=== PATIENT | male | born 1940 | race African-American/Black ===

== ENCOUNTER 2018-11-19 09:17 | Emergency (ER) | payer MEDICARE ==
[2018-11-19 09:49] VITALS: BP 190/104
[2018-11-19] MEDS ORDERED: TYLENOL PO ONE (10:36)
[2018-11-19] MEDS ORDERED: CATAPRES PO ONE (10:40)
--- NOTE | 2018-11-19 10:46 | Emergency Department Report ---
ED General Adult HPI - General Chief complaint: Shoulder Injury Stated complaint: PAIN LFT UNDERARM Time Seen by Provider: 11/19/18 10:31 Source: patient Mode of arrival: Ambulatory Limitations: Language Barrier - History of Present Illness Initial comments: Mr. Isaacs is a 78-year-old Citizen Of The [place] speaking male who presents with family member who provided Language interpretation according to patient's wishes. He presents with pain bruising at the left chest, arm shoulder. No history of fall or trauma. Takes aspirin but no other anticoagulants according to medication reviewed at the bedside. Gradual onset of pain several days ago. Mild pain with movement. No other associated injuries. Constant pain. -: Gradual, days(s) (2) Location: chest, left, upper extremity Consistency: constant Improves with: none Worsens with: movement Associated Symptoms: rash - Related Data Home Medications Medication Instructions Recorded Confirmed Last Taken Aspirin [Aspirin BABY CHEW TAB] 81 mg PO QDAY 05/07/14 05/07/14 05/06/14 Carvedilol [Coreg] 25 mg PO BID 05/07/14 05/07/14 05/06/14 amLODIPine [Norvasc] 5 mg PO DAILY 05/07/14 05/07/14 05/06/14 cloNIDine [Catapres] 0.1 mg PO BID 05/07/14 05/07/14 05/06/14 Previous Rx's Medication Instructions Recorded Last Taken Type Pseudoephedrine [Sudafed] 30 mg PO Q6HR PRN #15 tablet 05/07/14 Unknown Rx guaiFENesin 400 mg PO TID #15 tablet 05/07/14 Unknown Rx Allergies Allergy/AdvReac Type Severity Reaction Status Date / Time No Known Allergies Allergy Unverified 05/07/14 01:13 ED Review of Systems ROS: Stated complaint: PAIN LFT UNDERARM Other details as noted in HPI Comment: All other systems reviewed and negative Constitutional: denies: fever, malaise Skin: rash, lesions, change in color ED Past Medical Hx - Past Medical History Previous Medical History?: Yes Hx Hypertension: Yes Additional medical history: AAA - Surgical History Additional Surgical History: AAA repair - Social History Smoking Status: Never Smoker Substance Use Type: None - Medications Home Medications: Home Medications Medication Instructions Recorded Confirmed Last Taken Type Aspirin [Aspirin BABY CHEW TAB] 81 mg PO QDAY 05/07/14 05/07/14 05/06/14 History Carvedilol [Coreg] 25 mg PO BID 05/07/14 05/07/14 05/06/14 History Pseudoephedrine [Sudafed] 30 mg PO Q6HR PRN #15 tablet 05/07/14 Unknown Rx amLODIPine [Norvasc] 5 mg PO DAILY 05/07/14 05/07/14 05/06/14 History cloNIDine [Catapres] 0.1 mg PO BID 05/07/14 05/07/14 05/06/14 History guaiFENesin 400 mg PO TID #15 tablet 05/07/14 Unknown Rx ED Physical Exam - General Limitations: Language Barrier General appearance: alert, in no apparent distress - Head Head exam: Present: atraumatic, normocephalic - Eye Eye exam: Present: normal appearance - ENT ENT exam: Present: mucous membranes moist - Neck Neck exam: Present: normal inspection, full ROM - Respiratory Respiratory exam: Present: normal lung sounds bilaterally. Absent: respiratory distress, wheezes, rales, rhonchi - Cardiovascular Cardiovascular Exam: Present: regular rate, normal rhythm, normal heart sounds. Absent: systolic murmur, diastolic murmur, rubs, gallop - GI/Abdominal GI/Abdominal exam: Present: soft, normal bowel sounds. Absent: distended, guarding, rebound - Rectal Rectal exam: Present: normal inspection, normal rectal tone, heme (-) stool, other (Brown stool Hemoccult negative) - Extremities Exam Extremities exam: Present: normal inspection - Back Exam Back exam: Present: normal inspection - Neurological Exam Neurological exam: Present: alert, oriented X3 - Psychiatric Psychiatric exam: Present: normal affect, normal mood - Skin Skin exam: Present: warm, dry, intact. Absent: rash - Other Other exam information: Extensive bruising ecchymoses left mid axillary region chest into the lower flank, bruising in the medial region of the left arm. Full range of motion in both shoulders. There is a surgical scar overlying the right shoulder. No obvious deformity in any extremity. No point tenderness. ED Course Vital Signs 11/19/18 11/19/18 09:47 10:45 Temperature 97.7 F Pulse Rate 72 72 Respiratory 20 Rate Blood Pressure 190/104 190/104 O2 Sat by Pulse 100 Oximetry ED Medical Decision Making - Lab Data Result diagrams: 11/19/18 11:07 11/19/18 11:07 - Medical Decision Making Mr. Isaacs has extensive bruising of the left arm left flank. Concern for fall. Concern for trauma. Considering patient is elderly. CT head and chest were obtained. The bruising appeared old. Severe hypertension noted in the ED, patient was given his home dose of clonidine I reviewed labs notable for severe anemia which is changed from 2015. GFR slightly decreased with elevated BUN. INR elevated at 1.3. With these findings concerning for malignancy, chronic GI blood loss, trauma, anemia of chronic illness such as kidney disease. CKD has progressed since 2015. GFR 34. Patient appears well, energetic. He is walking briskly. Suspect subacute process which would account for these findings. He is appropriate for discharge. CT scan abdomen and pelvis chest revealed chronic aortic dissection would aortic aneurysm no signs of rupture. Benign renal cysts. 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 It appears that he had seen Dr. Kaur the past according to electronic medical record. Also referred to overnight babysitter. Critical care attestation.: If time is entered above; I have spent that time in minutes in the direct care of this critically ill patient, excluding procedure time. ED Disposition Clinical Impression: CKD (chronic kidney disease), Chronic dissection of thoracic aorta, Anemia, Bruising, Flank pain, Hypertensive urgency Disposition: -01 TO HOME OR SELFCARE Is pt being admited?: No Does the pt Need Aspirin: No Condition: Stable Additional Instructions: You will need to see your primary doctor, kidney doctor and stomach doctor. Referrals: SHERRY KAUR RN [Registered Nurse] - 3-5 Days ADRIANA CHAPARRO MD [Staff Physician] - 3-5 Days
[2018-11-19 11:15] LABS: Basophils % (Auto) 0.6 % (0.0-1.8); Eosinophils # (Auto) 0.3 K/mm3 (0.0-0.4); Eosinophils % (Auto) 4.1 % (0.0-4.3); Hematocrit 23.7 % (35.5-45.6); Hemoglobin 7.5 gm/dl (11.8-15.2); Lymphocytes # (Auto) 1.3 K/mm3 (1.2-5.4); Lymphocytes % (Auto) 20.2 % (13.4-35.0); Mean Corpuscular HGB Conc 32 % (32-34); Monocytes # (Auto) 0.6 K/mm3 (0.0-0.8); Monocytes % (Auto) 9.7 % (0.0-7.3); Platelet Count 163 K/mm3 (140-440); Red Blood Count 3.51 M/mm3 (3.65-5.03); Red Cell Distribution Width 17.7 % (13.2-15.2)
[2018-11-19 11:20] LABS: Mean Corpuscular Volume 68 fl (84-94)
[2018-11-19 11:25] LABS: INR 1.31 (0.87-1.13)
[2018-11-19 11:26] LABS: Partial Thromboplastin Time 35.4 Sec. (24.2-36.6)
[2018-11-19 11:38] LABS: Albumin 4.4 g/dL (3.9-5); Calcium 9.6 mg/dL (8.4-10.2)
--- NOTE | 2018-11-19 12:17 | Cat Scan Report ---
CT HEAD WITHOUT CONTRAST INDICATION : Fall, head injury. TECHNIQUE: Axial imaging performed from the skull apex through the skull base without the use of con trast. All CT scans at this location are performed using CT dose reduction for ALARA by means of aut omated exposure control. COMPARISON: None FINDINGS: Parenchyma: No acute intracranial hemorrhage or parenchymal abnormality. Mild diffuse cortical volum e loss is noted. Tiny chronic lacunar infarcts in both thalami measure up to 5 mm. No large chronic i nfarct. Ventricles: Ventricles are normal in size and appear symmetric. Bones: No acute osseous abnormality. Sinuses: Sinuses and mastoid air cells are clear. Soft tissues: Soft tissues including the orbits appear normal. IMPRESSION: No acute abnormality. Age appropriate volume loss. 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 Signer Name: Emory Alcantara Jr, MD Signed: 11/19/2018 12:13 PM Workstation Name: [id number]
--- NOTE | 2018-11-19 12:22 | Cat Scan Report ---
CT CHEST WITHOUT CONTRAST INDICATION / CLINICAL INFORMATION: Chest pain for 3 days. TECHNIQUE: Axial CT images were obtained through the chest without contrast. Sagittal and coronal reformatted im ages. All CT scans at this location are performed using CT dose reduction for ALARA by means of autom ated exposure control. COMPARISON: 07/18/2012 CTA chest FINDINGS: HEART: Mild cardiomegaly appears stable. Small pericardial effusion has resolved since the previous e xam. THORACIC AORTA: This is not a contrast exam although previously described thoracic aortic dissection appears relatively stable since 2013. Interval surgical changes in the ascending aorta are suspected. MEDIASTINUM and ADRIANNA: No significant abnormality. LUNGS: No acute air space or interstitial disease. PLEURA: No significant pleural effusion. No pneumothorax. SKELETAL SYSTEM: No displaced thoracic fracture is identified. The bones are mildly demineralized UPPER ABDOMEN: No significant abnormality. ADDITIONAL FINDINGS: Soft tissue edema or contusion is noted in the left shoulder region. IMPRESSION: No acute cardiopulmonary process. Thoracic aortic dissection which is grossly unchanged 2012. No thoracic fracture is visualized. Left chest wall contusion is suspected. Signer Name: Emory Alcantara Jr, MD Signed: 11/19/2018 12:18 PM Workstation Name: [id number]
--- NOTE | 2018-11-19 13:20 | XRay Report ---
Left humerus 2 views Indication: Pain. Findings: No fracture or dislocation. An oval mixed density lesion of the proximal humeral metaphysis has a scl erotic margin. No other bone lesions. Normal soft tissues. Normal alignment at the shoulder and elbow . IMPRESSION: No acute finding. A probably benign lesion of the proximal humerus. Recommend nuclear med icine bone scan. Signer Name: Jose Bardales MD Signed: 11/19/2018 1:16 PM Workstation Name: [id number]
--- NOTE | 2018-11-19 13:34 | Cat Scan Report ---
CT ABDOMEN AND PELVIS WITHOUT CONTRAST HISTORY: anemia possible fall COMPARISON: None TECHNIQUE: Images of the abdomen and pelvis were obtained without IV contrast. Oral contrast was not given. This exam is limited without IV contrast and is tailored for evaluation of renal calculi. Renal aria s and other sources of hematuria and abdominal pain may not be visible on this exam. CONTRAST: None. FINDINGS: CT ABDOMEN: Lung Bases: Clear lungs. A 5 cm thoracoabdominal aneurysm with chronic dissection extending to the ri ght common iliac artery. Liver: Small with no mass. Biliary: No significant abnormality. Normal gallbladder and bile ducts. Spleen: No significant abnormality. Unenlarged. Pancreas: No significant abnormality. Adrenals: No significant abnormality. Right Kidney: Small benign cysts. The largest is in the midportion of the kidney and measures 2 cm. A 4 mm upper pole exophytic hyperdense cyst. No hydronephrosis. Left Kidney: Small benign cysts. A couple of tiny hyperdense exophytic cysts. No hydronephrosis. Lymphatics: No lymphadenopathy. Vasculature: Chronic aortic dissection. The infra renal aorta measures 2.9 cm in diameter. An infrare nal abdominal aortic aneurysm measures 4 cm diameter and begins at the origin of the iliac arteries. Bowel/Peritoneum: No significant abnormality. No free air. No free fluid. Appendix not visualized. No pericecal inflammation. CT PELVIS: : Urinary bladder is distended with no mass or calculus. No bladder wall thickening. Normal seminal vesicles and prostate. GI: Normal sigmoid colon. Nonspecific circumferential wall thickening at the anus. It measures 12 mm in maximum thickness. Osseous Structures: No significant abnormality. Additional Findings: None IMPRESSION: 1. 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 2. Benign renal cysts. 3. Nonspecific anal wall thickening. Signer Name: Jose Bardales MD Signed: 11/19/2018 1:30 PM Workstation Name: [id number]
== END 2018-11-19 13:50 | disposition home or self-care (01) ==
LOC: ED 09:17
DX: S40.022A Contusion of left upper arm, initial encounter (principal); S30.1XXA Contusion of abdominal wall, initial encounter; I71.01 Dissection of thoracic aorta; I16.0 Hypertensive urgency; I12.9 Hypertensive chronic kidney disease with stage 1 through stage 4 chronic kidney disease, or unspecified chronic kidney disease; N18.9 Chronic kidney disease, unspecified; D64.9 Anemia, unspecified; Z79.82 Long term (current) use of aspirin; Z79.899 Other long term (current) drug therapy; X58.XXXA Exposure to other specified factors, initial encounter; Y93.89 Activity, other specified; Y92.89 Other specified places as the place of occurrence of the external cause; Y99.8 Other external cause status
CPT/HCPCS: 36415; 70450; 71250; 74176; 80053; 85025; 85610; 85730; 99284

== ENCOUNTER 2020-10-28 22:06 | Inpatient (IN) | payer MEDICARE ==
--- NOTE | 2020-10-28 23:12 | Emergency Department Report ---
ED Abdominal Pain HPI - General Chief Complaint: Abdominal Pain Stated Complaint: STOMACH PAIN/DARK STOOL/NO APPETITE Time Seen by Provider: 10/28/20 22:52 Source: patient, family Mode of arrival: Ambulatory Limitations: Language Barrier - History of Present Illness Initial Comments: Chief complaint: Abdominal pain, dark stools, nausea, decreased appetite x2 weeks. HPI: This is an 80-year-old male with history of diabetes mellitus, hypertension, aortic dissection status post surgical repair Granddaughter at the bedside provided language interpretation. Patient has had persistent abdominal pain. He also has had significant weight loss. He denies hematemesis. Dark stools. Poor appetite. Last colonoscopy was over 15 years ago when he lived in [place]. Patient is followed by [facility]. Has been followed by [facility] since diagnosed with aortic disease. PCP Dr. Michael Mcgregor. Patient takes aspirin daily MD Complaint: abdominal pain -: Gradual, week(s) (2 weeks) Location: diffuse Radiation: none Severity: moderate Severity scale (0 -10): 7 Quality: cramping, aching, fullness Consistency: constant Improves With: nothing Worsens With: nothing Associated Symptoms: nausea, anorexia, other (Dark stools poor appetite weight loss) - Related Data Home Medications Medication Instructions Recorded Confirmed Last Taken Amlodipine Besylate [Norvasc] 10 mg PO QDAY 10/28/20 10/28/20 Unknown Aspirin EC [Halfprin EC] 81 mg PO QDAY 10/28/20 10/28/20 Unknown Atorvastatin Calcium [Lipitor] 80 mg PO QDAY 10/28/20 10/28/20 Unknown Lisinopril [Zestril] 10 mg PO QDAY 10/28/20 10/28/20 Unknown Allergies Allergy/AdvReac Type Severity Reaction Status Date / Time No Known Allergies Allergy Unverified 05/07/14 01:13 ED Review of Systems ROS: Stated complaint: STOMACH PAIN/DARK STOOL/NO APPETITE Other details as noted in HPI Comment: All other systems reviewed and negative Constitutional: malaise. denies: chills, fever Respiratory: denies: cough, shortness of breath Gastrointestinal: abdominal pain, nausea, other (Dark stools). denies: vomiting, diarrhea, constipation Skin: denies: rash, lesions ED Past Medical Hx - Past Medical History Previous Medical History?: Yes Hx Hypertension: Yes Hx Diabetes: Yes Additional medical history: Aortic dissection - Surgical History Past Surgical History?: Yes Additional Surgical History: Aortic dissection repair - Family History Family history: other (Family history noncontributory at this time) - Social History Smoking Status: Former Smoker Substance Use Type: None - Medications Home Medications: Home Medications Medication Instructions Recorded Confirmed Last Taken Type Amlodipine Besylate [Norvasc] 10 mg PO QDAY 10/28/20 10/28/20 Unknown History Aspirin EC [Halfprin EC] 81 mg PO QDAY 10/28/20 10/28/20 Unknown History Atorvastatin Calcium [Lipitor] 80 mg PO QDAY 10/28/20 10/28/20 Unknown History Lisinopril [Zestril] 10 mg PO QDAY 10/28/20 10/28/20 Unknown History ED Physical Exam - General Limitations: Language Barrier General appearance: alert, in no apparent distress, other (very baggy clothing nontoxic but appears frail chronically ill) - Head Head exam: Present: atraumatic, normocephalic - Eye Eye exam: Present: normal appearance - ENT ENT exam: Present: mucous membranes moist - Neck Neck exam: Present: normal inspection, full ROM - Respiratory Respiratory exam: Present: normal lung sounds bilaterally. Absent: respiratory distress, wheezes, rales, rhonchi - Cardiovascular Cardiovascular Exam: Present: normal rhythm, tachycardia, normal heart sounds. Absent: systolic murmur, diastolic murmur, rubs, gallop - GI/Abdominal GI/Abdominal exam: Present: soft, normal bowel sounds. Absent: distended, tenderness, guarding, rebound - Rectal Rectal exam: Present: normal rectal tone, heme (-) stool, other (Brown stool Hemoccult negative no gross blood) - Extremities Exam Extremities exam: Present: normal inspection - Neurological Exam Neurological exam: Present: alert, oriented X3 - Psychiatric Psychiatric exam: Present: normal affect, normal mood - Skin Skin exam: Present: warm, dry, intact, normal color. Absent: rash ED Course Vital Signs 10/28/20 10/28/20 10/28/20 22:22 23:22 23:23 Temperature 97.7 F Pulse Rate 109 H 103 H Pulse Rate [ Bilateral] Respiratory 16 40 H Rate Respiratory Rate [Bilateral ] Blood Pressure 198/137 Blood Pressure 215/147 [Left] O2 Sat by Pulse 96 95 93 Oximetry 10/28/20 10/28/20 10/29/20 23:30 23:45 00:11 Temperature Pulse Rate 104 H 103 H 74 Pulse Rate [ Bilateral] Respiratory 32 H 31 H Rate Respiratory Rate [Bilateral ] Blood Pressure 215/147 207/143 Blood Pressure [Left] O2 Sat by Pulse 98 97 Oximetry 10/29/20 10/29/20 10/29/20 00:31 01:31 02:01 Temperature Pulse Rate 77 80 88 Pulse Rate [ Bilateral] Respiratory 31 H 32 H 32 H Rate Respiratory Rate [Bilateral ] Blood Pressure 172/118 160/115 169/121 Blood Pressure [Left] O2 Sat by Pulse 99 99 100 Oximetry 10/29/20 10/29/20 10/29/20 02:31 02:36 02:38 Temperature Pulse Rate 84 Pulse Rate [ 86 Bilateral] Respiratory 29 H Rate Respiratory 26 H Rate [Bilateral ] Blood Pressure 166/124 Blood Pressure [Left] O2 Sat by Pulse 100 100 Oximetry 10/29/20 10/29/20 10/29/20 03:31 03:41 03:57 Temperature Pulse Rate 85 86 91 H Pulse Rate [ Bilateral] Respiratory 29 H 25 H 37 H Rate Respiratory Rate [Bilateral ] Blood Pressure 188/125 181/123 Blood Pressure [Left] O2 Sat by Pulse 99 99 96 Oximetry ED Medical Decision Making - Lab Data Result diagrams: 10/29/20 08:23 10/29/20 08:23 - Radiology Data Radiology results: [place] [address] Cat Scan Report Signed with Scott Patient: NINI WALKER MR#: [id number] : 1940 Acct:[id number] Age/Sex: 80 / M ADM Date: 10/28/20 Loc: ED Attending Dr: Ordering Physician: Harper King MD Date of Service: 10/29/20 Procedure(s): CT abdomen pelvis wo con Accession Number(s): [id number] cc: Harper King MD ADDENDUM Addendum: Impression should also include "findings of CHF and pulmonary edema with moderate right and trace left pleural effusions." Signer Name: Paul Grady MD Signed: 10/29/2020 2:29 AM Workstation Name: [id number] Addendum Transcribed By: JENNY Addendum Dictated By: PAUL GRADY MD Addendum Electronically Authenticated By: PAUL GRADY MD Addendum Signed Date/Time: 10/29/20228 DD/ /11/228 TD/TT: / CT ABDOMEN AND PELVIS WITHOUT CONTRAST INDICATION / CLINICAL INFORMATION: Abdominal pain dark stools cachexia poor appetite. TECHNIQUE: Axial CT images were obtained through the abdomen and pelvis without IV contrast. All CT scans at this location are performed using CT dose reduction for ALARA by means of automated exposure control. COMPARISON: CT from 11/19/2018. FINDINGS: Cardiomegaly with interlobular septal thickening in the lung bases, likely reflecting edema. Moderate right and trace left pleural effusions. 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 Liver, gallbladder, pancreas, spleen, and adrenals demonstrate no acute ab normality. There are bilateral renal cysts. Mild bilateral renal atrophy. No hydronephrosis. Bladder is decompressed with though grossly unremarkable. No evidence of bowel obstruction or inflammation. No free fluid or adenopathy. No acute osseous findings. IMPRESSION: 1. Similar findings of chronic aortic dissection and prominent aneurysmal dilatation of the thoracic and abdominal aorta. No evidence of rupture. 2. No acute abnormality of the abdomen or pelvis. No bowel obstruction or inflammation. 3. Other stable chronic and incidental findings as above. Signer Name: Paul Grady MD Signed: 10/29/2020 1:29 AM Workstation Name: [id number] Transcribed By: JENNY Dictated By: PAUL GRADY MD Electronically Authenticated By: PAUL GRADY MD Signed Date/Time: 10/29/20128 DD/ 1 TD/TT: -- [Addendum Report Added by PAUL GRADY at 2020-10-29 02:35:26] [facility] [address] [place] [address] Cat Scan Report Signed Patient: NINI WALKER MR#: [id number] : 1940 Acct:[id number] Age/Sex: 80 / M ADM Date: 10/28/20 Loc: ED Attending Dr: Ordering Physician: Harper King MD Date of Service: 10/29/20 Procedure(s): CT abdomen pelvis wo con Accession Number(s): [id number] cc: Harper King MD CT ABDOMEN AND PELVIS WITHOUT CONTRAST INDICATION / CLINICAL INFORMATION: Abdominal pain dark stools cachexia poor appetite. TECHNIQUE: Axial CT images were obtained through the abdomen and pelvis without IV contrast. All CT scans at this location are performed using CT dose reduction for ALARA by means of automated exposure control. COMPARISON: CT from 11/19/2018. FINDINGS: Cardiomegaly with interlobular septal thickening in the lung bases, likely reflecting edema. Moderate right and trace left pleural effusions. 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 Liver, gallbladder, pancreas, spleen, and adrenals demonstrate no acute abnormality. There are bilateral renal cysts. Mild bilateral renal atrophy. No hydronephrosis. Bladder is decompressed with though grossly unremarkable. No evidence of bowel obstruction or inflammation. No free fluid or adenopathy. No acute osseous findings. IMPRESSION: 1. Similar findings of chronic aortic dissection and prominent aneurysmal dilatation of the thoracic and abdominal aorta. No evidence of rupture. 2. No acute abnormality of the abdomen or pelvis. No bowel obstruction or inflammation. 3. Other stable chronic and incidental findings as above. Signer Name: Paul Grady MD Signed: 10/29/2020 1:29 AM Workstation Name: [id number] Transcribed By: JS Dictated By: PAUL GRADY MD Electronically Authenticated By: PAUL GRADY MD Signed Date/Time: 10/29/20128 DD/ 1 TD/TT: - Medical Decision Making 1. Acute kidney injury: Patient has history of chronic kidney disease, unclear if due to hypertension or vasomotor nephropathy due to poor p.o. intake. No evidence of GUobstruction on CT scan. Hyperkalemia and metabolic acidosis addressed with calcium gluconate, sodium bicarbonate insulin with dextrose. 2. Severe anemia previous hemoglobin 12.4, hemoglobin today 7.5., possible anemia of chronic disease with progressive kidney disease. Patient had normal hemoglobin hematocrit with microcytosis in 2014. Patient has not seen a PCP in over a year prior to pandemic. Patient did report dark stools. He does take aspirin. Possibly subacute upper GI bleed. 3. Hypertensive urgency treated with IV labetalol initially. 4. Abdominal pain: Differential diagnosis includes peptic ulcer disease, bowel obstruction, malignancy, biliary disease, Patient is admitted to the hospital service in fair condition telemetry floor [facility] [address] [place] [address] Cat Scan Report Signed with Addenda Patient: NINI WALKER MR#: [id number] : 1940 Acct:[id number] Age/Sex: 80 / M ADM Date: 10/28/20 Loc: ED Attending Dr: Ordering Physician: Harper King MD Date of Service: 10/29/20 Procedure(s): CT abdomen pelvis wo con Accession Number(s): [id number] cc: Harper King MD ADDENDUM Addendum: Impression should also include "findings of CHF and pulmonary edema with moderate right and trace left pleural effusions." Signer Name: Paul Grady MD Signed: 10/29/2020 2:29 AM Workstation Name: [id number] Addendum Transcribed By: JENNY Addendum Dictated By: PAUL GRADY MD Addendum Electronically Authenticated By: PAUL GRADY MD Addendum Signed Date/Time: 10/29/20228 DD/ /11/228 TD/TT: / CT ABDOMEN AND PELVIS WITHOUT CONTRAST INDICATION / CLINICAL INFORMATION: Abdominal pain dark stools cachexia poor appetite. TECHNIQUE: Axial CT images were obtained through the abdomen and pelvis without IV contrast. All CT scans at this location are performed using CT dose reduction for [facility] by means of automated exposure control. COMPARISON: CT from 11/19/2018. FINDINGS: Cardiomegaly with interlobular septal thickening in the lung bases, likely reflecting edema. Moderate right and trace left pleural effusions. 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 Liver, gallbladder, pancreas, spleen, and adrenals demonstrate no acute abnormality. There are bilateral renal cysts. Mild bilateral renal atrophy. No hydronephrosis. Bladder is decompressed with though grossly unremarkable. No evidence of bowel obstruction or inflammation. No free fluid or adenopathy. No acute osseous findings. IMPRESSION: 1. Similar findings of chronic aortic dissection and prominent aneurysmal dilatation of the thoracic and abdominal aorta. No evidence of rupture. 2. No acute abnormality of the abdomen or pelvis. No bowel obstruction or inflammation. 3. Other stable chronic and incidental findings as above. Signer Name: Paul Grady MD Signed: 10/29/2020 1:29 AM Workstation Name: [id number] Transcribed By: JS Dictated By: PAUL GRADY MD Electronically Authenticated By: PAUL GRADY MD Signed Date/Time: 10/29/20128 DD/ 1 TD/TT: -- [Addendum Report Added by PAUL GRADY at 2020-10-29 02:35:26] [place] [address] Cat Scan Report Signed Patient: NINI WALKER MR#: [id number] : 1940 Acct:[id number] Age/Sex: 80 / M ADM Date: 10/28/20 Loc: ED Attending Dr: Ordering Physician: Harper King MD Date of Service: 10/29/20 Procedure(s): CT abdomen pelvis wo con Accession Number(s): [id number] cc: Harper King MD CT ABDOMEN AND PELVIS WITHOUT CONTRAST INDICATION / CLINICAL INFORMATION: Abdominal pain dark stools cachexia poor appetite. TECHNIQUE: Axial CT images were obtained through the abdomen and pelvis without IV contrast. All CT scans at this location are performed using CT dose reduction for ALARA by means of automated exposure control. COMPARISON: CT from 11/19/2018. FINDINGS: Cardiomegaly with interlobular septal thickening in the lung bases, likely reflecting edema. Moderate right and trace left pleural effusions. 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 Liver, gallbladder, pancreas, spleen, and adrenals demonstrate no acute abnormality. There are bilateral renal cysts. Mild bilateral renal atrophy. No hydronephrosis. Bladder is decompressed with though grossly unremarkable. No evidence of bowel obstruction or inflammation. No free fluid or adenopathy. No acute osseous findings. IMPRESSION: 1. Similar findings of chronic aortic dissection and prominent aneurysmal dilatation of the thoracic and abdominal aorta. No evidence of rupture. 2. No acute abnormality of the abdomen or pelvis. No bowel obstruction or inflammation. 3. Other stable chronic and incidental findings as above. Signer Name: Paul Grady MD Signed: 10/29/2020 1:29 AM Workstation Name: [id number] Transcribed By: JS Dictated By: PAUL GRADY MD Electronically Authenticated By: PAUL GRADY MD Signed Date/Time: 10/29/20128 DD/ 1 TD/TT: Critical care attestation.: If time is entered above; I have spent that time in minutes in the direct care of this critically ill patient, excluding procedure time. ED Disposition Clinical Impression: Acute kidney injury superimposed on chronic kidney disease, Hypertensive urgency, Anemia Disposition: OP ADMIT IP TO THIS HOSP Is pt being admited?: Yes Does the pt Need Aspirin: No Condition: Stable
[2020-10-28 23:51] LABS: Hematocrit 26.1 % (35.5-45.6); Hemoglobin 8.5 gm/dl (11.8-15.2); Mean Corpuscular HGB Conc 33 % (32-34); Red Blood Count 4.01 M/mm3 (3.65-5.03); Red Cell Distribution Width 18.4 % (13.2-15.2)
[2020-10-29 00:10] LABS: Albumin 3.8 g/dL (3.9-5); Calcium 8.7 mg/dL (8.4-10.2)
[2020-10-29] MEDS ORDERED: SODIUM CHLORIDE 0.9% 1000 ML 1,000 ML IV ONE (00:15)
[2020-10-29 00:17] LABS: Bilirubin,Urine NEG (Negative); Blood,Urine MOD (Negative); Color,Urine Yellow (Yellow); Mucus,Urine FEW /HPF; Urobilinogen,Urine < 2.0 mg/dL (<2.0)
[2020-10-29 00:19] LABS: Protein,Urine >500 mg/dL (Negative)
[2020-10-29 00:19] LABS: Mean Corpuscular Volume 65 fl (84-94)
[2020-10-29] MEDS ORDERED: SODIUM BICARB 8.4% 50 MEQ/50 ML SYRINGE IV ONE (00:21)
[2020-10-29] MEDS ORDERED: INSULIN REGULAR, HUMAN 100 UNITS/1 ML IV ONE ×2 (00:21→13:00)
[2020-10-29] MEDS ORDERED: DEXTROSE 50% IN WATER (25GM) 50 ML SYRINGE IV ONE ×2 (00:21→13:00)
[2020-10-29] MEDS ORDERED: CALCIUM GLUCONATE 1,000 MG in SODIUM CHLORIDE 0.9% 100 ML IV ONE ×4 (00:43→13:00)
--- NOTE | 2020-10-29 01:33 | Cat Scan Report ---
CT ABDOMEN AND PELVIS WITHOUT CONTRAST INDICATION / CLINICAL INFORMATION: Abdominal pain dark stools cachexia poor appetite. TECHNIQUE: Axial CT images were obtained through the abdomen and pelvis without IV contrast. All CT scans at this location are performed using CT dose reduction for ALARA by means of automated exposure control. COMPARISON: CT from 11/19/2018. FINDINGS: Cardiomegaly with interlobular septal thickening in the lung bases, likely reflecting edema. Moderate right and trace left pleural effusions. 5 cm thoracoabdominal aneurysm with chronic dissection exten ding to the right iliac artery, unchanged in appearance from CT from 2019. Liver, gallbladder, pancreas, spleen, and adrenals demonstrate no acute abnormality. There are bilate ral renal cysts. Mild bilateral renal atrophy. No hydronephrosis. Bladder is decompressed with though grossly unremarkable. No evidence of bowel obstruction or inflammation. No free fluid or adenopathy. No acute osseous findi ngs. IMPRESSION: 1. Similar findings of chronic aortic dissection and prominent aneurysmal dilatation of the thoracic and abdominal aorta. No evidence of rupture. 2. No acute abnormality of the abdomen or pelvis. No bowel obstruction or inflammation. 3. Other stable chronic and incidental findings as above. Signer Name: Napoleon Grady MD Signed: 10/29/2020 1:29 AM Workstation Name: [id number]
[2020-10-29 01:51] LABS: Platelet Count 151 K/mm3 (140-440)
[2020-10-29 01:57] LABS: Anisocytosis 1+; Band Neutrophils # (Manual) 0.1 K/mm3; Total Cells Counted 100
[2020-10-29 01:58] LABS: Platelet Estimate Consistent w Auto
--- NOTE | 2020-10-29 02:08 | History and Physical Report ---
History of Present Illness Date of examination: 10/29/20 Date of admission: 10/29/2020 Chief complaint: Abdominal pain Dark stool Cough Generalized weakness History of present illness: 80-year-old [place] male with known history of hypertension and diabetes mellitus, history of thoracic aortic dissection repair presents to the emergency room today complaining of nausea, decreased appetite, abdominal pain and dark stool which has been ongoing for the past 2 weeks. Most of the history was gotten from the granddaughter who was by the bedside because of the language barrier. Abdominal pain is said to have been persistent over the past few weeks. Patient also reports significant weight loss. He denies any hematemesis, no hematuria or dysuria, denies any constipation. Patient denies any nonsteroidal anti-inflammatory medication use apart from aspirin. Patient's last colonoscopy was over 15 years ago while living in [place]. Work-up in the emergency room today, significant findings were that of hemoglobin of 8.5 and hematocrit of 26.1, potassium was elevated at 5.9, BUN and creatinine were elevated at 72 and 6.8, AST and ALT elevated at 517 and 448 r espectively. Total bilirubin was 1.50 CT of the abdomen and pelvis reveals cardiomegaly with interlobular septal thickening in the lung bases likely reflecting edema. Moderate right and trace left pleural effusions. 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 Patient is being admitted with acute on chronic renal failure, hyperkalemia, abnormal liver enzymes, anemia possible GI bleed. Past History Past Medical History: diabetes, hypertension, hyperlipidemia Past Surgical History: Other (Aortic dissection repair, colonoscopy over 15 years ago) Social history: smoking (Former smoker) Family history: no significant family history Medications and Allergies Allergies Allergy/AdvReac Type Severity Reaction Status Date / Time No Known Allergies Allergy Unverified 05/07/14 01:13 Home Medications Medication Instructions Recorded Confirmed Last Taken Type Amlodipine Besylate [Norvasc] 10 mg PO QDAY 10/28/20 10/28/20 Unknown History Aspirin EC [Halfprin EC] 81 mg PO QDAY 10/28/20 10/28/20 Unknown History Atorvastatin Calcium [Lipitor] 80 mg PO QDAY 10/28/20 10/28/20 Unknown History Lisinopril [Zestril] 10 mg PO QDAY 10/28/20 10/28/20 Unknown History Review of Systems Constitutional: no fever, no chills Ears, nose, mouth and throat: no nasal congestion, no sore throat Cardiovascular: no chest pain, no palpitations Respiratory: cough, shortness of breath, no cough with sputum Gastrointestinal: abdominal pain, loss of appetite, other (Dark stool), no nausea, no vomiting, no diarrhea Genitourinary Male: no dysuria, no hematuria, no flank pain Musculoskeletal: no neck pain, no low back pain Integumentary: no rash, no pruritis Neurological: no headaches, no confusion Psychiatric: no anxiety, no depression Endocrine: no polyphagia, no polydipsia, no polyuria, no nocturia Exam - Constitutional Vitals: Temp Pulse Resp BP Pulse Ox 97.7 F 80 32 H 160/115 99 10/28/20 22:22 10/29/20 01:31 10/29/20 01:31 10/29/20 01:31 10/29/20 01:31 General appearance: Present: mild distress, well-nourished, other (Moderate pallor) - EENT Eyes: Present: PERRL, EOM intact. Absent: scleral icterus ENT: hearing intact, clear oral mucosa, dentition normal - Neck Neck: Present: supple, normal ROM - Respiratory Respiratory effort: normal Respiratory: bilateral: rales, wheezing (Few scattered wheezes bilaterally) - Cardiovascular Rhythm: regular Heart Sounds: Present: S1 & S2. Absent: gallop, systolic murmur, diastolic murmur, rub, click - Extremities Extremities: no ischemia, pulses intact, pulses symmetrical, No edema, normal temperature Peripheral Pulses: within normal limits - Abdominal General gastrointestinal: Present: soft, tender (Mild epigastric tenderness, no rebound tenderness, no guarding), non-distended, normal bowel sounds. Absent: mass - Integumentary Integumentary: Present: clear, warm, dry. Absent: rash - Musculoskeletal Musculoskeletal: strength equal bilaterally - Psychiatric Psychiatric: appropriate mood/affect, intact judgment & insight, memory intact, cooperative - Neurologic Neurologic: CNII-XII intact, no focal deficits, moves all extremities Results - Labs CBC & Chem 7: 10/28/20 22:43 10/28/20 22:43 Labs: Abnormal lab results 10/28/20 10/28/20 Range/Units 22:43 22:43 Hgb 8.5 L (11.8-15.2) gm/dl Hct 26.1 L (35.5-45.6) % MCV 65 L (84-94) fl MCH 21 L (28-32) pg RDW 18.4 H (13.2-15.2) % Seg Neuts % (Manual) 80.0 H (40.0-70.0) % Lymphocytes % (Manual) 13.0 L (13.4-35.0) % Lymphocytes # (Manual) 0.9 L (1.2-5.4) K/mm3 Potassium 5.9 H (3.6-5.0) mmol/L Carbon Dioxide 14 L (22-30) mmol/L BUN 72 H (9-20) mg/dL Creatinine 6.8 H (0.8-1.3) mg/dL Glucose 152 H (75-100) mg/dL Total Bilirubin 1.50 H (0.1-1.2) mg/dL AST 517 H (5-40) units/L ALT 448 H (7-56) units/L Albumin 3.8 L (3.9-5) g/dL Assessment and Plan - Patient Problems (1) Anemia Current Visit: Yes Status: Acute Plan to address problem: Possibly from GI bleed. We will monitor CBC. Stool Hemoccult done in the ER was negative Consult placed to gastroenterology for evaluation and recommendation. Meanwhile patient will be placed on proton pump inhibitor. (2) Acute kidney injury superimposed on chronic kidney disease Current Visit: Yes Status: Acute Plan to address problem: Patient has known history of for chronic kidney disease. However, baseline creatinine has been about 1.7. We will place consult to nephrology for evaluation and recommendation. We will continue to monitor BUN and creatinine. (3) Hyperkalemia Current Visit: Yes Status: Acute Plan to address problem: Patient is received insulin and glucose, calcium gluconate sodium bicarb while in the emergency room We will monitor potassium levels and also monitor EKG. (4) Elevated liver enzymes Current Visit: Yes Status: Acute Plan to address problem: Etiology unclear. CT of the abdomen and pelvis did not reveal any acute abnormality. Consult placed to gastroenterology for evaluation and recommendation. Will monitor liver enzymes. (5) GI bleed Current Visit: Yes Status: Acute Plan to address problem: We will check stool Hemoccult We await further evaluation by gastroenterology. Last colonoscopy was over 15 years ago. (6) Hypertensive urgency Current Visit: Yes Status: Acute Plan to address problem: We will resume routine home medications and monitor vital signs closely. (7) Pulmonary edema Current Visit: Yes Status: Acute Plan to address problem: Pulmonary edema shown on CT scan of the abdomen and pelvis. Patient had a dose of IV Lasix. Will check echocardiogram. We will place a consult to cardiology for evaluation. (8) DVT prophylaxis Current Visit: Yes Status: Acute Plan to address problem: Patient placed on sequential compression device. (9) Full code status Current Visit: Yes Status: Acute Plan to address problem: Patient is full code.
[2020-10-29] MEDS ORDERED: DEXTROSE 50% IN WATER (25GM) 50 ML SYRINGE IV PRN (02:17)
[2020-10-29] MEDS ORDERED: MORPHINE 4 MG/1 ML INJ IV PRN (02:17)
[2020-10-29] MEDS ORDERED: MORPHINE 2 MG/1 ML INJ IV PRN (02:17)
[2020-10-29] MEDS ORDERED: ACETAMINOPHEN 325 MG TAB PO PRN (02:17)
[2020-10-29] MEDS ORDERED: MAGNESIUM HYDROXIDE (MOM) ORAL LIQD UDC PO PRN (02:17)
[2020-10-29] MEDS ORDERED: ONDANSETRON 4 MG/2 ML INJ IV PRN (02:17)
[2020-10-29] MEDS ORDERED: IPRATROPIUM 0.02% NEBU 2.5 ML IH ONE ×2 (02:26→02:35)
[2020-10-29] MEDS ORDERED: ALBUTEROL 2.5 MG/3 ML NEBU IH ONE ×2 (02:26→02:35)
--- NOTE | 2020-10-29 02:32 | XRay Report ---
XR chest 1V ap INDICATION / CLINICAL INFORMATION: SOB. COMPARISON: 05/07/2014 FINDINGS: SUPPORT DEVICES: None. HEART /PULMONARY VASCULATURE: Cardiomegaly with pulmonary vasculature congestion. Tortuous and aneury smal thoracic aorta noted. LUNGS / PLEURA: Layering bilateral pleural effusions are better seen on concurrent CT. Patchy bibasil ar airspace opacities likely reflect atelectasis. No pneumothorax. ADDITIONAL FINDINGS: No significant additional findings. IMPRESSION: CHF/volume overload with bilateral pleural effusions and adjacent volume loss. Signer Name: Napoleon Grady MD Signed: 10/29/2020 2:27 AM Workstation Name: [id number]
[2020-10-29] MEDS ORDERED: FUROSEMIDE 40 MG/4 ML INJ IV ONE (02:39)
[2020-10-29] MEDS ORDERED: hydrALAZINE 20 MG/1 ML INJ IV PRN (06:13)
[2020-10-29 06:32] LABS: Albumin 3.8 g/dL (3.9-5); Calcium 9.2 mg/dL (8.4-10.2)
[2020-10-29] MEDS ORDERED: ALBUTEROL 2.5 MG/3 ML NEBU IH SCH (08:00)
[2020-10-29] MEDS: IPRATROPIUM/ALBUTEROL SULFATE 3 ML AMPUL.NEB IH SCH ×3 (08:11→19:07)
[2020-10-29 08:20] LABS: Hepatitis B Surface Antigen Non-Reactive (Negative); Hepatitis C Virus Antibody Non-Reactive (NonReactive)
[2020-10-29 09:06] LABS: Calcium 8.6 mg/dL (8.4-10.2)
[2020-10-29 09:09] LABS: Hematocrit 24.9 % (35.5-45.6); Hemoglobin 7.8 gm/dl (11.8-15.2); Mean Corpuscular HGB Conc 32 % (32-34)
[2020-10-29] MEDS: INSULIN REGULAR, HUMAN 100 UNITS/1 ML SUB-Q SCH ×4 (09:10→22:38)
[2020-10-29 09:49] LABS: Mean Corpuscular Volume 66 fl (84-94); Platelet Count 98 K/mm3 (140-440)
--- NOTE | 2020-10-29 10:09 | Gastroenterology Consultation ---
History of Present Illness - Reason for Consult Consult date: 10/29/20 Anemia, Abnormal LFTs Requesting physician: GENEVIEVE DIAZ - History of Present Illness The patient was brought to the ER by his family for weakness and weight loss. He was found to have signficant CHF, MODE, abnormal LFTs, and anemia on admit. He had dark stools at home, x 2 weeks, per the granddaughter, but in the ICU has had no melena or hematochezia. He had a colonoscopy 15 years ago but she does not recall a prior upper endoscopy, nor a hx of PUD. He has been complaining of diffuse abdominal pain with weight loss/loss of appetite for about a month. He has not had any vomiting, but refuses to eat most food at home. She denies excess NSAIDs use. As regards the liver, there is no hx of abnormal liver disease, and a CT (noncontrast) was negative. He is not a drinker, and there was no sign of ESLD on the CT. Of note, she thinks he may have started atorvastatin in the last 6 months. There are no other new medication. The abdominal pain is not focal to the RUQ. Past History Past Medical History: diabetes, hypertension, hyperlipidemia Past Surgical History: Other (Aortic dissection repair, colonoscopy over 15 years ago) Social history: smoking (Former smoker). denies: alcohol abuse Family history: no significant family history Medications and Allergies Allergies Allergy/AdvReac Type Severity Reaction Status Date / Time No Known Allergies Allergy Unverified 05/07/14 01:13 Home Medications Medication Instructions Recorded Confirmed Last Taken Type Amlodipine Besylate [Norvasc] 10 mg PO QDAY 10/28/20 10/28/20 Unknown History Aspirin EC [Halfprin EC] 81 mg PO QDAY 10/28/20 10/28/20 Unknown History Atorvastatin Calcium [Lipitor] 80 mg PO QDAY 10/28/20 10/28/20 Unknown History Lisinopril [Zestril] 10 mg PO QDAY 10/28/20 10/28/20 Unknown History Active Meds: Active Medications Acetaminophen (Acetaminophen 325 Mg Tab) 650 mg PO Q6H PRN PRN Reason: Pain MILD(1-3)/Fever >100.5/SCHMITT Albuterol/Ipratropium (Ipratropium/Albuterol Sulfate 3 Ml Ampul.Neb) 1 ampul IH Q6HRT [facility] Last Admin: 10/29/20 08:11 Dose: 1 ampul Documented by: Dextrose (Dextrose 50% In Water (25gm) 50 Ml Syringe) 0 ml IV Q30MIN PRN; Protocol PRN Reason: Hypoglycemia Hydralazine HCl (Hydralazine 20 Mg/1 Ml Inj) 10 mg IV Q4H PRN PRN Reason: Blood Pressure Insulin Human Regular (Insulin Regular, Human 100 Units/1 Ml) 0 units SUB-Q ACHS [facility]; Protocol Last Admin: 10/29/20 09:10 Dose: Not Given Documented by: Magnesium Hydroxide (Magnesium Hydroxide (Mom) Oral Liqd Udc) 30 ml PO Q4H PRN PRN Reason: Constipation Morphine Sulfate (Morphine 2 Mg/1 Ml Inj) 2 mg IV Q4H PRN PRN Reason: Pain, Moderate (4-6) Last Admin: 10/29/20 04:54 Dose: 2 mg Documented by: Morphine Sulfate (Morphine 4 Mg/1 Ml Inj) 4 mg IV Q4H PRN PRN Reason: Pain , Severe (7-10) Ondansetron HCl (Ondansetron 4 Mg/2 Ml Inj) 4 mg IV Q8H PRN PRN Reason: Nausea And Vomiting Pantoprazole Sodium (Pantoprazole 40 Mg Inj) 40 mg IV BID [place] Sodium Chloride (Sodium Chloride 0.9% 10 Ml Flush Syringe) 10 ml IV BID [place] Sodium Chloride (Sodium Chloride 0.9% 10 Ml Flush Syringe) 10 ml IV PRN PRN PRN Reason: LINE FLUSH I HAVE REVIEWED/RECONCILED MEDICATIONS Review of Systems - Review of Systems All systems: negative (as noted in the HPI (per the granddaughter translating)) Exam - Constitutional Vital Signs: Temp Pulse Resp BP Pulse Ox 97.4 F L 95 H 18 181/110 96 10/29/20 07:32 10/29/20 09:00 10/29/20 09:00 10/29/20 09:00 10/29/20 09:00 General appearance: mild distress, disheveled - EENT Eyes: PERRL, EOM intact, scleral icterus ENT: hearing intact, clear oral mucosa, poor dentition - Neck Neck: supple, normal ROM - Respiratory Respiratory effort: labored Respiratory: bilateral: diminished - Cardiovascular Rhythm: regular Heart Sounds: Present: S1 & S2, systolic murmur - Gastrointestinal General gastrointestinal: Present: soft, tender (Diffuse mild tenderness, no guarding), non-distended - Integumentary Integumentary: Present: clear, warm, dry - Neurologic Neurological: oriented to person, strength equal bilaterally - Labs CBC & Chem 7: 10/29/20 08:23 10/29/20 08:23 Lab Results: Laboratory Results - last 24 hr 10/28/20 10/28/20 10/28/20 22:43 22:43 Unknown WBC 7.2 RBC 4.01 Hgb 8.5 L Hct 26.1 L MCV 65 L MCH 21 L MCHC 33 RDW 18.4 H Plt Count 151 Add Manual Diff Complete Total Counted 100 Seg Neuts % (Manual) 80.0 H Band Neutrophils % 1.0 Lymphocytes % (Manual) 13.0 L Monocytes % (Manual) 6.0 Nucleated RBC % Not Reportable Seg Neutrophils # Man 5.8 Band Neutrophils # 0.1 Lymphocytes # (Manual) 0.9 L Abs React Lymphs (Man) 0.0 Monocytes # (Manual) 0.4 Eosinophils # (Manual) 0.0 Basophils # (Manual) 0.0 Metamyelocytes # 0.0 Myelocytes # 0.0 Promyelocytes # 0.0 Blast Cells # 0.0 WBC Morphology Not Reportable Hypersegmented Neuts Not Reportable Hyposegmented Neuts Not Reportable Hypogranular Neuts Not Reportable Smudge Cells Not Reportable Toxic Granulation Not Reportable Toxic Vacuolation Not Reportable Dohle Bodies Not Reportable Pelger-Huet Anomaly Not Reportable Katherine Rods Not Reportable Platelet Estimate Consistent w auto Clumped Platelets Not Reportable Plt Clumps, EDTA Not Reportable Large Platelets Not Reportable Giant Platelets Not Reportable Platelet Satelliting Not Reportable Plt Morphology Comment Not Reportable RBC Morphology Not Reportable Dimorphic RBCs Not Reportable Polychromasia Not Reportable Hypochromasia Not Reportable Poikilocytosis Not Reportable Anisocytosis 1+ Microcytosis Not Reportable Macrocytosis Not Reportable Spherocytes Not Reportable Pappenheimer Bodies Not Reportable Sickle Cells Not Reportable Target Cells Not Reportable Tear Drop Cells Not Reportable Ovalocytes Not Reportable Helmet Cells Not Reportable [place] Bodies Not Reportable [place] Rings Not Reportable Jermaine Cells Not Reportable Bite Cells Not Reportable Crenated Cell Not Reportable Elliptocytes Not Reportable Acanthocytes (Spur) Not Reportable Rouleaux Not Reportable Hemoglobin C Crystals Not Reportable Schistocytes Not Reportable Malaria parasites Not Reportable Ellis Bodies Not Reportable Hem Pathologist Commnt No Sodium 137 Potassium 5.9 H Chloride 101.0 Carbon Dioxide 14 L Anion Gap 28 BUN 72 H Creatinine 6.8 H Estimated GFR 8 BUN/Creatinine Ratio 11 Glucose 152 H POC Glucose Hemoglobin A1c Calcium 8.7 Total Bilirubin 1.50 H AST 517 H ALT 448 H Alkaline Phosphatase 122 Total Protein 6.7 Albumin 3.8 L Albumin/Globulin Ratio 1.3 Lipase 51 Urine Color Yellow Urine Turbidity Cloudy Urine pH 5.0 Ur Specific [place] 1.018 Urine Protein >500 Urine Glucose (UA) 50 Urine Ketones Neg Urine Blood Mod Urine Nitrite Neg Urine Bilirubin Neg Urine Urobilinogen < 2.0 Ur Leukocyte Esterase Neg Urine WBC (Auto) 4.0 Urine RBC (Auto) 10.0 U Epithel Cells (Auto) 1.0 Urine Mucus Few Hepatitis A IgM Ab Hep Bs Antigen Hep B Core IgM Ab Hepatitis C Antibody 10/29/20 10/29/20 10/29/20 00:00 02:00 04:28 WBC RBC Hgb Hct MCV MCH MCHC RDW Plt Count Add Manual Diff Total Counted Seg Neuts % (Manual) Band Neutrophils % Lymphocytes % (Manual) Monocytes % (Manual) Nucleated RBC % Seg Neutrophils # Man Band Neutrophils # Lymphocytes # (Manual) Abs React Lymphs (Man) Monocytes # (Manual) Eosinophils # (Manual) Basophils # (Manual) Metamyelocytes # Myelocytes # Promyelocytes # Blast Cells # WBC Morphology Hypersegmented Neuts Hyposegmented Neuts Hypogranular Neuts Smudge Cells Toxic Granulation Toxic Vacuolation Dohle Bodies Pelger-Huet Anomaly Katherine Rods Platelet Estimate Clumped Platelets Plt Clumps, EDTA Large Platelets Giant Platelets Platelet Satelliting Plt Morphology Comment RBC Morphology Dimorphic RBCs Polychromasia Hypochromasia Poikilocytosis Anisocytosis Microcytosis Macrocytosis Spherocytes Pappenheimer Bodies Sickle Cells Target Cells Tear Drop Cells Ovalocytes Helmet Cells [place] Bodies [place] Rings Jermaine Cells Bite Cells Crenated Cell Elliptocytes Acanthocytes (Spur) Rouleaux Hemoglobin C Crystals Schistocytes Malaria parasites Ellis Bodies Hem Pathologist Commnt Sodium 141 Potassium 5.2 H Chloride 102.9 Carbon Dioxide 20 L Anion Gap 23 BUN 72 H Creatinine 6.5 H Estimated GFR 8 BUN/Creatinine Ratio 11 Glucose 93 POC Glucose Hemoglobin A1c 5.3 Calcium 9.2 Total Bilirubin 1.40 H AST 604 H ALT 491 H Alkaline Phosphatase 108 Total Protein 6.2 L Albumin 3.8 L Albumin/Globulin Ratio 1.6 Lipase Urine Color Urine Turbidity Urine pH Ur Specific [place] Urine Protein Urine Glucose (UA) Urine Ketones Urine Blood Urine Nitrite Urine Bilirubin Urine Urobilinogen Ur Leukocyte Esterase Urine WBC (Auto) Urine RBC (Auto) U Epithel Cells (Auto) Urine Mucus Hepatitis A IgM Ab Non-reactive Hep Bs Antigen Non-reactive Hep B Core IgM Ab Non-reactive Hepatitis C Antibody Non-reactive 10/29/20 10/29/20 10/29/20 04:32 08:23 08:23 WBC 7.4 RBC 3.80 Hgb 7.8 L Hct 24.9 L MCV 66 L MCH 21 L MCHC 32 RDW 18.0 H Plt Count 98 L Add Manual Diff Total Counted Seg Neuts % (Manual) Band Neutrophils % Lymphocytes % (Manual) Monocytes % (Manual) Nucleated RBC % Seg Neutrophils # Man Band Neutrophils # Lymphocytes # (Manual) Abs React Lymphs (Man) Monocytes # (Manual) Eosinophils # (Manual) Basophils # (Manual) Metamyelocytes # Myelocytes # Promyelocytes # Blast Cells # WBC Morphology Hypersegmented Neuts Hyposegmented Neuts Hypogranular Neuts Smudge Cells Toxic Granulation Toxic Vacuolation Dohle Bodies Pelger-Huet Anomaly Katherine Rods Platelet Estimate Clumped Platelets Plt Clumps, EDTA Large Platelets Giant Platelets Platelet Satelliting Plt Morphology Comment RBC Morphology Dimorphic RBCs Polychromasia Hypochromasia Poikilocytosis Anisocytosis Microcytosis Macrocytosis Spherocytes Pappenheimer Bodies Sickle Cells Target Cells Tear Drop Cells Ovalocytes Helmet Cells [place] Bodies [place] Rings Jermaine Cells Bite Cells Crenated Cell Elliptocytes Acanthocytes (Spur) Rouleaux Hemoglobin C Crystals Schistocytes Malaria parasites Ellis Bodies Hem Pathologist Commnt Sodium 137 Potassium 5.7 H Chloride 103.7 Carbon Dioxide 14 L Anion Gap 25 BUN 77 H Creatinine 6.7 H Estimated GFR 8 BUN/Creatinine Ratio 11 Glucose 126 H POC Glucose 114 H Hemoglobin A1c Calcium 8.6 Total Bilirubin AST ALT Alkaline Phosphatase Total Protein Albumin Albumin/Globulin Ratio Lipase Urine Color Urine Turbidity Urine pH Ur Specific [place] Urine Protein Urine Glucose (UA) Urine Ketones Urine Blood Urine Nitrite Urine Bilirubin Urine Urobilinogen Ur Leukocyte Esterase Urine WBC (Auto) Urine RBC (Auto) U Epithel Cells (Auto) Urine Mucus Hepatitis A IgM Ab Hep Bs Antigen Hep B Core IgM Ab Hepatitis C Antibody 10/29/20 08:58 WBC RBC Hgb Hct MCV MCH MCHC RDW Plt Count Add Manual Diff Total Counted Seg Neuts % (Manual) Band Neutrophils % Lymphocytes % (Manual) Monocytes % (Manual) Nucleated RBC % Seg Neutrophils # Man Band Neutrophils # Lymphocytes # (Manual) Abs React Lymphs (Man) Monocytes # (Manual) Eosinophils # (Manual) Basophils # (Manual) Metamyelocytes # Myelocytes # Promyelocytes # Blast Cells # WBC Morphology Hypersegmented Neuts Hyposegmented Neuts Hypogranular Neuts Smudge Cells Toxic Granulation Toxic Vacuolation Dohle Bodies Pelger-Huet Anomaly Katherine Rods Platelet Estimate Clumped Platelets Plt Clumps, EDTA Large Platelets Giant Platelets Platelet Satelliting Plt Morphology Comment RBC Morphology Dimorphic RBCs Polychromasia Hypochromasia Poikilocytosis Anisocytosis Microcytosis Macrocytosis Spherocytes Pappenheimer Bodies Sickle Cells Target Cells Tear Drop Cells Ovalocytes Helmet Cells [place] Bodies [place] Rings [place] Cells Bite Cells Crenated Cell Elliptocytes Acanthocytes (Spur) Rouleaux Hemoglobin C Crystals Schistocytes Malaria parasites Ellis Bodies Hem Pathologist Commnt Sodium Potassium Chloride Carbon Dioxide Anion Gap BUN Creatinine Estimated GFR BUN/Creatinine Ratio Glucose POC Glucose 139 H Hemoglobin A1c Calcium Total Bilirubin AST ALT Alkaline Phosphatase Total Protein Albumin Albumin/Globulin Ratio Lipase Urine Color Urine Turbidity Urine pH Ur Specific [place] Urine Protein Urine Glucose (UA) Urine Ketones Urine Blood Urine Nitrite Urine Bilirubin Urine Urobilinogen Ur Leukocyte Esterase Urine WBC (Auto) Urine RBC (Auto) U Epithel Cells (Auto) Urine Mucus Hepatitis A IgM Ab Hep Bs Antigen Hep B Core IgM Ab Hepatitis C Antibody Assessment and Plan - Patient Problems (1) CHF (congestive heart failure), NYHA class III Current Visit: Yes Status: Acute Plan to address problem: - Will get Cards on consult given pleural effusions, severe HTN, and poorly controlled CHF. (2) Acute kidney injury superimposed on chronic kidney disease Current Visit: Yes Status: Acute (3) Elevated liver enzymes Current Visit: Yes Status: Acute Plan to address problem: - Hepatitis serologies negative. - No gross mass on CT, but this would be highest on differential. With MODE, and (?) new atorvastatin, would consider statin liver injury as well. - Will get a RUQ US; if not diagnostic, would consider non-contrast MRI. (4) GI bleed Current Visit: Yes Status: Acute Plan to address problem: - Continue current protonix. - Will need EGD (and possibly colonoscopy) in the next few days, after CHF/HTN/MODE has been assessed and improved. - OK to continue cardiac ASA, but would avoid other blood thinners at present. (5) Hypertensive urgency Current Visit: Yes Status: Acute
[2020-10-29] MEDS: PANTOPRAZOLE 40 MG INJ IV SCH ×2 (10:10→22:38)
--- NOTE | 2020-10-29 10:48 | Consultation ---
History of Present Illness Consult date: 10/29/20 Requesting physician: MARGE SARKAR Reason for consult: other (Critical care management) History of present illness: 80-year-old Sami male with known history of hypertension and diabetes mellitus, history of thoracic aortic dissection repair presents to the emergency room today complaining of nausea, decreased appetite, abdominal pain and dark stool which has been ongoing for the past 2 weeks. Most of the history was gotten from the granddaughter who was by the bedside because of the language barrier. Abdominal pain is said to have been persistent over the past few weeks. Patient also reports significant weight loss. He denies any hematemesis, no hematuria or dysuria, denies any constipation. Patient denies any nonsteroidal anti-inflammatory medication use apart from aspirin. Patient's last colonoscopy was over 15 years ago while living in [place]. Work-up in the emergency room today, significant findings were that of hemoglobin of 8.5 and hematocrit of 26.1, potassium was elevated at 5.9, BUN and creatinine were elevated at 72 and 6.8, AST and ALT elevated at 517 and 448 respectively. Total bilirubin was 1.50 CT of the abdomen and pelvis reveals cardiomegaly with interlobular septal thickening in the lung bases likely reflecting edema. Moderate right and trace left pleural effusions. 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 Patient is being admitted with acute on chronic renal failure, hyperkalemia, abnormal liver enzymes, anemia possible GI bleed. I have been consulted or critical care management. Patient seen and examined. Vitals, labs, medications, chart and imaging reviewed. Past History Past Medical History: diabetes, hypertension, hyperlipidemia Past Surgical History: Other (Aortic dissection repair, colonoscopy over 15 years ago) Social history: smoking (Former smoker). denies: alcohol abuse Family history: no significant family history Medications and Allergies Allergies Allergy/AdvReac Type Severity Reaction Status Date / Time No Known Allergies Allergy Unverified 05/07/14 01:13 Home Medications Medication Instructions Recorded Confirmed Last Taken Type Amlodipine Besylate [Norvasc] 10 mg PO QDAY 10/28/20 10/28/20 Unknown History Aspirin EC [Halfprin EC] 81 mg PO QDAY 10/28/20 10/28/20 Unknown History Atorvastatin Calcium [Lipitor] 80 mg PO QDAY 10/28/20 10/28/20 Unknown History Lisinopril [Zestril] 10 mg PO QDAY 10/28/20 10/28/20 Unknown History Active Meds: Active Medications Acetaminophen (Acetaminophen 325 Mg Tab) 650 mg PO Q6H PRN PRN Reason: Pain MILD(1-3)/Fever >100.5/SCHMITT Albuterol/Ipratropium (Ipratropium/Albuterol Sulfate 3 Ml Ampul.Neb) 1 ampul IH Q6HRT [facility] Last Admin: 10/29/20 08:11 Dose: 1 ampul Documented by: Dextrose (Dextrose 50% In Water (25gm) 50 Ml Syringe) 0 ml IV Q30MIN PRN; Protocol PRN Reason: Hypoglycemia Hydralazine HCl (Hydralazine 20 Mg/1 Ml Inj) 10 mg IV Q4H PRN PRN Reason: Blood Pressure Last Admin: 10/29/20 10:10 Dose: 10 mg Documented by: Insulin Human Regular (Insulin Regular, Human 100 Units/1 Ml) 0 units SUB-Q ACHS [facility]; Protocol Last Admin: 10/29/20 09:10 Dose: Not Given Documented by: Magnesium Hydroxide (Magnesium Hydroxide (Mom) Oral Liqd Udc) 30 ml PO Q4H PRN PRN Reason: Constipation Morphine Sulfate (Morphine 2 Mg/1 Ml Inj) 2 mg IV Q4H PRN PRN Reason: Pain, Moderate (4-6) Last Admin: 10/29/20 04:54 Dose: 2 mg Documented by: Morphine Sulfate (Morphine 4 Mg/1 Ml Inj) 4 mg IV Q4H PRN PRN Reason: Pain , Severe (7-10) Ondansetron HCl (Ondansetron 4 Mg/2 Ml Inj) 4 mg IV Q8H PRN PRN Reason: Nausea And Vomiting Pantoprazole Sodium (Pantoprazole 40 Mg Inj) 40 mg IV BID [facility] Last Admin: 10/29/20 10:10 Dose: 40 mg Documented by: Sodium Chloride (Sodium Chloride 0.9% 10 Ml Flush Syringe) 10 ml IV BID [facility] Last Admin: 10/29/20 10:10 Dose: 10 ml Documented by: Sodium Chloride (Sodium Chloride 0.9% 10 Ml Flush Syringe) 10 ml IV PRN PRN PRN Reason: LINE FLUSH Review of Systems ROS unobtainable: due to mental status (DUE to language barrier) Physical Examination Vital signs: Vital Signs Temp Pulse Resp BP Pulse Ox 97.7 F 109 H 16 198/137 96 10/28/20 22:22 10/28/20 22:22 10/28/20 22:22 10/28/20 22:22 10/28/20 22:22 Vitals reviewed General appearance: well-developed, thin built, appears stated age, not in distress HEENT: ATNC, pupils equal Neck: supple Respiratory: bibasal rales heard Cardiology: regular, S1S2, no murmur Gastrointestinal: soft, bowel sounds heard, not tender Integumentary: warm and dry, upper chest hypopigmented patches noted Neurologic: alert, moving extremities Ext: no edema Results - Laboratory Findings CBC and BMP: 10/30/20 04:25 10/30/20 04:25 Abnormal lab findings: Abnormal Labs 10/28/20 10/28/20 10/29/20 22:43 22:43 04:28 Hgb 8.5 L Hct 26.1 L MCV 65 L MCH 21 L RDW 18.4 H Plt Count Seg Neuts % (Manual) 80.0 H Lymphocytes % (Manual) 13.0 L Lymphocytes # (Manual) 0.9 L Potassium 5.9 H 5.2 H Carbon Dioxide 14 L 20 L BUN 72 H 72 H Creatinine 6.8 H 6.5 H Glucose 152 H POC Glucose Total Bilirubin 1.50 H 1.40 H AST 517 H 604 H ALT 448 H 491 H Total Protein 6.2 L Albumin 3.8 L 3.8 L 10/29/20 10/29/20 10/29/20 04:32 08:23 08:23 Hgb 7.8 L Hct 24.9 L MCV 66 L MCH 21 L RDW 18.0 H Plt Count 98 L Seg Neuts % (Manual) Lymphocytes % (Manual) Lymphocytes # (Manual) Potassium 5.7 H Carbon Dioxide 14 L BUN 77 H Creatinine 6.7 H Glucose 126 H POC Glucose 114 H Total Bilirubin AST ALT Total Protein Albumin 10/29/20 08:58 Hgb Hct MCV MCH RDW Plt Count Seg Neuts % (Manual) Lymphocytes % (Manual) Lymphocytes # (Manual) Potassium Carbon Dioxide BUN Creatinine Glucose POC Glucose 139 H Total Bilirubin AST ALT Total Protein Albumin Assessment and Plan Pulmonary edema Anemia-microcytic Acute kidney injury superimposed on chronic kidney disease Hyperkalemia Elevated liver enzymes Hypertensive urgency Protein calorie malnutrition -Titrate supplemental oxygen to keep O2 sast 89-92% -Medical management of hyperkalemia- will need HD. Await final recommendations from renal service, prior to placement of HD catheter -Supportive transfusions as clinically indicated to keep HgB >7g/dL -SCDs for VTE prophylaxis for now -ABG to assess acid base balance and hypoxia -Place [place] catheter -IV prn antihypertensives for blood pressure management -Nutrition consult -Stop Lisinopril -Avoid nephrotoxins and adjust all medications fro GFR/CrCL -Mobility, off loading and frequent turning per facility protocol for pressure ulcer prevention -Hear failure measures, follow up echocardiogram -Iron studies, Vit B12, folate, FOBT CONDITION: CRITICAL PROGNOSIS: FAIR CODE STATUS: FULL CODE
[2020-10-29] MEDS ORDERED: SODIUM POLYSTYRENE 15 GM/60 ML ORAL LIQD PR ONE (11:00)
[2020-10-29 11:54] LABS: Total Cells Counted 100
[2020-10-29 11:56] LABS: Burr Cells Few; Hypochromasia Few; Platelet Estimate Consistent w Auto; Schistocytes Rare
--- NOTE | 2020-10-29 12:21 | Consultation ---
History of Present Illness - Reason for Consult Consult date: 10/29/20 acute renal failure, chronic renal failure, hyperkalemia, metabolic acidosis - History of Present Illness The patient is a 80 YO Malay male with known history of Hypertension, Diabetes mellitus type 2, chronic thoraco-abdominal aortic dissection and CKD who presented to [facility] emergency room 10/28 with complaining of nausea, decreased appetite, abdominal pain and dark stool which has been ongoing for the past 2 weeks. Most of the history was gotten from the granddaughter(POA) over the phone due to language barrier. Per grand daughter patient's health has been declining for the past few months and he hasn't payt any physician in more than 2 yrs. Also report of significant weight loss, nausea and poor PO intake. No h/o hematemesis, hematuria, dysuria, constipation. leg swelling, sob, cough, dizziness or syncope. No h/o NSAID use apart from aspirin. Work-up in the ED, Hb 8.5, hematocrit of 26.1, K 5.9, BUN 72, creatinine 6.8, AST [address] of the abdomen and pelvis reveals cardiomegaly with interlobular septal thickening in the lung bases likely reflecting edema, moderate right and trace left pleural effusions, 5 cm thoraco-abdominal aneurysm with chronic dissection extending to the right iliac artery unchanged from previous CT in 2019. Patient was admitted with MODE on CKD, hyperkalemia, abnormal liver enzymes, anemia and possible GI bleed. Nephrology was consulted for further evaluation and treatment of MODE. Past History Past Medical History: diabetes, hypertension, hyperlipidemia, renal failure Past Surgical History: Other (Aortic dissection repair, colonoscopy over 15 years ago) Social history: smoking (Former smoker). denies: alcohol abuse Family history: no significant family history Medications and Allergies Allergies Allergy/AdvReac Type Severity Reaction Status Date / Time No Known Allergies Allergy Unverified 05/07/14 01:13 Home Medications Medication Instructions Recorded Confirmed Last Taken Type Amlodipine Besylate [Norvasc] 10 mg PO QDAY 10/28/20 10/28/20 Unknown History Aspirin EC [Halfprin EC] 81 mg PO QDAY 10/28/20 10/28/20 Unknown History Atorvastatin Calcium [Lipitor] 80 mg PO QDAY 10/28/20 10/28/20 Unknown History Lisinopril [Zestril] 10 mg PO QDAY 10/28/20 10/28/20 Unknown History Active Meds: Active Medications Acetaminophen (Acetaminophen 325 Mg Tab) 650 mg PO Q6H PRN PRN Reason: Pain MILD(1-3)/Fever >100.5/SCHMITT Albuterol/Ipratropium (Ipratropium/Albuterol Sulfate 3 Ml Ampul.Neb) 1 ampul IH Q6HRT [facility] Last Admin: 10/29/20 08:11 Dose: 1 ampul Documented by: Dextrose (Dextrose 50% In Water (25gm) 50 Ml Syringe) 0 ml IV Q30MIN PRN; Protocol PRN Reason: Hypoglycemia Hydralazine HCl (Hydralazine 20 Mg/1 Ml Inj) 10 mg IV Q4H PRN PRN Reason: Blood Pressure Last Admin: 10/29/20 10:10 Dose: 10 mg Documented by: Insulin Human Regular (Insulin Regular, Human 100 Units/1 Ml) 0 units SUB-Q AC HS [facility]; Protocol Last Admin: 10/29/20 11:48 Dose: Not Given Documented by: Magnesium Hydroxide (Magnesium Hydroxide (Mom) Oral Liqd Udc) 30 ml PO Q4H PRN PRN Reason: Constipation Morphine Sulfate (Morphine 2 Mg/1 Ml Inj) 2 mg IV Q4H PRN PRN Reason: Pain, Moderate (4-6) Last Admin: 10/29/20 04:54 Dose: 2 mg Documented by: Morphine Sulfate (Morphine 4 Mg/1 Ml Inj) 4 mg IV Q4H PRN PRN Reason: Pain , Severe (7-10) Ondansetron HCl (Ondansetron 4 Mg/2 Ml Inj) 4 mg IV Q8H PRN PRN Reason: Nausea And Vomiting Pantoprazole Sodium (Pantoprazole 40 Mg Inj) 40 mg IV BID [facility] Last Admin: 10/29/20 10:10 Dose: 40 mg Documented by: Sodium Chloride (Sodium Chloride 0.9% 10 Ml Flush Syringe) 10 ml IV BID [facility] Last Admin: 10/29/20 10:10 Dose: 10 ml Documented by: Sodium Chloride (Sodium Chloride 0.9% 10 Ml Flush Syringe) 10 ml IV PRN PRN PRN Reason: LINE FLUSH Review of Systems ROS unobtainable: due to mental status (language barrier) Exam - Vital Signs Vital signs: Vital Signs Temp Pulse Resp BP Pulse Ox 97.7 F 109 H 16 198/137 96 10/28/20 22:22 10/28/20 22:22 10/28/20 22:22 10/28/20 22:22 10/28/20 22:22 Results - Lab Results 10/29/20 08:23 10/29/20 08:23 Most recent lab results Calcium 8.6 mg/dL (8.4-10.2) 10/29/20 08:23 Assessment and Plan 1. Acute kidney injury superimposed on CKD: MODE superimposed on CKD . CT abdomen negative for hydro. Urine studies ordered. Monitor renal function. Renal prognosis is guarded to poor. Avoid nephrotoxic agents. Meds dosage based on GFR. Patient require hemodialysis due to significant decline in the GFR, associated hyperkalemia, metabolic acidosis and volume overload. D/w his grand daughter over the phone, explained the indications, benefits, risks and alternatives involved in hemodialysis. She is going to talk to the patient and other family members and let us know. Also d/w about hemodialysis catheter placement. 2. FEN: Hyperkalemia, meds ordered, monitor. Anion-gap Metabolic acidosis, IV Sod bicarb, monitor. Volume overload, IV lasix. Monitor lytes. 3. Decompensated CHF: Echo EF 45-50%. Strict I/O. Started on Metoprolol. Card consulted. 4. Elevated liver enzymes: Hepatitis serologies negative. 5. GI bleed: Per GI EGD in the next few days, after CHF/HTN/MODE has been assessed and improved. 6. Hypertensive urgency: Started on Metoprolol and IV Lasix. Monitor. 7. Hypochromic Anemia, POA: ?2/2 GI bleed. Followed by GI. Monitor. 8. Thrombocytopenia. 9. Chronic thoraco-abdominal aneurysm. Subjective: Patient was seen and examined at the bedside. Examination: General appearance: well-developed, thin built, appears stated age, not in distress HEENT: ATNC, pupils equal Neck: supple Respiratory: bibasal rales heard Cardiology: regular, S1S2, no murmur Gastrointestinal: soft, bowel sounds heard, not tender Integumentary: warm and dry, upper chest hypopigmented patches noted Neurologic: alert, moving extremities Ext: no edema
[2020-10-29] MEDS ORDERED: FUROSEMIDE 40 MG/4 ML INJ IV SCH (13:00)
[2020-10-29] MEDS ORDERED: METOPROLOL TARTRATE 50 MG TAB PO SCH (13:00)
[2020-10-29 14:54] LABS: ABG Base Excess -5.6 mmol/L (-2.0-3.0); ABG HCO3 18.8 mmol/L (20.0-26.0); ABG Methemoglobin 0.5 % (0.0-1.5); ABG Oxygen Saturation 97.9 % (95.0-99.0); ABG PCO2 32.3 mm Hg; ABG PH 7.384 pH Units (7.350-7.450); ABG PO2 107.8 mm Hg (80.0-90.0)
[2020-10-29 16:09] LABS: Creatinine,Urine 78.5 mg/dL (0.1-20.0)
[2020-10-29 16:25] LABS: Protein/Creatinine Ratio,Urine 9.49
[2020-10-29] MEDS ORDERED: VALSARTAN 160MG TAB PO ONE (17:00)
[2020-10-29] MEDS ORDERED: IPRATROPIUM/ALBUTEROL SULFATE 3 ML AMPUL.NEB IH ONE (17:49)
[2020-10-29] MEDS: hydrALAZINE 25 MG TAB PO SCH ×2 (18:10→22:40)
[2020-10-29] MEDS: carvediloL 12.5 MG TAB PO SCH (22:37)
[2020-10-30] MEDS: IPRATROPIUM/ALBUTEROL SULFATE 3 ML AMPUL.NEB IH SCH ×2 (03:46→07:52)
[2020-10-30 05:01] LABS: Hematocrit 22.8 % (35.5-45.6); Hemoglobin 7.3 gm/dl (11.8-15.2); Mean Corpuscular HGB Conc 32 % (32-34); Red Cell Distribution Width 17.9 % (13.2-15.2)
[2020-10-30 05:27] LABS: Albumin 3.2 g/dL (3.9-5); Calcium 8.6 mg/dL (8.4-10.2)
[2020-10-30 05:42] LABS: Mean Corpuscular Volume 65 fl (84-94)
[2020-10-30] MEDS: hydrALAZINE 25 MG TAB PO SCH ×3 (06:04→21:55)
[2020-10-30] MEDS ORDERED: MIDAZOLAM 2 MG/2 ML INJ IV ONE ×2 (08:00→08:12)
--- NOTE | 2020-10-30 08:28 | Procedure Note ---
Date of procedure: 10/30/20 Pre-op diagnosis: Acute renal failure requiring HD; Acute metabolic encephalopathy Post-op diagnosis: same Procedure: RIJ Trialysis catheter under ultrasound guidance -Consent was obtained from the granddaughter and also discussed with the patient using a translation line. -Erwin precautions addressed. -Time out done. -Full sterile barrier technique- cap, gown, mask adn full body drape. -IV Midazolam 1mg given. -Patietn was positioned. -Cleaned and draped in sterile fashion. The RIJ was identified using the USS, and local lidocaine infiltrated. The RIJ was cannulated, on the first attempt. dark blood aspirated. A guidewire was placed, and position of the guidewire position within the vein confirmed with ultrasound. A stab wound was created, the vein dilated. A triple lumen temporary HD catheter was placed using Seldinger technique. Guidewire was removed. All three port were aspirating dark blood without difficulty. Catheter was sutured in place and a sterile dressing placed. Patient tolerated the procedure well. no immediate complications. Post procedure CXR was ordered. Anesthesia: other (Midazolam 1mg IV, Local lidocaine injection) Surgeon: LUNA BRAGA Estimated blood loss: none Pathology: none Condition: critical Disposition: ICU
--- NOTE | 2020-10-30 08:48 | XRay Report ---
CHEST 1 VIEW 10/30/2020 8:33 AM INDICATION / CLINICAL INFORMATION: right ij vas cath placement. COMPARISON: 10/29/2020 FINDINGS: SUPPORT DEVICES: Right IJ central venous catheter has been placed with the tip projecting over the lane perior cavoatrial junction. HEART / MEDIASTINUM: Stable. LUNGS / PLEURA: Stable small bilateral pleural effusions and patchy bilateral pulmonary opacities. No pneumothorax. ADDITIONAL FINDINGS: No significant additional findings. IMPRESSION: 1. Right IJ central venous catheter appears appropriately positioned. Signer Name: Issa Wang MD Signed: 10/30/2020 8:44 AM Workstation Name: [id number]
[2020-10-30] MEDS: INSULIN REGULAR, HUMAN 100 UNITS/1 ML SUB-Q SCH ×4 (09:22→21:54)
[2020-10-30] MEDS ORDERED: SODIUM CHLORIDE 0.9% 100 ML IV PRN (10:00)
[2020-10-30] MEDS ORDERED: VALSARTAN 160MG TAB PO SCH (10:00)
--- NOTE | 2020-10-30 10:14 | Gastroenterology Progress Note ---
Assessment and Plan - Patient Problems (1) CHF (congestive heart failure), NYHA class III Current Visit: Yes Status: Acute Plan to address problem: - Cards eval/TTE results noted. Moderate disease, and hopefully will improve after fluid removal with HD. (2) Acute kidney injury superimposed on chronic kidney disease Current Visit: Yes Status: Acute (3) Elevated liver enzymes Current Visit: Yes Status: Acute Plan to address problem: - Hepatitis serologies negative. - No gross mass on CT, but this would be highest on differential. With MODE, and (?) new atorvastatin, would consider statin liver injury as well. - Will get a RUQ US; if not diagnostic, would consider non-contrast MRI. (4) GI bleed Current Visit: Yes Status: Acute Plan to address problem: - Continue current protonix. - Will need EGD (and possibly colonoscopy); assuming HD goes well today, will plan EGD tomorrow. - OK to continue cardiac ASA, but would avoid other blood thinners at present. (5) Hypertensive urgency Current Visit: Yes Status: Acute Subjective Date of service: 10/30/20 Principal diagnosis: Anemia, Abnormal LFTs Interval history: The patient has been stable overnight, and has had no melena or hematemesis. He has rec'd a Vascath, and HD will start today. He appears to have abdominal pain on palpation, but is in no distress. No fevers overnight. Objective - Constitutional Vitals: Temp Pulse Resp BP Pulse Ox 97.5 F L 72 17 175/113 95 10/30/20 07:00 10/30/20 09:10 10/30/20 09:10 10/30/20 09:10 10/30/20 09:10 General appearance: mild distress - Respiratory Respiratory effort: labored Respiratory: bilateral: CTA - Cardiovascular Rhythm: regular Heart Sounds: Present: S1 & S2, systolic murmur - Gastrointestinal General gastrointestinal: Present: soft, tender (Mild diffuse tenderness without guarding), non-distended - Labs CBC & Chem 7: 10/30/20 04:25 10/30/20 04:25 Labs: Laboratory Results - last 24 hr 10/29/20 10/29/20 10/29/20 08:23 08:23 11:33 WBC RBC Hgb Hct MCV MCH MCHC RDW Add Manual Diff Complete Total Counted 100 Lymphocytes % (Manual) 1.0 L Monocytes % (Manual) 2.0 Nucleated RBC % Not Reportable Seg Neutrophils # Man 7.2 Band Neutrophils # 0.0 Lymphocytes # (Manual) 0.1 L Abs React Lymphs (Man) 0.0 Monocytes # (Manual) 0.1 Eosinophils # (Manual) 0.0 Basophils # (Manual) 0.0 Metamyelocytes # 0.0 Myelocytes # 0.0 Promyelocytes # 0.0 Blast Cells # 0.0 WBC Morphology Not Reportable TNR Hypersegmented Neuts Not Reportable Hyposegmented Neuts Not Reportable Hypogranular Neuts Not Reportable Smudge Cells Not Reportable Toxic Granulation Not Reportable Toxic Vacuolation Not Reportable Dohle Bodies Not Reportable Pelger-Huet Anomaly Not Reportable Katherine Rods Not Reportable Platelet Estimate Consistent w auto Clumped Platelets Not Reportable Plt Clumps, EDTA Not Reportable Large Platelets Not Reportable Giant Platelets Not Reportable Platelet Satelliting Not Reportable Plt Morphology Comment Not Reportable RBC Morphology Not Reportable Dimorphic RBCs Not Reportable Polychromasia Not Reportable Hypochromasia Few Poikilocytosis Not Reportable Anisocytosis Not Reportable Microcytosis Not Reportable Macrocytosis Not Reportable Spherocytes Not Reportable Pappenheimer Bodies Not Reportable Sickle Cells Not Reportable Target Cells Not Reportable Tear Drop Cells Not Reportable Ovalocytes Not Reportable Helmet Cells Not Reportable Villed[place]-Steelton Bodies Not Reportable [place] Rings Not Reportable Jermaine Cells Few Bite Cells Not Reportable Crenated Cell Not Reportable Elliptocytes Few Acanthocytes (Spur) Not Reportable Rouleaux Not Reportable Hemoglobin C Crystals Not Reportable Schistocytes Rare Malaria parasites Not Reportable Ellis Bodies Not Reportable Hem Pathologist Commnt No ABG pH ABG pCO2 ABG pO2 ABG HCO3 ABG O2 Saturation ABG O2 Content ABG Base Excess ABG Hemoglobin ABG Carboxyhemoglobin ABG Methemoglobin Oxyhemoglobin FiO2 Sodium Potassium Chloride Carbon Dioxide Anion Gap BUN Creatinine Estimated GFR BUN/Creatinine Ratio Glucose POC Glucose 155 H Calcium Phosphorus Total Bilirubin AST ALT Alkaline Phosphatase Total Protein Albumin Albumin/Globulin Ratio PTH Intact Urine Creatinine Protein/Creatinin Ratio Urine Sodium Urine Total Protein 10/29/20 10/29/20 10/29/20 14:40 15:40 16:46 WBC RBC Hgb Hct MCV MCH MCHC RDW Add Manual Diff Total Counted Lymphocytes % (Manual) Monocytes % (Manual) Nucleated RBC % Seg Neutrophils # Man Band Neutrophils # Lymphocytes # (Manual) Abs React Lymphs (Man) Monocytes # (Manual) Eosinophils # (Manual) Basophils # (Manual) Metamyelocytes # Myelocytes # Promyelocytes # Blast Cells # WBC Morphology Hypersegmented Neuts Hyposegmented Neuts Hypogranular Neuts Smudge Cells Toxic Granulation Toxic Vacuolation Dohle Bodies Pelger-Huet Anomaly Katherine Rods Platelet Estimate Clumped Platelets Plt Clumps, EDTA Large Platelets Giant Platelets Platelet Satelliting Plt Morphology Comment RBC Morphology Dimorphic RBCs Polychromasia Hypochromasia Poikilocytosis Anisocytosis Microcytosis Macrocytosis Spherocytes Pappenheimer Bodies Sickle Cells Target Cells Tear Drop Cells Ovalocytes Helmet Cells Villeda-Steelton Bodies [place] Rings Cook Cells Bite Cells Crenated Cell Elliptocytes Acanthocytes (Spur) Rouleaux Hemoglobin C Crystals Schistocytes Malaria parasites Ellis Bodies Hem Pathologist Commnt ABG pH 7.384 ABG pCO2 32.3 ABG pO2 107.8 H ABG HCO3 18.8 L ABG O2 Saturation 97.9 ABG O2 Content 10.3 ABG Base Excess -5.6 L ABG Hemoglobin 7.4 L ABG Carboxyhemoglobin 1.5 ABG Methemoglobin 0.5 Oxyhemoglobin 95.9 FiO2 28 Sodium Potassium Chloride Carbon Dioxide Anion Gap BUN Creatinine Estimated GFR BUN/Creatinine Ratio Glucose POC Glucose 158 H Calcium Phosphorus Total Bilirubin AST ALT Alkaline Phosphatase Total Protein Albumin Albumin/Globulin Ratio PTH Intact Urine Creatinine 78.5 H Protein/Creatinin Ratio 9.49 Urine Sodium 76 Urine Total Protein 745 H 10/29/20 10/29/20 10/30/20 21:29 21:48 04:25 WBC 8.1 RBC 3.50 L Hgb 7.3 L Hct 22.8 L MCV 65 L MCH 21 L MCHC 32 RDW 17.9 H Add Manual Diff Total Counted Lymphocytes % (Manual) Monocytes % (Manual) Nucleated RBC % Seg Neutrophils # Man Band Neutrophils # Lymphocytes # (Manual) Abs React Lymphs (Man) Monocytes # (Manual) Eosinophils # (Manual) Basophils # (Manual) Metamyelocytes # Myelocytes # Promyelocytes # Blast Cells # WBC Morphology Hypersegmented Neuts Hyposegmented Neuts Hypogranular Neuts Smudge Cells Toxic Granulation Toxic Vacuolation Dohle Bodies Pelger-Huet Anomaly Katherine Rods Platelet Estimate Clumped Platelets Plt Clumps, EDTA Large Platelets Giant Platelets Platelet Satelliting Plt Morphology Comment RBC Morphology Dimorphic RBCs Polychromasia Hypochromasia Poikilocytosis Anisocytosis Microcytosis Macrocytosis Spherocytes Pappenheimer Bodies Sickle Cells Target Cells Tear Drop Cells Ovalocytes Helmet Cells Villeda-Steelton Bodies [place] Rings Jermaine Cells Bite Cells Crenated Cell Elliptocytes Acanthocytes (Spur) Rouleaux Hemoglobin C Crystals Schistocytes Malaria parasites Ellis Bodies Hem Pathologist Commnt ABG pH ABG pCO2 ABG pO2 ABG HCO3 ABG O2 Saturation ABG O2 Content ABG Base Excess ABG Hemoglobin ABG Carboxyhemoglobin ABG Methemoglobin Oxyhemoglobin FiO2 Sodium Potassium 4.8 Chloride Carbon Dioxide Anion Gap BUN Creatinine Estimated GFR BUN/Creatinine Ratio Glucose POC Glucose 138 H Calcium Phosphorus Total Bilirubin AST ALT Alkaline Phosphatase Total Protein Albumin Albumin/Globulin Ratio PTH Intact Urine Creatinine Protein/Creatinin Ratio Urine Sodium Urine Total Protein 10/30/20 10/30/20 10/30/20 04:25 04:25 07:21 WBC RBC Hgb Hct MCV MCH MCHC RDW Add Manual Diff Total Counted Lymphocytes % (Manual) Monocytes % (Manual) Nucleated RBC % Seg Neutrophils # Man Band Neutrophils # Lymphocytes # (Manual) Abs React Lymphs (Man) Monocytes # (Manual) Eosinophils # (Manual) Basophils # (Manual) Metamyelocytes # Myelocytes # Promyelocytes # Blast Cells # WBC Morphology Hypersegmented Neuts Hyposegmented Neuts Hypogranular Neuts Smudge Cells Toxic Granulation Toxic Vacuolation Dohle Bodies Pelger-Huet Anomaly Katherine Rods Platelet Estimate Clumped Platelets Plt Clumps, EDTA Large Platelets Giant Platelets Platelet Satelliting Plt Morphology Comment RBC Morphology Dimorphic RBCs Polychromasia Hypochromasia Poikilocytosis Anisocytosis Microcytosis Macrocytosis Spherocytes Pappenheimer Bodies Sickle Cells Target Cells Tear Drop Cells Ovalocytes Helmet Cells Villed[place]-Steelton Bodies [place] Rings Jermaine Cells Bite Cells Crenated Cell Elliptocytes Acanthocytes (Spur) Rouleaux Hemoglobin C Crystals Schistocytes Malaria parasites Ellis Bodies Hem Pathologist Commnt ABG pH ABG pCO2 ABG pO2 ABG HCO3 ABG O2 Saturation ABG O2 Content ABG Base Excess ABG Hemoglobin ABG Carboxyhemoglobin ABG Methemoglobin Oxyhemoglobin FiO2 Sodium 141 Potassium 4.9 Chloride 103.1 Carbon Dioxide 20 L Anion Gap 23 BUN 89 H Creatinine 7.6 H Estimated GFR 7 BUN/Creatinine Ratio 12 Glucose 129 H POC Glucose 120 H Calcium 8.6 Phosphorus 8.20 H Total Bilirubin 0.70 AST 502 H ALT 636 H Alkaline Phosphatase 101 Total Protein 5.7 L Albumin 3.2 L Albumin/Globulin Ratio 1.3 PTH Intact 176.3 H Urine Creatinine Protein/Creatinin Ratio Urine Sodium Urine Total Protein
[2020-10-30] MEDS ORDERED: SODIUM CHLORIDE 0.9% 500 ML 500 ML IV NR (10:16)
--- NOTE | 2020-10-30 10:33 | Progress Note ---
Assessment and Plan Pulmonary edema Anemia-microcytic Acute kidney injury superimposed on chronic kidney disease Hyperkalemia Elevated liver enzymes Hypertensive urgency Protein calorie malnutrition Acute metabolic encephalopathy -Titrate supplemental oxygen to keep O2 sast 89-92% -Temporary HD catheter placed to initiate HD- see procedure note -Supportive transfusions as clinically indicated to keep HgB >7g/dL -SCDs for VTE prophylaxis for now -IV prn antihypertensives for blood pressure management -Continue to avoid nephrotoxins and adjust all medications fro GFR/CrCL -Mobility, off loading and frequent turning per facility protocol for pressure ulcer prevention -Iron studies, Vit B12, folate, FOBT-pending Echocardiogram shows LVEF 45-50%, RVSP 54. Descending aortic dissection is present and a CTA is recommended. Notified primary service CONDITION: CRITICAL PROGNOSIS: FAIR CODE STATUS: FULL CODE Subjective Date of service: 10/30/20 Principal diagnosis: Anemia, Abnormal LFTs Interval history: Follow up fro anemia; MODE on CKD requiring HD: protein calorie malnutrition; pulmonary edema Seen and examined. Vitals, labs, medications, chart and imaging reviewed. Had a quite night per RN. Discussed in MDR. Some worsening confusion, on language line- patient states we are trying to shot him with a gun. No reported or documented fevers, no diarrhea, no vomiting. No shortness of breath, he is on 2L NC Objective - Exam Narrative Exam: Vitals reviewed General appearance: well-developed, thin built, appears stated age, not in distress HEENT: ATNC, pupils equal Neck: supple Respiratory: bibasal rales heard Cardiology: regular, S1S2, no murmur Gastrointestinal: soft, bowel sounds heard, not tender Integumentary: warm and dry, upper chest hypopigmented patches noted Neurologic: alert, moving extremities Ext: no edema Vital Signs - 12hr 10/29/20 10/29/20 10/29/20 22:37 22:40 22:50 Temperature Pulse Rate 79 79 79 Pulse Rate [ Anterior Bilateral Throughout] Pulse Rate [ From Monitor] Respiratory 15 15 Rate Respiratory Rate [Anterior Bilateral Throughout] Blood Pressure 147/91 147/91 154/99 O2 Sat by Pulse 97 99 Oximetry 10/29/20 10/29/20 10/29/20 23:00 23:10 23:20 Temperature Pulse Rate 79 78 79 Pulse Rate [ Anterior Bilateral Throughout] Pulse Rate [ From Monitor] Respiratory 18 16 13 Rate Respiratory Rate [Anterior Bilateral Throughout] Blood Pressure 158/100 158/100 154/93 O2 Sat by Pulse 99 99 98 Oximetry 10/29/20 10/29/20 10/29/20 23:30 23:40 23:50 Temperature Pulse Rate 74 73 71 Pulse Rate [ Anterior Bilateral Throughout] Pulse Rate [ From Monitor] Respiratory 15 14 12 Rate Respiratory Rate [Anterior Bilateral Throughout] Blood Pressure 151/95 151/95 147/80 O2 Sat by Pulse 99 99 99 Oximetry 10/29/20 10/30/20 10/30/20 23:59 00:00 00:10 Temperature 98.7 F Pulse Rate 71 72 Pulse Rate [ Anterior Bilateral Throughout] Pulse Rate [ From Monitor] Respiratory 13 14 Rate Respiratory Rate [Anterior Bilateral Throughout] Blood Pressure 137/86 137/86 O2 Sat by Pulse 98 99 Oximetry 10/30/20 10/30/20 10/30/20 00:20 00:30 00:40 Temperature Pulse Rate 70 70 66 Pulse Rate [ Anterior Bilateral Throughout] Pulse Rate [ From Monitor] Respiratory 15 13 13 Rate Respiratory Rate [Anterior Bilateral Throughout] Blood Pressure 137/80 136/80 136/80 O2 Sat by Pulse 100 98 99 Oximetry 10/30/20 10/30/20 10/30/20 00:50 01:00 01:10 Temperature Pulse Rate 68 69 70 Pulse Rate [ Anterior Bilateral Throughout] Pulse Rate [ From Monitor] Respiratory 11 L 15 16 Rate Respiratory Rate [Anterior Bilateral Throughout] Blood Pressure 132/79 138/83 138/83 O2 Sat by Pulse 100 98 99 Oximetry 10/30/20 10/30/20 10/30/20 01:20 01:30 01:40 Temperature Pulse Rate 70 64 70 Pulse Rate [ Anterior Bilateral Throughout] Pulse Rate [ From Monitor] Respiratory 13 Rate Respiratory Rate [Anterior Bilateral Throughout] Blood Pressure 125/78 120/70 120/70 O2 Sat by Pulse 99 98 97 Oximetry 10/30/20 10/30/20 10/30/20 01:50 02:00 02:10 Temperature Pulse Rate 69 68 67 Pulse Rate [ Anterior Bilateral Throughout] Pulse Rate [ From Monitor] Respiratory 16 14 14 Rate Respiratory Rate [Anterior Bilateral Throughout] Blood Pressure 137/85 141/84 141/84 O2 Sat by Pulse 99 97 99 Oximetry 10/30/20 10/30/20 10/30/20 02:20 02:30 02:40 Temperature Pulse Rate 69 68 67 Pulse Rate [ Anterior Bilateral Throughout] Pulse Rate [ From Monitor] Respiratory 17 15 15 Rate Respiratory Rate [Anterior Bilateral Throughout] Blood Pressure 149/92 153/93 153/93 O2 Sat by Pulse 98 97 99 Oximetry 10/30/20 10/30/20 10/30/20 02:50 03:00 03:10 Temperature Pulse Rate 65 64 68 Pulse Rate [ Anterior Bilateral Throughout] Pulse Rate [ From Monitor] Respiratory 14 15 12 Rate Respiratory Rate [Anterior Bilateral Throughout] Blood Pressure 153/95 135/88 135/88 O2 Sat by Pulse 98 97 100 Oximetry 10/30/20 10/30/20 10/30/20 03:20 03:25 03:30 Temperature 98.8 F Pulse Rate 63 65 Pulse Rate [ Anterior Bilateral Throughout] Pulse Rate [ From Monitor] Respiratory 14 14 Rate Respiratory Rate [Anterior Bilateral Throughout] Blood Pressure 138/81 125/77 O2 Sat by Pulse 100 93 Oximetry 10/30/20 10/30/20 10/30/20 03:40 03:47 03:50 Temperature Pulse Rate 62 Pulse Rate [ 66 Anterior Bilateral Throughout] Pulse Rate [ From Monitor] Respiratory 14 Rate Respiratory 15 Rate [Anterior Bilateral Throughout] Blood Pressure 125/77 115/71 O2 Sat by Pulse 99 97 Oximetry 10/30/20 10/30/20 10/30/20 04:00 04:10 04:20 Temperature Pulse Rate 70 66 70 Pulse Rate [ Anterior Bilateral Throughout] Pulse Rate [ 70 From Monitor] Respiratory 16 14 19 Rate Respiratory Rate [Anterior Bilateral Throughout] Blood Pressure 138/81 141/88 162/94 O2 Sat by Pulse 97 99 99 Oximetry 10/30/20 10/30/20 10/30/20 04:30 04:40 04:50 Temperature Pulse Rate 69 62 61 Pulse Rate [ Anterior Bilateral Throughout] Pulse Rate [ From Monitor] Respiratory 17 17 13 Rate Respiratory Rate [Anterior Bilateral Throughout] Blood Pressure 163/98 163/98 151/76 O2 Sat by Pulse 98 99 98 Oximetry 10/30/20 10/30/20 10/30/20 05:00 05:10 05:20 Temperature Pulse Rate 63 66 61 Pulse Rate [ Anterior Bilateral Throughout] Pulse Rate [ From Monitor] Respiratory 14 12 15 Rate Respiratory Rate [Anterior Bilateral Throughout] Blood Pressure 140/74 140/74 135/73 O2 Sat by Pulse 98 99 99 Oximetry 10/30/20 10/30/20 10/30/20 05:30 05:40 05:50 Temperature Pulse Rate 61 60 59 L Pulse Rate [ Anterior Bilateral Throughout] Pulse Rate [ From Monitor] Respiratory 13 14 14 Rate Respiratory Rate [Anterior Bilateral Throughout] Blood Pressure 123/63 123/63 125/62 O2 Sat by Pulse 98 99 99 Oximetry 10/30/20 10/30/20 10/30/20 06:00 06:04 06:10 Temperature Pulse Rate 61 59 L 64 Pulse Rate [ Anterior Bilateral Throughout] Pulse Rate [ From Monitor] Respiratory 14 13 Rate Respiratory Rate [Anterior Bilateral Throughout] Blood Pressure 129/69 129/69 129/69 O2 Sat by Pulse 100 Oximetry 10/30/20 10/30/20 10/30/20 06:20 06:30 06:40 Temperature Pulse Rate 63 61 70 Pulse Rate [ Anterior Bilateral Throughout] Pulse Rate [ From Monitor] Respiratory 17 14 15 Rate Respiratory Rate [Anterior Bilateral Throughout] Blood Pressure 136/83 145/80 145/80 O2 Sat by Pulse 99 98 97 Oximetry 10/30/20 10/30/20 10/30/20 06:50 07:00 07:10 Temperature 97.5 F L Pulse Rate 64 63 63 Pulse Rate [ Anterior Bilateral Throughout] Pulse Rate [ From Monitor] Respiratory 12 12 13 Rate Respiratory Rate [Anterior Bilateral Throughout] Blood Pressure 141/90 144/80 144/80 O2 Sat by Pulse 98 97 99 Oximetry 10/30/20 10/30/20 10/30/20 07:20 07:30 07:40 Temperature Pulse Rate 63 63 67 Pulse Rate [ Anterior Bilateral Throughout] Pulse Rate [ From Monitor] Respiratory 12 12 17 Rate Respiratory Rate [Anterior Bilateral Throughout] Blood Pressure 143/85 151/85 151/85 O2 Sat by Pulse 99 98 97 Oximetry 10/30/20 10/30/20 10/30/20 07:50 07:52 08:00 Temperature Pulse Rate 69 69 Pulse Rate [ 69 Anterior Bilateral Throughout] Pulse Rate [ 74 From Monitor] Respiratory 16 13 Rate Respiratory 20 Rate [Anterior Bilateral Throughout] Blood Pressure 184/103 184/103 O2 Sat by Pulse 96 95 97 Oximetry 10/30/20 10/30/20 10/30/20 08:10 08:20 08:30 Temperature Pulse Rate 65 64 64 Pulse Rate [ Anterior Bilateral Throughout] Pulse Rate [ From Monitor] Respiratory 15 15 13 Rate Respiratory Rate [Anterior Bilateral Throughout] Blood Pressure 152/79 160/92 152/88 O2 Sat by Pulse 98 98 99 Oximetry 10/30/20 10/30/20 10/30/20 08:40 08:50 09:00 Temperature Pulse Rate 68 70 68 Pulse Rate [ Anterior Bilateral Throughout] Pulse Rate [ From Monitor] Respiratory 15 14 17 Rate Respiratory Rate [Anterior Bilateral Throughout] Blood Pressure 175/100 171/98 188/107 O2 Sat by Pulse 94 99 99 Oximetry 10/30/20 10/30/20 10/30/20 09:10 09:20 09:30 Temperature Pulse Rate 72 72 68 Pulse Rate [ Anterior Bilateral Throughout] Pulse Rate [ From Monitor] Respiratory 17 Rate Respiratory Rate [Anterior Bilateral Throughout] Blood Pressure 175/113 176/107 168/95 O2 Sat by Pulse 95 93 93 Oximetry 10/30/20 10/30/20 10/30/20 09:40 09:50 10:00 Temperature Pulse Rate 70 69 70 Pulse Rate [ Anterior Bilateral Throughout] Pulse Rate [ From Monitor] Respiratory Rate Respiratory Rate [Anterior Bilateral Throughout] Blood Pressure 163/91 150/87 135/83 O2 Sat by Pulse 91 92 88 Oximetry 10/30/20 10/30/20 10/30/20 10:10 10:20 10:30 Temperature Pulse Rate 69 69 67 Pulse Rate [ Anterior Bilateral Throughout] Pulse Rate [ From Monitor] Respiratory 14 Rate Respiratory Rate [Anterior Bilateral Throughout] Blood Pressure 148/78 128/87 147/90 O2 Sat by Pulse 90 93 96 Oximetry CBC and BMP: 10/30/20 04:25 10/30/20 04:25 ABG, PT/INR, D-dimer: ABG ABG pH 7.384 pH Units (7.350-7.450) 10/29/20 14:40 ABG pCO2 32.3 mm Hg 10/29/20 14:40 ABG pO2 107.8 mm Hg (80.0-90.0) H 10/29/20 14:40 ABG O2 Saturation 97.9 % (95.0-99.0) 10/29/20 14:40 Abnormal lab findings: Abnormal Labs 10/28/20 10/28/20 10/29/20 22:43 22:43 04:28 RBC Hgb 8.5 L Hct 26.1 L MCV 65 L MCH 21 L RDW 18.4 H Plt Count Seg Neuts % (Manual) 80.0 H Lymphocytes % (Manual) 13.0 L Lymphocytes # (Manual) 0.9 L ABG pO2 ABG HCO3 ABG Base Excess ABG Hemoglobin Potassium 5.9 H 5.2 H Carbon Dioxide 14 L 20 L BUN 72 H 72 H Creatinine 6.8 H 6.5 H Glucose 152 H POC Glucose Phosphorus Total Bilirubin 1.50 H 1.40 H AST 517 H 604 H ALT 448 H 491 H Total Protein 6.2 L Albumin 3.8 L 3.8 L PTH Intact Urine Creatinine Urine Total Protein 10/29/20 10/29/20 10/29/20 04:32 08:23 08:23 RBC Hgb 7.8 L Hct 24.9 L MCV 66 L MCH 21 L RDW 18.0 H Plt Count 98 L Seg Neuts % (Manual) Lymphocytes % (Manual) 1.0 L Lymphocytes # (Manual) 0.1 L ABG pO2 ABG HCO3 ABG Base Excess ABG Hemoglobin Potassium 5.7 H Carbon Dioxide 14 L BUN 77 H Creatinine 6.7 H Glucose 126 H POC Glucose 114 H Phosphorus Total Bilirubin AST ALT Total Protein Albumin PTH Intact Urine Creatinine Urine Total Protein 10/29/20 10/29/20 10/29/20 08:58 11:33 14:40 RBC Hgb Hct MCV MCH RDW Plt Count Seg Neuts % (Manual) Lymphocytes % (Manual) Lymphocytes # (Manual) ABG pO2 107.8 H ABG HCO3 18.8 L ABG Base Excess -5.6 L ABG Hemoglobin 7.4 L Potassium Carbon Dioxide BUN Creatinine Glucose POC Glucose 139 H 155 H Phosphorus Total Bilirubin AST ALT Total Protein Albumin PTH Intact Urine Creatinine Urine Total Protein 10/29/20 10/29/20 10/29/20 15:40 16:46 21:29 RBC Hgb Hct MCV MCH RDW Plt Count Seg Neuts % (Manual) Lymphocytes % (Manual) Lymphocytes # (Manual) ABG pO2 ABG HCO3 ABG Base Excess ABG Hemoglobin Potassium Carbon Dioxide BUN Creatinine Glucose POC Glucose 158 H 138 H Phosphorus Total Bilirubin AST ALT Total Protein Albumin PTH Intact Urine Creatinine 78.5 H Urine Total Protein 745 H 10/30/20 10/30/20 10/30/20 04:25 04:25 04:25 RBC 3.50 L Hgb 7.3 L Hct 22.8 L MCV 65 L MCH 21 L RDW 17.9 H Plt Count Seg Neuts % (Manual) Lymphocytes % (Manual) Lymphocytes # (Manual) ABG pO2 ABG HCO3 ABG Base Excess ABG Hemoglobin Potassium Carbon Dioxide 20 L BUN 89 H Creatinine 7.6 H Glucose 129 H POC Glucose Phosphorus 8.20 H Total Bilirubin AST 502 H ALT 636 H Total Protein 5.7 L Albumin 3.2 L PTH Intact 176.3 H Urine Creatinine Urine Total Protein 10/30/20 07:21 RBC Hgb Hct MCV MCH RDW Plt Count Seg Neuts % (Manual) Lymphocytes % (Manual) Lymphocytes # (Manual) ABG pO2 ABG HCO3 ABG Base Excess ABG Hemoglobin Potassium Carbon Dioxide BUN Creatinine Glucose POC Glucose 120 H Phosphorus Total Bilirubin AST ALT Total Protein Albumin PTH Intact Urine Creatinine Urine Total Protein Chest x-ray: image reviewed (Alveolar edema with small pleural effusions) Allied health notes reviewed: nursing
[2020-10-30 10:55] LABS: Anisocytosis 2+; Band Neutrophils # (Manual) 0.1 K/mm3; Hypochromasia 2+; Platelet Estimate Consistent w Auto; Schistocytes 1+; Total Cells Counted 100
[2020-10-30] MEDS: carvediloL 12.5 MG TAB PO SCH ×2 (11:49→21:54)
[2020-10-30] MEDS: PANTOPRAZOLE 40 MG INJ IV SCH ×2 (11:49→21:54)
[2020-10-30] MEDS: ASPIRIN EC 81 MG TAB PO SCH (11:49)
--- NOTE | 2020-10-30 12:24 | Consultation ---
History of Present Illness Consult date: 10/30/20 Consult reason: pre op evaluation History of present illness: The patient is an 80-year-old man who presented to the hospital 2 days ago with constitutional symptoms of weight loss, weakness and failure to thrive. On presentation there were multiple, severe laboratory abnormalities. There was end-stage renal failure with a creatinine of 7, increased from a baseline of 1.72 years ago. There was severe anemia with a hematocrit in the hospital that has ranged from 22-26. The patient had GI evaluation, and is planned for GI en doscopy. A cardiac consultation is requested for preoperative assessment. The patient currently is in the ICU, breathing comfortably on room air but appears frail, lethargic and chronically ill. Patient is unable to give a history. History obtained from the chart suggest a history of coronary artery disease. On the chest x-ray there are sternal wires that might suggest a prior coronary artery bypass surgery. A history of aortic dissection repair has also been listed in the chart. Comorbidities include chronic hypertension. A 12-lead EKG has not been obtained, but on the air sampling and monitoring patient has been in a stable sinus rhythm. The chest x-ray shows evidence of COPD and possible, mild interstitial edema. Echocardiogram done on this presentation shows very mild left ventricular dysfunction, ejection fraction 45 to 50%. Past History Past Medical History: diabetes, hypertension, hyperlipidemia Past Surgical History: Other (Aortic dissection repair, colonoscopy over 15 years ago) Social history: smoking (Former smoker). denies: alcohol abuse Family history: no significant family history Medications and Allergies Allergies Allergy/AdvReac Type Severity Reaction Status Date / Time No Known Allergies Allergy Unverified 05/07/14 01:13 Home Medications Medication Instructions Recorded Confirmed Last Taken Type Amlodipine Besylate [Norvasc] 10 mg PO QDAY 10/28/20 10/28/20 Unknown History Aspirin EC [Halfprin EC] 81 mg PO QDAY 10/28/20 10/28/20 Unknown History Atorvastatin Calcium [Lipitor] 80 mg PO QDAY 10/28/20 10/28/20 Unknown History Lisinopril [Zestril] 10 mg PO QDAY 10/28/20 10/28/20 Unknown History Active Meds: Active Medications Acetaminophen (Acetaminophen 325 Mg Tab) 650 mg PO Q6H PRN PRN Reason: Pain MILD(1-3)/Fever >100.5/SCHMITT Aspirin (Aspirin Ec 81 Mg Tab) 81 mg PO QDAY [facility] Last Admin: 10/30/20 11:49 Dose: 81 mg Documented by: Carvedilol (Carvedilol 12.5 Mg Tab) 12.5 mg PO BID [facility] Last Admin: 10/30/20 11:49 Dose: 12.5 mg Documented by: Dextrose (Dextrose 50% In Water (25gm) 50 Ml Syringe) 0 ml IV Q30MIN PRN; Protocol PRN Reason: Hypoglycemia Hydralazine HCl (Hydralazine 20 Mg/1 Ml Inj) 10 mg IV Q4H PRN PRN Reason: Blood Pressure Last Admin: 10/29/20 10:10 Dose: 10 mg Documented by: Hydralazine HCl (Hydralazine 25 Mg Tab) 50 mg PO Q8HR [facility] Last Admin: 10/30/20 06:04 Dose: Not Given Documented by: Sodium Chloride (Nacl 0.9%) 100 mls @ 999 mls/hr IV MARKY PRN PRN Reason: Hypotension Sodium Chloride (Nacl 0.9% 500 Ml) 500 mls @ 0 mls/hr IV ONCE NR Stop: 10/30/20 23:59 Insulin Human Regular (Insulin Regular, Human 100 Units/1 Ml) 0 units SUB-Q ACHS [facility]; Protocol Last Admin: 10/30/20 11:56 Dose: Not Given Documented by: Magnesium Hydroxide (Magnesium Hydroxide (Mom) Oral Liqd Udc) 30 ml PO Q4H PRN PRN Reason: Constipation Ondansetron HCl (Ondansetron 4 Mg/2 Ml Inj) 4 mg IV Q8H PRN PRN Reason: Nausea And Vomiting Pantoprazole Sodium (Pantoprazole 40 Mg Inj) 40 mg IV BID [facility] Last Admin: 10/30/20 11:49 Dose: 40 mg Documented by: Sodium Chloride (Sodium Chloride 0.9% 10 Ml Flush Syringe) 10 ml IV BID [facility] Last Admin: 10/30/20 11:49 Dose: 10 ml Documented by: Sodium Chloride (Sodium Chloride 0.9% 10 Ml Flush Syringe) 10 ml IV PRN PRN PRN Reason: LINE FLUSH Review of Systems ROS unobtainable: due to mental status Physical Examination Vital Signs Temp Pulse Resp BP Pulse Ox 97.7 F 109 H 16 198/137 96 10/28/20 22:22 10/28/20 22:22 10/28/20 22:22 10/28/20 22:22 10/28/20 22:22 General appearance: cachectic, other (Patient is lethargic, frail and chronically ill-appearing) HEENT: Positive: PERRL Neck: Positive: neck supple Cardiac: Positive: Reg Rate and Rhythm Lungs: Positive: Decreased Breath Sounds Neuro: Positive: Weakness (Generalized weakness, frail and chronically ill appea ring) Abdomen: Positive: Soft Male genitourinary: Positive: deferred Skin: Positive: Clear Extremities: Absent: normal Results 10/30/20 04:25 10/30/20 04:25 Cardiac Enzymes 10/30/20 Range/Units 04:25 AST 502 H (5-40) units/L CBC 10/30/20 Range/Units 04:25 WBC 8.1 (4.5-11.0) K/mm3 RBC 3.50 L (3.65-5.03) M/mm3 Hgb 7.3 L (11.8-15.2) gm/dl Hct 22.8 L (35.5-45.6) % Comprehensive Metabolic Panel 10/29/20 10/30/20 Range/Units 21:48 04:25 Sodium 141 (137-145) mmol/L Potassium 4.8 4.9 (3.6-5.0) mmol/L Chloride 103.1 (98-107) mmol/L Carbon Dioxide 20 L (22-30) mmol/L BUN 89 H (9-20) mg/dL Creatinine 7.6 H (0.8-1.3) mg/dL Glucose 129 H (75-100) mg/dL Calcium 8.6 (8.4-10.2) mg/dL AST 502 H (5-40) units/L ALT 636 H (7-56) units/L Alkaline Phosphatase 101 (35-129) units/L Total Protein 5.7 L (6.3-8.2) g/dL Albumin 3.2 L (3.9-5) g/dL EKG interpretations - Telemetry EKG Rhythm: Sinus Rhythm (Twelve-lead EKG is pending, but patient is in a stable sinus rhythm on air sampling and monitoring) Assessment and Plan - Patient Problems (1) Preoperative cardiovascular examination Current Visit: Yes Status: Acute Plan to address problem: Frail, elderly, 80-year-old man who presents with severe anemia and end-stage renal failure. No cardiac complaints, but he apparently has an extensive cardiac history and possible prior coronary artery bypass. Chest x-ray on presentation showed evidence of COPD and possible mild interstitial edema. Left ventricular ejection fraction is relatively well preserved at 45 to 50%. The patient is small to moderate perioperative risk for myocardial infarction and heart failure exacerbation. Due to his multiple severe comorbidities, he is not a candidate for aggressive and invasive cardiac evaluation and management. We will pursue a conservative cardiac management approach. His cardiac risk for noncardiac surgery is moderate, you may proceed with GI endoscopy. We will optimize cardiac management as tolerated with long-acting nitrates, beta-blockers and diuretics. Patient is currently a poor candidate for antiplatelet or anticoagulant therapy due to underlying severe anemia.
--- NOTE | 2020-10-30 12:25 | Progress Note ---
Assessment and Plan 1. Acute kidney injury superimposed on CKD: MODE superimposed on CKD . CT abdomen negative for hydro. Urine studies ordered. Monitor renal function. Renal prognosis is guarded to poor. Avoid nephrotoxic agents. Meds dosage based on GFR. Patient require hemodialysis due to significant decline in the GFR, associated hyperkalemia, metabolic acidosis and volume overload. D/w his grand daughter again today over the phone, explained the indications, benefits, risks and alternatives involved in hemodialysis. She voiced understanding and gave verbal consent for hemodialysis. Hemodialysis orders placed. 2. FEN: Hyperkalemia, improved, monitor. Anion-gap Metabolic acidosis, HD today, monitor. Volume overload, UF with HD, resume IV lasix. Monitor lytes. 3. Decompensated CHF: Echo EF 45-50%. Strict I/O. On Carvedilol. Card consulted. 4. Elevated liver enzymes: Hepatitis serologies negative. 5. GI bleed: Per GI EGD in the next few days, after CHF/HTN/MODE has been assessed and improved. 6. Hypertensive urgency: On Carvedilol. Resume IV Lasix. UF with HD as tolerated. Monitor. 7. Hypochromic Anemia, POA: ?2/2 GI bleed. Followed by GI. Monitor. 8. Thrombocytopenia. 9. Chronic thoraco-abdominal aneurysm. Subjective: Patient was seen and examined at the bedside. Examination: General appearance: well-developed, thin built, appears stated age, not in distress HEENT: ATNC, pupils equal Neck: supple Respiratory: bibasal rales heard Cardiology: regular, S1S2, no murmur Gastrointestinal: soft, bowel sounds heard, not tender Integumentary: warm and dry, upper chest hypopigmented patches noted Neurologic: alert, moving extremities Ext: no edema Hemodialysis access: R IJ temp catheter Subjective Date of service: 10/30/20 Principal diagnosis: Anemia, Abnormal LFTs Objective - Vital Signs Vital signs: Vital Signs - 12hr 10/30/20 10/30/20 10/30/20 00:30 00:40 00:50 Temperature Pulse Rate 70 66 68 Pulse Rate [ Anterior Bilateral Throughout] Pulse Rate [ From Monitor] Respiratory 13 13 11 L Rate Respiratory Rate [Anterior Bilateral Throughout] Blood Pressure 136/80 136/80 132/79 O2 Sat by Pulse 98 99 100 Oximetry 10/30/20 10/30/20 10/30/20 01:00 01:10 01:20 Temperature Pulse Rate 69 70 70 Pulse Rate [ Anterior Bilateral Throughout] Pulse Rate [ From Monitor] Respiratory 15 16 13 Rate Respiratory Rate [Anterior Bilateral Throughout] Blood Pressure 138/83 138/83 125/78 O2 Sat by Pulse 98 99 99 Oximetry 10/30/20 10/30/20 10/30/20 01:30 01:40 01:50 Temperature Pulse Rate 64 70 69 Pulse Rate [ Anterior Bilateral Throughout] Pulse Rate [ From Monitor] Respiratory 16 Rate Respiratory Rate [Anterior Bilateral Throughout] Blood Pressure 120/70 120/70 137/85 O2 Sat by Pulse 98 97 99 Oximetry 10/30/20 10/30/20 10/30/20 02:00 02:10 02:20 Temperature Pulse Rate 68 67 69 Pulse Rate [ Anterior Bilateral Throughout] Pulse Rate [ From Monitor] Respiratory 14 14 17 Rate Respiratory Rate [Anterior Bilateral Throughout] Blood Pressure 141/84 141/84 149/92 O2 Sat by Pulse 97 99 98 Oximetry 10/30/20 10/30/20 10/30/20 02:30 02:40 02:50 Temperature Pulse Rate 68 67 65 Pulse Rate [ Anterior Bilateral Throughout] Pulse Rate [ From Monitor] Respiratory 15 15 14 Rate Respiratory Rate [Anterior Bilateral Throughout] Blood Pressure 153/93 153/93 153/95 O2 Sat by Pulse 97 99 98 Oximetry 10/30/20 10/30/20 10/30/20 03:00 03:10 03:20 Temperature Pulse Rate 64 68 63 Pulse Rate [ Anterior Bilateral Throughout] Pulse Rate [ From Monitor] Respiratory 15 12 14 Rate Respiratory Rate [Anterior Bilateral Throughout] Blood Pressure 135/88 135/88 138/81 O2 Sat by Pulse 97 100 100 Oximetry 10/30/20 10/30/20 10/30/20 03:25 03:30 03:40 Temperature 98.8 F Pulse Rate 65 62 Pulse Rate [ Anterior Bilateral Throughout] Pulse Rate [ From Monitor] Respiratory 14 14 Rate Respiratory Rate [Anterior Bilateral Throughout] Blood Pressure 125/77 125/77 O2 Sat by Pulse 93 99 Oximetry 10/30/20 10/30/20 10/30/20 03:47 03:50 04:00 Temperature Pulse Rate 70 Pulse Rate [ 66 Anterior Bilateral Throughout] Pulse Rate [ 70 From Monitor] Respiratory 16 Rate Respiratory 15 Rate [Anterior Bilateral Throughout] Blood Pressure 115/71 138/81 O2 Sat by Pulse 97 97 Oximetry 10/30/20 10/30/20 10/30/20 04:10 04:20 04:30 Temperature Pulse Rate 66 70 69 Pulse Rate [ Anterior Bilateral Throughout] Pulse Rate [ From Monitor] Respiratory 14 19 17 Rate Respiratory Rate [Anterior Bilateral Throughout] Blood Pressure 141/88 162/94 163/98 O2 Sat by Pulse 99 99 98 Oximetry 10/30/20 10/30/20 10/30/20 04:40 04:50 05:00 Temperature Pulse Rate 62 61 63 Pulse Rate [ Anterior Bilateral Throughout] Pulse Rate [ From Monitor] Respiratory 17 13 14 Rate Respiratory Rate [Anterior Bilateral Throughout] Blood Pressure 163/98 151/76 140/74 O2 Sat by Pulse 99 98 98 Oximetry 10/30/20 10/30/20 10/30/20 05:10 05:20 05:30 Temperature Pulse Rate 66 61 61 Pulse Rate [ Anterior Bilateral Throughout] Pulse Rate [ From Monitor] Respiratory 12 15 13 Rate Respiratory Rate [Anterior Bilateral Throughout] Blood Pressure 140/74 135/73 123/63 O2 Sat by Pulse 99 99 98 Oximetry 10/30/20 10/30/20 10/30/20 05:40 05:50 06:00 Temperature Pulse Rate 60 59 L 61 Pulse Rate [ Anterior Bilateral Throughout] Pulse Rate [ From Monitor] Respiratory 14 14 14 Rate Respiratory Rate [Anterior Bilateral Throughout] Blood Pressure 123/63 125/62 129/69 O2 Sat by Pulse 99 99 Oximetry 10/30/20 10/30/20 10/30/20 06:04 06:10 06:20 Temperature Pulse Rate 59 L 64 63 Pulse Rate [ Anterior Bilateral Throughout] Pulse Rate [ From Monitor] Respiratory 13 17 Rate Respiratory Rate [Anterior Bilateral Throughout] Blood Pressure 129/69 129/69 136/83 O2 Sat by Pulse 100 99 Oximetry 10/30/20 10/30/20 10/30/20 06:30 06:40 06:50 Temperature Pulse Rate 61 70 64 Pulse Rate [ Anterior Bilateral Throughout] Pulse Rate [ From Monitor] Respiratory 14 15 12 Rate Respiratory Rate [Anterior Bilateral Throughout] Blood Pressure 145/80 145/80 141/90 O2 Sat by Pulse 98 97 98 Oximetry 10/30/20 10/30/20 10/30/20 07:00 07:10 07:20 Temperature 97.5 F L Pulse Rate 63 63 63 Pulse Rate [ Anterior Bilateral Throughout] Pulse Rate [ From Monitor] Respiratory 12 13 12 Rate Respiratory Rate [Anterior Bilateral Throughout] Blood Pressure 144/80 144/80 143/85 O2 Sat by Pulse 97 99 99 Oximetry 10/30/20 10/30/20 10/30/20 07:30 07:40 07:50 Temperature Pulse Rate 63 67 69 Pulse Rate [ Anterior Bilateral Throughout] Pulse Rate [ From Monitor] Respiratory 12 17 16 Rate Respiratory Rate [Anterior Bilateral Throughout] Blood Pressure 151/85 151/85 184/103 O2 Sat by Pulse 98 97 96 Oximetry 10/30/20 10/30/20 10/30/20 07:52 08:00 08:10 Temperature Pulse Rate 69 65 Pulse Rate [ 69 Anterior Bilateral Throughout] Pulse Rate [ 74 From Monitor] Respiratory 13 15 Rate Respiratory 20 Rate [Anterior Bilateral Throughout] Blood Pressure 184/103 152/79 O2 Sat by Pulse 95 97 98 Oximetry 10/30/20 10/30/20 10/30/20 08:20 08:30 08:40 Temperature Pulse Rate 64 64 68 Pulse Rate [ Anterior Bilateral Throughout] Pulse Rate [ From Monitor] Respiratory 15 13 15 Rate Respiratory Rate [Anterior Bilateral Throughout] Blood Pressure 160/92 152/88 175/100 O2 Sat by Pulse 98 99 94 Oximetry 10/30/20 10/30/20 10/30/20 08:50 09:00 09:10 Temperature Pulse Rate 70 68 72 Pulse Rate [ Anterior Bilateral Throughout] Pulse Rate [ From Monitor] Respiratory 14 17 17 Rate Respiratory Rate [Anterior Bilateral Throughout] Blood Pressure 171/98 188/107 175/113 O2 Sat by Pulse 99 99 95 Oximetry 10/30/20 10/30/20 10/30/20 09:20 09:30 09:40 Temperature Pulse Rate 72 68 70 Pulse Rate [ Anterior Bilateral Throughout] Pulse Rate [ From Monitor] Respiratory Rate Respiratory Rate [Anterior Bilateral Throughout] Blood Pressure 176/107 168/95 163/91 O2 Sat by Pulse 93 93 91 Oximetry 10/30/20 10/30/20 10/30/20 09:50 10:00 10:10 Temperature Pulse Rate 69 70 69 Pulse Rate [ Anterior Bilateral Throughout] Pulse Rate [ From Monitor] Respiratory Rate Respiratory Rate [Anterior Bilateral Throughout] Blood Pressure 150/87 135/83 148/78 O2 Sat by Pulse 92 88 90 Oximetry 10/30/20 10/30/20 10/30/20 10:20 10:30 10:40 Temperature Pulse Rate 69 67 68 Pulse Rate [ Anterior Bilateral Throughout] Pulse Rate [ From Monitor] Respiratory 14 14 Rate Respiratory Rate [Anterior Bilateral Throughout] Blood Pressure 128/87 147/90 159/88 O2 Sat by Pulse 93 96 92 Oximetry 10/30/20 10/30/20 10/30/20 10:50 11:00 11:10 Temperature Pulse Rate 68 70 69 Pulse Rate [ Anterior Bilateral Throughout] Pulse Rate [ From Monitor] Respiratory 14 16 17 Rate Respiratory Rate [Anterior Bilateral Throughout] Blood Pressure 156/94 173/101 143/96 O2 Sat by Pulse 93 94 Oximetry 10/30/20 10/30/20 10/30/20 11:20 11:30 11:40 Temperature 97.7 F Pulse Rate 69 68 69 Pulse Rate [ Anterior Bilateral Throughout] Pulse Rate [ From Monitor] Respiratory 12 12 13 Rate Respiratory Rate [Anterior Bilateral Throughout] Blood Pressure 167/103 170/98 164/94 O2 Sat by Pulse 95 96 96 Oximetry - Lab 10/30/20 04:25 10/30/20 04:25 Most recent lab results ABG pH 7.384 pH Units (7.350-7.450) 10/29/20 14:40 ABG pCO2 32.3 mm Hg 10/29/20 14:40 ABG pO2 107.8 mm Hg (80.0-90.0) H 10/29/20 14:40 ABG HCO3 18.8 mmol/L (20.0-26.0) L 10/29/20 14:40 ABG O2 Saturation 97.9 % (95.0-99.0) 10/29/20 14:40 Calcium 8.6 mg/dL (8.4-10.2) 10/30/20 04:25 Phosphorus 8.20 mg/dL (2.5-4.5) H 10/30/20 04:25 Urine Creatinine 78.5 mg/dL (0.1-20.0) H 10/29/20 15:40 Urine Sodium 76 mmol/L 10/29/20 15:40 Urine Total Protein 745 mg/dL (5-11.8) H 10/29/20 15:40 Medications & Allergies - Medications Allergies/Adverse Reactions: Allergies No Known Allergies Allergy (Unverified 05/07/14 01:13) Home Medications: Home Medications Medication Instructions Recorded Confirmed Last Taken Type Amlodipine Besylate [Norvasc] 10 mg PO QDAY 10/28/20 10/28/20 Unknown History Aspirin EC [Halfprin EC] 81 mg PO QDAY 10/28/20 10/28/20 Unknown History Atorvastatin Calcium [Lipitor] 80 mg PO QDAY 10/28/20 10/28/20 Unknown History Lisinopril [Zestril] 10 mg PO QDAY 10/28/20 10/28/20 Unknown History Active Medications: Generic Name Dose Route Start Last Admin Trade Name Freq PRN Reason Stop Dose Admin Acetaminophen 650 mg 10/29/20 02:17 Acetaminophen 325 Mg Tab PO Q6H PRN Pain MILD(1-3)/Fever >100.5/SCHMITT Aspirin 81 mg 10/30/20 10:00 10/30/20 11:49 Aspirin Ec 81 Mg Tab PO 81 mg QDAY [place] Administration Carvedilol 12.5 mg 10/29/20 22:00 10/30/20 11:49 Carvedilol 12.5 Mg Tab PO 12.5 mg BID POLINA Administration Dextrose 0 ml 10/29/20 02:17 Dextrose 50% In Water (25gm) 50 Ml Syringe IV Q30MIN PRN Hypoglycemia Protocol Hydralazine HCl 10 mg 10/29/20 06:13 10/29/20 10:10 Hydralazine 20 Mg/1 Ml Inj IV 10 mg Q4H PRN Administration Blood Pressure Hydralazine HCl 50 mg 10/29/20 18:00 10/30/20 06:04 Hydralazine 25 Mg Tab PO Not Given Q8HR [facility] Sodium Chloride 100 mls @ 999 mls/hr 10/30/20 10:00 Nacl 0.9% IV MARKY PRN Hypotension Sodium Chloride 500 mls @ 0 mls/hr 10/30/20 10:16 Nacl 0.9% 500 Ml IV 10/30/20 23:59 ONCE NR As Directed Insulin Human Regular 0 units 10/29/20 07:30 10/30/20 11:56 Insulin Regular, Human 100 Units/1 Ml SUB-Q Not Given ACHS [facility] Protocol Magnesium Hydroxide 30 ml 10/29/20 02:17 Magnesium Hydroxide (Mom) Oral Liqd Udc PO Q4H PRN Constipation Ondansetron HCl 4 mg 10/29/20 02:17 Ondansetron 4 Mg/2 Ml Inj IV Q8H PRN Nausea And Vomiting Pantoprazole Sodium 40 mg 10/29/20 10:00 10/30/20 11:49 Pantoprazole 40 Mg Inj IV 40 mg BID [place] Administration Sodium Chloride 10 ml 10/29/20 10:00 10/30/20 11:49 Sodium Chloride 0.9% 10 Ml Flush Syringe IV 10 ml BID [place] Administration Sodium Chloride 10 ml 10/29/20 02:17 Sodium Chloride 0.9% 10 Ml Flush Syringe IV PRN PRN LINE FLUSH
[2020-10-30 13:11] LABS: Platelet Count 88 K/mm3 (140-440)
--- NOTE | 2020-10-30 14:20 | Progress Note ---
Assessment and Plan Assessment and plan: 80-year-old Romanian male with known history of hypertension and diabetes mellitus, history of thoracic aortic dissection repair presents to the emergency room today complaining of nausea, decreased appetite, abdominal pain and dark stool which has been ongoing for the past 2 weeks. Most of the history was gotten from the granddaughter who was by the bedside because of the language barrier. Abdominal pain is said to have been persistent over the past few weeks. Patient also reports significant weight loss. He denies any hematemesis, no hematuria or dysuria, denies any constipation. Patient denies any nonsteroidal anti-inflammatory medication use apart from aspirin. Patient's last colonoscopy was over 15 years ago while living in [place]. Work-up in the emergency room today, significant findings were that of hemoglobin of 8.5 and hematocrit of 26.1, potassium was elevated at 5.9, BUN and creatinine were elevated at 72 and 6.8, AST and ALT elevated at 517 and 448 respectively. Total bilirubin was 1.50 CT of the abdomen and pelvis reveals cardiomegaly with interlobular septal thickening in the lung bases likely reflecting edema. Moderate right and trace left pleural effusions. 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 Patient admitted with acute on chronic renal failure, hyperkalemia, abnormal liver enzymes, anemia possible GI bleed on 10/29/20 No acute events overnight NEURO-language barrier Non sinhala speaking - language line at bedside PRN tylenol for pain MACHADO; no focal deficit family at bedside CV: hx HTN; hx aortic dissection with repair coreg, norvasc, hydral scheduled daily NTG per cards PRN hydral for HTN pulm critical care following SR Decompensated CHF Echo EF 45-50%. Chronic thoraco-abdominal aneurysm. asa 81 mg OK with GI Resp-nap NC PRN for Sat > 92 nebs PRN pulmonary hygiene GI-GIB; transaminitis GI following possible EGD/liver biopsy Wed FLD ok per GI NPO p MN PPI BID trend LFT- tbili .7 hepatitis neg panel - Acute kidney injury superimposed on CKD MODE superimposed on CKD CT abdomen negative for hydro. Urine studies ordered by renal Renal prognosis is guarded to poor per renal Avoid nephrotoxic agents. Meds dosage based on GFR. Patient require hemodialysis due to significant decline in the GFR, associated hyperkalemia, metabolic acidosis and volume overload. HD today for 2L- tolerated well Hyperkalemia, improved, monitor. Anion-gap Metabolic acidosis, HD today, monitor. Volume overload, UF with HD, resume IV lasix. trend BUN, Cr, K and phos---89-736--4.9---8.2 this AM lasix 80 mg IV today per nephrology minimal response voiding to urinal strict I/O neg 100 ml over the last 24 hours trend electrolytes Heme- blood loss anemia; thrombocytopenia 1 RBC today with HD - hbg 7.3 trend hgb no bleeding on exam today no bloody emesis or stool ID-nap trend fever and WBC curve afebrile WBC 8 Endo: hx DM SSI PRN avoid hypoglycemia Disposition Plan: tbd Total Time Spent with Patient (Minutes): 60 History Interval history: no acute events overnight Hospitalist Physical - Constitutional Vitals: Temp Pulse Resp BP Pulse Ox 98.7 F 68 15 155/85 85 10/30/20 13:50 10/30/20 14:00 10/30/20 13:50 10/30/20 14:00 10/30/20 13:00 General appearance: Present: cachectic, other (Patient is lethargic, frail and chronically ill-appearing) - EENT Eyes: Present: PERRL, EOM intact ENT: hearing intact, clear oral mucosa - Neck Neck: Present: supple, normal ROM - Respiratory Respiratory effort: normal - Cardiovascular Rhythm: regular Heart Sounds: Present: S1 & S2 - Extremities Extremities: no ischemia Extremity abnormal: edema Peripheral Pulses: within normal limits - Abdominal General gastrointestinal: soft, non-tender - Integumentary Integumentary: Present: clear, warm, dry - Psychiatric Psychiatric: appropriate mood/affect, other - Allied Health Allied health notes reviewed: nursing, social work, case management Results - Labs CBC & Chem 7: 10/30/20 04:25 10/30/20 04:25 Labs: Laboratory Last Values WBC 8.1 K/mm3 (4.5-11.0) 10/30/20 04:25 RBC 3.50 M/mm3 (3.65-5.03) L 10/30/20 04:25 Hgb 7.3 gm/dl (11.8-15.2) L 10/30/20 04:25 Hct 22.8 % (35.5-45.6) L 10/30/20 04:25 MCV 65 fl (84-94) L 10/30/20 04:25 MCH 21 pg (28-32) L 10/30/20 04:25 MCHC 32 % (32-34) 10/30/20 04:25 RDW 17.9 % (13.2-15.2) H 10/30/20 04:25 Plt Count 88 K/mm3 (140-440) L 10/30/20 04:25 Add Manual Diff Complete 10/30/20 04:25 Total Counted 100 10/30/20 04:25 Seg Neuts % (Manual) 87.0 % (40.0-70.0) H 10/30/20 04:25 Band Neutrophils % 1.0 % 10/30/20 04:25 Lymphocytes % (Manual) 5.0 % (13.4-35.0) L 10/30/20 04:25 Monocytes % (Manual) 7.0 % (0.0-7.3) 10/30/20 04:25 Nucleated RBC % 1.0 % (0.0-0.9) H 10/30/20 04:25 Seg Neutrophils # Man 7.0 K/mm3 (1.8-7.7) 10/30/20 04:25 Band Neutrophils # 0.1 K/mm3 10/30/20 04:25 Lymphocytes # (Manual) 0.4 K/mm3 (1.2-5.4) L 10/30/20 04:25 Abs React Lymphs (Man) 0.0 K/mm3 10/30/20 04:25 Monocytes # (Manual) 0.6 K/mm3 (0.0-0.8) 10/30/20 04:25 Eosinophils # (Manual) 0.0 K/mm3 (0.0-0.4) 10/30/20 04:25 Basophils # (Manual) 0.0 K/mm3 (0.0-0.1) 10/30/20 04:25 Metamyelocytes # 0.0 K/mm3 10/30/20 04:25 Myelocytes # 0.0 K/mm3 10/30/20 04:25 Promyelocytes # 0.0 K/mm3 10/30/20 04:25 Blast Cells # 0.0 K/mm3 10/30/20 04:25 WBC Morphology Not Reportable 10/30/20 04:25 Hypersegmented Neuts Not Reportable 10/30/20 04:25 Hyposegmented Neuts Not Reportable 10/30/20 04:25 Hypogranular Neuts Not Reportable 10/30/20 04:25 Smudge Cells Not Reportable 10/30/20 04:25 Toxic Granulation Not Reportable 10/30/20 04:25 Toxic Vacuolation Not Reportable 10/30/20 04:25 Dohle Bodies Not Reportable 10/30/20 04:25 Pelger-Huet Anomaly Not Reportable 10/30/20 04:25 Katherine Rods Not Reportable 10/30/20 04:25 Platelet Estimate Consistent w auto 10/30/20 04:25 Clumped Platelets Not Reportable 10/30/20 04:25 Plt Clumps, EDTA Not Reportable 10/30/20 04:25 Large Platelets Not Reportable 10/30/20 04:25 Giant Platelets Not Reportable 10/30/20 04:25 Platelet Satelliting Not Reportable 10/30/20 04:25 Plt Morphology Comment Not Reportable 10/30/20 04:25 RBC Morphology Not Reportable 10/30/20 04:25 Dimorphic RBCs Not Reportable 10/30/20 04:25 Polychromasia Few 10/30/20 04:25 Hypochromasia 2+ 10/30/20 04:25 Poikilocytosis Not Reportable 10/30/20 04:25 Anisocytosis 2+ 10/30/20 04:25 Microcytosis Not Reportable 10/30/20 04:25 Macrocytosis Not Reportable 10/30/20 04:25 Spherocytes Not Reportable 10/30/20 04:25 Pappenheimer Bodies Not Reportable 10/30/20 04:25 Sickle Cells Not Reportable 10/30/20 04:25 Target Cells Not Reportable 10/30/20 04:25 Tear Drop Cells Not Reportable 10/30/20 04:25 Ovalocytes Not Reportable 10/30/20 04:25 Helmet Cells Not Reportable 10/30/20 04:25 [place] Bodies Not Reportable 10/30/20 04:25 Superior Rings Not Reportable 10/30/20 04:25 [place] Cells Not Reportable 10/30/20 04:25 Bite Cells Not Reportable 10/30/20 04:25 Crenated Cell Not Reportable 10/30/20 04:25 Elliptocytes Not Reportable 10/30/20 04:25 Acanthocytes (Spur) Not Reportable 10/30/20 04:25 Rouleaux Not Reportable 10/30/20 04:25 Hemoglobin C Crystals Not Reportable 10/30/20 04:25 Schistocytes 1+ 10/30/20 04:25 Malaria parasites Not Reportable 10/30/20 04:25 Ellis Bodies Not Reportable 10/30/20 04:25 Hem Pathologist Commnt No 10/30/20 04:25 ABG pH 7.384 pH Units (7.350-7.450) 10/29/20 14:40 ABG pCO2 32.3 mm Hg 10/29/20 14:40 ABG pO2 107.8 mm Hg (80.0-90.0) H 10/29/20 14:40 ABG HCO3 18.8 mmol/L (20.0-26.0) L 10/29/20 14:40 ABG O2 Saturation 97.9 % (95.0-99.0) 10/29/20 14:40 ABG O2 Content 10.3 (0.0-44) 10/29/20 14:40 ABG Base Excess -5.6 mmol/L (-2.0-3.0) L 10/29/20 14:40 ABG Hemoglobin 7.4 gm/dl (14.0-18.0) L 10/29/20 14:40 ABG Carboxyhemoglobin 1.5 % (0.0-5.0) 10/29/20 14:40 ABG Methemoglobin 0.5 % (0.0-1.5) 10/29/20 14:40 Oxyhemoglobin 95.9 % (95.0-99.0) 10/29/20 14:40 FiO2 28 % 10/29/20 14:40 Sodium 141 mmol/L (137-145) 10/30/20 04:25 Potassium 4.9 mmol/L (3.6-5.0) 10/30/20 04:25 Chloride 103.1 mmol/L (98-107) 10/30/20 04:25 Carbon Dioxide 20 mmol/L (22-30) L 10/30/20 04:25 Anion Gap 23 mmol/L 10/30/20 04:25 BUN 89 mg/dL (9-20) H 10/30/20 04:25 Creatinine 7.6 mg/dL (0.8-1.3) H 10/30/20 04:25 Estimated GFR 7 ml/min 10/30/20 04:25 BUN/Creatinine Ratio 12 % 10/30/20 04:25 Glucose 129 mg/dL (75-100) H 10/30/20 04:25 POC Glucose 120 mg/dL (70-105) H 10/30/20 11:11 Hemoglobin A1c 5.3 % (4-6) 10/29/20 02:00 Calcium 8.6 mg/dL (8.4-10.2) 10/30/20 04:25 Phosphorus 8.20 mg/dL (2.5-4.5) H 10/30/20 04:25 Total Bilirubin 0.70 mg/dL (0.1-1.2) 10/30/20 04:25 AST 502 units/L (5-40) H 10/30/20 04:25 ALT 636 units/L (7-56) H 10/30/20 04:25 Alkaline Phosphatase 101 units/L (35-129) 10/30/20 04:25 Total Protein 5.7 g/dL (6.3-8.2) L 10/30/20 04:25 Albumin 3.2 g/dL (3.9-5) L 10/30/20 04:25 Albumin/Globulin Ratio 1.3 % 10/30/20 04:25 Lipase 51 units/L (13-60) 10/28/20 22:43 PTH Intact 176.3 pg/mL (15-65) H 10/30/20 04:25 Urine Color Yellow (Yellow) 10/28/20 Unknown Urine Turbidity Cloudy (Clear) 10/28/20 Unknown Urine pH 5.0 (5.0-7.0) 10/28/20 Unknown Ur Specific [place] 1.018 (1.003-1.030) 10/28/20 Unknown Urine Protein >500 mg/dL (Negative) 10/28/20 Unknown Urine Glucose (UA) 50 mg/dL (Negative) 10/28/20 Unknown Urine Ketones Neg mg/dL (Negative) 10/28/20 Unknown Urine Blood Mod (Negative) 10/28/20 Unknown Urine Nitrite Neg (Negative) 10/28/20 Unknown Urine Bilirubin Neg (Negative) 10/28/20 Unknown Urine Urobilinogen < 2.0 mg/dL (<2.0) 10/28/20 Unknown Ur Leukocyte Esterase Neg (Negative) 10/28/20 Unknown Urine WBC (Auto) 4.0 /HPF (0.0-6.0) 10/28/20 Unknown Urine RBC (Auto) 10.0 /HPF (0.0-6.0) 10/28/20 Unknown U Epithel Cells (Auto) 1.0 /HPF (0-13.0) 10/28/20 Unknown Urine Mucus Few /HPF 10/28/20 Unknown Urine Creatinine 78.5 mg/dL (0.1-20.0) H 10/29/20 15:40 Protein/Creatinin Ratio 9.49 10/29/20 15:40 Urine Sodium 76 mmol/L 10/29/20 15:40 Urine Total Protein 745 mg/dL (5-11.8) H 10/29/20 15:40 Hepatitis A IgM Ab Non-reactive (NonReactive) 10/29/20 00:00 Hep Bs Antigen Non-reactive (Negative) 10/29/20 00:00 Hep B Core IgM Ab Non-reactive (NonReactive) 10/29/20 00:00 Hepatitis C Antibody Non-reactive (NonReactive) 10/29/20 00:00 Blood Type O POSITIVE 10/30/20 10:53 Antibody Screen Negative 10/30/20 10:53 Crossmatch See Detail 10/30/20 10:53 Microbiology: Microbiology 10/29/20 20:55 Stool Stool Occult Blood (MARI) - Final [place]/IV: Voiding Method Urinal Active Medications - Current Medications Current Medications: Generic Name Dose Route Start Last Admin Trade Name Freq PRN Reason Stop Dose Admin Acetaminophen 650 mg 10/29/20 02:17 Acetaminophen 325 Mg Tab PO Q6H PRN Pain MILD(1-3)/Fever >100.5/SCHMITT Amlodipine Besylate 10 mg 10/30/20 13:00 Amlodipine 10 Mg Tab PO QDAY POLINA Aspirin 81 mg 10/30/20 10:00 10/30/20 11:49 Aspirin Ec 81 Mg Tab PO 81 mg QDAY POLINA Administration Carvedilol 12.5 mg 10/29/20 22:00 10/30/20 11:49 Carvedilol 12.5 Mg Tab PO 12.5 mg BID POLINA Administration Dextrose 0 ml 10/29/20 02:17 Dextrose 50% In Water (25gm) 50 Ml Syringe IV Q30MIN PRN Hypoglycemia Protocol Furosemide 80 mg 10/30/20 13:00 Furosemide 40 Mg/4 Ml Inj IV DAILY POLINA Hydralazine HCl 10 mg 10/29/20 06:13 10/29/20 10:10 Hydralazine 20 Mg/1 Ml Inj IV 10 mg Q4H PRN Administration Blood Pressure Hydralazine HCl 50 mg 10/29/20 18:00 10/30/20 06:04 Hydralazine 25 Mg Tab PO Not Given Q8HR POLINA Sodium Chloride 100 mls @ 999 mls/hr 10/30/20 10:00 Nacl 0.9% IV MARKY PRN Hypotension Sodium Chloride 500 mls @ 0 mls/hr 10/30/20 10:16 Nacl 0.9% 500 Ml IV 10/30/20 23:59 ONCE NR As Directed Insulin Human Regular 0 units 10/29/20 07:30 10/30/20 11:56 Insulin Regular, Human 100 Units/1 Ml SUB-Q Not Given ACHS [facility] Protocol Magnesium Hydroxide 30 ml 10/29/20 02:17 Magnesium Hydroxide (Mom) Oral Liqd Udc PO Q4H PRN Constipation Nitroglycerin 0.4 mg 10/31/20 06:00 Nitroglycerin 0.4 Mg Patch 24hr TD QDAY@0600 POLINA Ondansetron HCl 4 mg 10/29/20 02:17 Ondansetron 4 Mg/2 Ml Inj IV Q8H PRN Nausea And Vomiting Pantoprazole Sodium 40 mg 10/29/20 10:00 10/30/20 11:49 Pantoprazole 40 Mg Inj IV 40 mg BID POLINA Administration Sodium Chloride 10 ml 10/29/20 10:00 10/30/20 11:49 Sodium Chloride 0.9% 10 Ml Flush Syringe IV 10 ml BID POLINA Administration Sodium Chloride 10 ml 10/29/20 02:17 Sodium Chloride 0.9% 10 Ml Flush Syringe IV PRN PRN LINE FLUSH Nutrition/Malnutrition Assess - Dietary Evaluation Nutrition/Malnutrition Findings: Nutrition Notes Start: 10/29/20 12:02 Freq: Status: Active Protocol: Document 10/30/20 12:01 KATIE (Rec: 10/30/20 12:04 KATIE [id number]) Nutrition Notes Need for Assessment generated from: sec accountant Initial or Follow up Reassessment Current Diagnosis Acute Kidney Injury,Diabetes, Hypertension,Heart Failure, Hyperlipidemia Other Pertinent Diagnosis elevated LFTs, GIB, anemia Current Diet Cardiac, Consistent CHO Labs/Tests BUN 89 Cr 7.6 Pertinent Medications Reviewed Height 5 ft 5 in Weight 51.3 kg [place] Body Weight (kg) 61.81 BMI 18.8 Weight Status Underweight Subjective/Other Information RN screen for MST. Already following pt. He is more confused today. He ate 50% of breakfast and sips of ONS. Percent of energy/protein needs met: 71%/69% Burn Absent Trauma Absent GI Symptoms None Current % PO Poor (25-49%) Minimum of two criteria Yes Energy Intake (non-severe) <75% Estimated Energy Requirement >7 days Muscle Mass Mild Depletion (non-severe) #1 Nutrition Diagnosis Malnutrition As Evidenced by Signs and Symptoms pt ate 50% of breakfast Diagnosis Progress(for reassessment Improved documentation) Is patient on ventilator? No Is Patient Ambulatory and/or Out of Bed No REE-([facility]-confined to bed) [phone] Calculation Used for Recommendations [facility] Additional Notes Protein: (1.2-1.5g/kg) 62-77g Fluid: 1 ml/kcal or per MD Nutrition Intervention Change Diet Order: Continue Add Supplement/Snack (indicate name/kcal Nepro BID /protein ) Provides kCal: 850 Provides Protein (gm) 38 Goal #1 Meet at least 80% of protein and energy needs via PO and ONS intakes Goal #2 Weight gain/maintenance Anticipated Discharge Needs: Cardiac, Consistent CHO Follow-Up By: 11/01/20 Additional Comments FU for intakes, ONS tolerance - Attestation Statement I have reviewed and agreed w/ Malnutrition eval & tx plan: Yes
--- NOTE | 2020-10-30 16:33 | Ultrasound Report ---
ULTRASOUND ABDOMEN, COMPLETE INDICATION / CLINICAL INFORMATION: Elevated liver enzymes. COMPARISON: CT abdomen/pelvis without contrast 10/29/2020. FINDINGS: PANCREAS: Not well visualized. ABDOMINAL AORTA: Previously visualized thoracoabdominal aortic aneurysm appears stable on today's exa m, measuring up to 3.3 cm. IVC: No significant abnormality. LIVER: The liver measures small at 9.8 cm. Generalized mildly increased hepatic echotexture is noted. No focal hepatic lesion is identified. Normal hepatopedal blood flow within the main portal vein. GALLBLADDER: No significant abnormality. BILE DUCTS: No significant abnormality. Common bile duct measures 2 mm. KIDNEYS: Right: The right kidney measures 8.1 cm. Increased cortical echogenicity. Left: The left ki dney measures 9.8 cm. Increased cortical echogenicity. There is a simple appearing cyst measuring 1.7 cm within the midpole. SPLEEN: The spleen measures 7.8 cm. No significant abnormality. FREE FLUID: None. ADDITIONAL FINDINGS: None. IMPRESSION: 1. Mildly increased hepatic echotexture, most commonly seen in the setting of steatosis. 2. Increased renal cortical echogenicity bilaterally, ultimately nonspecific but can be seen with med ical renal disease. 3. Additional findings as above. Scribed by: Kalina Avila RDMS, LESLIE Scribed: 10/30/2020 1:41 PM I have reviewed the images, agree with this report, and edited this report as needed. Signer Name: Orlando Cardenas MD Signed: 10/30/2020 4:28 PM Workstation Name: [id number]
[2020-10-30] MEDS: FUROSEMIDE 40 MG/4 ML INJ IV SCH (16:45)
[2020-10-30] MEDS: amLODIPine 10 MG TAB PO SCH (16:54)
--- NOTE | 2020-10-31 02:45 | Event Note ---
Date: 10/30/20 Admitted early Am hypertensive emergency Anemia MODE/CKD Antihypertensives started
[2020-10-31] MEDS: hydrALAZINE 25 MG TAB PO SCH (05:35)
[2020-10-31] MEDS: NITROGLYCERIN 0.4 MG PATCH 24HR TD SCH (05:35)
[2020-10-31 06:12] LABS: Hematocrit 23.8 % (35.5-45.6); Hemoglobin 7.9 gm/dl (11.8-15.2); Mean Corpuscular HGB Conc 33 % (32-34); Red Blood Count 3.65 M/mm3 (3.65-5.03); Red Cell Distribution Width 17.6 % (13.2-15.2)
[2020-10-31 06:14] LABS: Mean Corpuscular Volume 65 fl (84-94)
[2020-10-31 06:34] LABS: Calcium 8.3 mg/dL (8.4-10.2)
[2020-10-31 07:02] LABS: Platelet Count 94 K/mm3 (140-440)
[2020-10-31] MEDS: INSULIN REGULAR, HUMAN 100 UNITS/1 ML SUB-Q SCH ×4 (07:46→21:53)
--- NOTE | 2020-10-31 08:50 | Progress Note ---
Assessment and Plan 1. Acute kidney injury superimposed on CKD: MODE superimposed on CKD . CT abdomen negative for hydro. Urine studies ordered. Monitor renal function. Renal prognosis is guarded to poor. Avoid nephrotoxic agents. Meds dosage based on GFR. Patient was started on hemodialysis due to significant decline in the GFR, associated hyperkalemia, metabolic acidosis and volume overload. Hemodialysis: 10/30, 10/31. 2. FEN: Hyperkalemia, improved, monitor. Anion-gap Metabolic acidosis, HD today, monitor. Volume overload, UF with HD, resume IV lasix. Monitor lytes. 3. Heavy proteinuria: ?etiology. JENNIFER, ANCA, GBm Ab, Complements, UPEP and SPEP ordered. 4. Decompensated CHF: Echo EF 45-50%. Strict I/O. On Carvedilol. Card consulted. 5. Elevated liver enzymes: Hepatitis serologies negative. 6. GI bleed: Per GI EGD in the next few days, after CHF/HTN/MODE has been assessed and improved. 7. Hypertensive urgency: BP controlled. UF with HD as tolerated. Adjust meds as needed. Monitor. 8. Hypochromic Anemia, POA: ?2/2 GI bleed. Followed by GI. Peralta. Monitor. 9. Thrombocytopenia. 10. Chronic thoraco-abdominal aneurysm. Subjective: Patient was seen and examined at the bedside while on HD. Examination: General appearance: well-developed, thin built, appears stated age, not in distress HEENT: ATNC, pupils equal Neck: supple Respiratory: diminished breath sounds bibasal Cardiology: regular, S1S2, no murmur Gastrointestinal: soft, bowel sounds heard, not tender Integumentary: warm and dry, upper chest hypopigmented patches noted Neurologic: alert, moving extremities Ext: no edema Hemodialysis access: R IJ temp catheter with slight oozing of blood Subjective Date of service: 10/31/20 Principal diagnosis: Anemia, Abnormal LFTs Objective - Vital Signs Vital signs: Vital Signs - 12hr 10/30/20 10/30/20 10/30/20 21:40 21:54 21:55 Temperature Pulse Rate 113 H 113 H Respiratory Rate Blood Pressure 106/77 106/77 O2 Sat by Pulse 92 Oximetry 10/30/20 10/31/20 10/31/20 23:12 00:00 04:00 Temperature 97.3 F L Pulse Rate 41 L 77 69 Respiratory 20 20 Rate Blood Pressure 128/76 O2 Sat by Pulse 93 97 Oximetry 10/31/20 10/31/20 10/31/20 04:36 05:35 07:32 Temperature 98.3 F 98.0 F Pulse Rate 67 69 38 L Respiratory 16 16 Rate Blood Pressure 136/77 136/77 126/62 O2 Sat by Pulse 93 93 Oximetry 10/31/20 10/31/20 07:47 08:45 Temperature Pulse Rate Respiratory 20 Rate Blood Pressure O2 Sat by Pulse 97 91 Oximetry - Lab 10/31/20 05:32 10/31/20 05:32 Most recent lab results ABG pH 7.384 pH Units (7.350-7.450) 10/29/20 14:40 ABG pCO2 32.3 mm Hg 10/29/20 14:40 ABG pO2 107.8 mm Hg (80.0-90.0) H 10/29/20 14:40 ABG HCO3 18.8 mmol/L (20.0-26.0) L 10/29/20 14:40 ABG O2 Saturation 97.9 % (95.0-99.0) 10/29/20 14:40 Calcium 8.3 mg/dL (8.4-10.2) L 10/31/20 05:32 Phosphorus 6.50 mg/dL (2.5-4.5) H D 10/31/20 05:32 Magnesium 2.30 mg/dL (1.7-2.3) 10/31/20 05:32 Urine Creatinine 78.5 mg/dL (0.1-20.0) H 10/29/20 15:40 Urine Sodium 76 mmol/L 10/29/20 15:40 Urine Total Protein 745 mg/dL (5-11.8) H 10/29/20 15:40 Medications & Allergies - Medications Allergies/Adverse Reactions: Allergies No Known Allergies Allergy (Unverified 05/07/14 01:13) Home Medications: Home Medications Medication Instructions Recorded Confirmed Last Taken Type Amlodipine Besylate [Norvasc] 10 mg PO QDAY 10/28/20 10/28/20 Unknown History Aspirin EC [Halfprin EC] 81 mg PO QDAY 10/28/20 10/28/20 Unknown History Atorvastatin Calcium [Lipitor] 80 mg PO QDAY 10/28/20 10/28/20 Unknown History Lisinopril [Zestril] 10 mg PO QDAY 10/28/20 10/28/20 Unknown History Active Medications: Generic Name Dose Route Start Last Admin Trade Name Freq PRN Reason Stop Dose Admin Acetaminophen 650 mg 10/29/20 02:17 Acetaminophen 325 Mg Tab PO Q6H PRN Pain MILD(1-3)/Fever >100.5/SCHMITT Amlodipine Besylate 10 mg 10/30/20 13:00 10/30/20 16:54 Amlodipine 10 Mg Tab PO 10 mg QDAY POLINA Administration Aspirin 81 mg 10/30/20 10:00 10/30/20 11:49 Aspirin Ec 81 Mg Tab PO 81 mg QDAY POLINA Administration Carvedilol 12.5 mg 10/29/20 22:00 10/30/20 21:54 Carvedilol 12.5 Mg Tab PO 12.5 mg BID POLINA Administration Dextrose 0 ml 10/29/20 02:17 Dextrose 50% In Water (25gm) 50 Ml Syringe IV Q30MIN PRN Hypoglycemia Protocol Furosemide 80 mg 10/30/20 13:00 10/30/20 16:45 Furosemide 40 Mg/4 Ml Inj IV 80 mg DAILY POLINA Administration Hydralazine HCl 10 mg 10/29/20 06:13 10/29/20 10:10 Hydralazine 20 Mg/1 Ml Inj IV 10 mg Q4H PRN Administration Blood Pressure Hydralazine HCl 50 mg 10/29/20 18:00 10/31/20 05:35 Hydralazine 25 Mg Tab PO 50 mg Q8HR POLINA Administration Sodium Chloride 100 mls @ 999 mls/hr 10/30/20 10:00 Nacl 0.9% IV MARKY PRN Hypotension Insulin Human Regular 0 units 10/29/20 07:30 10/31/20 07:46 Insulin Regular, Human 100 Units/1 Ml SUB-Q Not Given ACHS POLINA Protocol Magnesium Hydroxide 30 ml 10/29/20 02:17 Magnesium Hydroxide (Mom) Oral Liqd Udc PO Q4H PRN Constipation Nitroglycerin 0.4 mg 10/31/20 06:00 10/31/20 05:35 Nitroglycerin 0.4 Mg Patch 24hr TD 0.4 mg QDAY@0600 POLINA Administration Ondansetron HCl 4 mg 10/29/20 02:17 Ondansetron 4 Mg/2 Ml Inj IV Q8H PRN Nausea And Vomiting Pantoprazole Sodium 40 mg 10/29/20 10:00 10/30/20 21:54 Pantoprazole 40 Mg Inj IV 40 mg BID POLINA Administration Sodium Chloride 10 ml 10/29/20 10:00 10/30/20 21:55 Sodium Chloride 0.9% 10 Ml Flush Syringe IV 10 ml BID POLINA Administration Sodium Chloride 10 ml 10/29/20 02:17 Sodium Chloride 0.9% 10 Ml Flush Syringe IV PRN PRN LINE FLUSH
--- NOTE | 2020-10-31 10:04 | Progress Note ---
Assessment and Plan Perioperative risk Severe anemia Elevated liver enzymes Renal failure initiated on hemodialysis Possible prior coronary artery bypass Left ventricular ejection fraction is 45-50% by echo this presentation. Recommendations: His cardiac risk for noncardiac surgery is moderate, you may proceed with GI endoscopy. Continue medical therapy for underlying coronary artery disease. Patient is currently a poor candidate for antiplatelet or anticoagulant therapy due to underlying severe anemia. Subjective Date of service: 10/31/20 Principal diagnosis: Anemia, Abnormal LFTs Interval history: Seen in dialysis. 12 lead ECG is pending. Objective Vital Signs Temp Pulse Pulse Pulse Resp Resp BP 10/31/20 08:45 10/31/20 07:47 20 10/31/20 07:32 98.0 F 38 L 16 126/62 10/31/20 05:35 69 136/77 10/31/20 04:36 98.3 F 67 16 136/77 10/31/20 04:00 69 10/31/20 00:00 77 20 10/30/20 23:12 97.3 F L 41 L 20 128/76 10/30/20 21:55 113 H 106/77 10/30/20 21:54 113 H 106/77 10/30/20 21:40 10/30/20 20:07 97.8 F 16 103/65 10/30/20 20:00 65 10/30/20 18:47 98.0 F 19 99/62 10/30/20 17:30 76 14 114/68 10/30/20 17:20 75 16 123/73 10/30/20 17:10 74 14 149/98 10/30/20 17:00 77 15 149/98 10/30/20 16:50 75 15 154/94 10/30/20 16:40 73 15 159/88 10/30/20 16:30 68 15 159/88 10/30/20 16:20 73 15 161/87 10/30/20 16:10 69 14 149/86 10/30/20 16:00 98.7 F 76 74 13 149/86 10/30/20 15:53 65 93/63 10/30/20 15:50 73 20 120/83 10/30/20 15:45 69 120/83 10/30/20 15:40 67 15 139/93 10/30/20 15:30 66 18 130/92 10/30/20 15:20 70 15 139/93 10/30/20 15:15 65 139/93 10/30/20 15:10 98.6 F 69 20 143/95 10/30/20 15:00 66 15 143/95 10/30/20 14:50 70 13 148/88 10/30/20 14:45 64 148/88 10/30/20 14:40 98.7 F 65 13 142/78 10/30/20 14:30 66 12 148/85 10/30/20 14:20 68 17 148/85 10/30/20 14:15 68 148/85 10/30/20 14:10 68 16 155/85 10/30/20 14:00 68 69 15 20 155/85 10/30/20 13:53 68 152/86 10/30/20 13:50 98.7 F 75 18 146/82 10/30/20 13:40 69 15 147/87 10/30/20 13:30 145/83 10/30/20 13:20 148/90 10/30/20 13:10 74 16 168/90 10/30/20 13:00 74 13 163/97 10/30/20 12:50 74 18 163/95 10/30/20 12:40 70 15 161/96 10/30/20 12:30 71 15 159/91 10/30/20 12:20 75 17 171/103 10/30/20 12:10 69 15 169/100 10/30/20 12:00 97.7 F 68 74 14 163/98 10/30/20 11:50 63 13 168/94 10/30/20 11:40 69 13 164/94 10/30/20 11:30 97.7 F 68 12 170/98 10/30/20 11:20 69 12 167/103 10/30/20 11:10 69 17 143/96 10/30/20 11:00 70 16 173/101 10/30/20 10:50 68 14 156/94 10/30/20 10:40 68 14 159/88 10/30/20 10:30 67 14 147/90 10/30/20 10:20 69 128/87 10/30/20 10:10 69 148/78 Pulse Ox 10/31/20 08:45 91 10/31/20 07:47 97 10/31/20 07:32 93 10/31/20 05:35 10/31/20 04:36 93 10/31/20 04:00 10/31/20 00:00 97 10/30/20 23:12 93 10/30/20 21:55 10/30/20 21:54 10/30/20 21:40 92 10/30/20 20:07 10/30/20 20:00 10/30/20 18:47 10/30/20 17:30 93 10/30/20 17:20 94 10/30/20 17:10 94 10/30/20 17:00 95 10/30/20 16:50 95 10/30/20 16:40 95 10/30/20 16:30 93 10/30/20 16:20 97 10/30/20 16:10 95 10/30/20 16:00 97 10/30/20 15:53 10/30/20 15:50 95 10/30/20 15:45 10/30/20 15:40 98 10/30/20 15:30 95 10/30/20 15:20 97 10/30/20 15:15 10/30/20 15:10 97 10/30/20 15:00 93 10/30/20 14:50 93 10/30/20 14:45 10/30/20 14:40 96 10/30/20 14:30 10/30/20 14:20 96 10/30/20 14:15 10/30/20 14:10 95 10/30/20 14:00 95 10/30/20 13:53 10/30/20 13:50 95 10/30/20 13:40 91 10/30/20 13:30 98 10/30/20 13:20 86 10/30/20 13:10 96 10/30/20 13:00 85 10/30/20 12:50 94 10/30/20 12:40 94 10/30/20 12:30 96 10/30/20 12:20 95 10/30/20 12:10 96 10/30/20 12:00 95 10/30/20 11:50 94 10/30/20 11:40 96 10/30/20 11:30 96 10/30/20 11:20 95 10/30/20 11:10 94 10/30/20 11:00 93 10/30/20 10:50 10/30/20 10:40 92 10/30/20 10:30 96 10/30/20 10:20 93 10/30/20 10:10 90 - Physical Examination General: No Apparent Distress HEENT: Positive: PERRL Neck: Positive: neck supple Cardiac: Positive: Reg Rate and Rhythm Lungs: Positive: Decreased Breath Sounds Neuro: Positive: Weakness (Generalized weakness, frail and chronically ill appearing) - Labs and Meds Cardiac Enzymes 10/31/20 Range/Units 05:32 AST 207 H (5-40) units/L CBC 10/30/20 10/31/20 Range/Units 04:25 05:32 WBC 7.3 (4.5-11.0) K/mm3 RBC 3.65 (3.65-5.03) M/mm3 Hgb 7.9 L (11.8-15.2) gm/dl Hct 23.8 L (35.5-45.6) % Plt Count 88 L 94 L (140-440) K/mm3 Comprehensive Metabolic Panel 10/31/20 Range/Units 05:32 Sodium 140 (137-145) mmol/L Potassium 4.0 (3.6-5.0) mmol/L Chloride 100.9 (98-107) mmol/L Carbon Dioxide 26 (22-30) mmol/L BUN 67 H (9-20) mg/dL Creatinine 5.8 H (0.8-1.3) mg/dL Glucose 106 H (75-100) mg/dL Calcium 8.3 L (8.4-10.2) mg/dL AST 207 H (5-40) units/L ALT 402 H (7-56) units/L Alkaline Phosphatase 89 (35-129) units/L Total Protein 5.1 L (6.3-8.2) g/dL Albumin 3.0 L (3.9-5) g/dL - Allied health notes Allied health notes reviewed: nursing
--- NOTE | 2020-10-31 10:30 | Progress Note ---
Assessment and Plan Assessment and plan: -- Anemia Current Visit: Yes Status: Acute Plan to address problem: Possibly from GI bleed. We will monitor CBC. Stool Hemoccult done in the ER was negative Consult placed to gastroenterology for evaluation and recommendation. Meanwhile patient will be placed on proton pump inhibitor. --Acute kidney injury superimposed on chronic kidney disease Current Visit: Yes Status: Acute Plan to address problem: Patient has known history of for chronic kidney disease. Worsening renal function and creatinine, nephrology following Permacath placement, hemodialysis per schedule Patient may need outpatient HD chair placement at discharge -- Hyperkalemia Current Visit: Yes Status: Acute Plan to address problem: Patient is received insulin and glucose, calcium gluconate sodium bicarb while in the emergency room We will monitor potassium levels and also monitor EKG. --Elevated liver enzymes Current Visit: Yes Status: Acute Plan to address problem: Etiology unclear. CT of the abdomen and pelvis did not reveal any acute abnormality. Consult placed to gastroenterology for evaluation and recommendation. Will monitor liver enzymes. --GI bleed Current Visit: Yes Status: Acute Plan to address problem: GI evaluated the patient Scheduled for endoscopy today Closely monitor --Hypertensive urgency Current Visit: Yes Status: Acute Moderate control , continue current antihypertensives As needed medications , closely monitor -- Pulmonary edema Current Visit: Yes Status: Acute Plan to address problem: Pulmonary edema shown on CT scan of the abdomen and pelvis. Patient had a dose of IV Lasix. Will check echocardiogram. We will place a consult to cardiology for evaluation. --DVT prophylaxis Current Visit: Yes Status: Acute Plan to address problem: Patient placed on sequential compression device. -- Full code status Current Visit: Yes Status: Acute Plan to address problem: Patient is full code. Follow consultants recommendations History Interval history: Patient scheduled for endoscopy per GI for further evaluation of GI bleeding And permacath placement for ESRD and dialysis Seen and examined the patient at the bedside Patient's chart and medications reviewed No new complaints Vital signs noted Hospitalist Physical - Constitutional Vitals: Temp Pulse Resp BP Pulse Ox 98.3 F 47 L 18 128/66 91 10/31/20 09:20 10/31/20 10:15 10/31/20 09:20 10/31/20 10:15 10/31/20 08:45 General appearance: Present: no acute distress, cachectic, other (Patient is lethargic, frail and chronically ill-appearing) - EENT Eyes: Present: PERRL, EOM intact - Neck Neck: Present: supple, normal ROM - Respiratory Respiratory effort: normal Respiratory: bilateral: diminished, negative: rales, rhonchi, wheezing - Cardiovascular Rhythm: regular Heart Sounds: Present: S1 & S2 - Extremities Extremities: no ischemia, No edema - Abdominal General gastrointestinal: soft, non-tender, non-distended, normal bowel sounds - Integumentary Integumentary: Present: clear, warm - Psychiatric Psychiatric: appropriate mood/affect, cooperative - Neurologic Neurologic: CNII-XII intact, moves all extremities Results - Labs CBC & Chem 7: 10/31/20 05:32 10/31/20 05:32 Labs: Laboratory Last Values WBC 7.3 K/mm3 (4.5-11.0) 10/31/20 05:32 RBC 3.65 M/mm3 (3.65-5.03) 10/31/20 05:32 Hgb 7.9 gm/dl (11.8-15.2) L 10/31/20 05:32 Hct 23.8 % (35.5-45.6) L 10/31/20 05:32 MCV 65 fl (84-94) L 10/31/20 05:32 MCH 22 pg (28-32) L 10/31/20 05:32 MCHC 33 % (32-34) 10/31/20 05:32 RDW 17.6 % (13.2-15.2) H 10/31/20 05:32 Plt Count 94 K/mm3 (140-440) L 10/31/20 05:32 Add Manual Diff Complete 10/30/20 04:25 Total Counted 100 10/30/20 04:25 Seg Neuts % (Manual) 87.0 % (40.0-70.0) H 10/30/20 04:25 Band Neutrophils % 1.0 % 10/30/20 04:25 Lymphocytes % (Manual) 5.0 % (13.4-35.0) L 10/30/20 04:25 Monocytes % (Manual) 7.0 % (0.0-7.3) 10/30/20 04:25 Nucleated RBC % 1.0 % (0.0-0.9) H 10/30/20 04:25 Seg Neutrophils # Man 7.0 K/mm3 (1.8-7.7) 10/30/20 04:25 Band Neutrophils # 0.1 K/mm3 10/30/20 04:25 Lymphocytes # (Manual) 0.4 K/mm3 (1.2-5.4) L 10/30/20 04:25 Abs React Lymphs (Man) 0.0 K/mm3 10/30/20 04:25 Monocytes # (Manual) 0.6 K/mm3 (0.0-0.8) 10/30/20 04:25 Eosinophils # (Manual) 0.0 K/mm3 (0.0-0.4) 10/30/20 04:25 Basophils # (Manual) 0.0 K/mm3 (0.0-0.1) 10/30/20 04:25 Metamyelocytes # 0.0 K/mm3 10/30/20 04:25 Myelocytes # 0.0 K/mm3 10/30/20 04:25 Promyelocytes # 0.0 K/mm3 10/30/20 04:25 Blast Cells # 0.0 K/mm3 10/30/20 04:25 WBC Morphology Not Reportable 10/30/20 04:25 Hypersegmented Neuts Not Reportable 10/30/20 04:25 Hyposegmented Neuts Not Reportable 10/30/20 04:25 Hypogranular Neuts Not Reportable 10/30/20 04:25 Smudge Cells Not Reportable 10/30/20 04:25 Toxic Granulation Not Reportable 10/30/20 04:25 Toxic Vacuolation Not Reportable 10/30/20 04:25 Dohle Bodies Not Reportable 10/30/20 04:25 Pelger-Huet Anomaly Not Reportable 10/30/20 04:25 Katherine Rods Not Reportable 10/30/20 04:25 Platelet Estimate Consistent w auto 10/30/20 04:25 Clumped Platelets Not Reportable 10/30/20 04:25 Plt Clumps, EDTA Not Reportable 10/30/20 04:25 Large Platelets Not Reportable 10/30/20 04:25 Giant Platelets Not Reportable 10/30/20 04:25 Platelet Satelliting Not Reportable 10/30/20 04:25 Plt Morphology Comment Not Reportable 10/30/20 04:25 RBC Morphology Not Reportable 10/30/20 04:25 Dimorphic RBCs Not Reportable 10/30/20 04:25 Polychromasia Few 10/30/20 04:25 Hypochromasia 2+ 10/30/20 04:25 Poikilocytosis Not Reportable 10/30/20 04:25 Anisocytosis 2+ 10/30/20 04:25 Microcytosis Not Reportable 10/30/20 04:25 Macrocytosis Not Reportable 10/30/20 04:25 Spherocytes Not Reportable 10/30/20 04:25 Pappenheimer Bodies Not Reportable 10/30/20 04:25 Sickle Cells Not Reportable 10/30/20 04:25 Target Cells Not Reportable 10/30/20 04:25 Tear Drop Cells Not Reportable 10/30/20 04:25 Ovalocytes Not Reportable 10/30/20 04:25 Helmet Cells Not Reportable 10/30/20 04:25 [place] Bodies Not Reportable 10/30/20 04:25 Cubero Rings Not Reportable 10/30/20 04:25 [place] Cells Not Reportable 10/30/20 04:25 Bite Cells Not Reportable 10/30/20 04:25 Crenated Cell Not Reportable 10/30/20 04:25 Elliptocytes Not Reportable 10/30/20 04:25 Acanthocytes (Spur) Not Reportable 10/30/20 04:25 Rouleaux Not Reportable 10/30/20 04:25 Hemoglobin C Crystals Not Reportable 10/30/20 04:25 Schistocytes 1+ 10/30/20 04:25 Malaria parasites Not Reportable 10/30/20 04:25 Ellis Bodies Not Reportable 10/30/20 04:25 Hem Pathologist Commnt No 10/30/20 04:25 ABG pH 7.384 pH Units (7.350-7.450) 10/29/20 14:40 ABG pCO2 32.3 mm Hg 10/29/20 14:40 ABG pO2 107.8 mm Hg (80.0-90.0) H 10/29/20 14:40 ABG HCO3 18.8 mmol/L (20.0-26.0) L 10/29/20 14:40 ABG O2 Saturation 97.9 % (95.0-99.0) 10/29/20 14:40 ABG O2 Content 10.3 (0.0-44) 10/29/20 14:40 ABG Base Excess -5.6 mmol/L (-2.0-3.0) L 10/29/20 14:40 ABG Hemoglobin 7.4 gm/dl (14.0-18.0) L 10/29/20 14:40 ABG Carboxyhemoglobin 1.5 % (0.0-5.0) 10/29/20 14:40 ABG Methemoglobin 0.5 % (0.0-1.5) 10/29/20 14:40 Oxyhemoglobin 95.9 % (95.0-99.0) 10/29/20 14:40 FiO2 28 % 10/29/20 14:40 Sodium 140 mmol/L (137-145) 10/31/20 05:32 Potassium 4.0 mmol/L (3.6-5.0) 10/31/20 05:32 Chloride 100.9 mmol/L (98-107) 10/31/20 05:32 Carbon Dioxide 26 mmol/L (22-30) 10/31/20 05:32 Anion Gap 17 mmol/L 10/31/20 05:32 BUN 67 mg/dL (9-20) H 10/31/20 05:32 Creatinine 5.8 mg/dL (0.8-1.3) H 10/31/20 05:32 Estimated GFR 9 ml/min 10/31/20 05:32 BUN/Creatinine Ratio 12 % 10/31/20 05:32 Glucose 106 mg/dL (75-100) H 10/31/20 05:32 POC Glucose 167 mg/dL (70-105) H 10/30/20 21:07 Hemoglobin A1c 5.3 % (4-6) 10/29/20 02:00 Calcium 8.3 mg/dL (8.4-10.2) L 10/31/20 05:32 Phosphorus 6.50 mg/dL (2.5-4.5) H D 10/31/20 05:32 Magnesium 2.30 mg/dL (1.7-2.3) 10/31/20 05:32 Total Bilirubin 0.80 mg/dL (0.1-1.2) 10/31/20 05:32 AST 207 units/L (5-40) H 10/31/20 05:32 ALT 402 units/L (7-56) H 10/31/20 05:32 Alkaline Phosphatase 89 units/L (35-129) 10/31/20 05:32 Total Protein 5.1 g/dL (6.3-8.2) L 10/31/20 05:32 Albumin 3.0 g/dL (3.9-5) L 10/31/20 05:32 Albumin/Globulin Ratio 1.4 % 10/31/20 05:32 Lipase 51 units/L (13-60) 10/28/20 22:43 PTH Intact 176.3 pg/mL (15-65) H 10/30/20 04:25 Urine Color Yellow (Yellow) 10/28/20 Unknown Urine Turbidity Cloudy (Clear) 10/28/20 Unknown Urine pH 5.0 (5.0-7.0) 10/28/20 Unknown Ur Specific [place] 1.018 (1.003-1.030) 10/28/20 Unknown Urine Protein >500 mg/dL (Negative) 10/28/20 Unknown Urine Glucose (UA) 50 mg/dL (Negative) 10/28/20 Unknown Urine Ketones Neg mg/dL (Negative) 10/28/20 Unknown Urine Blood Mod (Negative) 10/28/20 Unknown Urine Nitrite Neg (Negative) 10/28/20 Unknown Urine Bilirubin Neg (Negative) 10/28/20 Unknown Urine Urobilinogen < 2.0 mg/dL (<2.0) 10/28/20 Unknown Ur Leukocyte Esterase Neg (Negative) 10/28/20 Unknown Urine WBC (Auto) 4.0 /HPF (0.0-6.0) 10/28/20 Unknown Urine RBC (Auto) 10.0 /HPF (0.0-6.0) 10/28/20 Unknown U Epithel Cells (Auto) 1.0 /HPF (0-13.0) 10/28/20 Unknown Urine Mucus Few /HPF 10/28/20 Unknown Urine Creatinine 78.5 mg/dL (0.1-20.0) H 10/29/20 15:40 Protein/Creatinin Ratio 9.49 10/29/20 15:40 Urine Sodium 76 mmol/L 10/29/20 15:40 Urine Total Protein 745 mg/dL (5-11.8) H 10/29/20 15:40 Hepatitis A IgM Ab Non-reactive (NonReactive) 10/29/20 00:00 Hep Bs Antigen Non-reactive (Negative) 10/29/20 00:00 Hep B Core IgM Ab Non-reactive (NonReactive) 10/29/20 00:00 Hepatitis C Antibody Non-reactive (NonReactive) 10/29/20 00:00 Blood Type O POSITIVE 10/30/20 10:53 Antibody Screen Negative 10/30/20 10:53 Crossmatch See Detail 10/30/20 10:53 [place]/IV: Voiding Method Urinal Active Medications - Current Medications Current Medications: Generic Name Dose Route Start Last Admin Trade Name Freq PRN Reason Stop Dose Admin Acetaminophen 650 mg 10/29/20 02:17 Acetaminophen 325 Mg Tab PO Q6H PRN Pain MILD(1-3)/Fever >100.5/SCHMITT Amlodipine Besylate 10 mg 10/30/20 13:00 10/30/20 16:54 Amlodipine 10 Mg Tab PO 10 mg QDAY POLINA Administration Aspirin 81 mg 10/30/20 10:00 10/30/20 11:49 Aspirin Ec 81 Mg Tab PO 81 mg QDAY POLINA Administration Calcium Acetate 667 mg 10/31/20 12:00 Calcium Acetate 667 Mg Cap PO TIDWM [facility] Carvedilol 12.5 mg 10/29/20 22:00 10/30/20 21:54 Carvedilol 12.5 Mg Tab PO 12.5 mg BID POLINA Administration Dextrose 0 ml 10/29/20 02:17 Dextrose 50% In Water (25gm) 50 Ml Syringe IV Q30MIN PRN Hypoglycemia Protocol Furosemide 80 mg 11/01/20 10:00 Furosemide 40 Mg Tab PO QDAY POLINA Hydralazine HCl 10 mg 10/29/20 06:13 10/29/20 10:10 Hydralazine 20 Mg/1 Ml Inj IV 10 mg Q4H PRN Administration Blood Pressure Sodium Chloride 100 mls @ 999 mls/hr 10/30/20 10:00 Nacl 0.9% IV MARKY PRN Hypotension Insulin Human Regular 0 units 10/29/20 07:30 10/31/20 07:46 Insulin Regular, Human 100 Units/1 Ml SUB-Q Not Given ACHS [facility] Protocol Magnesium Hydroxide 30 ml 10/29/20 02:17 Magnesium Hydroxide (Mom) Oral Liqd Udc PO Q4H PRN Constipation Nitroglycerin 0.4 mg 10/31/20 06:00 10/31/20 05:35 Nitroglycerin 0.4 Mg Patch 24hr TD 0.4 mg QDAY@0600 POLINA Administration Ondansetron HCl 4 mg 10/29/20 02:17 Ondansetron 4 Mg/2 Ml Inj IV Q8H PRN Nausea And Vomiting Pantoprazole Sodium 40 mg 10/29/20 10:00 10/30/20 21:54 Pantoprazole 40 Mg Inj IV 40 mg BID POLINA Administration Sodium Chloride 10 ml 10/29/20 10:00 10/30/20 21:55 Sodium Chloride 0.9% 10 Ml Flush Syringe IV 10 ml BID POLINA Administration Sodium Chloride 10 ml 10/29/20 02:17 Sodium Chloride 0.9% 10 Ml Flush Syringe IV PRN PRN LINE FLUSH Nutrition/Malnutrition Assess - Dietary Evaluation Nutrition/Malnutrition Findings: Nutrition Notes Start: 10/29/20 12:02 Freq: Status: Active Protocol: Document 10/30/20 12:01 (Rec: 10/30/20 12:04 [email or web address]) Nutrition Notes 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 Already following pt. He is more confused today. He ate 50% of breakfast and sips of ONS. Percent of energy/protein needs met: 71%/69% Burn Absent Trauma Absent GI Symptoms None Current % PO Poor (25-49%) Minimum of two criteria Yes Energy Intake (non-severe) <75% Estimated Energy Requirement >7 days Muscle Mass Mild Depletion (non-severe) #1 Nutrition Diagnosis Malnutrition As Evidenced by Signs and Symptoms pt ate 50% of breakfast Diagnosis Progress(for reassessment Improved documentation) Is patient on ventilator? No Is Patient Ambulatory and/or Out of Bed No REE-(Mcallen-St. Jeor-confined to bed) 2106.912 Calculation Used for Recommendations Mcallen-St Jeor Additional Notes Protein: (1.2-1.5g/kg) 62-77g Fluid: 1 ml/kcal or per MD Nutrition Intervention Change Diet Order: Continue Add Supplement/Snack (indicate name/kcal Nepro BID /protein ) Provides kCal: 850 Provides Protein (gm) 38 Goal #1 Meet at least 80% of protein and energy needs via PO and ONS intakes Goal #2 Weight gain/maintenance Anticipated Discharge Needs: Cardiac, Consistent CHO Follow-Up By: 11/01/20 Additional Comments FU for intakes, ONS tolerance
[2020-10-31] MEDS: EPOETIN ALFA-EPBX 20,000 UNIT/1 ML VIAL SUB-Q PRN (11:35)
--- NOTE | 2020-10-31 12:20 | Gastroenterology Progress Note ---
Assessment and Plan - Patient Problems (1) CHF (congestive heart failure), NYHA class III Current Visit: Yes Status: Acute Plan to address problem: - Cards eval/TTE results noted. Moderate disease, and hopefully will improve after fluid removal with HD. (2) Acute kidney injury superimposed on chronic kidney disease Current Visit: Yes Status: Acute (3) Elevated liver enzymes Current Visit: Yes Status: Acute Plan to address problem: - Hepatitis serologies negative. - No gross mass on CT or US, but this would be highest on differential. With MODE, and (?) new atorvastatin, would consider statin liver injury as well. - Would consider non-contrast MRI when more stable (but LFTs trending down after d/c atorvastatin). (4) GI bleed Current Visit: Yes Status: Acute Plan to address problem: - Continue current protonix. - Will need EGD (and possibly colonoscopy); assuming HD goes well today, will plan EGD tomorrow. - OK to continue cardiac ASA, but would avoid other blood thinners at present. (5) Hypertensive urgency Current Visit: Yes Status: Acute Subjective Date of service: 10/31/20 Principal diagnosis: Anemia, Abnormal LFTs Interval history: The patient is on 2nd round of HD today. He is stable without melena or he matemesis. He has no N/V/abdominal pain. Objective - Constitutional Vitals: Temp Pulse Resp BP Pulse Ox 98.3 F 70 18 133/70 91 10/31/20 09:20 10/31/20 11:45 10/31/20 09:20 10/31/20 11:45 10/31/20 08:45 General appearance: no acute distress - Respiratory Respiratory effort: normal Respiratory: bilateral: CTA - Cardiovascular Rhythm: regular Heart Sounds: Present: S1 & S2 - Gastrointestinal General gastrointestinal: Present: soft, non-tender, non-distended - Labs CBC & Chem 7: 10/31/20 05:32 10/31/20 05:32 Labs: Laboratory Results - last 24 hr 10/30/20 10/30/20 10/30/20 04:25 10:53 16:28 WBC RBC Hgb Hct MCV MCH MCHC RDW Plt Count 88 L Sodium Potassium Chloride Carbon Dioxide Anion Gap BUN Creatinine Estimated GFR BUN/Creatinine Ratio Glucose POC Glucose 146 H Calcium Phosphorus Magnesium Total Bilirubin AST ALT Alkaline Phosphatase Total Protein Albumin Albumin/Globulin Ratio Blood Type O POSITIVE Antibody Screen Negative Crossmatch See Detail 10/30/20 10/31/20 10/31/20 21:07 05:32 05:32 WBC 7.3 RBC 3.65 Hgb 7.9 L Hct 23.8 L MCV 65 L MCH 22 L MCHC 33 RDW 17.6 H Plt Count 94 L Sodium 140 Potassium 4.0 Chloride 100.9 Carbon Dioxide 26 Anion Gap 17 BUN 67 H Creatinine 5.8 H Estimated GFR 9 BUN/Creatinine Ratio 12 Glucose 106 H POC Glucose 167 H Calcium 8.3 L Phosphorus 6.50 H D Magnesium 2.30 Total Bilirubin 0.80 AST 207 H ALT 402 H Alkaline Phosphatase 89 Total Protein 5.1 L Albumin 3.0 L Albumin/Globulin Ratio 1.4 Blood Type Antibody Screen Crossmatch
[2020-10-31] MEDS: CALCIUM ACETATE 667 MG CAP PO SCH ×2 (12:32→17:43)
[2020-10-31] MEDS: ASPIRIN EC 81 MG TAB PO SCH (12:37)
[2020-10-31] MEDS: carvediloL 12.5 MG TAB PO SCH ×2 (12:37→21:54)
[2020-10-31] MEDS: PANTOPRAZOLE 40 MG INJ IV SCH ×2 (12:37→21:53)
[2020-10-31] MEDS: amLODIPine 10 MG TAB PO SCH (12:37)
[2020-10-31] MEDS: FUROSEMIDE 40 MG/4 ML INJ IV SCH (12:42)
--- NOTE | 2020-10-31 13:34 | Event Note ---
Date: 10/31/20 D/W Cardiology; the patient has ischemic changes on his current EKG, and they are concerned about ability to withstand sedation at present. Since no gross/active bleeding, and hct is stable, will cancel EGD for tomorrow and observe.
[2020-10-31] MEDS ORDERED: MIDAZOLAM 2 MG/2 ML INJ ONE (14:19)
[2020-10-31] MEDS ORDERED: HEPARIN/NS 5000 UNIT/500ML 500 ML IR ONE (14:20)
[2020-10-31] MEDS ORDERED: SODIUM CHLORIDE 0.9% 250ML 250 ML ONE (14:21)
[2020-10-31] MEDS: LIDOCAINE 1%/EPINEPHRINE 1:100,000 VIAL (20 ML) INFILTRATI ONE ×2 (14:34→14:55)
[2020-10-31] MEDS: fentaNYL 100 MCG/2 ML INJ ONE ×3 (14:53→15:40)
[2020-10-31] MEDS: HEPARIN 10,000 UNITS/10 ML VIAL ONE ×2 (15:44→15:45)
--- NOTE | 2020-10-31 16:01 | Consultation ---
History of Present Illness - Reason for Consult Consult date: 10/31/20 Permcath placement Requesting physician: SAMMIE GUALLPA - History of Present Illness 80-year-old Indonesian male with known history of hypertension and diabetes mellitus, history of thoracic aortic dissection repair presents to the emergency room today complaining of nausea, decreased appetite, abdominal pain and dark stool which has been ongoing for the past 2 weeks. Most of the history was gotten from the granddaughter who was by the bedside because of the language barrier. Abdominal pain is said to have been persistent over the past few weeks. Patient also reports significant weight loss. He denies any hematemesis, no hematuria or dysuria, denies any constipation. Patient denies any nonsteroidal anti-inflammatory medication use apart from aspirin. Patient's last colonoscopy was over 15 years ago while living in [place]. Work-up in the emergency room today, significant findings were that of hemoglobin of 8.5 and hematocrit of 26.1, potassium was elevated at 5.9, BUN and creatinine were elevated at 72 and 6.8, AST and ALT elevated at 517 and 448 respectively. Total bilirubin was 1.50 CT of the abdomen and pelvis reveals cardiomegaly with interlobular septal thickening in the lung bases likely reflecting edema. Moderate right and trace left pleural effusions. 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 Patient is being admitted with acute on chronic renal failure, hyperkalemia, abnormal liver enzymes, anemia possible GI bleed. Renal failure did not improve and therefore vascular was consulted. History was obtained from patient's granddaughter due to altered mental status. Past History Past Medical History: diabetes, hypertension, hyperlipidemia Past Surgical History: Other (Aortic dissection repair, colonoscopy over 15 years ago) Social history: smoking (Former smoker). denies: alcohol abuse Family history: no significant family history Medications and Allergies Allergies Allergy/AdvReac Type Severity Reaction Status Date / Time No Known Allergies Allergy Unverified 05/07/14 01:13 Home Medications Medication Instructions Recorded Confirmed Last Taken Type Amlodipine Besylate [Norvasc] 10 mg PO QDAY 10/28/20 10/28/20 Unknown History Aspirin EC [Halfprin EC] 81 mg PO QDAY 10/28/20 10/28/20 Unknown History Atorvastatin Calcium [Lipitor] 80 mg PO QDAY 10/28/20 10/28/20 Unknown History Lisinopril [Zestril] 10 mg PO QDAY 10/28/20 10/28/20 Unknown History Active Meds: Active Medications Acetaminophen (Acetaminophen 325 Mg Tab) 650 mg PO Q6H PRN PRN Reason: Pain MILD(1-3)/Fever >100.5/SCHMITT Amlodipine Besylate (Amlodipine 10 Mg Tab) 10 mg PO QDAY [facility] Last Admin: 10/31/20 12:37 Dose: 10 mg Documented by: Aspirin (Aspirin Ec 81 Mg Tab) 81 mg PO QDAY [facility] Last Admin: 10/31/20 12:37 Dose: 81 mg Documented by: Calcium Acetate (Calcium Acetate 667 Mg Cap) 667 mg PO TIDWM [facility] Last Admin: 10/31/20 12:32 Dose: Not Given Documented by: Carvedilol (Carvedilol 12.5 Mg Tab) 12.5 mg PO BID [facility] Last Admin: 10/31/20 12:37 Dose: 12.5 mg Documented by: Dextrose (Dextrose 50% In Water (25gm) 50 Ml Syringe) 0 ml IV Q30MIN PRN; Protocol PRN Reason: Hypoglycemia Furosemide (Furosemide 40 Mg Tab) 80 mg PO QDAY [facility] Hydralazine HCl (Hydralazine 20 Mg/1 Ml Inj) 10 mg IV Q4H PRN PRN Reason: Blood Pressure Last Admin: 10/29/20 10:10 Dose: 10 mg Documented by: Sodium Chloride (Nacl 0.9%) 100 mls @ 999 mls/hr IV MARKY PRN PRN Reason: Hypotension Insulin Human Regular (Insulin Regular, Human 100 Units/1 Ml) 0 units SUB-Q ACHS [facility]; Protocol Last Admin: 10/31/20 12:32 Dose: Not Given Documented by: Magnesium Hydroxide (Magnesium Hydroxide (Mom) Oral Liqd Udc) 30 ml PO Q4H PRN PRN Reason: Constipation Nitroglycerin (Nitroglycerin 0.4 Mg Patch 24hr) 0.4 mg TD QDAY@0600 [facility] Last Admin: 10/31/20 05:35 Dose: 0.4 mg Documented by: Ondansetron HCl (Ondansetron 4 Mg/2 Ml Inj) 4 mg IV Q8H PRN PRN Reason: Nausea And Vomiting Pantoprazole Sodium (Pantoprazole 40 Mg Inj) 40 mg IV BID [facility] Last Admin: 10/31/20 12:37 Dose: 40 mg Documented by: Sodium Chloride (Sodium Chloride 0.9% 10 Ml Flush Syringe) 10 ml IV BID [facility] Last Admin: 10/31/20 12:38 Dose: 10 ml Documented by: Sodium Chloride (Sodium Chloride 0.9% 10 Ml Flush Syringe) 10 ml IV PRN PRN PRN Reason: LINE FLUSH Review of Systems ROS unobtainable: due to mental status Exam - Constitutional Vitals: Temp Pulse Resp BP Pulse Ox 98.3 F 73 18 133/70 91 10/31/20 12:05 10/31/20 12:05 10/31/20 12:05 10/31/20 12:05 10/31/20 08:45 General appearance: Present: no acute distress - EENT Eyes: Present: EOM intact - Neck Neck: Present: other (Oozing from right internal jugular vein catheter) - Respiratory Respiratory effort: normal - Abdominal General gastrointestinal: Present: soft, non-tender - Psychiatric Psychiatric: cooperative Results - Labs CBC & Chem 7: 10/31/20 05:32 10/31/20 05:32 Labs: Abnormal lab results 10/30/20 10/30/20 10/31/20 Range/Units 16:28 21:07 05:32 Hgb 7.9 L (11.8-15.2) gm/dl Hct 23.8 L (35.5-45.6) % MCV 65 L (84-94) fl MCH 22 L (28-32) pg RDW 17.6 H (13.2-15.2) % Plt Count 94 L (140-440) K/mm3 BUN (9-20) mg/dL Creatinine (0.8-1.3) mg/dL Glucose (75-100) mg/dL POC Glucose 146 H 167 H (70-105) mg/dL Calcium (8.4-10.2) mg/dL Phosphorus (2.5-4.5) mg/dL AST (5-40) units/L ALT (7-56) units/L Total Protein (6.3-8.2) g/dL Albumin (3.9-5) g/dL 10/31/20 10/31/20 Range/Units 05:32 15:10 Hgb (11.8-15.2) gm/dl Hct (35.5-45.6) % MCV (84-94) fl MCH (28-32) pg RDW (13.2-15.2) % Plt Count (140-440) K/mm3 BUN 67 H (9-20) mg/dL Creatinine 5.8 H (0.8-1.3) mg/dL Glucose 106 H (75-100) mg/dL POC Glucose 137 H (70-105) mg/dL Calcium 8.3 L (8.4-10.2) mg/dL Phosphorus 6.50 H D (2.5-4.5) mg/dL AST 207 H (5-40) units/L ALT 402 H (7-56) units/L Total Protein 5.1 L (6.3-8.2) g/dL Albumin 3.0 L (3.9-5) g/dL Assessment and Plan 80-year-old male with multiple medical issues who presented with 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 Right internal jugular vein Vas-Cath was placed in the ICU, which is complicated by excessive bleeding from the venotomy site. Ultrasound was performed and it appears to be going to the right internal jugular vein, but given bleeding, recommend CT scan of the chest to check the course of the catheter. Central catheter lumen was opened and no arterial bleeding was noted. Plan for left internal jugular vein PermCath placement. Risks, benefits, and alternatives discussed. Patient's family agreed with procedure. If CT scan demonstrates no abnormalities, then right internal jugular vein Vas- Cath can be removed tomorrow after from left internal jugular PermCath dialysis.
--- NOTE | 2020-10-31 16:09 | Operative Report ---
Operative Report Operative Report: EXAM: 1. Ultrasound-guided puncture of the left internal jugular vein 2. Fluoroscopic-guided placement of a left internal jugular tunneled cuffed hemodialysis catheter. DATE: 10/31/2020 INDICATION: End-stage renal disease requiring hemodialysis access MEDICATIONS: Please see nursing report for full details. DEVICES: 27 cm tip to cuff 15 Fr dual lumen hemodialysis catheter ROOM SERVICE CLERK: THEO ARNETT MD CONTRAST: None PROCEDURE: The risks, benefits, and alternatives were discussed and informed consent was obtained. The patient was transported to the angiography suite in satisfactory/stable condition and was transported onto the angiography table. The patient's left internal jugular vein was assessed with ultrasound and determined to be patent prior to procedure. The patient was prepped and draped in a sterile fashion. The puncture site was anesthetized. Under sonographic guidance, the left internal jugular vein was punctured with a 21-gauge micropuncture needle and a 0.018 inch wire was advanced into the inferior vena cava. The micropuncture needle was exchanged for a transitional dilator and the wire was retracted into the right atrium to ian intravascular distance. The wire and inner dilator were removed. 0.035 inch Amplatz wire was advanced through the transitional d ilator into the inferior vena cava. A suitable exit site was identified on the patient's chest inferior and lateral to the venotomy. The site was anesthetized with local anesthetic and the track was anesthetized. Dermatotomy was made. The PermCath was attached to the tunneling device and tunneled between the dermatotomy to the venotomy. Over the 0.035 inch wire, serial dilatation was performed with ultimate placement of a peel-away sheath. The catheter was advanced through the peel- away sheath after the wire was removed and positioned centrally under fluoroscopic guidance. The peel-away sheath was removed. 4-0 Vicryl suture was used to close the venotomy and Dermabond was then applied. 2-0 Ethilon suture was used to secure the catheter at the dermatotomy. The catheter was charged with heparin 1000 units/mL of space. Sterile dressing and Biopatch applied. The patient was transferred from the angiography suite back to the floor in stable condition. FINDINGS: 1. Excellent flow was obtained through the dialysis catheter with 20 mL syringes. 2. The catheter tip is in the right atrium. IMPRESSION: 1. Successful ultrasound and fluoroscopically guided placement of a left internal jugular tunneled cuffed hemodialysis catheter.
--- NOTE | 2020-10-31 18:44 | Cat Scan Report ---
CT CHEST WITHOUT CONTRAST INDICATION / CLINICAL INFORMATION: right vascath bleeding, course of catheter. TECHNIQUE: Axial CT images were obtained through the chest without contrast. All CT scans at this location are p erformed using CT dose reduction for ALARA by means of automated exposure control. COMPARISON: None available. FINDINGS: There is marked cardiomegaly. There is a noncontrast examination which limits evaluation. There is di ffuse dilatation of the thoracic aorta with dilatation extending to the brachiocephalic and descendin g thoracic aorta. Findings appear similar to the prior examination. Atherosclerotic constipation thro ughout the aorta persist. A few mildly prominent paratracheal mediastinal nodes appears similar to pr ior exam. There is increased opacity within the lungs most significant in the right upper lung. Bilat eral pleural effusions. There is a rounded collection of the right neck just deep to the catheter tip and adjacent to the thy roid measuring 3 cm. This has a Hounsfield unit 39 which could represent hematoma. The catheter exten ds into the right jugular. Degenerative change throughout spine. Bilateral renal cysts. Abdominal aor tic aneurysm measures 5.7 cm IMPRESSION: 1. Rounded density/fluid collection adjacent to the Vas-Cath in the right neck just deep to it sugges ting possible hematoma and cause of bleed. 2. Increased opacity throughout the lungs most significant in right upper lung could represent atypic al infiltrate. 3. Thoracic aortic aneurysm and abdominal aortic aneurysm appears similar to prior exam. This is a no ncontrast examination which is limited. 4. Pleural effusions CRITICAL RESULT: Time of Discovery ([employer]AP TREASURY CONSULTANT/CDT): 538 Time of Communication (SAP TREASURY CONSULTANT/CDT): 538 Signer Name: Lance Hermosillo MD Signed: 10/31/2020 6:40 PM Workstation Name: [id number]
[2020-10-31 19:51] LABS: INR 1.48 (0.87-1.13)
[2020-10-31 19:52] LABS: Partial Thromboplastin Time 33.8 Sec. (24.2-36.6)
[2020-11-01] MEDS: NITROGLYCERIN 0.4 MG PATCH 24HR TD SCH (06:04)
--- NOTE | 2020-11-01 09:46 | Progress Note ---
Assessment and Plan Abnormal ECG EKG shows a sinus rhythm with frequent PACs. There is left ventricular hypertrophy. There are deep T wave inversions in the anterior precordial leads. The repolarization abnormalities may be due to LVH, or represent acute or ongoing ischemia. There are no old ECGs available for comparison. Severe anemia with thrombocytopenia Elevated liver enzymes Renal failure initiated on hemodialysis Possible prior coronary artery bypass Left ventricular ejection fraction is 45-50% by echo this presentation. Recommendations: Continue medical therapy for underlying coronary artery disease. Statin therapy held due to abnormal liver enzymes. Subjective Date of service: 11/01/20 Principal diagnosis: Anemia, Abnormal LFTs Interval history: The patient speaks very little Cypriot. He is resting in bed and appears comfortable. No cardiac events reported overnight. Objective Vital Signs Temp Pulse Resp BP Pulse Ox 11/01/20 08:09 94 11/01/20 08:06 97.5 F L 68 18 132/75 98 11/01/20 06:04 72 107/59 97 11/01/20 06:00 18 11/01/20 05:39 97.9 F 70 107/59 90 10/31/20 23:30 97.8 F 68 18 90/52 92 10/31/20 22:00 66 20 98 10/31/20 21:54 66 95/59 10/31/20 19:18 97.5 F L 64 18 95/59 94 10/31/20 12:05 98.3 F 73 18 133/70 10/31/20 11:55 66 123/76 10/31/20 11:45 70 133/70 10/31/20 11:30 44 L 116/57 10/31/20 11:15 51 L 139/61 10/31/20 11:00 42 L 118/62 10/31/20 10:45 48 L 128/61 10/31/20 10:30 49 L 125/56 10/31/20 10:15 47 L 128/66 10/31/20 10:00 47 L 124/59 10/31/20 09:45 43 L 110/70 - Physical Examination General: No Apparent Distress HEENT: Positive: PERRL Neck: Positive: neck supple Cardiac: Positive: Reg Rate and Rhythm Neuro: Positive: Weakness (Generalized weakness, frail and chronically ill appearing) Extremities: Absent: normal - Labs and Meds Coagulation 07/13/21 Range/Units 19:20 PT 18.4 H (12.2-14.9) Sec. INR 1.48 H (0.87-1.13) APTT 33.8 (24.2-36.6) Sec. - Allied health notes Allied health notes reviewed: nursing
--- NOTE | 2020-11-01 09:48 | Electrocardiograph Report ---
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 T inversions in anterior leads,consider ischemia.Atrial pacing noted intermittently. LVH w/ repol abnormalities, possible ischemia Prolonged QT interval No previous ECG available for comparison Electronically Signed On 11-01-2020 9:48:07 EDT by Oleksandr Montenegro
--- NOTE | 2020-11-01 09:59 | Gastroenterology Progress Note ---
Assessment and Plan - Patient Problems (1) CHF (congestive heart failure), NYHA class III Current Visit: Yes Status: Acute Plan to address problem: - Cards eval/TTE results noted. Moderate disease, and hopefully will improve after fluid removal with HD. (2) Acute kidney injury superimposed on chronic kidney disease Current Visit: Yes Status: Acute (3) Elevated liver enzymes Current Visit: Yes Status: Acute Plan to address problem: - Hepatitis serologies negative. - No gross mass on CT or US, but this would be highest on differential. With MODE, and (?) new atorvastatin, would consider statin liver injury as well. - Would consider non-contrast MRI when more stable (but LFTs trending down after d/c atorvastatin). (4) GI bleed Current Visit: Yes Status: Acute Plan to address problem: - Continue current protonix. - Will need EGD (and possibly colonoscopy); defer until cleared by Cardiology. - OK to continue cardiac ASA, but would avoid other blood thinners at present. (5) Hypertensive urgency Current Visit: Yes Status: Acute Subjective Date of service: 11/01/20 Principal diagnosis: Anemia, Abnormal LFTs Interval history: The patient ate most of his breakfast without N/V, and denies abdominal pain. No gross bleeding noted by nursing. Objective - Constitutional Vitals: Temp Pulse Resp BP Pulse Ox 97.5 F L 68 18 132/75 94 11/01/20 08:06 11/01/20 08:06 11/01/20 08:06 11/01/20 08:06 11/01/20 08:09 General appearance: no acute distress - Respiratory Respiratory effort: normal Respiratory: bilateral: CTA - Cardiovascular Rhythm: regular Heart Sounds: Present: S1 & S2 - Gastrointestinal General gastrointestinal: Present: soft, non-tender, non-distended - Labs CBC & Chem 7: 10/31/20 05:32 10/31/20 05:32 Labs: Laboratory Results - last 24 hr 10/31/20 10/31/20 10/31/20 15:10 19:20 20:55 PT 18.4 H INR 1.48 H APTT 33.8 POC Glucose 137 H 195 H 11/01/20 08:57 PT INR APTT POC Glucose 164 H
[2020-11-01] MEDS: INSULIN REGULAR, HUMAN 100 UNITS/1 ML SUB-Q SCH ×4 (10:33→21:34)
[2020-11-01] MEDS: amLODIPine 10 MG TAB PO SCH (10:33)
[2020-11-01] MEDS: FUROSEMIDE 40 MG TAB PO SCH (10:33)
[2020-11-01] MEDS: CALCIUM ACETATE 667 MG CAP PO SCH ×3 (10:33→17:28)
[2020-11-01] MEDS: ASPIRIN EC 81 MG TAB PO SCH (10:33)
[2020-11-01] MEDS: PANTOPRAZOLE 40 MG INJ IV SCH ×2 (10:33→21:34)
[2020-11-01] MEDS: carvediloL 12.5 MG TAB PO SCH ×2 (10:33→21:34)
--- NOTE | 2020-11-01 11:48 | Progress Note ---
Assessment and Plan 1. Acute kidney injury superimposed on CKD: MODE superimposed on CKD . CT abdomen negative for hydro. Urine studies ordered. Monitor renal function. Renal prognosis is guarded to poor. Avoid nephrotoxic agents. Meds dosage based on GFR. Patient was started on hemodialysis due to significant decline in the GFR, associated hyperkalemia, metabolic acidosis and volume overload. Hemodialysis: 10/30, 10/31. 2. FEN: Hyperkalemia, improved, monitor. Anion-gap Metabolic acidosis, HD today, monitor. Volume overload, UF with HD, resume IV lasix. Monitor lytes. 3. Heavy proteinuria: ?etiology. JENNIFER, ANCA, GBm Ab, Complements, UPEP and SPEP ordered. 4. Decompensated CHF: Echo EF 45-50%. Strict I/O. On Carvedilol. Followed by Cards. 5. Elevated liver enzymes: Hepatitis serologies negative. 6. GI bleed: Per GI EGD in the next few days, after CHF/HTN/MODE has been assessed and improved. 7. Hypertensive urgency: BP controlled. UF with HD as tolerated. Adjust meds as needed. Monitor. 8. Hypochromic Anemia, POA: ?2/2 GI bleed. Followed by GITessa Peralta. Monitor. 9. Thrombocytopenia. 10. Chronic thoraco-abdominal aneurysm. Subjective: Patient was seen and examined at the bedside while on HD. Examination: General appearance: well-developed, thin built, appears stated age, not in distress HEENT: ATNC, pupils equal Neck: supple Respiratory: diminished breath sounds bibasal Cardiology: regular, S1S2, no murmur Gastrointestinal: soft, bowel sounds heard, not tender Integumentary: warm and dry, upper chest hypopigmented patches noted Neurologic: alert, moving extremities Ext: no edema Hemodialysis access: R IJ temp catheter, L IJ Tunnel catheter Subjective Date of service: 11/01/20 Principal diagnosis: Anemia, Abnormal LFTs Objective - Vital Signs Vital signs: Vital Signs - 12hr 11/01/20 11/01/20 11/01/20 05:39 06:00 06:04 Temperature 97.9 F Pulse Rate 70 72 Respiratory 18 Rate Blood Pressure 107/59 107/59 O2 Sat by Pulse 90 97 Oximetry 11/01/20 11/01/20 08:06 08:09 Temperature 97.5 F L Pulse Rate 68 Respiratory 18 Rate Blood Pressure 132/75 O2 Sat by Pulse 98 94 Oximetry - Lab 11/02/20 04:31 11/02/20 04:31 Most recent lab results ABG pH 7.384 pH Units (7.350-7.450) 10/29/20 14:40 ABG pCO2 32.3 mm Hg 10/29/20 14:40 ABG pO2 107.8 mm Hg (80.0-90.0) H 10/29/20 14:40 ABG HCO3 18.8 mmol/L (20.0-26.0) L 10/29/20 14:40 ABG O2 Saturation 97.9 % (95.0-99.0) 10/29/20 14:40 Calcium 8.3 mg/dL (8.4-10.2) L 10/31/20 05:32 Phosphorus 6.50 mg/dL (2.5-4.5) H D 10/31/20 05:32 Magnesium 2.30 mg/dL (1.7-2.3) 10/31/20 05:32 Urine Creatinine 78.5 mg/dL (0.1-20.0) H 10/29/20 15:40 Urine Sodium 76 mmol/L 10/29/20 15:40 Urine Total Protein 745 mg/dL (5-11.8) H 10/29/20 15:40 Medications & Allergies - Medications Allergies/Adverse Reactions: Allergies No Known Allergies Allergy (Unverified 05/07/14 01:13) Home Medications: Home Medications Medication Instructions Recorded Confirmed Last Taken Type Amlodipine Besylate [Norvasc] 10 mg PO QDAY 10/28/20 10/28/20 Unknown History Aspirin EC [Halfprin EC] 81 mg PO QDAY 10/28/20 10/28/20 Unknown History Atorvastatin Calcium [Lipitor] 80 mg PO QDAY 10/28/20 10/28/20 Unknown History Lisinopril [Zestril] 10 mg PO QDAY 10/28/20 10/28/20 Unknown History Active Medications: Generic Name Dose Route Start Last Admin Trade Name Freq PRN Reason Stop Dose Admin Acetaminophen 650 mg 10/29/20 02:17 Acetaminophen 325 Mg Tab PO Q6H PRN Pain MILD(1-3)/Fever >100.5/SCHMITT Amlodipine Besylate 10 mg 10/30/20 13:00 11/01/20 10:33 Amlodipine 10 Mg Tab PO 10 mg QDAY POLINA Administration Aspirin 81 mg 10/30/20 10:00 11/01/20 10:33 Aspirin Ec 81 Mg Tab PO 81 mg QDAY POLINA Administration Calcium Acetate 667 mg 10/31/20 12:00 11/01/20 10:33 Calcium Acetate 667 Mg Cap PO 667 mg TIDWM POLINA Administration Carvedilol 12.5 mg 10/29/20 22:00 11/01/20 10:33 Carvedilol 12.5 Mg Tab PO 12.5 mg BID POLINA Administration Dextrose 0 ml 10/29/20 02:17 Dextrose 50% In Water (25gm) 50 Ml Syringe IV Q30MIN PRN Hypoglycemia Protocol Furosemide 80 mg 11/01/20 10:00 11/01/20 10:33 Furosemide 40 Mg Tab PO 80 mg QDAY POLINA Administration Hydralazine HCl 10 mg 10/29/20 06:13 10/29/20 10:10 Hydralazine 20 Mg/1 Ml Inj IV 10 mg Q4H PRN Administration Blood Pressure Sodium Chloride 100 mls @ 999 mls/hr 10/30/20 10:00 Nacl 0.9% IV MARKY PRN Hypotension Insulin Human Regular 0 units 10/29/20 07:30 11/01/20 10:33 Insulin Regular, Human 100 Units/1 Ml SUB-Q 1 units ACHS POLINA Administration Protocol Magnesium Hydroxide 30 ml 10/29/20 02:17 Magnesium Hydroxide (Mom) Oral Liqd Udc PO Q4H PRN Constipation Nitroglycerin 0.4 mg 10/31/20 06:00 11/01/20 06:04 Nitroglycerin 0.4 Mg Patch 24hr TD 0.4 mg QDAY@0600 POLINA Administration Ondansetron HCl 4 mg 10/29/20 02:17 10/31/20 16:38 Ondansetron 4 Mg/2 Ml Inj IV 4 mg Q8H PRN Administration Nausea And Vomiting Pantoprazole Sodium 40 mg 10/29/20 10:00 11/01/20 10:33 Pantoprazole 40 Mg Inj IV 40 mg BID POLINA Administration Sodium Chloride 10 ml 10/29/20 10:00 11/01/20 10:33 Sodium Chloride 0.9% 10 Ml Flush Syringe IV 10 ml BID POLINA Administration Sodium Chloride 10 ml 10/29/20 02:17 Sodium Chloride 0.9% 10 Ml Flush Syringe IV PRN PRN LINE FLUSH
--- NOTE | 2020-11-01 17:00 | Progress Note ---
Assessment and Plan Patient and very weak. Resting on 3 litres O2. O2 saturation 955 Patient admitted with nausea vomiting and abdominal pain. Abdominal pain is better now. No complaint of chest pain,shortness of breath or cough. Patient has history of Hypertension, asthma and diabetes and Aortic dissection. Patient has history of smoking 1 pack x 40years. Says stopped smoking approximately 30 years ago. 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 Patient woenmanuel. Has four childre. No known drug allergies. Patient afebrile. No leukocytosis. - Patient Problems (1) Acute kidney injury superimposed on chronic kidney disease Current Visit: Yes Status: Acute Plan to address problem: Management as per nephrology. (2) CHF (congestive heart failure), NYHA class III Current Visit: Yes Status: Acute Plan to address problem: Management as per Cardioogy. (3) GI bleed Current Visit: Yes Status: Acute Plan to address problem: Management as per gastroenterology. (4) Hypertensive urgency Current Visit: Yes Status: Acute Plan to address problem: Management as per primary care. (5) Pulmonary edema Current Visit: Yes Status: Acute Plan to address problem: Patient is on lasix and dialysis. Repeating chest xray Subjective Date of service: 11/01/20 Principal diagnosis: Anemia, Abnormal LFTs Interval history: Patient and very weak. Resting on 3 litres O2. O2 saturation 955 Patient admitted with nausea vomiting and abdominal pain. Abdominal pain is better now. No complaint of chest pain,shortness of breath or cough. Patient has history of Hypertension, asthma and diabetes and Aortic dissection. Patient has history of smoking 1 pack x 40years. Says stopped smoking approximately 30 years ago. 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 Patient woenmanuel. Has four childre. No known drug allergies. Patient afebrile. No leukocytosis. Objective Vital Signs - 12hr 11/01/20 11/01/20 11/01/20 05:39 06:00 06:04 Temperature 97.9 F Pulse Rate 70 72 Respiratory 18 Rate Blood Pressure 107/59 107/59 O2 Sat by Pulse 90 97 Oximetry 11/01/20 11/01/20 11/01/20 08:06 08:09 14:00 Temperature 97.5 F L Pulse Rate 68 67 Respiratory 18 Rate Blood Pressure 132/75 O2 Sat by Pulse 98 94 Oximetry 11/01/20 15:45 Temperature 97.9 F Pulse Rate 61 Respiratory 18 Rate Blood Pressure 94/56 O2 Sat by Pulse 97 Oximetry Constitutional: no acute distress, alert, other (Weak.) Eyes: non-icteric ENT: oropharynx moist Neck: supple, no lymphadenopathy Ascultation: Bilateral: diminished breath sounds Cardiovascular: regular rate and rhythm Gastrointestinal: normoactive bowel sounds, soft, non-tender Integumentary: normal Extremities: no cyanosis, no edema Neurologic: non-focal exam, pupils equal and round Psychiatric: depressed CBC and BMP: 10/31/20 05:32 10/31/20 05:32 ABG, PT/INR, D-dimer: ABG ABG pH 7.384 pH Units (7.350-7.450) 10/29/20 14:40 ABG pCO2 32.3 mm Hg 10/29/20 14:40 ABG pO2 107.8 mm Hg (80.0-90.0) H 10/29/20 14:40 ABG O2 Saturation 97.9 % (95.0-99.0) 10/29/20 14:40 PT/INR, D-dimer PT 18.4 Sec. (12.2-14.9) H 10/31/20 19:20 INR 1.48 (0.87-1.13) H 10/31/20 19:20 Abnormal lab findings: Abnormal Labs 10/28/20 10/28/20 10/29/20 22:43 22:43 04:28 RBC Hgb 8.5 L Hct 26.1 L MCV 65 L MCH 21 L RDW 18.4 H Plt Count Seg Neuts % (Manual) 80.0 H Lymphocytes % (Manual) 13.0 L Nucleated RBC % Lymphocytes # (Manual) 0.9 L PT INR ABG pO2 ABG HCO3 ABG Base Excess ABG Hemoglobin Potassium 5.9 H 5.2 H Carbon Dioxide 14 L 20 L BUN 72 H 72 H Creatinine 6.8 H 6.5 H Glucose 152 H POC Glucose Calcium Phosphorus Total Bilirubin 1.50 H 1.40 H AST 517 H 604 H ALT 448 H 491 H Total Protein 6.2 L Albumin 3.8 L 3.8 L PTH Intact Urine Creatinine Urine Total Protein Crossmatch 10/29/20 10/29/20 10/29/20 04:32 08:23 08:23 RBC Hgb 7.8 L Hct 24.9 L MCV 66 L MCH 21 L RDW 18.0 H Plt Count 98 L Seg Neuts % (Manual) Lymphocytes % (Manual) 1.0 L Nucleated RBC % Lymphocytes # (Manual) 0.1 L PT INR ABG pO2 ABG HCO3 ABG Base Excess ABG Hemoglobin Potassium 5.7 H Carbon Dioxide 14 L BUN 77 H Creatinine 6.7 H Glucose 126 H POC Glucose 114 H Calcium Phosphorus Total Bilirubin AST ALT Total Protein Albumin PTH Intact Urine Creatinine Urine Total Protein Crossmatch 10/29/20 10/29/20 10/29/20 08:58 11:33 14:40 RBC Hgb Hct MCV MCH RDW Plt Count Seg Neuts % (Manual) Lymphocytes % (Manual) Nucleated RBC % Lymphocytes # (Manual) PT INR ABG pO2 107.8 H ABG HCO3 18.8 L ABG Base Excess -5.6 L ABG Hemoglobin 7.4 L Potassium Carbon Dioxide BUN Creatinine Glucose POC Glucose 139 H 155 H Calcium Phosphorus Total Bilirubin AST ALT Total Protein Albumin PTH Intact Urine Creatinine Urine Total Protein Crossmatch 10/29/20 10/29/20 10/29/20 15:40 16:46 21:29 RBC Hgb Hct MCV MCH RDW Plt Count Seg Neuts % (Manual) Lymphocytes % (Manual) Nucleated RBC % Lymphocytes # (Manual) PT INR ABG pO2 ABG HCO3 ABG Base Excess ABG Hemoglobin Potassium Carbon Dioxide BUN Creatinine Glucose POC Glucose 158 H 138 H Calcium Phosphorus Total Bilirubin AST ALT Total Protein Albumin PTH Intact Urine Creatinine 78.5 H Urine Total Protein 745 H Crossmatch 10/30/20 10/30/20 10/30/20 04:25 04:25 04:25 RBC 3.50 L Hgb 7.3 L Hct 22.8 L MCV 65 L MCH 21 L RDW 17.9 H Plt Count 88 L Seg Neuts % (Manual) 87.0 H Lymphocytes % (Manual) 5.0 L Nucleated RBC % 1.0 H Lymphocytes # (Manual) 0.4 L PT INR ABG pO2 ABG HCO3 ABG Base Excess ABG Hemoglobin Potassium Carbon Dioxide 20 L BUN 89 H Creatinine 7.6 H Glucose 129 H POC Glucose Calcium Phosphorus 8.20 H Total Bilirubin AST 502 H ALT 636 H Total Protein 5.7 L Albumin 3.2 L PTH Intact 176.3 H Urine Creatinine Urine Total Protein Crossmatch 10/30/20 10/30/20 10/30/20 07:21 10:53 11:11 RBC Hgb Hct MCV MCH RDW Plt Count Seg Neuts % (Manual) Lymphocytes % (Manual) Nucleated RBC % Lymphocytes # (Manual) PT INR ABG pO2 ABG HCO3 ABG Base Excess ABG Hemoglobin Potassium Carbon Dioxide BUN Creatinine Glucose POC Glucose 120 H 120 H Calcium Phosphorus Total Bilirubin AST ALT Total Protein Albumin PTH Intact Urine Creatinine Urine Total Protein Crossmatch See Detail 10/30/20 10/30/20 10/31/20 16:28 21:07 05:32 RBC Hgb 7.9 L Hct 23.8 L MCV 65 L MCH 22 L RDW 17.6 H Plt Count 94 L Seg Neuts % (Manual) Lymphocytes % (Manual) Nucleated RBC % Lymphocytes # (Manual) PT INR ABG pO2 ABG HCO3 ABG Base Excess ABG Hemoglobin Potassium Carbon Dioxide BUN Creatinine Glucose POC Glucose 146 H 167 H Calcium Phosphorus Total Bilirubin AST ALT Total Protein Albumin PTH Intact Urine Creatinine Urine Total Protein Crossmatch 10/31/20 10/31/20 10/31/20 05:32 15:10 19:20 RBC Hgb Hct MCV MCH RDW Plt Count Seg Neuts % (Manual) Lymphocytes % (Manual) Nucleated RBC % Lymphocytes # (Manual) PT 18.4 H INR 1.48 H ABG pO2 ABG HCO3 ABG Base Excess ABG Hemoglobin Potassium Carbon Dioxide BUN 67 H Creatinine 5.8 H Glucose 106 H POC Glucose 137 H Calcium 8.3 L Phosphorus 6.50 H D Total Bilirubin AST 207 H ALT 402 H Total Protein 5.1 L Albumin 3.0 L PTH Intact Urine Creatinine Urine Total Protein Crossmatch 10/31/20 11/01/20 11/01/20 20:55 08:57 11:55 RBC Hgb Hct MCV MCH RDW Plt Count Seg Neuts % (Manual) Lymphocytes % (Manual) Nucleated RBC % Lymphocytes # (Manual) PT INR ABG pO2 ABG HCO3 ABG Base Excess ABG Hemoglobin Potassium Carbon Dioxide BUN Creatinine Glucose POC Glucose 195 H 164 H 189 H Calcium Phosphorus Total Bilirubin AST ALT Total Protein Albumin PTH Intact Urine Creatinine Urine Total Protein Crossmatch 11/01/20 15:50 RBC Hgb Hct MCV MCH RDW Plt Count Seg Neuts % (Manual) Lymphocytes % (Manual) Nucleated RBC % Lymphocytes # (Manual) PT INR ABG pO2 ABG HCO3 ABG Base Excess ABG Hemoglobin Potassium Carbon Dioxide BUN Creatinine Glucose POC Glucose 173 H Calcium Phosphorus Total Bilirubin AST ALT Total Protein Albumin PTH Intact Urine Creatinine Urine Total Protein Crossmatch Chest x-ray: report reviewed, image reviewed CT scan - chest: report reviewed, image reviewed Additional Studies: CHEST 1 VIEW 10/30/2020 8:33 AM INDICATION / CLINICAL INFORMATION: right ij vas cath placement. COMPARISON: 10/29/2020 FINDINGS: SUPPORT DEVICES: Right IJ central venous catheter has been placed with the tip projecting over the superior cavoatrial junction. HEART / MEDIASTINUM: Stable. LUNGS / PLEURA: Stable small bilateral pleural effusions and patchy bilateral pulmonary opacities. No pneumothorax. ADDITIONAL FINDINGS: No significant additional findings. IMPRESSION: 1. Right IJ central venous catheter appears appropriately positioned. CT CHEST WITHOUT CONTRAST INDICATION / CLINICAL INFORMATION: right vascath bleeding, course of catheter. TECHNIQUE: Axial CT images were obtained through the chest without contrast. All CT scans at this location are performed using CT dose reduction for ALARA by means of automated exposure cont rol. COMPARISON: None available. FINDINGS: There is marked cardiomegaly. There is a noncontrast examination which limits evaluation. There is diffuse dilatation of the thoracic aorta with dilatation extending to the brachiocephalic and descending thoracic aorta. Findings appear similar to the prior examination. Atherosclerotic constipation throughout the aorta persist. A few mildly prominent paratracheal mediastinal nodes appears similar to prior exam. There is increased opacity within the lungs most significant in the right upper lung. Bilateral pleural effusions. There is a rounded collection of the right neck just deep to the catheter tip and adjacent to the thyroid measuring 3 cm. This has a Hounsfield unit 39 which could represent hematoma. The catheter extends into the right jugular. Degenerative change throughout spine. Bilateral renal cysts. Abdominal aortic aneurysm measures 5.7 cm IMPRESSION: 1. Rounded density/fluid collection adjacent to the Vas-Cath in the right neck just deep to it suggesting possible hematoma and cause of bleed. 2. Increased opacity throughout the lungs most significant in right upper lung could represent atypical infiltrate. 3. Thoracic aortic aneurysm and abdominal aortic aneurysm appears similar to prior exam. This is a noncontrast examination which is limited. 4. Pleural effusions Allied health notes reviewed: nursing
--- NOTE | 2020-11-01 18:11 | Progress Note ---
Assessment and Plan Assessment and plan: -- Anemia Current Visit: Yes Status: Acute Possibly from GI bleed. Received 1 unit of PRBC transfusion, Hb today 7.9 Stool Hemoccult done in the ER was negative Closely monitor H&H transfuse additional PRBC as needed --GI bleed Current Visit: Yes Status: Acute GI evaluated the patient Scheduled for endoscopy today Cardiology did not cleared for the procedure at this point Unless actively bleeding due to risk factors --Acute kidney injury superimposed on chronic kidney disease Current Visit: Yes Status: Acute Patient with chronic kidney disease. Worsening renal function s/p Permacath placement, hemodialysis 10/30, 10/31 Nephrology following, outpatient HD chair placement at discharge per renal -- Hyperkalemia/present on admission Current Visit: Yes Status: Acute Patient is received insulin and glucose, calcium gluconate sodium bicarb while in the emergency room Normal potassium levels, monitor electrolytes --Acute liver injury /transaminitis Current Visit: Yes Status: Acute Plan to address problem: CT of the abdomen and pelvis did not reveal any acute abnormality. Trending down. GI following, etiology unclear --Hypertensive urgency Current Visit: Yes Status: Acute Moderate control , continue current antihypertensives As needed medications , closely monitor -- Pulmonary edema Current Visit: Yes Status: Acute Plan to address problem: Pulmonary edema shown on CT scan of the abdomen and pelvis. Patient had a dose of IV Lasix. Will check echocardiogram. We will place a consult to cardiology for evaluation. --DVT prophylaxis Current Visit: Yes Status: Acute Plan to address problem: Patient placed on sequential compression device. -- Full code status Current Visit: Yes Status: Acute Plan to address problem: Patient is full code. Follow consultants recommendations 10/31/2020; patient received permacath placement Hemodialysis per schedule, possible endoscopy tomorrow 11/01/2020; patient feels slightly better, GI waiting for Cardiology clearance for endoscopy History Interval history: I have seen and examined the patient at the bedside Patient's chart and medications reviewed Patient received permacath placement yesterday. GI planning EGD when cardiology clears for the procedure Vital signs noted Hospitalist Physical - Constitutional Vitals: Temp Pulse Resp BP Pulse Ox 97.9 F 61 18 94/56 97 11/01/20 15:45 11/01/20 15:45 11/01/20 15:45 11/01/20 15:45 11/01/20 15:45 General appearance: Present: no acute distress, cachectic, other (Patient is lethargic, frail and chronically ill-appearing) - EENT Eyes: Present: PERRL, EOM intact - Neck Neck: Present: supple, normal ROM - Respiratory Respiratory effort: normal Respiratory: bilateral: diminished, rhonchi, negative: rales, wheezing - Cardiovascular Rhythm: regular Heart Sounds: Present: S1 & S2 - Extremities Extremities: no ischemia, No edema - Abdominal General gastrointestinal: soft, non-tender, non-distended, normal bowel sounds - Integumentary Integumentary: Present: clear, warm - Psychiatric Psychiatric: appropriate mood/affect, cooperative - Neurologic Neurologic: CNII-XII intact, moves all extremities Results - Labs CBC & Chem 7: 10/31/20 05:32 10/31/20 05:32 Labs: Laboratory Last Values WBC 7.3 K/mm3 (4.5-11.0) 10/31/20 05:32 RBC 3.65 M/mm3 (3.65-5.03) 10/31/20 05:32 Hgb 7.9 gm/dl (11.8-15.2) L 10/31/20 05:32 Hct 23.8 % (35.5-45.6) L 10/31/20 05:32 MCV 65 fl (84-94) L 10/31/20 05:32 MCH 22 pg (28-32) L 10/31/20 05:32 MCHC 33 % (32-34) 10/31/20 05:32 RDW 17.6 % (13.2-15.2) H 10/31/20 05:32 Plt Count 94 K/mm3 (140-440) L 10/31/20 05:32 Add Manual Diff Complete 10/30/20 04:25 Total Counted 100 10/30/20 04:25 Seg Neuts % (Manual) 87.0 % (40.0-70.0) H 10/30/20 04:25 Band Neutrophils % 1.0 % 10/30/20 04:25 Lymphocytes % (Manual) 5.0 % (13.4-35.0) L 10/30/20 04:25 Monocytes % (Manual) 7.0 % (0.0-7.3) 10/30/20 04:25 Nucleated RBC % 1.0 % (0.0-0.9) H 10/30/20 04:25 Seg Neutrophils # Man 7.0 K/mm3 (1.8-7.7) 10/30/20 04:25 Band Neutrophils # 0.1 K/mm3 10/30/20 04:25 Lymphocytes # (Manual) 0.4 K/mm3 (1.2-5.4) L 10/30/20 04:25 Abs React Lymphs (Man) 0.0 K/mm3 10/30/20 04:25 Monocytes # (Manual) 0.6 K/mm3 (0.0-0.8) 10/30/20 04:25 Eosinophils # (Manual) 0.0 K/mm3 (0.0-0.4) 10/30/20 04:25 Basophils # (Manual) 0.0 K/mm3 (0.0-0.1) 10/30/20 04:25 Metamyelocytes # 0.0 K/mm3 10/30/20 04:25 Myelocytes # 0.0 K/mm3 10/30/20 04:25 Promyelocytes # 0.0 K/mm3 10/30/20 04:25 Blast Cells # 0.0 K/mm3 10/30/20 04:25 WBC Morphology Not Reportable 10/30/20 04:25 Hypersegmented Neuts Not Reportable 10/30/20 04:25 Hyposegmented Neuts Not Reportable 10/30/20 04:25 Hypogranular Neuts Not Reportable 10/30/20 04:25 Smudge Cells Not Reportable 10/30/20 04:25 Toxic Granulation Not Reportable 10/30/20 04:25 Toxic Vacuolation Not Reportable 10/30/20 04:25 Dohle Bodies Not Reportable 10/30/20 04:25 Pelger-Huet Anomaly Not Reportable 10/30/20 04:25 Katherine Rods Not Reportable 10/30/20 04:25 Platelet Estimate Consistent w auto 10/30/20 04:25 Clumped Platelets Not Reportable 10/30/20 04:25 Plt Clumps, EDTA Not Reportable 10/30/20 04:25 Large Platelets Not Reportable 10/30/20 04:25 Giant Platelets Not Reportable 10/30/20 04:25 Platelet Satelliting Not Reportable 10/30/20 04:25 Plt Morphology Comment Not Reportable 10/30/20 04:25 RBC Morphology Not Reportable 10/30/20 04:25 Dimorphic RBCs Not Reportable 10/30/20 04:25 Polychromasia Few 10/30/20 04:25 Hypochromasia 2+ 10/30/20 04:25 Poikilocytosis Not Reportable 10/30/20 04:25 Anisocytosis 2+ 10/30/20 04:25 Microcytosis Not Reportable 10/30/20 04:25 Macrocytosis Not Reportable 10/30/20 04:25 Spherocytes Not Reportable 10/30/20 04:25 Pappenheimer Bodies Not Reportable 10/30/20 04:25 Sickle Cells Not Reportable 10/30/20 04:25 Target Cells Not Reportable 10/30/20 04:25 Tear Drop Cells Not Reportable 10/30/20 04:25 Ovalocytes Not Reportable 10/30/20 04:25 Helmet Cells Not Reportable 10/30/20 04:25 [place] Bodies Not Reportable 10/30/20 04:25 [place] Rings Not Reportable 10/30/20 04:25 [place] Cells Not Reportable 10/30/20 04:25 Bite Cells Not Reportable 10/30/20 04:25 Crenated Cell Not Reportable 10/30/20 04:25 Elliptocytes Not Reportable 10/30/20 04:25 Acanthocytes (Spur) Not Reportable 10/30/20 04:25 Rouleaux Not Reportable 10/30/20 04:25 Hemoglobin C Crystals Not Reportable 10/30/20 04:25 Schistocytes 1+ 10/30/20 04:25 Malaria parasites Not Reportable 10/30/20 04:25 Ellis Bodies Not Reportable 10/30/20 04:25 Hem Pathologist Commnt No 10/30/20 04:25 PT 18.4 Sec. (12.2-14.9) H 10/31/20 19:20 INR 1.48 (0.87-1.13) H 10/31/20 19:20 APTT 33.8 Sec. (24.2-36.6) 10/31/20 19:20 ABG pH 7.384 pH Units (7.350-7.450) 10/29/20 14:40 ABG pCO2 32.3 mm Hg 10/29/20 14:40 ABG pO2 107.8 mm Hg (80.0-90.0) H 10/29/20 14:40 ABG HCO3 18.8 mmol/L (20.0-26.0) L 10/29/20 14:40 ABG O2 Saturation 97.9 % (95.0-99.0) 10/29/20 14:40 ABG O2 Content 10.3 (0.0-44) 10/29/20 14:40 ABG Base Excess -5.6 mmol/L (-2.0-3.0) L 10/29/20 14:40 ABG Hemoglobin 7.4 gm/dl (14.0-18.0) L 10/29/20 14:40 ABG Carboxyhemoglobin 1.5 % (0.0-5.0) 10/29/20 14:40 ABG Methemoglobin 0.5 % (0.0-1.5) 10/29/20 14:40 Oxyhemoglobin 95.9 % (95.0-99.0) 10/29/20 14:40 FiO2 28 % 10/29/20 14:40 Sodium 140 mmol/L (137-145) 10/31/20 05:32 Potassium 4.0 mmol/L (3.6-5.0) 10/31/20 05:32 Chloride 100.9 mmol/L (98-107) 10/31/20 05:32 Carbon Dioxide 26 mmol/L (22-30) 10/31/20 05:32 Anion Gap 17 mmol/L 10/31/20 05:32 BUN 67 mg/dL (9-20) H 10/31/20 05:32 Creatinine 5.8 mg/dL (0.8-1.3) H 10/31/20 05:32 Estimated GFR 9 ml/min 10/31/20 05:32 BUN/Creatinine Ratio 12 % 10/31/20 05:32 Glucose 106 mg/dL (75-100) H 10/31/20 05:32 POC Glucose 173 mg/dL (70-105) H 11/01/20 15:50 Hemoglobin A1c 5.3 % (4-6) 10/29/20 02:00 Calcium 8.3 mg/dL (8.4-10.2) L 10/31/20 05:32 Phosphorus 6.50 mg/dL (2.5-4.5) H D 10/31/20 05:32 Magnesium 2.30 mg/dL (1.7-2.3) 10/31/20 05:32 Total Bilirubin 0.80 mg/dL (0.1-1.2) 10/31/20 05:32 AST 207 units/L (5-40) H 10/31/20 05:32 ALT 402 units/L (7-56) H 10/31/20 05:32 Alkaline Phosphatase 89 units/L (35-129) 10/31/20 05:32 Total Protein 5.1 g/dL (6.3-8.2) L 10/31/20 05:32 Albumin 3.0 g/dL (3.9-5) L 10/31/20 05:32 Albumin/Globulin Ratio 1.4 % 10/31/20 05:32 Lipase 51 units/L (13-60) 10/28/20 22:43 PTH Intact 176.3 pg/mL (15-65) H 10/30/20 04:25 Urine Color Yellow (Yellow) 10/28/20 Unknown Urine Turbidity Cloudy (Clear) 10/28/20 Unknown Urine pH 5.0 (5.0-7.0) 10/28/20 Unknown Ur Specific [place] 1.018 (1.003-1.030) 10/28/20 Unknown Urine Protein >500 mg/dL (Negative) 10/28/20 Unknown Urine Glucose (UA) 50 mg/dL (Negative) 10/28/20 Unknown Urine Ketones Neg mg/dL (Negative) 10/28/20 Unknown Urine Blood Mod (Negative) 10/28/20 Unknown Urine Nitrite Neg (Negative) 10/28/20 Unknown Urine Bilirubin Neg (Negative) 10/28/20 Unknown Urine Urobilinogen < 2.0 mg/dL (<2.0) 10/28/20 Unknown Ur Leukocyte Esterase Neg (Negative) 10/28/20 Unknown Urine WBC (Auto) 4.0 /HPF (0.0-6.0) 10/28/20 Unknown Urine RBC (Auto) 10.0 /HPF (0.0-6.0) 10/28/20 Unknown U Epithel Cells (Auto) 1.0 /HPF (0-13.0) 10/28/20 Unknown Urine Mucus Few /HPF 10/28/20 Unknown Urine Creatinine 78.5 mg/dL (0.1-20.0) H 10/29/20 15:40 Protein/Creatinin Ratio 9.49 10/29/20 15:40 Urine Sodium 76 mmol/L 10/29/20 15:40 Urine Total Protein 745 mg/dL (5-11.8) H 10/29/20 15:40 Hepatitis A IgM Ab Non-reactive (NonReactive) 10/29/20 00:00 Hep Bs Antigen Non-reactive (Negative) 10/29/20 00:00 Hep B Core IgM Ab Non-reactive (NonReactive) 10/29/20 00:00 Hepatitis C Antibody Non-reactive (NonReactive) 10/29/20 00:00 Blood Type O POSITIVE 10/30/20 10:53 Antibody Screen Negative 10/30/20 10:53 Crossmatch See Detail 10/30/20 10:53 [place]/IV: Voiding Method Urinal Active Medications - Current Medications Current Medications: Generic Name Dose Route Start Last Admin Trade Name Freq PRN Reason Stop Dose Admin Acetaminophen 650 mg 10/29/20 02:17 Acetaminophen 325 Mg Tab PO Q6H PRN Pain MILD(1-3)/Fever >100.5/SCHMITT Amlodipine Besylate 10 mg 10/30/20 13:00 11/01/20 10:33 Amlodipine 10 Mg Tab PO 10 mg QDAY POLINA Administration Aspirin 81 mg 10/30/20 10:00 11/01/20 10:33 Aspirin Ec 81 Mg Tab PO 81 mg QDAY POLINA Administration Calcium Acetate 667 mg 10/31/20 12:00 11/01/20 17:28 Calcium Acetate 667 Mg Cap PO 667 mg TIDWM POLINA Administration Carvedilol 12.5 mg 10/29/20 22:00 11/01/20 10:33 Carvedilol 12.5 Mg Tab PO 12.5 mg BID POLINA Administration Dextrose 0 ml 10/29/20 02:17 Dextrose 50% In Water (25gm) 50 Ml Syringe IV Q30MIN PRN Hypoglycemia Protocol Furosemide 80 mg 11/01/20 10:00 11/01/20 10:33 Furosemide 40 Mg Tab PO 80 mg QDAY POLINA Administration Hydralazine HCl 10 mg 10/29/20 06:13 10/29/20 10:10 Hydralazine 20 Mg/1 Ml Inj IV 10 mg Q4H PRN Administration Blood Pressure Sodium Chloride 100 mls @ 999 mls/hr 10/30/20 10:00 Nacl 0.9% IV MARKY PRN Hypotension Insulin Human Regular 0 units 10/29/20 07:30 11/01/20 17:28 Insulin Regular, Human 100 Units/1 Ml SUB-Q 1 units ACHS POLINA Administration Protocol Isosorbide Mononitrate 30 mg 11/01/20 15:00 11/01/20 17:28 Isosorbide Mononitrate Er 30 Mg Tab PO 30 mg QDAY POLINA Administration Magnesium Hydroxide 30 ml 10/29/20 02:17 Magnesium Hydroxide (Mom) Oral Liqd Udc PO Q4H PRN Constipation Nitroglycerin 0.4 mg 10/31/20 06:00 11/01/20 06:04 Nitroglycerin 0.4 Mg Patch 24hr TD 0.4 mg QDAY@0600 POLINA Administration Ondansetron HCl 4 mg 10/29/20 02:17 10/31/20 16:38 Ondansetron 4 Mg/2 Ml Inj IV 4 mg Q8H PRN Administration Nausea And Vomiting Pantoprazole Sodium 40 mg 10/29/20 10:00 11/01/20 10:33 Pantoprazole 40 Mg Inj IV 40 mg BID POLINA Administration Sodium Chloride 10 ml 10/29/20 10:00 11/01/20 10:33 Sodium Chloride 0.9% 10 Ml Flush Syringe IV 10 ml BID POLINA Administration Sodium Chloride 10 ml 10/29/20 02:17 Sodium Chloride 0.9% 10 Ml Flush Syringe IV PRN PRN LINE FLUSH Nutrition/Malnutrition Assess - Dietary Evaluation Nutrition/Malnutrition Findings: Nutrition Notes Start: 10/29/20 12:02 Freq: Status: Active Protocol: Document 11/01/20 14:52 (Rec: 11/01/20 14:56 [email or web address]) Nutrition Notes Initial or Follow up Reassessment Current Diagnosis Acute Kidney Injury,Diabetes, Hypertension,Heart Failure, Hyperlipidemia Other Pertinent Diagnosis elevated LFTs, GIB, anemia Current Diet Cardiac, Consistent CHO Labs/Tests Reviewed Pertinent Medications Markuskrissy HarveyNiru Height 5 ft 5 in Weight 46.2 kg [place] Body Weight (kg) 61.81 BMI 16.9 Weight change and time frame Wt change noted, will follow trends Weight Status Underweight Subjective/Other Information FU for intakes. Pt eating <50% of meals. He does not think he has lost any weight and is unsure of UBW. Pt did not get ONS due to new diet order. Due to advanced age, pt not appropriate for diet education . Percent of energy/protein needs met: 71%/69% Burn Absent Trauma Absent GI Symptoms None Current % PO Poor (25-49%) Minimum of two criteria Yes Energy Intake (non-severe) <75% Estimated Energy Requirement >7 days Muscle Mass Mild Depletion (non-severe) #1 Nutrition Diagnosis Malnutrition Diagnosis Progress(for reassessment Continues documentation) Is patient on ventilator? No Is Patient Ambulatory and/or Out of Bed No [facility] [phone] Calculation Used for Recommendations [facility] Additional Notes Protein: (1.2-1.5g/kg) 62-77g Fluid: 1 ml/kcal or per MD Nutrition Intervention Change Diet Order: Continue Add Supplement/Snack (indicate name/kcal Nepro BID /protein ) Provides kCal: 850 Provides Protein (gm) 38 Goal #1 Meet at least 80% of protein and energy needs via PO and ONS intakes Goal #2 Weight gain/maintenance Anticipated Discharge Needs: Cardiac, Consistent CHO Follow-Up By: 11/03/20 Additional Comments FU for intakes, ONS tolerance
--- NOTE | 2020-11-01 19:37 | Progress Note ---
Hospitalist Physical - Constitutional Vitals: Temp Pulse Resp BP Pulse Ox 97.9 F 61 18 94/56 97 11/01/20 15:45 11/01/20 15:45 11/01/20 15:45 11/01/20 15:45 11/01/20 15:45 General appearance: Present: no acute distress, cachectic, other (Patient is lethargic, frail and chronically ill-appearing) Results - Labs CBC & Chem 7: 10/31/20 05:32 10/31/20 05:32 Labs: Laboratory Last Values WBC 7.3 K/mm3 (4.5-11.0) 10/31/20 05:32 RBC 3.65 M/mm3 (3.65-5.03) 10/31/20 05:32 Hgb 7.9 gm/dl (11.8-15.2) L 10/31/20 05:32 Hct 23.8 % (35.5-45.6) L 10/31/20 05:32 MCV 65 fl (84-94) L 10/31/20 05:32 MCH 22 pg (28-32) L 10/31/20 05:32 MCHC 33 % (32-34) 10/31/20 05:32 RDW 17.6 % (13.2-15.2) H 10/31/20 05:32 Plt Count 94 K/mm3 (140-440) L 10/31/20 05:32 Add Manual Diff Complete 10/30/20 04:25 Total Counted 100 10/30/20 04:25 Seg Neuts % (Manual) 87.0 % (40.0-70.0) H 10/30/20 04:25 Band Neutrophils % 1.0 % 10/30/20 04:25 Lymphocytes % (Manual) 5.0 % (13.4-35.0) L 10/30/20 04:25 Monocytes % (Manual) 7.0 % (0.0-7.3) 10/30/20 04:25 Nucleated RBC % 1.0 % (0.0-0.9) H 10/30/20 04:25 Seg Neutrophils # Man 7.0 K/mm3 (1.8-7.7) 10/30/20 04:25 Band Neutrophils # 0.1 K/mm3 10/30/20 04:25 Lymphocytes # (Manual) 0.4 K/mm3 (1.2-5.4) L 10/30/20 04:25 Abs React Lymphs (Man) 0.0 K/mm3 10/30/20 04:25 Monocytes # (Manual) 0.6 K/mm3 (0.0-0.8) 10/30/20 04:25 Eosinophils # (Manual) 0.0 K/mm3 (0.0-0.4) 10/30/20 04:25 Basophils # (Manual) 0.0 K/mm3 (0.0-0.1) 10/30/20 04:25 Metamyelocytes # 0.0 K/mm3 10/30/20 04:25 Myelocytes # 0.0 K/mm3 10/30/20 04:25 Promyelocytes # 0.0 K/mm3 10/30/20 04:25 Blast Cells # 0.0 K/mm3 10/30/20 04:25 WBC Morphology Not Reportable 10/30/20 04:25 Hypersegmented Neuts Not Reportable 10/30/20 04:25 Hyposegmented Neuts Not Reportable 10/30/20 04:25 Hypogranular Neuts Not Reportable 10/30/20 04:25 Smudge Cells Not Reportable 10/30/20 04:25 Toxic Granulation Not Reportable 10/30/20 04:25 Toxic Vacuolation Not Reportable 10/30/20 04:25 Dohle Bodies Not Reportable 10/30/20 04:25 Pelger-Huet Anomaly Not Reportable 10/30/20 04:25 Katherine Rods Not Reportable 10/30/20 04:25 Platelet Estimate Consistent w auto 10/30/20 04:25 Clumped Platelets Not Reportable 10/30/20 04:25 Plt Clumps, EDTA Not Reportable 10/30/20 04:25 Large Platelets Not Reportable 10/30/20 04:25 Giant Platelets Not Reportable 10/30/20 04:25 Platelet Satelliting Not Reportable 10/30/20 04:25 Plt Morphology Comment Not Reportable 10/30/20 04:25 RBC Morphology Not Reportable 10/30/20 04:25 Dimorphic RBCs Not Reportable 10/30/20 04:25 Polychromasia Few 10/30/20 04:25 Hypochromasia 2+ 10/30/20 04:25 Poikilocytosis Not Reportable 10/30/20 04:25 Anisocytosis 2+ 10/30/20 04:25 Microcytosis Not Reportable 10/30/20 04:25 Macrocytosis Not Reportable 10/30/20 04:25 Spherocytes Not Reportable 10/30/20 04:25 Pappenheimer Bodies Not Reportable 10/30/20 04:25 Sickle Cells Not Reportable 10/30/20 04:25 Target Cells Not Reportable 10/30/20 04:25 Tear Drop Cells Not Reportable 10/30/20 04:25 Ovalocytes Not Reportable 10/30/20 04:25 Helmet Cells Not Reportable 10/30/20 04:25 [place]illed[place]er[place] Bodies Not Reportable 10/30/20 04:25 [place] Rings Not Reportable 10/30/20 04:25 Jermaine Cells Not Reportable 10/30/20 04:25 Bite Cells Not Reportable 10/30/20 04:25 Crenated Cell Not Reportable 10/30/20 04:25 Elliptocytes Not Reportable 10/30/20 04:25 Acanthocytes (Spur) Not Reportable 10/30/20 04:25 Rouleaux Not Reportable 10/30/20 04:25 Hemoglobin C Crystals Not Reportable 10/30/20 04:25 Schistocytes 1+ 10/30/20 04:25 Malaria parasites Not Reportable 10/30/20 04:25 Ellis Bodies Not Reportable 10/30/20 04:25 Hem Pathologist Commnt No 10/30/20 04:25 PT 18.4 Sec. (12.2-14.9) H 10/31/20 19:20 INR 1.48 (0.87-1.13) H 10/31/20 19:20 APTT 33.8 Sec. (24.2-36.6) 10/31/20 19:20 ABG pH 7.384 pH Units (7.350-7.450) 10/29/20 14:40 ABG pCO2 32.3 mm Hg 10/29/20 14:40 ABG pO2 107.8 mm Hg (80.0-90.0) H 10/29/20 14:40 ABG HCO3 18.8 mmol/L (20.0-26.0) L 10/29/20 14:40 ABG O2 Saturation 97.9 % (95.0-99.0) 10/29/20 14:40 ABG O2 Content 10.3 (0.0-44) 10/29/20 14:40 ABG Base Excess -5.6 mmol/L (-2.0-3.0) L 10/29/20 14:40 ABG Hemoglobin 7.4 gm/dl (14.0-18.0) L 10/29/20 14:40 ABG Carboxyhemoglobin 1.5 % (0.0-5.0) 10/29/20 14:40 ABG Methemoglobin 0.5 % (0.0-1.5) 10/29/20 14:40 Oxyhemoglobin 95.9 % (95.0-99.0) 10/29/20 14:40 FiO2 28 % 10/29/20 14:40 Sodium 140 mmol/L (137-145) 10/31/20 05:32 Potassium 4.0 mmol/L (3.6-5.0) 10/31/20 05:32 Chloride 100.9 mmol/L (98-107) 10/31/20 05:32 Carbon Dioxide 26 mmol/L (22-30) 10/31/20 05:32 Anion Gap 17 mmol/L 10/31/20 05:32 BUN 67 mg/dL (9-20) H 10/31/20 05:32 Creatinine 5.8 mg/dL (0.8-1.3) H 10/31/20 05:32 Estimated GFR 9 ml/min 10/31/20 05:32 BUN/Creatinine Ratio 12 % 10/31/20 05:32 Glucose 106 mg/dL (75-100) H 10/31/20 05:32 POC Glucose 173 mg/dL (70-105) H 11/01/20 15:50 Hemoglobin A1c 5.3 % (4-6) 10/29/20 02:00 Calcium 8.3 mg/dL (8.4-10.2) L 10/31/20 05:32 Phosphorus 6.50 mg/dL (2.5-4.5) H D 10/31/20 05:32 Magnesium 2.30 mg/dL (1.7-2.3) 10/31/20 05:32 Total Bilirubin 0.80 mg/dL (0.1-1.2) 10/31/20 05:32 AST 207 units/L (5-40) H 10/31/20 05:32 ALT 402 units/L (7-56) H 10/31/20 05:32 Alkaline Phosphatase 89 units/L (35-129) 10/31/20 05:32 Total Protein 5.1 g/dL (6.3-8.2) L 10/31/20 05:32 Albumin 3.0 g/dL (3.9-5) L 10/31/20 05:32 Albumin/Globulin Ratio 1.4 % 10/31/20 05:32 Lipase 51 units/L (13-60) 10/28/20 22:43 PTH Intact 176.3 pg/mL (15-65) H 10/30/20 04:25 Urine Color Yellow (Yellow) 10/28/20 Unknown Urine Turbidity Cloudy (Clear) 10/28/20 Unknown Urine pH 5.0 (5.0-7.0) 10/28/20 Unknown Ur Specific Pearl 1.018 (1.003-1.030) 10/28/20 Unknown Urine Protein >500 mg/dL (Negative) 10/28/20 Unknown Urine Glucose (UA) 50 mg/dL (Negative) 10/28/20 Unknown Urine Ketones Neg mg/dL (Negative) 10/28/20 Unknown Urine Blood Mod (Negative) 10/28/20 Unknown Urine Nitrite Neg (Negative) 10/28/20 Unknown Urine Bilirubin Neg (Negative) 10/28/20 Unknown Urine Urobilinogen < 2.0 mg/dL (<2.0) 10/28/20 Unknown Ur Leukocyte Esterase Neg (Negative) 10/28/20 Unknown Urine WBC (Auto) 4.0 /HPF (0.0-6.0) 10/28/20 Unknown Urine RBC (Auto) 10.0 /HPF (0.0-6.0) 10/28/20 Unknown U Epithel Cells (Auto) 1.0 /HPF (0-13.0) 10/28/20 Unknown Urine Mucus Few /HPF 10/28/20 Unknown Urine Creatinine 78.5 mg/dL (0.1-20.0) H 10/29/20 15:40 Protein/Creatinin Ratio 9.49 10/29/20 15:40 Urine Sodium 76 mmol/L 10/29/20 15:40 Urine Total Protein 745 mg/dL (5-11.8) H 10/29/20 15:40 Hepatitis A IgM Ab Non-reactive (NonReactive) 10/29/20 00:00 Hep Bs Antigen Non-reactive (Negative) 10/29/20 00:00 Hep B Core IgM Ab Non-reactive (NonReactive) 10/29/20 00:00 Hepatitis C Antibody Non-reactive (NonReactive) 10/29/20 00:00 Blood Type O POSITIVE 10/30/20 10:53 Antibody Screen Negative 10/30/20 10:53 Crossmatch See Detail 10/30/20 10:53 [place]/IV: Voiding Method Urinal Active Medications - Current Medications Current Medications: Generic Name Dose Route Start Last Admin Trade Name Freq PRN Reason Stop Dose Admin Acetaminophen 650 mg 10/29/20 02:17 Acetaminophen 325 Mg Tab PO Q6H PRN Pain MILD(1-3)/Fever >100.5/SCHMITT Amlodipine Besylate 10 mg 10/30/20 13:00 11/01/20 10:33 Amlodipine 10 Mg Tab PO 10 mg QDAY POLINA Administration Aspirin 81 mg 10/30/20 10:00 11/01/20 10:33 Aspirin Ec 81 Mg Tab PO 81 mg QDAY POLINA Administration Calcium Acetate 667 mg 10/31/20 12:00 11/01/20 17:28 Calcium Acetate 667 Mg Cap PO 667 mg TIDWM POLINA Administration Carvedilol 12.5 mg 10/29/20 22:00 11/01/20 10:33 Carvedilol 12.5 Mg Tab PO 12.5 mg BID POLINA Administration Dextrose 0 ml 10/29/20 02:17 Dextrose 50% In Water (25gm) 50 Ml Syringe IV Q30MIN PRN Hypoglycemia Protocol Furosemide 80 mg 11/01/20 10:00 11/01/20 10:33 Furosemide 40 Mg Tab PO 80 mg QDAY POLINA Administration Hydralazine HCl 10 mg 10/29/20 06:13 10/29/20 10:10 Hydralazine 20 Mg/1 Ml Inj IV 10 mg Q4H PRN Administration Blood Pressure Sodium Chloride 100 mls @ 999 mls/hr 10/30/20 10:00 Nacl 0.9% IV MARKY PRN Hypotension Insulin Human Regular 0 units 10/29/20 07:30 11/01/20 17:28 Insulin Regular, Human 100 Units/1 Ml SUB-Q 1 units ACHS POLINA Administration Protocol Isosorbide Mononitrate 30 mg 11/01/20 15:00 11/01/20 17:28 Isosorbide Mononitrate Er 30 Mg Tab PO 30 mg QDAY POLINA Administration Magnesium Hydroxide 30 ml 10/29/20 02:17 Magnesium Hydroxide (Mom) Oral Liqd Udc PO Q4H PRN Constipation Nitroglycerin 0.4 mg 10/31/20 06:00 11/01/20 06:04 Nitroglycerin 0.4 Mg Patch 24hr TD 0.4 mg QDAY@0600 POLINA Administration Ondansetron HCl 4 mg 10/29/20 02:17 10/31/20 16:38 Ondansetron 4 Mg/2 Ml Inj IV 4 mg Q8H PRN Administration Nausea And Vomiting Pantoprazole Sodium 40 mg 10/29/20 10:00 11/01/20 10:33 Pantoprazole 40 Mg Inj IV 40 mg BID POLINA Administration Sodium Chloride 10 ml 10/29/20 10:00 11/01/20 10:33 Sodium Chloride 0.9% 10 Ml Flush Syringe IV 10 ml BID POLINA Administration Sodium Chloride 10 ml 10/29/20 02:17 Sodium Chloride 0.9% 10 Ml Flush Syringe IV PRN PRN LINE FLUSH Nutrition/Malnutrition Assess - Dietary Evaluation Nutrition/Malnutrition Findings: Nutrition Notes Start: 10/29/20 12:02 Freq: Status: Active Protocol: Document 11/01/20 14:52 (Rec: 11/01/20 14:56 [email or web address]) Nutrition Notes Initial or Follow up Reassessment Current Diagnosis Acute Kidney Injury,Diabetes, Hypertension,Heart Failure, Hyperlipidemia Other Pertinent Diagnosis elevated LFTs, GIB, anemia Current Diet Cardiac, Consistent CHO Labs/Tests Reviewed Pertinent Medications Dallin GabrielNiru Height 5 ft 5 in Weight 46.2 kg [place] Body Weight (kg) 61.81 BMI 16.9 Weight change and time frame Wt change noted, will follow trends Weight Status Underweight Subjective/Other Information FU for intakes. Pt eating <50% of meals. He does not think he has lost any weight and is unsure of UBW. Pt did not get ONS due to new diet order. Due to advanced age, pt not appropriate for diet education . Percent of energy/protein needs met: 71%/69% Burn Absent Trauma Absent GI Symptoms None Current % PO Poor (25-49%) Minimum of two criteria Yes Energy Intake (non-severe) <75% Estimated Energy Requirement >7 days Muscle Mass Mild Depletion (non-severe) #1 Nutrition Diagnosis Malnutrition Diagnosis Progress(for reassessment Continues documentation) Is patient on ventilator? No Is Patient Ambulatory and/or Out of Bed No REE-([facility]-confined to bed) 1325.772 Calculation Used for Recommendations [facility] Additional Notes Protein: (1.2-1.5g/kg) 62-77g Fluid: 1 ml/kcal or per MD Nutrition Intervention Change Diet Order: Continue Add Supplement/Snack (indicate name/kcal Nepro BID /protein ) Provides kCal: 850 Provides Protein (gm) 38 Goal #1 Meet at least 80% of protein and energy needs via PO and ONS intakes Goal #2 Weight gain/maintenance Anticipated Discharge Needs: Cardiac, Consistent CHO Follow-Up By: 11/03/20 Additional Comments FU for intakes, ONS tolerance
[2020-11-02 04:59] LABS: Basophils % (Auto) 0.4 % (0.0-1.8); Eosinophils # (Auto) 0.1 K/mm3 (0.0-0.4); Eosinophils % (Auto) 1.2 % (0.0-4.3); Hematocrit 23.5 % (35.5-45.6); Hemoglobin 7.5 gm/dl (11.8-15.2); Lymphocytes # (Auto) 1.2 K/mm3 (1.2-5.4); Lymphocytes % (Auto) 15.8 % (13.4-35.0); Mean Corpuscular HGB Conc 32 % (32-34); Mean Corpuscular Volume 67 fl (84-94); Monocytes % (Auto) 13.8 % (0.0-7.3); Platelet Count 123 K/mm3 (140-440); Red Blood Count 3.52 M/mm3 (3.65-5.03); Red Cell Distribution Width 18.3 % (13.2-15.2)
[2020-11-02 05:16] LABS: Calcium 8.1 mg/dL (8.4-10.2)
[2020-11-02] MEDS: NITROGLYCERIN 0.4 MG PATCH 24HR TD SCH (05:30)
[2020-11-02] MEDS: INSULIN REGULAR, HUMAN 100 UNITS/1 ML SUB-Q SCH ×4 (08:16→22:30)
--- NOTE | 2020-11-02 08:21 | Progress Note ---
Assessment and Plan Assessment and plan: -- Anemia Current Visit: Yes Status: Acute Possibly from GI bleed. Received 1 unit of PRBC transfusion, Hb today 7.9 Stool Hemoccult done in the ER was negative Patient has no new episodes of bleeding, hemoglobin today 7.5 Due to cardiac risk factors, cardiology not cleared for elective endoscopy, GI following --GI bleed Current Visit: Yes Status: Acute GI evaluated the patient Planning for endoscopy however Cardiology did not clear for the procedure due to cardiac risk factors Unless actively bleeding due to risk factors --Acute kidney injury superimposed on chronic kidney disease Current Visit: Yes Status: Acute Patient with chronic kidney disease. Worsening renal function s/p Permacath placement, hemodialysis 10/30, 10/31 Nephrology following, outpatient HD chair placement at discharge per renal -- Hyperkalemia/present on admission Current Visit: Yes Status: Acute Patient is received insulin and glucose, calcium gluconate sodium bicarb while in the emergency room Normal potassium levels, monitor electrolytes --Acute liver injury /transaminitis Current Visit: Yes Status: Acute Plan to address problem: CT of the abdomen and pelvis did not reveal any acute abnormality. Trending down. AST 517-96, ALT 445-to 74 GI following --Hypertensive urgency Current Visit: Yes Status: Acute Moderate control , continue current antihypertensives As needed medications , closely monitor -- Pulmonary edema Current Visit: Yes Status: Acute Plan to address problem: Pulmonary edema shown on CT scan of the abdomen and pelvis. Patient had a dose of IV Lasix. Will check echocardiogram. We will place a consult to cardiology for evaluation. --DVT prophylaxis Current Visit: Yes Status: Acute Plan to address problem: Patient placed on sequential compression device. -- Full code status Current Visit: Yes Status: Acute Plan to address problem: Patient is full code. Follow consultants recommendations 10/31/2020; patient received permacath placement Hemodialysis per schedule, possible endoscopy tomorrow 11/01/2020; patient feels slightly better, GI waiting for Cardiology clearance for endoscopy 11/02/2020; no new episodes of GI bleeding HPI low stable 7.5 today Due to multiple cardiac risk factors, cardiology did not For elective endoscopy, unless life-threatening bleeding. History Interval history: I seen and examined the patient at the bedside Patient's chart and medications reviewed Patient is minimally communicative Severely emaciated and cachectic Vital signs noted Hospitalist Physical - Constitutional Vitals: Temp Pulse Resp BP Pulse Ox 98.6 F 69 16 122/66 98 11/02/20 07:26 11/02/20 07:26 11/02/20 07:26 11/02/20 07:26 11/02/20 07:26 General appearance: Present: no acute distress, cachectic, other (Patient is lethargic, frail and chronically ill-appearing) - EENT Eyes: Present: PERRL, EOM intact - Neck Neck: Present: supple, normal ROM (Dr. Rosey Lehman yes yes) - Respiratory Respiratory effort: normal Respiratory: bilateral: diminished, negative: rales, rhonchi, wheezing - Cardiovascular Rhythm: regular Heart Sounds: Present: S1 & S2 - Extremities Extremities: no ischemia, No edema - Abdominal General gastrointestinal: soft, non-tender, non-distended, normal bowel sounds - Integumentary Integumentary: Present: clear, warm - Psychiatric Psychiatric: appropriate mood/affect (As above), cooperative - Neurologic Neurologic: moves all extremities Results - Labs CBC & Chem 7: 11/02/20 04:31 11/02/20 04:31 Labs: Laboratory Last Values WBC 7.6 K/mm3 (4.5-11.0) 11/02/20 04:31 RBC 3.52 M/mm3 (3.65-5.03) L 11/02/20 04:31 Hgb 7.5 gm/dl (11.8-15.2) L 11/02/20 04:31 Hct 23.5 % (35.5-45.6) L 11/02/20 04:31 MCV 67 fl (84-94) L 11/02/20 04:31 MCH 21 pg (28-32) L 11/02/20 04:31 MCHC 32 % (32-34) 11/02/20 04:31 RDW 18.3 % (13.2-15.2) H 11/02/20 04:31 Plt Count 123 K/mm3 (140-440) L 11/02/20 04:31 Lymph % (Auto) 15.8 % (13.4-35.0) 11/02/20 04:31 [place] % (Auto) 13.8 % (0.0-7.3) H 11/02/20 04:31 Eos % (Auto) 1.2 % (0.0-4.3) 11/02/20 04:31 Baso % (Auto) 0.4 % (0.0-1.8) 11/02/20 04:31 Lymph # (Auto) 1.2 K/mm3 (1.2-5.4) 11/02/20 04:31 [place] # (Auto) 1.0 K/mm3 (0.0-0.8) H 11/02/20 04:31 Eos # (Auto) 0.1 K/mm3 (0.0-0.4) 11/02/20 04:31 Baso # (Auto) 0.0 K/mm3 (0.0-0.1) 11/02/20 04:31 Add Manual Diff Complete 10/30/20 04:25 Total Counted 100 10/30/20 04:25 Seg Neutrophils % 68.8 % (40.0-70.0) 11/02/20 04:31 Seg Neuts % (Manual) 87.0 % (40.0-70.0) H 10/30/20 04:25 Band Neutrophils % 1.0 % 10/30/20 04:25 Lymphocytes % (Manual) 5.0 % (13.4-35.0) L 10/30/20 04:25 Monocytes % (Manual) 7.0 % (0.0-7.3) 10/30/20 04:25 Nucleated RBC % 1.0 % (0.0-0.9) H 10/30/20 04:25 Seg Neutrophils # 5.3 K/mm3 (1.8-7.7) 11/02/20 04:31 Seg Neutrophils # Man 7.0 K/mm3 (1.8-7.7) 10/30/20 04:25 Band Neutrophils # 0.1 K/mm3 10/30/20 04:25 Lymphocytes # (Manual) 0.4 K/mm3 (1.2-5.4) L 10/30/20 04:25 Abs React Lymphs (Man) 0.0 K/mm3 10/30/20 04:25 Monocytes # (Manual) 0.6 K/mm3 (0.0-0.8) 10/30/20 04:25 Eosinophils # (Manual) 0.0 K/mm3 (0.0-0.4) 10/30/20 04:25 Basophils # (Manual) 0.0 K/mm3 (0.0-0.1) 10/30/20 04:25 Metamyelocytes # 0.0 K/mm3 10/30/20 04:25 Myelocytes # 0.0 K/mm3 10/30/20 04:25 Promyelocytes # 0.0 K/mm3 10/30/20 04:25 Blast Cells # 0.0 K/mm3 10/30/20 04:25 WBC Morphology Not Reportable 10/30/20 04:25 Hypersegmented Neuts Not Reportable 10/30/20 04:25 Hyposegmented Neuts Not Reportable 10/30/20 04:25 Hypogranular Neuts Not Reportable 10/30/20 04:25 Smudge Cells Not Reportable 10/30/20 04:25 Toxic Granulation Not Reportable 10/30/20 04:25 Toxic Vacuolation Not Reportable 10/30/20 04:25 Dohle Bodies Not Reportable 10/30/20 04:25 Pelger-Huet Anomaly Not Reportable 10/30/20 04:25 Katherine Rods Not Reportable 10/30/20 04:25 Platelet Estimate Consistent w auto 10/30/20 04:25 Clumped Platelets Not Reportable 10/30/20 04:25 Plt Clumps, EDTA Not Reportable 10/30/20 04:25 Large Platelets Not Reportable 10/30/20 04:25 Giant Platelets Not Reportable 10/30/20 04:25 Platelet Satelliting Not Reportable 10/30/20 04:25 Plt Morphology Comment Not Reportable 10/30/20 04:25 RBC Morphology Not Reportable 10/30/20 04:25 Dimorphic RBCs Not Reportable 10/30/20 04:25 Polychromasia Few 10/30/20 04:25 Hypochromasia 2+ 10/30/20 04:25 Poikilocytosis Not Reportable 10/30/20 04:25 Anisocytosis 2+ 10/30/20 04:25 Microcytosis Not Reportable 10/30/20 04:25 Macrocytosis Not Reportable 10/30/20 04:25 Spherocytes Not Reportable 10/30/20 04:25 Pappenheimer Bodies Not Reportable 10/30/20 04:25 Sickle Cells Not Reportable 10/30/20 04:25 Target Cells Not Reportable 10/30/20 04:25 Tear Drop Cells Not Reportable 10/30/20 04:25 Ovalocytes Not Reportable 10/30/20 04:25 Helmet Cells Not Reportable 10/30/20 04:25 [place]-Cameron Bodies Not Reportable 10/30/20 04:25 Ramer Rings Not Reportable 10/30/20 04:25 [place] Cells Not Reportable 10/30/20 04:25 Bite Cells Not Reportable 10/30/20 04:25 Crenated Cell Not Reportable 10/30/20 04:25 Elliptocytes Not Reportable 10/30/20 04:25 Acanthocytes (Spur) Not Reportable 10/30/20 04:25 Rouleaux Not Reportable 10/30/20 04:25 Hemoglobin C Crystals Not Reportable 10/30/20 04:25 Schistocytes 1+ 10/30/20 04:25 Malaria parasites Not Reportable 10/30/20 04:25 Ellis Bodies Not Reportable 10/30/20 04:25 Hem Pathologist Commnt No 10/30/20 04:25 PT 18.4 Sec. (12.2-14.9) H 10/31/20 19:20 INR 1.48 (0.87-1.13) H 10/31/20 19:20 APTT 33.8 Sec. (24.2-36.6) 10/31/20 19:20 ABG pH 7.384 pH Units (7.350-7.450) 10/29/20 14:40 ABG pCO2 32.3 mm Hg 10/29/20 14:40 ABG pO2 107.8 mm Hg (80.0-90.0) H 10/29/20 14:40 ABG HCO3 18.8 mmol/L (20.0-26.0) L 10/29/20 14:40 ABG O2 Saturation 97.9 % (95.0-99.0) 10/29/20 14:40 ABG O2 Content 10.3 (0.0-44) 10/29/20 14:40 ABG Base Excess -5.6 mmol/L (-2.0-3.0) L 10/29/20 14:40 ABG Hemoglobin 7.4 gm/dl (14.0-18.0) L 10/29/20 14:40 ABG Carboxyhemoglobin 1.5 % (0.0-5.0) 10/29/20 14:40 ABG Methemoglobin 0.5 % (0.0-1.5) 10/29/20 14:40 Oxyhemoglobin 95.9 % (95.0-99.0) 10/29/20 14:40 FiO2 28 % 10/29/20 14:40 Sodium 136 mmol/L (137-145) L 11/02/20 04:31 Potassium 4.0 mmol/L (3.6-5.0) 11/02/20 04:31 Chloride 97.0 mmol/L (98-107) L 11/02/20 04:31 Carbon Dioxide 29 mmol/L (22-30) 11/02/20 04:31 Anion Gap 14 mmol/L 11/02/20 04:31 BUN 59 mg/dL (9-20) H 11/02/20 04:31 Creatinine 6.4 mg/dL (0.8-1.3) H 11/02/20 04:31 Estimated GFR 8 ml/min 11/02/20 04:31 BUN/Creatinine Ratio 9 % 11/02/20 04:31 Glucose 121 mg/dL (75-100) H 11/02/20 04:31 POC Glucose 143 mg/dL (70-105) H 11/02/20 07:53 Hemoglobin A1c 5.3 % (4-6) 10/29/20 02:00 Calcium 8.1 mg/dL (8.4-10.2) L 11/02/20 04:31 Phosphorus 6.50 mg/dL (2.5-4.5) H D 10/31/20 05:32 Magnesium 2.30 mg/dL (1.7-2.3) 10/31/20 05:32 Total Bilirubin 0.60 mg/dL (0.1-1.2) 11/02/20 04:31 AST 96 units/L (5-40) H 11/02/20 04:31 ALT 274 units/L (7-56) H 11/02/20 04:31 Alkaline Phosphatase 92 units/L (35-129) 11/02/20 04:31 Total Protein 5.1 g/dL (6.3-8.2) L 11/02/20 04:31 Albumin 3.0 g/dL (3.9-5) L 11/02/20 04:31 Albumin/Globulin Ratio 1.4 % 11/02/20 04:31 Lipase 51 units/L (13-60) 10/28/20 22:43 PTH Intact 176.3 pg/mL (15-65) H 10/30/20 04:25 Urine Color Yellow (Yellow) 10/28/20 Unknown Urine Turbidity Cloudy (Clear) 10/28/20 Unknown Urine pH 5.0 (5.0-7.0) 10/28/20 Unknown Ur Specific [place] 1.018 (1.003-1.030) 10/28/20 Unknown Urine Protein >500 mg/dL (Negative) 10/28/20 Unknown Urine Glucose (UA) 50 mg/dL (Negative) 10/28/20 Unknown Urine Ketones Neg mg/dL (Negative) 10/28/20 Unknown Urine Blood Mod (Negative) 10/28/20 Unknown Urine Nitrite Neg (Negative) 10/28/20 Unknown Urine Bilirubin Neg (Negative) 10/28/20 Unknown Urine Urobilinogen < 2.0 mg/dL (<2.0) 10/28/20 Unknown Ur Leukocyte Esterase Neg (Negative) 10/28/20 Unknown Urine WBC (Auto) 4.0 /HPF (0.0-6.0) 10/28/20 Unknown Urine RBC (Auto) 10.0 /HPF (0.0-6.0) 10/28/20 Unknown U Epithel Cells (Auto) 1.0 /HPF (0-13.0) 10/28/20 Unknown Urine Mucus Few /HPF 10/28/20 Unknown Urine Creatinine 78.5 mg/dL (0.1-20.0) H 10/29/20 15:40 Protein/Creatinin Ratio 9.49 10/29/20 15:40 Urine Sodium 76 mmol/L 10/29/20 15:40 Urine Total Protein 745 mg/dL (5-11.8) H 10/29/20 15:40 Hepatitis A IgM Ab Non-reactive (NonReactive) 10/29/20 00:00 Hep Bs Antigen Non-reactive (Negative) 10/29/20 00:00 Hep B Core IgM Ab Non-reactive (NonReactive) 10/29/20 00:00 Hepatitis C Antibody Non-reactive (NonReactive) 10/29/20 00:00 Blood Type O POSITIVE 10/30/20 10:53 Antibody Screen Negative 10/30/20 10:53 Crossmatch See Detail 10/30/20 10:53 [place]/IV: Voiding Method Urinal Active Medications - Current Medications Current Medications: Generic Name Dose Route Start Last Admin Trade Name Freq PRN Reason Stop Dose Admin Acetaminophen 650 mg 10/29/20 02:17 Acetaminophen 325 Mg Tab PO Q6H PRN Pain MILD(1-3)/Fever >100.5/SCHMITT Amlodipine Besylate 10 mg 10/30/20 13:00 11/01/20 10:33 Amlodipine 10 Mg Tab PO 10 mg QDAY POLINA Administration Aspirin 81 mg 10/30/20 10:00 11/01/20 10:33 Aspirin Ec 81 Mg Tab PO 81 mg QDAY POLINA Administration Calcium Acetate 667 mg 10/31/20 12:00 11/01/20 17:28 Calcium Acetate 667 Mg Cap PO 667 mg TIDWM POLINA Administration Carvedilol 12.5 mg 10/29/20 22:00 11/01/20 21:34 Carvedilol 12.5 Mg Tab PO 12.5 mg BID POLINA Administration Dextrose 0 ml 10/29/20 02:17 Dextrose 50% In Water (25gm) 50 Ml Syringe IV Q30MIN PRN Hypoglycemia Protocol Furosemide 80 mg 11/01/20 10:00 11/01/20 10:33 Furosemide 40 Mg Tab PO 80 mg QDAY POLINA Administration Hydralazine HCl 10 mg 10/29/20 06:13 10/29/20 10:10 Hydralazine 20 Mg/1 Ml Inj IV 10 mg Q4H PRN Administration Blood Pressure Sodium Chloride 100 mls @ 999 mls/hr 10/30/20 10:00 Nacl 0.9% IV MARKY PRN Hypotension Insulin Human Regular 0 units 10/29/20 07:30 11/02/20 08:16 Insulin Regular, Human 100 Units/1 Ml SUB-Q Not Given ACHS [facility] Protocol Isosorbide Mononitrate 30 mg 11/01/20 15:00 11/01/20 17:28 Isosorbide Mononitrate Er 30 Mg Tab PO 30 mg QDAY POLINA Administration Magnesium Hydroxide 30 ml 10/29/20 02:17 Magnesium Hydroxide (Mom) Oral Liqd Udc PO Q4H PRN Constipation Nitroglycerin 0.4 mg 10/31/20 06:00 11/02/20 05:30 Nitroglycerin 0.4 Mg Patch 24hr TD 0.4 mg QDAY@0600 POLINA Administration Ondansetron HCl 4 mg 10/29/20 02:17 10/31/20 16:38 Ondansetron 4 Mg/2 Ml Inj IV 4 mg Q8H PRN Administration Nausea And Vomiting Pantoprazole Sodium 40 mg 10/29/20 10:00 11/01/20 21:34 Pantoprazole 40 Mg Inj IV 40 mg BID POLINA Administration Sodium Chloride 10 ml 10/29/20 10:00 11/01/20 21:35 Sodium Chloride 0.9% 10 Ml Flush Syringe IV 10 ml BID POLINA Administration Sodium Chloride 10 ml 10/29/20 02:17 Sodium Chloride 0.9% 10 Ml Flush Syringe IV PRN PRN LINE FLUSH Nutrition/Malnutrition Assess - Dietary Evaluation Nutrition/Malnutrition Findings: Nutrition Notes Start: 10/29/20 12:02 Freq: Status: Active Protocol: Document 11/01/20 14:52 (Rec: 11/01/20 14:56 [id number]) Nutrition Notes Initial or Follow up Reassessment Current Diagnosis Acute Kidney Injury,Diabetes, Hypertension,Heart Failure, Hyperlipidemia Other Pertinent Diagnosis elevated LFTs, GIB, anemia Current Diet Cardiac, Consistent CHO Labs/Tests Reviewed Pertinent Medications Dallin Anguiano Height 5 ft 5 in Weight 46.2 kg [place] Body Weight (kg) 61.81 BMI 16.9 Weight change and time frame Wt change noted, will follow trends Weight Status Underweight Subjective/Other Information FU for intakes. Pt eating <50% of meals. He does not think he has lost any weight and is unsure of UBW. Pt did not get ONS due to new diet order. Due to advanced age, pt not appropriate for diet education . Percent of energy/protein needs met: 71%/69% Burn Absent Trauma Absent GI Symptoms None Current % PO Poor (25-49%) Minimum of two criteria Yes Energy Intake (non-severe) <75% Estimated Energy Requirement >7 days Muscle Mass Mild Depletion (non-severe) #1 Nutrition Diagnosis Malnutrition Diagnosis Progress(for reassessment Continues documentation) Is patient on ventilator? No Is Patient Ambulatory and/or Out of Bed No REE-([place]-confined to bed) [phone] Calculation Used for Recommendations [place] [place] Additional Notes Protein: (1.2-1.5g/kg) 62-77g Fluid: 1 ml/kcal or per MD Nutrition Intervention Change Diet Order: Continue Add Supplement/Snack (indicate name/kcal [place] BID /protein ) Provides kCal: 850 Provides Protein (gm) 38 Goal #1 Meet at least 80% of protein and energy needs via PO and ONS intakes Goal #2 Weight gain/maintenance Anticipated Discharge Needs: Cardiac, Consistent CHO Follow-Up By: 11/03/20 Additional Comments FU for intakes, ONS tolerance
[2020-11-02] MEDS: PANTOPRAZOLE 40 MG INJ IV SCH ×2 (09:26→22:30)
[2020-11-02] MEDS: ASPIRIN EC 81 MG TAB PO SCH (09:26)
[2020-11-02] MEDS: CALCIUM ACETATE 667 MG CAP PO SCH ×3 (09:28→16:45)
[2020-11-02] MEDS: carvediloL 12.5 MG TAB PO SCH ×2 (09:46→22:30)
--- NOTE | 2020-11-02 09:51 | Progress Note ---
Assessment and Plan 1. Acute kidney injury superimposed on CKD: MODE superimposed on CKD . CT abdomen negative for hydro. Monitor renal function. Renal prognosis is guarded to poor. Avoid nephrotoxic agents. Meds dosage based on GFR. Patient was started on hemodialysis due to significant decline in the GFR, associated hyperkalemia, metabolic acidosis and volume overload. Hemodialysis: 10/30, 10/31, 11/02. 2. FEN: Hyperkalemia, improved, monitor. Anion-gap Metabolic acidosis, HD today, monitor. Volume overload, UF with HD. Monitor lytes. 3. Heavy proteinuria: ?etiology. JENNIFER, ANCA, GBM Ab, Complements, UPEP and SPEP ordered. 4. Decompensated CHF: Echo EF 45-50%. Strict I/O. On Carvedilol. Followed by Cards. 5. Elevated liver enzymes: Hepatitis serologies negative. 6. GI bleed: Per GI EGD in the next few days, after CHF/HTN/MODE has been assessed and improved. 7. Hypertensive urgency: BP controlled. UF with HD as tolerated. Adjust meds as needed. Monitor. 8. Hypochromic Anemia, POA: ?2/2 GI bleed. Followed by GI. Epo. Monitor. 9. Thrombocytopenia. 10. Chronic thoraco-abdominal aneurysm. Need outpatient hemodialysis chair. Subjective: Patient was seen and examined at the bedside while on HD. Examination: General appearance: well-developed, thin built, appears stated age, not in distress HEENT: ATNC, pupils equal Neck: supple Respiratory: bibasal diminished breath sounds Cardiology: regular, S1S2, no murmur Gastrointestinal: soft, bowel sounds heard, not tender Integumentary: warm and dry, upper chest hypopigmented patches noted Neurologic: alert, moving extremities Ext: no edema Hemodialysis access: R IJ temp catheter, L Tunnel catheter Subjective Date of service: 11/02/20 Principal diagnosis: Anemia, Abnormal LFTs Objective - Vital Signs Vital signs: Vital Signs - 12hr 11/01/20 11/01/20 11/02/20 22:00 23:25 03:51 Temperature 99.0 F 98.0 F Pulse Rate 64 66 65 Pulse Rate [ From Monitor] Respiratory 20 18 18 Rate Blood Pressure 107/58 123/73 O2 Sat by Pulse 100 93 96 Oximetry 11/02/20 11/02/20 11/02/20 05:30 07:26 08:40 Temperature 98.6 F Pulse Rate 64 69 Pulse Rate [ From Monitor] Respiratory 16 Rate Blood Pressure 123/73 122/66 O2 Sat by Pulse 98 99 Oximetry 11/02/20 09:38 Temperature Pulse Rate Pulse Rate [ 68 From Monitor] Respiratory 18 Rate Blood Pressure O2 Sat by Pulse 100 Oximetry - Lab 11/02/20 04:31 11/02/20 04:31 Most recent lab results ABG pH 7.384 pH Units (7.350-7.450) 10/29/20 14:40 ABG pCO2 32.3 mm Hg 10/29/20 14:40 ABG pO2 107.8 mm Hg (80.0-90.0) H 10/29/20 14:40 ABG HCO3 18.8 mmol/L (20.0-26.0) L 10/29/20 14:40 ABG O2 Saturation 97.9 % (95.0-99.0) 10/29/20 14:40 Calcium 8.1 mg/dL (8.4-10.2) L 11/02/20 04:31 Phosphorus 6.50 mg/dL (2.5-4.5) H D 10/31/20 05:32 Magnesium 2.30 mg/dL (1.7-2.3) 10/31/20 05:32 Urine Creatinine 78.5 mg/dL (0.1-20.0) H 10/29/20 15:40 Urine Sodium 76 mmol/L 10/29/20 15:40 Urine Total Protein 745 mg/dL (5-11.8) H 10/29/20 15:40 Medications & Allergies - Medications Allergies/Adverse Reactions: Allergies No Known Allergies Allergy (Unverified 05/07/14 01:13) Home Medications: Home Medications Medication Instructions Recorded Confirmed Last Taken Type Amlodipine Besylate [Norvasc] 10 mg PO QDAY 10/28/20 10/28/20 Unknown History Aspirin EC [Halfprin EC] 81 mg PO QDAY 10/28/20 10/28/20 Unknown History Atorvastatin Calcium [Lipitor] 80 mg PO QDAY 10/28/20 10/28/20 Unknown History Lisinopril [Zestril] 10 mg PO QDAY 10/28/20 10/28/20 Unknown History Active Medications: Generic Name Dose Route Start Last Admin Trade Name Freq PRN Reason Stop Dose Admin Acetaminophen 650 mg 10/29/20 02:17 Acetaminophen 325 Mg Tab PO Q6H PRN Pain MILD(1-3)/Fever >100.5/SCHMITT Amlodipine Besylate 10 mg 10/30/20 13:00 11/01/20 10:33 Amlodipine 10 Mg Tab PO 10 mg QDAY POLINA Administration Aspirin 81 mg 10/30/20 10:00 11/02/20 09:26 Aspirin Ec 81 Mg Tab PO 81 mg QDAY POLINA Administration Calcium Acetate 667 mg 10/31/20 12:00 11/02/20 09:28 Calcium Acetate 667 Mg Cap PO 667 mg TIDWM POLINA Administration Carvedilol 12.5 mg 10/29/20 22:00 11/01/20 21:34 Carvedilol 12.5 Mg Tab PO 12.5 mg BID POLINA Administration Dextrose 0 ml 10/29/20 02:17 Dextrose 50% In Water (25gm) 50 Ml Syringe IV Q30MIN PRN Hypoglycemia Protocol Furosemide 80 mg 11/01/20 10:00 11/01/20 10:33 Furosemide 40 Mg Tab PO 80 mg QDAY [facility] Administration Hydralazine HCl 10 mg 10/29/20 06:13 10/29/20 10:10 Hydralazine 20 Mg/1 Ml Inj IV 10 mg Q4H PRN Administration Blood Pressure Sodium Chloride 100 mls @ 999 mls/hr 10/30/20 10:00 Nacl 0.9% IV MARKY PRN Hypotension Insulin Human Regular 0 units 10/29/20 07:30 11/02/20 08:16 Insulin Regular, Human 100 Units/1 Ml SUB-Q Not Given ACHS [facility] Protocol Isosorbide Mononitrate 30 mg 11/01/20 15:00 11/01/20 17:28 Isosorbide Mononitrate Er 30 Mg Tab PO 30 mg QDAY [facility] Administration Magnesium Hydroxide 30 ml 10/29/20 02:17 Magnesium Hydroxide (Mom) Oral Liqd Udc PO Q4H PRN Constipation Nitroglycerin 0.4 mg 10/31/20 06:00 11/02/20 05:30 Nitroglycerin 0.4 Mg Patch 24hr TD 0.4 mg QDAY@0600 POLINA Administration Ondansetron HCl 4 mg 10/29/20 02:17 10/31/20 16:38 Ondansetron 4 Mg/2 Ml Inj IV 4 mg Q8H PRN Administration Nausea And Vomiting Pantoprazole Sodium 40 mg 10/29/20 10:00 11/02/20 09:26 Pantoprazole 40 Mg Inj IV 40 mg BID POLINA Administration Sodium Chloride 10 ml 10/29/20 10:00 11/02/20 09:30 Sodium Chloride 0.9% 10 Ml Flush Syringe IV 10 ml BID POLINA Administration Sodium Chloride 10 ml 10/29/20 02:17 Sodium Chloride 0.9% 10 Ml Flush Syringe IV PRN PRN LINE FLUSH
--- NOTE | 2020-11-02 10:13 | XRay Report ---
CHEST 1 VIEW 11/02/2020 8:03 AM INDICATION / CLINICAL INFORMATION: Follow up on pulmonary edema.. COMPARISON: 10/30/2020 FINDINGS: SUPPORT DEVICES: Left Vas-Cath has been placed the tip overlying the distal SVC. Right jugular line t ip overlies the distal SVC HEART / MEDIASTINUM: Tortuosity of the thoracic aorta is unchanged LUNGS / PLEURA: Mild increased pulmonary vascularity with mild edema appears improved. No pneumothora x. Signer Name: Lance Hermosillo MD Signed: 11/02/2020 10:09 AM Workstation Name[email or web address]
--- NOTE | 2020-11-02 10:41 | Electrocardiograph Report ---
[facility] Test Date: 2020-11-01 Test Time: 10:38:33 Pat Name: NINI WALKER Department: Room: A467 Gender: M [employer] Operator: ANDERS : 1940 Requested By: CLAY WHITLOCK Order Number: [id number] Reading MD: Oleksandr Montenegro Measurements Intervals [place] Rate: 71 P: 27 MT: 219 QRS: 23 QRSD: 110 T: 176 QT: 460 QTc: 502 Interpretive Statements Sinus rhythm Borderline prolonged MT interval Probable left atrial enlargement LVH with secondary repolarization abnormality Anterior ST elevation, probably due to LVH Prolonged QT interval Compared to ECG 10/31/2020 12:41:02 No significant change noted. Electronically Signed On 11-02-2020 10:41:23 EDT by Oleksandr Montenegro
[2020-11-02] MEDS: EPOETIN ALFA-EPBX 20,000 UNIT/1 ML VIAL SUB-Q PRN (12:30)
--- NOTE | 2020-11-02 13:52 | Progress Note ---
Assessment and Plan - Patient Problems (1) Abnormal ECG Current Visit: Yes Status: Acute Plan to address problem: Patient has marked ST and T wave abnormalities in the anterolateral leads, more pronounced on the recent ECGs that his previous baseline. We will continue routine daily ECGs for continued assessment. He has no history of significant coronary artery disease. Instead, 2 years ago he underwent thoracotomy for repair of an ascending aortic aneurysm. (2) Preoperative cardiovascular examination Current Visit: Yes Status: Acute Plan to address problem: Continue conservative cardiac management with medical therapy as previously outlined. The planned GI procedure was canceled. Subjective Date of service: 11/02/20 Principal diagnosis: Anemia, Abnormal LFTs Interval history: Patient is lethargic, but breathing comfortably, no acute distress. No new cardiac complaints. Objective Vital Signs Temp Pulse Pulse Resp BP Pulse Ox 11/02/20 09:38 68 18 100 11/02/20 08:40 99 11/02/20 07:26 98.6 F 69 16 122/66 98 11/02/20 07:10 68 11/02/20 05:30 64 123/73 11/02/20 03:51 98.0 F 65 18 123/73 96 11/01/20 23:25 99.0 F 66 18 107/58 93 11/01/20 22:00 64 20 100 11/01/20 21:34 70 107/54 11/01/20 20:45 95 11/01/20 19:41 97.8 F 69 18 107/54 98 11/01/20 15:45 97.9 F 61 18 94/56 97 11/01/20 14:00 67 - Physical Examination General: No Apparent Distress HEENT: Positive: PERRL Neck: Positive: neck supple Cardiac: Positive: Reg Rate and Rhythm Lungs: Positive: Decreased Breath Sounds Neuro: Positive: Weakness (Generalized weakness, frail and chronically ill appearing) Abdomen: Positive: Soft Skin: Positive: Clear Extremities: Absent: normal - Labs and Meds Cardiac Enzymes 11/02/20 Range/Units 04:31 AST 96 H (5-40) units/L CBC 11/02/20 Range/Units 04:31 WBC 7.6 (4.5-11.0) K/mm3 RBC 3.52 L (3.65-5.03) M/mm3 Hgb 7.5 L (11.8-15.2) gm/dl Hct 23.5 L (35.5-45.6) % Plt Count 123 L (140-440) K/mm3 Lymph # (Auto) 1.2 (1.2-5.4) K/mm3 [place] # (Auto) 1.0 H (0.0-0.8) K/mm3 Eos # (Auto) 0.1 (0.0-0.4) K/mm3 Baso # (Auto) 0.0 (0.0-0.1) K/mm3 Comprehensive Metabolic Panel 11/02/20 Range/Units 04:31 Sodium 136 L (137-145) mmol/L Potassium 4.0 (3.6-5.0) mmol/L Chloride 97.0 L (98-107) mmol/L Carbon Dioxide 29 (22-30) mmol/L BUN 59 H (9-20) mg/dL Creatinine 6.4 H (0.8-1.3) mg/dL Glucose 121 H (75-100) mg/dL Calcium 8.1 L (8.4-10.2) mg/dL AST 96 H (5-40) units/L ALT 274 H (7-56) units/L Alkaline Phosphatase 92 (35-129) units/L Total Protein 5.1 L (6.3-8.2) g/dL Albumin 3.0 L (3.9-5) g/dL - Allied health notes Allied health notes reviewed: nursing
[2020-11-02] MEDS: FUROSEMIDE 40 MG TAB PO SCH (16:45)
[2020-11-02] MEDS: amLODIPine 10 MG TAB PO SCH (16:45)
[2020-11-03] MEDS: NITROGLYCERIN 0.4 MG PATCH 24HR TD SCH (06:06)
[2020-11-03] MEDS: INSULIN REGULAR, HUMAN 100 UNITS/1 ML SUB-Q SCH ×4 (08:22→22:20)
[2020-11-03] MEDS: carvediloL 12.5 MG TAB PO SCH ×2 (09:42→22:23)
[2020-11-03] MEDS: CALCIUM ACETATE 667 MG CAP PO SCH ×3 (09:42→16:40)
[2020-11-03] MEDS: ASPIRIN EC 81 MG TAB PO SCH (09:42)
[2020-11-03] MEDS: amLODIPine 10 MG TAB PO SCH (09:43)
[2020-11-03] MEDS: PANTOPRAZOLE 40 MG INJ IV SCH ×2 (09:43→22:23)
[2020-11-03] MEDS: FUROSEMIDE 40 MG TAB PO SCH (09:43)
--- NOTE | 2020-11-03 09:57 | Progress Note ---
Assessment and Plan Assessment and plan: --Acute kidney injury superimposed on chronic kidney disease Current Visit: Yes Status: Acute Patient with chronic kidney disease. Worsening renal function s/p Permacath placement, hemodialysis 10/30, 10/31 Nephrology following, outpatient HD chair placement at discharge per renal -- Hyperkalemia/present on admission Current Visit: Yes Status: Acute Patient is received insulin and glucose, calcium gluconate sodium bicarb while in the emergency room Normal potassium levels, monitor electrolytes -- Anemia Current Visit: Yes Status: Acute Possibly from GI bleed. Received 1 unit of PRBC transfusion, Hb today 7.9 Stool Hemoccult done in the ER was negative Patient has no new episodes of bleeding, hemoglobin today 7.5 Due to cardiac risk factors, cardiology not cleared for elective endoscopy, GI following --GI bleed Current Visit: Yes Status: Acute GI evaluated the patient Planning for endoscopy however Cardiology did not clear for the procedure due to cardiac risk factors Unless actively bleeding due to risk factors --Acute liver injury /transaminitis Current Visit: Yes Status: Acute Plan to address problem: CT of the abdomen and pelvis did not reveal any acute abnormality. Trending down. AST 517-96, ALT 445-to 74 GI following --Hypertensive urgency Current Visit: Yes Status: Acute Moderate control , continue current antihypertensives As needed medications , closely monitor -- Pulmonary edema Current Visit: Yes Status: Acute Plan to address problem: Pulmonary edema shown on CT scan of the abdomen and pelvis. Patient had a dose of IV Lasix. Will check echocardiogram. We will place a consult to cardiology for evaluation. --DVT prophylaxis Current Visit: Yes Status: Acute Plan to address problem: Patient placed on sequential compression device. -- Full code status Current Visit: Yes Status: Acute Plan to address problem: Patient is full code. Follow consultants recommendations 10/31/2020; patient received permacath placement Hemodialysis per schedule, possible endoscopy tomorrow 11/01/2020; patient feels slightly better, GI waiting for Cardiology clearance for endoscopy 11/02/2020; no new episodes of GI bleeding HPI low stable 7.5 today Due to multiple cardiac risk factors, cardiology did not For elective endoscopy, unless life-threatening bleeding. 11/03/2020; patient feels better No new episodes of GI bleeding, no endoscopy during this admission Outpatient HD placement per nephrology prior to discharge History Interval history: I have seen and examined the patient at the bedside Patient's chart and medications reviewed No new events reported by nursing staff Vital signs noted Hospitalist Physical - Constitutional Vitals: Temp Pulse Resp BP Pulse Ox 97.5 F L 74 16 141/83 93 11/03/20 07:45 11/03/20 09:43 11/03/20 07:45 11/03/20 09:43 11/03/20 09:40 General appearance: Present: no acute distress, cachectic, other (Patient is lethargic, frail and chronically ill-appearing) - EENT Eyes: Present: PERRL, EOM intact - Neck Neck: Present: supple, normal ROM - Respiratory Respiratory effort: normal Respiratory: bilateral: diminished, negative: rales, rhonchi, wheezing - Cardiovascular Rhythm: regular Heart Sounds: Present: S1 & S2 - Extremities Extremities: no ischemia, No edema - Abdominal General gastrointestinal: soft, non-tender, non-distended, normal bowel sounds - Integumentary Integumentary: Present: clear, warm - Psychiatric Psychiatric: appropriate mood/affect, cooperative, other (Confused at times) - Neurologic Neurologic: moves all extremities Results - Labs CBC & Chem 7: 11/02/20 04:31 11/02/20 04:31 Labs: Laboratory Last Values WBC 7.6 K/mm3 (4.5-11.0) 11/02/20 04:31 RBC 3.52 M/mm3 (3.65-5.03) L 11/02/20 04:31 Hgb 7.5 gm/dl (11.8-15.2) L 11/02/20 04:31 Hct 23.5 % (35.5-45.6) L 11/02/20 04:31 MCV 67 fl (84-94) L 11/02/20 04:31 MCH 21 pg (28-32) L 11/02/20 04:31 MCHC 32 % (32-34) 11/02/20 04:31 RDW 18.3 % (13.2-15.2) H 11/02/20 04:31 Plt Count 123 K/mm3 (140-440) L 11/02/20 04:31 Lymph % (Auto) 15.8 % (13.4-35.0) 11/02/20 04:31 [place] % (Auto) 13.8 % (0.0-7.3) H 11/02/20 04:31 Eos % (Auto) 1.2 % (0.0-4.3) 11/02/20 04:31 Baso % (Auto) 0.4 % (0.0-1.8) 11/02/20 04:31 Lymph # (Auto) 1.2 K/mm3 (1.2-5.4) 11/02/20 04:31 [place] # (Auto) 1.0 K/mm3 (0.0-0.8) H 11/02/20 04:31 Eos # (Auto) 0.1 K/mm3 (0.0-0.4) 11/02/20 04:31 Baso # (Auto) 0.0 K/mm3 (0.0-0.1) 11/02/20 04:31 Add Manual Diff Complete 10/30/20 04:25 Total Counted 100 10/30/20 04:25 Seg Neutrophils % 68.8 % (40.0-70.0) 11/02/20 04:31 Seg Neuts % (Manual) 87.0 % (40.0-70.0) H 10/30/20 04:25 Band Neutrophils % 1.0 % 10/30/20 04:25 Lymphocytes % (Manual) 5.0 % (13.4-35.0) L 10/30/20 04:25 Monocytes % (Manual) 7.0 % (0.0-7.3) 10/30/20 04:25 Nucleated RBC % 1.0 % (0.0-0.9) H 10/30/20 04:25 Seg Neutrophils # 5.3 K/mm3 (1.8-7.7) 11/02/20 04:31 Seg Neutrophils # Man 7.0 K/mm3 (1.8-7.7) 10/30/20 04:25 Band Neutrophils # 0.1 K/mm3 10/30/20 04:25 Lymphocytes # (Manual) 0.4 K/mm3 (1.2-5.4) L 10/30/20 04:25 Abs React Lymphs (Man) 0.0 K/mm3 10/30/20 04:25 Monocytes # (Manual) 0.6 K/mm3 (0.0-0.8) 10/30/20 04:25 Eosinophils # (Manual) 0.0 K/mm3 (0.0-0.4) 10/30/20 04:25 Basophils # (Manual) 0.0 K/mm3 (0.0-0.1) 10/30/20 04:25 Metamyelocytes # 0.0 K/mm3 10/30/20 04:25 Myelocytes # 0.0 K/mm3 10/30/20 04:25 Promyelocytes # 0.0 K/mm3 10/30/20 04:25 Blast Cells # 0.0 K/mm3 10/30/20 04:25 WBC Morphology Not Reportable 10/30/20 04:25 Hypersegmented Neuts Not Reportable 10/30/20 04:25 Hyposegmented Neuts Not Reportable 10/30/20 04:25 Hypogranular Neuts Not Reportable 10/30/20 04:25 Smudge Cells Not Reportable 10/30/20 04:25 Toxic Granulation Not Reportable 10/30/20 04:25 Toxic Vacuolation Not Reportable 10/30/20 04:25 Dohle Bodies Not Reportable 10/30/20 04:25 Pelger-Huet Anomaly Not Reportable 10/30/20 04:25 Katherine Rods Not Reportable 10/30/20 04:25 Platelet Estimate Consistent w auto 10/30/20 04:25 Clumped Platelets Not Reportable 10/30/20 04:25 Plt Clumps, EDTA Not Reportable 10/30/20 04:25 Large Platelets Not Reportable 10/30/20 04:25 Giant Platelets Not Reportable 10/30/20 04:25 Platelet Satelliting Not Reportable 10/30/20 04:25 Plt Morphology Comment Not Reportable 10/30/20 04:25 RBC Morphology Not Reportable 10/30/20 04:25 Dimorphic RBCs Not Reportable 10/30/20 04:25 Polychromasia Few 10/30/20 04:25 Hypochromasia 2+ 10/30/20 04:25 Poikilocytosis Not Reportable 10/30/20 04:25 Anisocytosis 2+ 10/30/20 04:25 Microcytosis Not Reportable 10/30/20 04:25 Macrocytosis Not Reportable 10/30/20 04:25 Spherocytes Not Reportable 10/30/20 04:25 Pappenheimer Bodies Not Reportable 10/30/20 04:25 Sickle Cells Not Reportable 10/30/20 04:25 Target Cells Not Reportable 10/30/20 04:25 Tear Drop Cells Not Reportable 10/30/20 04:25 Ovalocytes Not Reportable 10/30/20 04:25 Helmet Cells Not Reportable 10/30/20 04:25 [place] Bodies Not Reportable 10/30/20 04:25 [place] Rings Not Reportable 10/30/20 04:25 [place] Cells Not Reportable 10/30/20 04:25 Bite Cells Not Reportable 10/30/20 04:25 Crenated Cell Not Reportable 10/30/20 04:25 Elliptocytes Not Reportable 10/30/20 04:25 Acanthocytes (Spur) Not Reportable 10/30/20 04:25 Rouleaux Not Reportable 10/30/20 04:25 Hemoglobin C Crystals Not Reportable 10/30/20 04:25 Schistocytes 1+ 10/30/20 04:25 Malaria parasites Not Reportable 10/30/20 04:25 [place] Bodies Not Reportable 10/30/20 04:25 Hem Pathologist Commnt No 10/30/20 04:25 PT 18.4 Sec. (12.2-14.9) H 10/31/20 19:20 INR 1.48 (0.87-1.13) H 10/31/20 19:20 APTT 33.8 Sec. (24.2-36.6) 10/31/20 19:20 ABG pH 7.384 pH Units (7.350-7.450) 10/29/20 14:40 ABG pCO2 32.3 mm Hg 10/29/20 14:40 ABG pO2 107.8 mm Hg (80.0-90.0) H 10/29/20 14:40 ABG HCO3 18.8 mmol/L (20.0-26.0) L 10/29/20 14:40 ABG O2 Saturation 97.9 % (95.0-99.0) 10/29/20 14:40 ABG O2 Content 10.3 (0.0-44) 10/29/20 14:40 ABG Base Excess -5.6 mmol/L (-2.0-3.0) L 10/29/20 14:40 ABG Hemoglobin 7.4 gm/dl (14.0-18.0) L 10/29/20 14:40 ABG Carboxyhemoglobin 1.5 % (0.0-5.0) 10/29/20 14:40 ABG Methemoglobin 0.5 % (0.0-1.5) 10/29/20 14:40 Oxyhemoglobin 95.9 % (95.0-99.0) 10/29/20 14:40 FiO2 28 % 10/29/20 14:40 Sodium 136 mmol/L (137-145) L 11/02/20 04:31 Potassium 4.0 mmol/L (3.6-5.0) 11/02/20 04:31 Chloride 97.0 mmol/L (98-107) L 11/02/20 04:31 Carbon Dioxide 29 mmol/L (22-30) 11/02/20 04:31 Anion Gap 14 mmol/L 11/02/20 04:31 BUN 59 mg/dL (9-20) H 11/02/20 04:31 Creatinine 6.4 mg/dL (0.8-1.3) H 11/02/20 04:31 Estimated GFR 8 ml/min 11/02/20 04:31 BUN/Creatinine Ratio 9 % 11/02/20 04:31 Glucose 121 mg/dL (75-100) H 11/02/20 04:31 POC Glucose 110 mg/dL (70-105) H 11/03/20 08:20 Hemoglobin A1c 5.3 % (4-6) 10/29/20 02:00 Calcium 8.1 mg/dL (8.4-10.2) L 11/02/20 04:31 Phosphorus 6.50 mg/dL (2.5-4.5) H D 10/31/20 05:32 Magnesium 2.30 mg/dL (1.7-2.3) 10/31/20 05:32 Total Bilirubin 0.60 mg/dL (0.1-1.2) 11/02/20 04:31 AST 96 units/L (5-40) H 11/02/20 04:31 ALT 274 units/L (7-56) H 11/02/20 04:31 Alkaline Phosphatase 92 units/L (35-129) 11/02/20 04:31 Total Protein 5.1 g/dL (6.3-8.2) L 11/02/20 04:31 Albumin 3.0 g/dL (3.9-5) L 11/02/20 04:31 Albumin/Globulin Ratio 1.4 % 11/02/20 04:31 Lipase 51 units/L (13-60) 10/28/20 22:43 PTH Intact 176.3 pg/mL (15-65) H 10/30/20 04:25 Urine Color Yellow (Yellow) 10/28/20 Unknown Urine Turbidity Cloudy (Clear) 10/28/20 Unknown Urine pH 5.0 (5.0-7.0) 10/28/20 Unknown Ur Specific [place] 1.018 (1.003-1.030) 10/28/20 Unknown Urine Protein >500 mg/dL (Negative) 10/28/20 Unknown Urine Glucose (UA) 50 mg/dL (Negative) 10/28/20 Unknown Urine Ketones Neg mg/dL (Negative) 10/28/20 Unknown Urine Blood Mod (Negative) 10/28/20 Unknown Urine Nitrite Neg (Negative) 10/28/20 Unknown Urine Bilirubin Neg (Negative) 10/28/20 Unknown Urine Urobilinogen < 2.0 mg/dL (<2.0) 10/28/20 Unknown Ur Leukocyte Esterase Neg (Negative) 10/28/20 Unknown Urine WBC (Auto) 4.0 /HPF (0.0-6.0) 10/28/20 Unknown Urine RBC (Auto) 10.0 /HPF (0.0-6.0) 10/28/20 Unknown U Epithel Cells (Auto) 1.0 /HPF (0-13.0) 10/28/20 Unknown Urine Mucus Few /HPF 10/28/20 Unknown Urine Creatinine 78.5 mg/dL (0.1-20.0) H 10/29/20 15:40 Protein/Creatinin Ratio 9.49 10/29/20 15:40 Urine Sodium 76 mmol/L 10/29/20 15:40 Urine Total Protein 745 mg/dL (5-11.8) H 10/29/20 15:40 Hepatitis A IgM Ab Non-reactive (NonReactive) 10/29/20 00:00 Hep Bs Antigen Non-reactive (Negative) 10/29/20 00:00 Hep B Core IgM Ab Non-reactive (NonReactive) 10/29/20 00:00 Hepatitis C Antibody Non-reactive (NonReactive) 10/29/20 00:00 Blood Type O POSITIVE 10/30/20 10:53 Antibody Screen Negative 10/30/20 10:53 Crossmatch See Detail 10/30/20 10:53 [place]/IV: Voiding Method Bedside Commode Active Medications - Current Medications Current Medications: Generic Name Dose Route Start Last Admin Trade Name Freq PRN Reason Stop Dose Admin Acetaminophen 650 mg 10/29/20 02:17 Acetaminophen 325 Mg Tab PO Q6H PRN Pain MILD(1-3)/Fever >100.5/SCHMITT Amlodipine Besylate 10 mg 10/30/20 13:00 11/03/20 09:43 Amlodipine 10 Mg Tab PO 10 mg QDAY POLINA Administration Aspirin 81 mg 10/30/20 10:00 11/03/20 09:42 Aspirin Ec 81 Mg Tab PO 81 mg QDAY POLINA Administration Calcium Acetate 667 mg 10/31/20 12:00 11/03/20 09:42 Calcium Acetate 667 Mg Cap PO 667 mg TIDWM POLINA Administration Carvedilol 12.5 mg 10/29/20 22:00 11/03/20 09:42 Carvedilol 12.5 Mg Tab PO 12.5 mg BID POLINA Administration Dextrose 0 ml 10/29/20 02:17 Dextrose 50% In Water (25gm) 50 Ml Syringe IV Q30MIN PRN Hypoglycemia Protocol Furosemide 80 mg 11/01/20 10:00 11/03/20 09:43 Furosemide 40 Mg Tab PO 80 mg QDAY POLINA Administration Hydralazine HCl 10 mg 10/29/20 06:13 10/29/20 10:10 Hydralazine 20 Mg/1 Ml Inj IV 10 mg Q4H PRN Administration Blood Pressure Sodium Chloride 100 mls @ 999 mls/hr 10/30/20 10:00 Nacl 0.9% IV MARKY PRN Hypotension Insulin Human Regular 0 units 10/29/20 07:30 11/03/20 08:22 Insulin Regular, Human 100 Units/1 Ml SUB-Q Not Given ACHS POLINA Protocol Isosorbide Mononitrate 30 mg 11/01/20 15:00 11/03/20 09:42 Isosorbide Mononitrate Er 30 Mg Tab PO 30 mg QDAY POLINA Administration Magnesium Hydroxide 30 ml 10/29/20 02:17 Magnesium Hydroxide (Mom) Oral Liqd Udc PO Q4H PRN Constipation Nitroglycerin 0.4 mg 10/31/20 06:00 11/03/20 06:06 Nitroglycerin 0.4 Mg Patch 24hr TD 0.4 mg QDAY@0600 POLINA Administration Ondansetron HCl 4 mg 10/29/20 02:17 10/31/20 16:38 Ondansetron 4 Mg/2 Ml Inj IV 4 mg Q8H PRN Administration Nausea And Vomiting Pantoprazole Sodium 40 mg 10/29/20 10:00 11/03/20 09:43 Pantoprazole 40 Mg Inj IV 40 mg BID POLINA Administration Sodium Chloride 10 ml 10/29/20 10:00 11/03/20 09:43 Sodium Chloride 0.9% 10 Ml Flush Syringe IV 10 ml BID POLINA Administration Sodium Chloride 10 ml 10/29/20 02:17 Sodium Chloride 0.9% 10 Ml Flush Syringe IV PRN PRN LINE FLUSH Nutrition/Malnutrition Assess - Dietary Evaluation Nutrition/Malnutrition Findings: Nutrition Notes Start: 10/29/20 12:02 Freq: Status: Active Protocol: Document 11/01/20 14:52 (Rec: 11/01/20 14:56 [email or web address]) Nutrition Notes Initial or Follow up Reassessment Current Diagnosis Acute Kidney Injury,Diabetes, Hypertension,Heart Failure, Hyperlipidemia Other Pertinent Diagnosis elevated LFTs, GIB, anemia Current Diet Cardiac, Consistent CHO Labs/Tests Reviewed Pertinent Medications Dallin Anguiano Height 5 ft 5 in Weight 46.2 kg [place] Body Weight (kg) 61.81 BMI 16.9 Weight change and time frame Wt change noted, will follow trends Weight Status Underweight Subjective/Other Information FU for intakes. Pt eating <50% of meals. He does not think he has lost any weight and is unsure of UBW. Pt did not get ONS due to new diet order. Due to advanced age, pt not appropriate for diet education . Percent of energy/protein needs met: 71%/69% Burn Absent Trauma Absent GI Symptoms None Current % PO Poor (25-49%) Minimum of two criteria Yes Energy Intake (non-severe) <75% Estimated Energy Requirement >7 days Muscle Mass Mild Depletion (non-severe) #1 Nutrition Diagnosis Malnutrition Diagnosis Progress(for reassessment Continues documentation) Is patient on ventilator? No Is Patient Ambulatory and/or Out of Bed No REE-([facility] [place]-confined to bed) 1325.772 Calculation Used for Recommendations [facility] Additional Notes Protein: (1.2-1.5g/kg) 62-77g Fluid: 1 ml/kcal or per MD Nutrition Intervention Change Diet Order: Continue Add Supplement/Snack (indicate name/kcal [place] BID /protein ) Provides kCal: 850 Provides Protein (gm) 38 Goal #1 Meet at least 80% of protein and energy needs via PO and ONS intakes Goal #2 Weight gain/maintenance Anticipated Discharge Needs: Cardiac, Consistent CHO Follow-Up By: 11/03/20 Additional Comments FU for intakes, ONS tolerance
--- NOTE | 2020-11-03 10:48 | Progress Note ---
Assessment and Plan 1. Acute kidney injury superimposed on CKD: MODE superimposed on CKD . CT abdomen negative for hydro. Monitor renal function. Renal prognosis is guarded to poor. Avoid nephrotoxic agents. Meds dosage based on GFR. Patient was started on hemodialysis due to significant decline in the GFR, associated hyperkalemia, metabolic acidosis and volume overload. Hemodialysis: 10/30, 10/31, 11/02. 2. FEN: Hyperkalemia, improved, monitor. Anion-gap Metabolic acidosis, HD today, monitor. Volume overload, UF with HD. Monitor lytes. 3. Heavy proteinuria: ?etiology. JENNIFER, ANCA, GBM Ab, Complements, UPEP and SPEP ordered. 4. Decompensated CHF: Echo EF 45-50%. Strict I/O. On Carvedilol. Followed by Cards. 5. Elevated liver enzymes: Hepatitis serologies negative. 6. GI bleed: Per GI EGD after clearance from Cards. 7. Hypertensive urgency: BP controlled. UF with HD as tolerated. Adjust meds as needed. Monitor. 8. Hypochromic Anemia, POA: ?2/2 GI bleed. Followed by GI. Epogen. Monitor. 9. Thrombocytopenia. 10. Chronic thoraco-abdominal aneurysm. Need outpatient hemodialysis chair, d/w CM. Subjective: Patient was seen and examined at the bedside. Examination: General appearance: well-developed, thin built, appears stated age, not in distress HEENT: ATNC, pupils equal Neck: supple Respiratory: bibasal diminished breath sounds Cardiology: regular, S1S2, no murmur Gastrointestinal: soft, bowel sounds heard, not tender Integumentary: warm and dry, upper chest hypopigmented patches noted Neurologic: alert, moving extremities Ext: no edema Hemodialysis access: R IJ temp catheter, L Tunnel catheter Subjective Date of service: 11/03/20 Principal diagnosis: Anemia, Abnormal LFTs Objective - Vital Signs Vital signs: Vital Signs - 12hr 11/02/20 11/03/20 11/03/20 23:41 04:00 07:23 Temperature 99.4 F 98.4 F Pulse Rate 84 76 Pulse Rate [ 66 From Monitor] Respiratory 19 18 18 Rate Blood Pressure 115/67 125/71 O2 Sat by Pulse 92 93 100 Oximetry 11/03/20 11/03/20 11/03/20 07:45 09:40 09:42 Temperature 97.5 F L Pulse Rate 74 74 Pulse Rate [ From Monitor] Respiratory 16 Rate Blood Pressure 141/83 141/83 O2 Sat by Pulse 94 93 Oximetry 11/03/20 09:43 Temperature Pulse Rate 74 Pulse Rate [ From Monitor] Respiratory Rate Blood Pressure 141/83 O2 Sat by Pulse Oximetry - Lab 11/02/20 04:31 11/02/20 04:31 Most recent lab results ABG pH 7.384 pH Units (7.350-7.450) 10/29/20 14:40 ABG pCO2 32.3 mm Hg 10/29/20 14:40 ABG pO2 107.8 mm Hg (80.0-90.0) H 10/29/20 14:40 ABG HCO3 18.8 mmol/L (20.0-26.0) L 10/29/20 14:40 ABG O2 Saturation 97.9 % (95.0-99.0) 10/29/20 14:40 Calcium 8.1 mg/dL (8.4-10.2) L 11/02/20 04:31 Phosphorus 6.50 mg/dL (2.5-4.5) H D 10/31/20 05:32 Magnesium 2.30 mg/dL (1.7-2.3) 10/31/20 05:32 Urine Creatinine 78.5 mg/dL (0.1-20.0) H 10/29/20 15:40 Urine Sodium 76 mmol/L 10/29/20 15:40 Urine Total Protein 745 mg/dL (5-11.8) H 10/29/20 15:40 Medications & Allergies - Medications Allergies/Adverse Reactions: Allergies No Known Allergies Allergy (Unverified 05/07/14 01:13) Home Medications: Home Medications Medication Instructions Recorded Confirmed Last Taken Type Amlodipine Besylate [Norvasc] 10 mg PO QDAY 10/28/20 10/28/20 Unknown History Aspirin EC [Halfprin EC] 81 mg PO QDAY 10/28/20 10/28/20 Unknown History Atorvastatin Calcium [Lipitor] 80 mg PO QDAY 10/28/20 10/28/20 Unknown History Lisinopril [Zestril] 10 mg PO QDAY 10/28/20 10/28/20 Unknown History Active Medications: Generic Name Dose Route Start Last Admin Trade Name Freq PRN Reason Stop Dose Admin Acetaminophen 650 mg 10/29/20 02:17 Acetaminophen 325 Mg Tab PO Q6H PRN Pain MILD(1-3)/Fever >100.5/SCHMITT Amlodipine Besylate 10 mg 10/30/20 13:00 11/03/20 09:43 Amlodipine 10 Mg Tab PO 10 mg QDAY POLINA Administration Aspirin 81 mg 10/30/20 10:00 11/03/20 09:42 Aspirin Ec 81 Mg Tab PO 81 mg QDAY POLINA Administration Calcium Acetate 667 mg 10/31/20 12:00 11/03/20 09:42 Calcium Acetate 667 Mg Cap PO 667 mg TIDWM POLINA Administration Carvedilol 12.5 mg 10/29/20 22:00 11/03/20 09:42 Carvedilol 12.5 Mg Tab PO 12.5 mg BID POLINA Administration Dextrose 0 ml 10/29/20 02:17 Dextrose 50% In Water (25gm) 50 Ml Syringe IV Q30MIN PRN Hypoglycemia Protocol Furosemide 80 mg 11/01/20 10:00 11/03/20 09:43 Furosemide 40 Mg Tab PO 80 mg QDAY POLINA Administration Hydralazine HCl 10 mg 10/29/20 06:13 10/29/20 10:10 Hydralazine 20 Mg/1 Ml Inj IV 10 mg Q4H PRN Administration Blood Pressure Sodium Chloride 100 mls @ 999 mls/hr 10/30/20 10:00 Nacl 0.9% IV MARKY PRN Hypotension Insulin Human Regular 0 units 10/29/20 07:30 11/03/20 08:22 Insulin Regular, Human 100 Units/1 Ml SUB-Q Not Given ACHS [facility] Protocol Isosorbide Mononitrate 30 mg 11/01/20 15:00 11/03/20 09:42 Isosorbide Mononitrate Er 30 Mg Tab PO 30 mg QDAY [facility] Administration Magnesium Hydroxide 30 ml 10/29/20 02:17 Magnesium Hydroxide (Mom) Oral Liqd Udc PO Q4H PRN Constipation Nitroglycerin 0.4 mg 10/31/20 06:00 11/03/20 06:06 Nitroglycerin 0.4 Mg Patch 24hr TD 0.4 mg QDAY@0600 POLINA Administration Ondansetron HCl 4 mg 10/29/20 02:17 10/31/20 16:38 Ondansetron 4 Mg/2 Ml Inj IV 4 mg Q8H PRN Administration Nausea And Vomiting Pantoprazole Sodium 40 mg 10/29/20 10:00 11/03/20 09:43 Pantoprazole 40 Mg Inj IV 40 mg BID POLINA Administration Sodium Chloride 10 ml 10/29/20 10:00 11/03/20 09:43 Sodium Chloride 0.9% 10 Ml Flush Syringe IV 10 ml BID POLINA Administration Sodium Chloride 10 ml 10/29/20 02:17 Sodium Chloride 0.9% 10 Ml Flush Syringe IV PRN PRN LINE FLUSH
--- NOTE | 2020-11-03 13:31 | Progress Note ---
Assessment and Plan - Patient Problems (1) Abnormal ECG Current Visit: Yes Status: Acute Plan to address problem: Patient has marked ST and T wave abnormalities in the anterolateral leads, more pronounced on the recent ECGs that his previous baseline. We will continue routine daily ECGs for continued assessment. He has no history of significant coronary artery disease. Instead, 2 years ago he underwent thoracotomy for repair of an ascending aortic aneurysm. (2) Preoperative cardiovascular examination Current Visit: Yes Status: Acute Subjective Date of service: 11/03/20 Principal diagnosis: Anemia, Abnormal LFTs Interval history: Patient is comfortable no acute distress, resting comfortably in his room. Objective Vital Signs Temp Pulse Pulse Resp BP Pulse Ox 11/03/20 12:20 98.4 F 73 20 115/64 94 11/03/20 09:43 74 141/83 11/03/20 09:42 74 141/83 11/03/20 09:40 93 11/03/20 07:45 97.5 F L 74 16 141/83 94 11/03/20 07:23 66 18 100 11/03/20 06:55 74 11/03/20 04:00 98.4 F 76 18 125/71 93 11/02/20 23:41 99.4 F 84 19 115/67 92 11/02/20 20:45 98.7 F 82 20 133/74 93 11/02/20 20:40 79 11/02/20 16:45 79 135/77 11/02/20 16:44 79 135/77 - Physical Examination General: No Apparent Distress HEENT: Positive: PERRL Neck: Positive: neck supple Cardiac: Positive: Reg Rate and Rhythm Lungs: Positive: Decreased Breath Sounds Neuro: Positive: Weakness (Generalized weakness, frail and chronically ill appearing) Abdomen: Positive: Soft Skin: Positive: Clear Extremities: Absent: normal - Allied health notes Allied health notes reviewed: nursing
[2020-11-04] MEDS: NITROGLYCERIN 0.4 MG PATCH 24HR TD SCH (05:38)
[2020-11-04 06:54] LABS: Calcium 7.9 mg/dL (8.4-10.2)
[2020-11-04] MEDS: INSULIN REGULAR, HUMAN 100 UNITS/1 ML SUB-Q SCH ×4 (09:35→22:15)
--- NOTE | 2020-11-04 09:46 | Progress Note ---
Assessment and Plan 1. Acute kidney injury superimposed on CKD: MODE superimposed on CKD . CT abdomen negative for hydro. Monitor renal function. Renal prognosis is guarded to poor. Avoid nephrotoxic agents. Meds dosage based on GFR. Patient was started on hemodialysis due to significant decline in the GFR, associated hyperkalemia, metabolic acidosis and volume overload. Hemodialysis: 10/30, 10/31, 11/02. 2. FEN: Hyperkalemia, improved, monitor. Anion-gap Metabolic acidosis, HD today, monitor. Volume overload, UF with HD. Monitor lytes. 3. Heavy proteinuria: ?etiology. JENNIFER, ANCA, GBM Ab, Complements, UPEP and SPEP ordered. 4. Decompensated CHF: Echo EF 45-50%. Strict I/O. On Carvedilol. Followed by Cards. 5. Elevated liver enzymes: Hepatitis serologies negative. 6. GI bleed: Per GI EGD after clearance from Cards. 7. Hypertensive urgency: BP controlled. UF with HD as tolerated. Adjust meds as needed. Monitor. 8. Hypochromic Anemia, POA: ?2/2 GI bleed. Followed by GI. Epogen. Monitor. 9. Thrombocytopenia. 10. Chronic thoraco-abdominal aneurysm. Await outpatient hemodialysis chair. Subjective: Patient was seen and examined at the bedside. Examination: General appearance: well-developed, thin built, appears stated age, not in distress HEENT: ATNC, pupils equal Neck: supple Respiratory: bibasal diminished breath sounds Cardiology: regular, S1S2, no murmur Gastrointestinal: soft, bowel sounds heard, not tender Integumentary: warm and dry, upper chest hypopigmented patches noted Neurologic: alert, moving extremities Ext: no edema Hemodialysis access: L Tunnel catheter Subjective Date of service: 11/04/20 Principal diagnosis: Anemia, Abnormal LFTs Objective - Vital Signs Vital signs: Vital Signs - 12hr 11/03/20 11/04/20 11/04/20 22:15 00:31 06:25 Temperature 97.5 F L 97.3 F L Pulse Rate 73 75 Respiratory 17 16 Rate Blood Pressure 117/67 122/71 O2 Sat by Pulse 97 94 93 Oximetry - Lab 11/02/20 04:31 11/04/20 06:10 Most recent lab results ABG pH 7.384 pH Units (7.350-7.450) 10/29/20 14:40 ABG pCO2 32.3 mm Hg 10/29/20 14:40 ABG pO2 107.8 mm Hg (80.0-90.0) H 10/29/20 14:40 ABG HCO3 18.8 mmol/L (20.0-26.0) L 10/29/20 14:40 ABG O2 Saturation 97.9 % (95.0-99.0) 10/29/20 14:40 Calcium 7.9 mg/dL (8.4-10.2) L 11/04/20 06:10 Phosphorus 2.60 mg/dL (2.5-4.5) 11/04/20 06:10 Magnesium 2.30 mg/dL (1.7-2.3) 10/31/20 05:32 Urine Creatinine 78.5 mg/dL (0.1-20.0) H 10/29/20 15:40 Urine Sodium 76 mmol/L 10/29/20 15:40 Urine Total Protein 745 mg/dL (5-11.8) H 10/29/20 15:40 Medications & Allergies - Medications Allergies/Adverse Reactions: Allergies No Known Allergies Allergy (Unverified 05/07/14 01:13) Home Medications: Home Medications Medication Instructions Recorded Confirmed Last Taken Type Amlodipine Besylate [Norvasc] 10 mg PO QDAY 10/28/20 10/28/20 Unknown History Aspirin EC [Halfprin EC] 81 mg PO QDAY 10/28/20 10/28/20 Unknown History Atorvastatin Calcium [Lipitor] 80 mg PO QDAY 10/28/20 10/28/20 Unknown History Lisinopril [Zestril] 10 mg PO QDAY 10/28/20 10/28/20 Unknown History Active Medications: Generic Name Dose Route Start Last Admin Trade Name Freq PRN Reason Stop Dose Admin Acetaminophen 650 mg 10/29/20 02:17 Acetaminophen 325 Mg Tab PO Q6H PRN Pain MILD(1-3)/Fever >100.5/SCHMITT Amlodipine Besylate 10 mg 10/30/20 13:00 11/03/20 09:43 Amlodipine 10 Mg Tab PO 10 mg QDAY POLINA Administration Aspirin 81 mg 10/30/20 10:00 11/03/20 09:42 Aspirin Ec 81 Mg Tab PO 81 mg QDAY POLINA Administration Calcium Acetate 667 mg 10/31/20 12:00 11/03/20 16:40 Calcium Acetate 667 Mg Cap PO 667 mg TIDWM POLINA Administration Carvedilol 12.5 mg 10/29/20 22:00 11/03/20 22:23 Carvedilol 12.5 Mg Tab PO 12.5 mg BID POLINA Administration Dextrose 0 ml 10/29/20 02:17 Dextrose 50% In Water (25gm) 50 Ml Syringe IV Q30MIN PRN Hypoglycemia Protocol Furosemide 80 mg 11/01/20 10:00 11/03/20 09:43 Furosemide 40 Mg Tab PO 80 mg QDAY POLINA Administration Hydralazine HCl 10 mg 10/29/20 06:13 10/29/20 10:10 Hydralazine 20 Mg/1 Ml Inj IV 10 mg Q4H PRN Administration Blood Pressure Sodium Chloride 100 mls @ 999 mls/hr 10/30/20 10:00 Nacl 0.9% IV MARKY PRN Hypotension Insulin Human Regular 0 units 10/29/20 07:30 11/04/20 09:35 Insulin Regular, Human 100 Units/1 Ml SUB-Q Not Given ACHS [facility] Protocol Isosorbide Mononitrate 30 mg 11/01/20 15:00 11/03/20 09:42 Isosorbide Mononitrate Er 30 Mg Tab PO 30 mg QDAY POLINA Administration Magnesium Hydroxide 30 ml 10/29/20 02:17 Magnesium Hydroxide (Mom) Oral Liqd Udc PO Q4H PRN Constipation Nitroglycerin 0.4 mg 10/31/20 06:00 11/04/20 05:38 Nitroglycerin 0.4 Mg Patch 24hr TD 0.4 mg QDAY@0600 POLINA Administration Ondansetron HCl 4 mg 10/29/20 02:17 10/31/20 16:38 Ondansetron 4 Mg/2 Ml Inj IV 4 mg Q8H PRN Administration Nausea And Vomiting Pantoprazole Sodium 40 mg 10/29/20 10:00 11/03/20 22:23 Pantoprazole 40 Mg Inj IV 40 mg BID POLINA Administration Sodium Chloride 10 ml 10/29/20 10:00 11/03/20 22:23 Sodium Chloride 0.9% 10 Ml Flush Syringe IV 10 ml BID POLINA Administration Sodium Chloride 10 ml 10/29/20 02:17 Sodium Chloride 0.9% 10 Ml Flush Syringe IV PRN PRN LINE FLUSH
--- NOTE | 2020-11-04 12:25 | Progress Note ---
Assessment and Plan Assessment and plan: --Acute kidney injury superimposed on chronic kidney disease Current Visit: Yes Status: Acute Patient with chronic kidney disease. Worsening renal function s/p Permacath placement, hemodialysis 10/30, 10/31 Nephrology following, outpatient HD chair placement at discharge per renal -- Hyperkalemia/present on admission Current Visit: Yes Status: Acute Patient is received insulin and glucose, calcium gluconate sodium bicarb while in the emergency room Normal potassium levels, monitor electrolytes -- Anemia Current Visit: Yes Status: Acute Possibly from GI bleed. Received 1 unit of PRBC transfusion, Hb today 7.9 Stool Hemoccult done in the ER was negative Patient has no new episodes of bleeding, hemoglobin today 7.5 Due to cardiac risk factors, cardiology not cleared for elective endoscopy, GI following --GI bleed Current Visit: Yes Status: Acute GI evaluated the patient Planning for endoscopy however Cardiology did not clear for the procedure due to cardiac risk factors Unless actively bleeding due to risk factors --Acute liver injury /transaminitis Current Visit: Yes Status: Acute Plan to address problem: CT of the abdomen and pelvis did not reveal any acute abnormality. Trending down. AST 517-96, ALT 445-to 74 GI following --Hypertensive urgency Current Visit: Yes Status: Acute Moderate control , continue current antihypertensives As needed medications , closely monitor -- Pulmonary edema Current Visit: Yes Status: Acute Plan to address problem: Pulmonary edema shown on CT scan of the abdomen and pelvis. Patient had a dose of IV Lasix. Will check echocardiogram. We will place a consult to cardiology for evaluation. --DVT prophylaxis Current Visit: Yes Status: Acute Plan to address problem: Patient placed on sequential compression device. -- Full code status Current Visit: Yes Status: Acute Plan to address problem: Patient is full code. Follow consultants recommendations 10/31/2020; patient received permacath placement Hemodialysis per schedule, possible endoscopy tomorrow 11/01/2020; patient feels slightly better, GI waiting for Cardiology clearance for endoscopy 11/02/2020; no new episodes of GI bleeding HPI low stable 7.5 today Due to multiple cardiac risk factors, cardiology did not For elective endoscopy, unless life-threatening bleeding. 11/03/2020; patient feels better No new episodes of GI bleeding, no endoscopy during this admission Outpatient HD placement per nephrology prior to discharge 11/04/2020; awaiting outpatient HD placement I spoke with patient's daughter and granddaughter at the bedside Answered all their questions, they were anxious to take him home Informed them that outpatient HD placement should be scheduled by case cristina noel Prior to discharge, they verbalized understanding History Interval history: I have seen and examined the patient at the bedside Patient's chart and medications reviewed Patient feels slightly better Awaiting of patient HD placement Vital signs noted Hospitalist Physical - Constitutional Vitals: Temp Pulse Resp BP Pulse Ox 97.3 F L 75 16 122/71 93 11/04/20 06:25 11/04/20 06:25 11/04/20 06:25 11/04/20 06:25 11/04/20 06:25 General appearance: Present: no acute distress, cachectic, other (Patient is lethargic, frail and chronically ill-appearing) - EENT Eyes: Present: PERRL, EOM intact - Neck Neck: Present: supple, normal ROM - Respiratory Respiratory effort: normal Respiratory: bilateral: diminished, negative: rales, rhonchi, wheezing - Cardiovascular Rhythm: regular Heart Sounds: Present: S1 & S2 - Extremities Extremities: no ischemia, No edema - Abdominal General gastrointestinal: soft, non-tender, non-distended, normal bowel sounds - Integumentary Integumentary: Present: clear, warm - Psychiatric Psychiatric: appropriate mood/affect, cooperative - Neurologic Neurologic: CNII-XII intact, moves all extremities Results - Labs CBC & Chem 7: 11/02/20 04:31 11/04/20 06:10 Labs: Laboratory Last Values WBC 7.6 K/mm3 (4.5-11.0) 11/02/20 04:31 RBC 3.52 M/mm3 (3.65-5.03) L 11/02/20 04:31 Hgb 7.5 gm/dl (11.8-15.2) L 11/02/20 04:31 Hct 23.5 % (35.5-45.6) L 11/02/20 04:31 MCV 67 fl (84-94) L 11/02/20 04:31 MCH 21 pg (28-32) L 11/02/20 04:31 MCHC 32 % (32-34) 11/02/20 04:31 RDW 18.3 % (13.2-15.2) H 11/02/20 04:31 Plt Count 123 K/mm3 (140-440) L 11/02/20 04:31 Lymph % (Auto) 15.8 % (13.4-35.0) 11/02/20 04:31 [place] % (Auto) 13.8 % (0.0-7.3) H 11/02/20 04:31 Eos % (Auto) 1.2 % (0.0-4.3) 11/02/20 04:31 Baso % (Auto) 0.4 % (0.0-1.8) 11/02/20 04:31 Lymph # (Auto) 1.2 K/mm3 (1.2-5.4) 11/02/20 04:31 [place] # (Auto) 1.0 K/mm3 (0.0-0.8) H 11/02/20 04:31 Eos # (Auto) 0.1 K/mm3 (0.0-0.4) 11/02/20 04:31 Baso # (Auto) 0.0 K/mm3 (0.0-0.1) 11/02/20 04:31 Add Manual Diff Complete 10/30/20 04:25 Total Counted 100 10/30/20 04:25 Seg Neutrophils % 68.8 % (40.0-70.0) 11/02/20 04:31 Seg Neuts % (Manual) 87.0 % (40.0-70.0) H 10/30/20 04:25 Band Neutrophils % 1.0 % 10/30/20 04:25 Lymphocytes % (Manual) 5.0 % (13.4-35.0) L 10/30/20 04:25 Monocytes % (Manual) 7.0 % (0.0-7.3) 10/30/20 04:25 Nucleated RBC % 1.0 % (0.0-0.9) H 10/30/20 04:25 Seg Neutrophils # 5.3 K/mm3 (1.8-7.7) 11/02/20 04:31 Seg Neutrophils # Man 7.0 K/mm3 (1.8-7.7) 10/30/20 04:25 Band Neutrophils # 0.1 K/mm3 10/30/20 04:25 Lymphocytes # (Manual) 0.4 K/mm3 (1.2-5.4) L 10/30/20 04:25 Abs React Lymphs (Man) 0.0 K/mm3 10/30/20 04:25 Monocytes # (Manual) 0.6 K/mm3 (0.0-0.8) 10/30/20 04:25 Eosinophils # (Manual) 0.0 K/mm3 (0.0-0.4) 10/30/20 04:25 Basophils # (Manual) 0.0 K/mm3 (0.0-0.1) 10/30/20 04:25 Metamyelocytes # 0.0 K/mm3 10/30/20 04:25 Myelocytes # 0.0 K/mm3 10/30/20 04:25 Promyelocytes # 0.0 K/mm3 10/30/20 04:25 Blast Cells # 0.0 K/mm3 10/30/20 04:25 WBC Morphology Not Reportable 10/30/20 04:25 Hypersegmented Neuts Not Reportable 10/30/20 04:25 Hyposegmented Neuts Not Reportable 10/30/20 04:25 Hypogranular Neuts Not Reportable 10/30/20 04:25 Smudge Cells Not Reportable 10/30/20 04:25 Toxic Granulation Not Reportable 10/30/20 04:25 Toxic Vacuolation Not Reportable 10/30/20 04:25 Dohle Bodies Not Reportable 10/30/20 04:25 Pelger-Huet Anomaly Not Reportable 10/30/20 04:25 Katherine Rods Not Reportable 10/30/20 04:25 Platelet Estimate Consistent w auto 10/30/20 04:25 Clumped Platelets Not Reportable 10/30/20 04:25 Plt Clumps, EDTA Not Reportable 10/30/20 04:25 Large Platelets Not Reportable 10/30/20 04:25 Giant Platelets Not Reportable 10/30/20 04:25 Platelet Satelliting Not Reportable 10/30/20 04:25 Plt Morphology Comment Not Reportable 10/30/20 04:25 RBC Morphology Not Reportable 10/30/20 04:25 Dimorphic RBCs Not Reportable 10/30/20 04:25 Polychromasia Few 10/30/20 04:25 Hypochromasia 2+ 10/30/20 04:25 Poikilocytosis Not Reportable 10/30/20 04:25 Anisocytosis 2+ 10/30/20 04:25 Microcytosis Not Reportable 10/30/20 04:25 Macrocytosis Not Reportable 10/30/20 04:25 Spherocytes Not Reportable 10/30/20 04:25 Pappenheimer Bodies Not Reportable 10/30/20 04:25 Sickle Cells Not Reportable 10/30/20 04:25 Target Cells Not Reportable 10/30/20 04:25 Tear Drop Cells Not Reportable 10/30/20 04:25 Ovalocytes Not Reportable 10/30/20 04:25 Helmet Cells Not Reportable 10/30/20 04:25 [place] Bodies Not Reportable 10/30/20 04:25 [place] Rings Not Reportable 10/30/20 04:25 [place]erm[place] Cells Not Reportable 10/30/20 04:25 Bite Cells Not Reportable 10/30/20 04:25 Crenated Cell Not Reportable 10/30/20 04:25 Elliptocytes Not Reportable 10/30/20 04:25 Acanthocytes (Spur) Not Reportable 10/30/20 04:25 Rouleaux Not Reportable 10/30/20 04:25 Hemoglobin C Crystals Not Reportable 10/30/20 04:25 Schistocytes 1+ 10/30/20 04:25 Malaria parasites Not Reportable 10/30/20 04:25 Ellis Bodies Not Reportable 10/30/20 04:25 Hem Pathologist Commnt No 10/30/20 04:25 PT 18.4 Sec. (12.2-14.9) H 10/31/20 19:20 INR 1.48 (0.87-1.13) H 10/31/20 19:20 APTT 33.8 Sec. (24.2-36.6) 10/31/20 19:20 ABG pH 7.384 pH Units (7.350-7.450) 10/29/20 14:40 ABG pCO2 32.3 mm Hg 10/29/20 14:40 ABG pO2 107.8 mm Hg (80.0-90.0) H 10/29/20 14:40 ABG HCO3 18.8 mmol/L (20.0-26.0) L 10/29/20 14:40 ABG O2 Saturation 97.9 % (95.0-99.0) 10/29/20 14:40 ABG O2 Content 10.3 (0.0-44) 10/29/20 14:40 ABG Base Excess -5.6 mmol/L (-2.0-3.0) L 10/29/20 14:40 ABG Hemoglobin 7.4 gm/dl (14.0-18.0) L 10/29/20 14:40 ABG Carboxyhemoglobin 1.5 % (0.0-5.0) 10/29/20 14:40 ABG Methemoglobin 0.5 % (0.0-1.5) 10/29/20 14:40 Oxyhemoglobin 95.9 % (95.0-99.0) 10/29/20 14:40 FiO2 28 % 10/29/20 14:40 Sodium 135 mmol/L (137-145) L 11/04/20 06:10 Potassium 3.6 mmol/L (3.6-5.0) 11/04/20 06:10 Chloride 97.8 mmol/L (98-107) L 11/04/20 06:10 Carbon Dioxide 26 mmol/L (22-30) 11/04/20 06:10 Anion Gap 15 mmol/L 11/04/20 06:10 BUN 62 mg/dL (9-20) H 11/04/20 06:10 Creatinine 6.0 mg/dL (0.8-1.3) H 11/04/20 06:10 Estimated GFR 9 ml/min 11/04/20 06:10 BUN/Creatinine Ratio 10 % 11/04/20 06:10 Glucose 117 mg/dL (75-100) H 11/04/20 06:10 POC Glucose 202 mg/dL (70-105) H 11/04/20 11:51 Hemoglobin A1c 5.3 % (4-6) 10/29/20 02:00 Calcium 7.9 mg/dL (8.4-10.2) L 11/04/20 06:10 Phosphorus 2.60 mg/dL (2.5-4.5) 11/04/20 06:10 Magnesium 2.30 mg/dL (1.7-2.3) 10/31/20 05:32 Total Bilirubin 0.60 mg/dL (0.1-1.2) 11/02/20 04:31 AST 96 units/L (5-40) H 11/02/20 04:31 ALT 274 units/L (7-56) H 11/02/20 04:31 Alkaline Phosphatase 92 units/L (35-129) 11/02/20 04:31 Total Protein 5.1 g/dL (6.3-8.2) L 11/02/20 04:31 Albumin 3.0 g/dL (3.9-5) L 11/02/20 04:31 Albumin/Globulin Ratio 1.4 % 11/02/20 04:31 Lipase 51 units/L (13-60) 10/28/20 22:43 PTH Intact 176.3 pg/mL (15-65) H 10/30/20 04:25 Urine Color Yellow (Yellow) 10/28/20 Unknown Urine Turbidity Cloudy (Clear) 10/28/20 Unknown Urine pH 5.0 (5.0-7.0) 10/28/20 Unknown Ur Specific [place] 1.018 (1.003-1.030) 10/28/20 Unknown Urine Protein >500 mg/dL (Negative) 10/28/20 Unknown Urine Glucose (UA) 50 mg/dL (Negative) 10/28/20 Unknown Urine Ketones Neg mg/dL (Negative) 10/28/20 Unknown Urine Blood Mod (Negative) 10/28/20 Unknown Urine Nitrite Neg (Negative) 10/28/20 Unknown Urine Bilirubin Neg (Negative) 10/28/20 Unknown Urine Urobilinogen < 2.0 mg/dL (<2.0) 10/28/20 Unknown Ur Leukocyte Esterase Neg (Negative) 10/28/20 Unknown Urine WBC (Auto) 4.0 /HPF (0.0-6.0) 10/28/20 Unknown Urine RBC (Auto) 10.0 /HPF (0.0-6.0) 10/28/20 Unknown U Epithel Cells (Auto) 1.0 /HPF (0-13.0) 10/28/20 Unknown Urine Mucus Few /HPF 10/28/20 Unknown Urine Creatinine 78.5 mg/dL (0.1-20.0) H 10/29/20 15:40 Protein/Creatinin Ratio 9.49 10/29/20 15:40 Urine Sodium 76 mmol/L 10/29/20 15:40 Urine Total Protein 745 mg/dL (5-11.8) H 10/29/20 15:40 Hepatitis A IgM Ab Non-reactive (NonReactive) 10/29/20 00:00 Hep Bs Antigen Non-reactive (Negative) 10/29/20 00:00 Hep B Core IgM Ab Non-reactive (NonReactive) 10/29/20 00:00 Hepatitis C Antibody Non-reactive (NonReactive) 10/29/20 00:00 Blood Type O POSITIVE 10/30/20 10:53 Antibody Screen Negative 10/30/20 10:53 Crossmatch See Detail 10/30/20 10:53 [place]/IV: Voiding Method Bedside Commode Active Medications - Current Medications Current Medications: Generic Name Dose Route Start Last Admin Trade Name Freq PRN Reason Stop Dose Admin Acetaminophen 650 mg 10/29/20 02:17 Acetaminophen 325 Mg Tab PO Q6H PRN Pain MILD(1-3)/Fever >100.5/SCHMITT Amlodipine Besylate 10 mg 10/30/20 13:00 11/03/20 09:43 Amlodipine 10 Mg Tab PO 10 mg QDAY POLINA Administration Aspirin 81 mg 10/30/20 10:00 11/03/20 09:42 Aspirin Ec 81 Mg Tab PO 81 mg QDAY POLINA Administration Calcium Acetate 667 mg 10/31/20 12:00 11/03/20 16:40 Calcium Acetate 667 Mg Cap PO 667 mg TIDWM POLINA Administration Carvedilol 12.5 mg 10/29/20 22:00 11/03/20 22:23 Carvedilol 12.5 Mg Tab PO 12.5 mg BID POLINA Administration Dextrose 0 ml 10/29/20 02:17 Dextrose 50% In Water (25gm) 50 Ml Syringe IV Q30MIN PRN Hypoglycemia Protocol Furosemide 80 mg 11/01/20 10:00 11/03/20 09:43 Furosemide 40 Mg Tab PO 80 mg QDAY POLINA Administration Hydralazine HCl 10 mg 10/29/20 06:13 10/29/20 10:10 Hydralazine 20 Mg/1 Ml Inj IV 10 mg Q4H PRN Administration Blood Pressure Sodium Chloride 100 mls @ 999 mls/hr 10/30/20 10:00 Nacl 0.9% IV MARKY PRN Hypotension Insulin Human Regular 0 units 10/29/20 07:30 11/04/20 09:35 Insulin Regular, Human 100 Units/1 Ml SUB-Q Not Given ACHS [facility] Protocol Isosorbide Mononitrate 30 mg 11/01/20 15:00 11/03/20 09:42 Isosorbide Mononitrate Er 30 Mg Tab PO 30 mg QDAY POLINA Administration Magnesium Hydroxide 30 ml 10/29/20 02:17 Magnesium Hydroxide (Mom) Oral Liqd Udc PO Q4H PRN Constipation Nitroglycerin 0.4 mg 10/31/20 06:00 11/04/20 05:38 Nitroglycerin 0.4 Mg Patch 24hr TD 0.4 mg QDAY@0600 POLINA Administration Ondansetron HCl 4 mg 10/29/20 02:17 10/31/20 16:38 Ondansetron 4 Mg/2 Ml Inj IV 4 mg Q8H PRN Administration Nausea And Vomiting Pantoprazole Sodium 40 mg 10/29/20 10:00 11/03/20 22:23 Pantoprazole 40 Mg Inj IV 40 mg BID POLINA Administration Sodium Chloride 10 ml 10/29/20 10:00 11/03/20 22:23 Sodium Chloride 0.9% 10 Ml Flush Syringe IV 10 ml BID POLINA Administration Sodium Chloride 10 ml 10/29/20 02:17 Sodium Chloride 0.9% 10 Ml Flush Syringe IV PRN PRN LINE FLUSH Nutrition/Malnutrition Assess - Dietary Evaluation Nutrition/Malnutrition Findings: Nutrition Notes Start: 10/29/20 12:02 Freq: Status: Active Protocol: Document 11/03/20 11:16 (Rec: 11/03/20 11:19 [email or web address]) Nutrition Notes Initial or Follow up Reassessment Current Diagnosis Acute Kidney Injury,Diabetes, Hypertension,Heart Failure, Hyperlipidemia Other Pertinent Diagnosis elevated LFTs, GIB, anemia Current Diet Cardiac, Consistent CHO Labs/Tests Reviewed Pertinent Medications Reviewed Height 5 ft 5 in Weight 46.1 kg [place] Body Weight (kg) 61.81 BMI 16.9 Weight Status Underweight Subjective/Other Information FU for intakes. Per RN pt eating 90% of meals and 90% of ONS. Percent of energy/protein needs met: 100%/100% Burn Absent Trauma Absent GI Symptoms None Current % PO Good (75-100%) Minimum of two criteria Yes Energy Intake (non-severe) <75% Estimated Energy Requirement >7 days Muscle Mass Mild Depletion (non-severe) #1 Nutrition Diagnosis Malnutrition As Evidenced by Signs and Symptoms pt eaing 90% of meals Diagnosis Progress(for reassessment Continues documentation) Is patient on ventilator? No Is Patient Ambulatory and/or Out of Bed No REE-([facility]-confined to bed) 1324.572 Calculation Used for Recommendations [facility] Additional Notes Protein: (1.2-1.5g/kg) 62-77g Fluid: 1 ml/kcal or per MD Nutrition Intervention Change Diet Order: Continue Add Supplement/Snack (indicate name/kcal Nepro BID /protein ) Provides kCal: 850 Provides Protein (gm) 38 Goal #1 Meet at least 80% of protein and energy needs via PO and ONS intakes Goal #2 Weight gain/maintenance Anticipated Discharge Needs: Cardiac, Consistent CHO Follow-Up By: 11/07/20 Additional Comments FU for intakes, ONS tolerance
[2020-11-04] MEDS: CALCIUM ACETATE 667 MG CAP PO SCH ×3 (12:56→22:04)
[2020-11-04] MEDS: carvediloL 12.5 MG TAB PO SCH ×2 (12:56→22:04)
[2020-11-04] MEDS: FUROSEMIDE 40 MG TAB PO SCH (12:57)
[2020-11-04] MEDS: PANTOPRAZOLE 40 MG INJ IV SCH (12:57)
[2020-11-04] MEDS: amLODIPine 10 MG TAB PO SCH (12:57)
[2020-11-04] MEDS: ASPIRIN EC 81 MG TAB PO SCH (12:57)
--- NOTE | 2020-11-04 13:06 | Progress Note ---
Assessment and Plan - Patient Problems (1) Abnormal ECG Current Visit: Yes Status: Acute Plan to address problem: Patient has marked ST and T wave abnormalities in the anterolateral leads, more pronounced on the recent ECGs that his previous baseline. We will continue routine daily ECGs for continued assessment. He has no history of significant coronary artery disease. Instead, 2 years ago he underwent thoracotomy for repair of an ascending aortic aneurysm. (2) Preoperative cardiovascular examination Current Visit: Yes Status: Acute Subjective Date of service: 11/04/20 Principal diagnosis: Anemia, Abnormal LFTs Interval history: Patient is comfortable, no new cardiac complaints, no acute distress. Objective Vital Signs Temp Pulse Resp BP Pulse Ox 11/04/20 10:00 95 11/04/20 06:25 97.3 F L 75 16 122/71 93 11/04/20 00:31 97.5 F L 73 17 117/67 94 11/03/20 22:15 97 11/03/20 20:00 75 11/03/20 19:58 98.0 F 72 17 114/65 96 11/03/20 16:49 98.9 F 75 18 122/70 97 - Physical Examination General: No Apparent Distress HEENT: Positive: PERRL Neck: Positive: neck supple Cardiac: Positive: Reg Rate and Rhythm Lungs: Positive: Decreased Breath Sounds Neuro: Positive: Weakness (Generalized weakness, frail and chronically ill appe aring) Abdomen: Positive: Soft Skin: Positive: Clear Extremities: Absent: normal - Labs and Meds Comprehensive Metabolic Panel 11/04/20 Range/Units 06:10 Sodium 135 L (137-145) mmol/L Potassium 3.6 (3.6-5.0) mmol/L Chloride 97.8 L (98-107) mmol/L Carbon Dioxide 26 (22-30) mmol/L BUN 62 H (9-20) mg/dL Creatinine 6.0 H (0.8-1.3) mg/dL Glucose 117 H (75-100) mg/dL Calcium 7.9 L (8.4-10.2) mg/dL - Allied health notes Allied health notes reviewed: nursing
[2020-11-04] MEDS: EPOETIN ALFA-EPBX 20,000 UNIT/1 ML VIAL SUB-Q PRN (17:15)
--- NOTE | 2020-11-04 18:21 | Event Note ---
Date: 11/04/20 I spoke with patient's daughter and granddaughter at the bedside Answered all their questions, they were anxious to take him home Informed them that outpatient HD placement should be scheduled by case management Prior to discharge, they verbalized understanding
[2020-11-04] MEDS: PANTOPRAZOLE 40 MG TAB PO SCH (22:04)
[2020-11-05 04:46] LABS: Gamma Globulin 0.9 g/dL (0.8-1.7)
[2020-11-05] MEDS: NITROGLYCERIN 0.4 MG PATCH 24HR TD SCH (05:05)
[2020-11-05] MEDS: INSULIN REGULAR, HUMAN 100 UNITS/1 ML SUB-Q SCH ×4 (07:59→22:07)
[2020-11-05] MEDS: PANTOPRAZOLE 40 MG TAB PO SCH ×2 (09:18→17:44)
[2020-11-05] MEDS: amLODIPine 10 MG TAB PO SCH (09:18)
[2020-11-05] MEDS: ASPIRIN EC 81 MG TAB PO SCH (09:18)
[2020-11-05] MEDS: CALCIUM ACETATE 667 MG CAP PO SCH ×3 (09:18→17:43)
[2020-11-05] MEDS: carvediloL 12.5 MG TAB PO SCH ×2 (09:18→22:06)
[2020-11-05] MEDS: FUROSEMIDE 40 MG TAB PO SCH (09:18)
[2020-11-05 09:32] LABS: Myeloperoxidase Antibody <1.0 AI (<1.0)
--- NOTE | 2020-11-05 10:00 | Progress Note ---
Assessment and Plan 1. Acute kidney injury superimposed on CKD: MODE superimposed on CKD . CT abdomen negative for hydro. Monitor renal function. Renal prognosis is guarded to poor. Avoid nephrotoxic agents. Meds dosage based on GFR. Patient was started on hemodialysis due to significant decline in the GFR, associated hyperkalemia, metabolic acidosis and volume overload. Hemodialysis: 10/30, 10/31, 11/02, 11/04. 2. FEN: Hyperkalemia, improved, monitor. Anion-gap Metabolic acidosis, s/p HD, monitor. Volume overload, improved with HD. Monitor lytes. 3. Heavy proteinuria: ?etiology. JENNIFER and ANCA are negative. SPEP negative for M-spike. GBM Ab and Complements are pending. 4. Decompensated CHF: Echo EF 45-50%. Strict I/O. On Carvedilol. Followed by Cards. 5. Elevated liver enzymes: Hepatitis serologies negative. 6. GI bleed: Per GI EGD after clearance from Cards. 7. Hypertensive urgency: BP controlled. UF with HD as tolerated. Adjust meds as needed. Monitor. 8. Hypochromic Anemia, POA: ?2/2 GI bleed. Followed by GI. Epo. Monitor. 9. Thrombocytopenia. 10. Chronic thoraco-abdominal aneurysm. Await outpatient hemodialysis chair. Subjective: Patient was seen and examined at the bedside. Examination: General appearance: well-developed, thin built, appears stated age, not in distress HEENT: ATNC, pupils equal Neck: supple Respiratory: bibasal diminished breath sounds Cardiology: regular, S1S2, no murmur Gastrointestinal: soft, bowel sounds heard, not tender Integumentary: warm and dry, upper chest hypopigmented patches noted Neurologic: alert, moving extremities Ext: no edema Hemodialysis access: L Tunnel catheter Subjective Date of service: 11/05/20 Principal diagnosis: Anemia, Abnormal LFTs Objective - Vital Signs Vital signs: Vital Signs - 12hr 11/04/20 11/04/20 11/05/20 22:04 23:42 04:19 Temperature 32.1 F L 97.4 F L Pulse Rate 75 80 76 Respiratory 17 17 Rate Blood Pressure 107/58 125/75 114/64 O2 Sat by Pulse 96 96 Oximetry 11/05/20 11/05/20 11/05/20 05:05 08:00 09:55 Temperature Pulse Rate 76 78 Respiratory Rate Blood Pressure 114/64 O2 Sat by Pulse 97 Oximetry - Lab 11/02/20 04:31 11/06/20 03:49 Most recent lab results ABG pH 7.384 pH Units (7.350-7.450) 10/29/20 14:40 ABG pCO2 32.3 mm Hg 10/29/20 14:40 ABG pO2 107.8 mm Hg (80.0-90.0) H 10/29/20 14:40 ABG HCO3 18.8 mmol/L (20.0-26.0) L 10/29/20 14:40 ABG O2 Saturation 97.9 % (95.0-99.0) 10/29/20 14:40 Calcium 7.9 mg/dL (8.4-10.2) L 11/04/20 06:10 Phosphorus 2.60 mg/dL (2.5-4.5) 11/04/20 06:10 Magnesium 2.30 mg/dL (1.7-2.3) 10/31/20 05:32 Urine Creatinine 78.5 mg/dL (0.1-20.0) H 10/29/20 15:40 Urine Sodium 76 mmol/L 10/29/20 15:40 Urine Total Protein 745 mg/dL (5-11.8) H 10/29/20 15:40 Medications & Allergies - Medications Allergies/Adverse Reactions: Allergies No Known Allergies Allergy (Unverified 05/07/14 01:13) Home Medications: Home Medications Medication Instructions Recorded Confirmed Last Taken Type Amlodipine Besylate [Norvasc] 10 mg PO QDAY 10/28/20 10/28/20 Unknown History Aspirin EC [Halfprin EC] 81 mg PO QDAY 10/28/20 10/28/20 Unknown History Atorvastatin Calcium [Lipitor] 80 mg PO QDAY 10/28/20 10/28/20 Unknown History Lisinopril [Zestril] 10 mg PO QDAY 10/28/20 10/28/20 Unknown History Active Medications: Generic Name Dose Route Start Last Admin Trade Name Freq PRN Reason Stop Dose Admin Acetaminophen 650 mg 10/29/20 02:17 Acetaminophen 325 Mg Tab PO Q6H PRN Pain MILD(1-3)/Fever >100.5/SCHMITT Amlodipine Besylate 10 mg 10/30/20 13:00 11/05/20 09:18 Amlodipine 10 Mg Tab PO 10 mg QDAY [facility] Administration Aspirin 81 mg 10/30/20 10:00 11/05/20 09:18 Aspirin Ec 81 Mg Tab PO 81 mg QDAY [facility] Administration Calcium Acetate 667 mg 10/31/20 12:00 11/05/20 09:18 Calcium Acetate 667 Mg Cap PO 667 mg TIDWM POLINA Administration Carvedilol 12.5 mg 10/29/20 22:00 11/05/20 09:18 Carvedilol 12.5 Mg Tab PO 12.5 mg BID POLINA Administration Dextrose 0 ml 10/29/20 02:17 Dextrose 50% In Water (25gm) 50 Ml Syringe IV Q30MIN PRN Hypoglycemia Protocol Furosemide 80 mg 11/01/20 10:00 11/05/20 09:18 Furosemide 40 Mg Tab PO 80 mg QDAY [facility] Administration Hydralazine HCl 10 mg 10/29/20 06:13 10/29/20 10:10 Hydralazine 20 Mg/1 Ml Inj IV 10 mg Q4H PRN Administration Blood Pressure Sodium Chloride 100 mls @ 999 mls/hr 10/30/20 10:00 Nacl 0.9% IV MARKY PRN Hypotension Insulin Human Regular 0 units 10/29/20 07:30 11/05/20 07:59 Insulin Regular, Human 100 Units/1 Ml SUB-Q Not Given ACHS [facility] Protocol Isosorbide Mononitrate 30 mg 11/01/20 15:00 11/05/20 09:18 Isosorbide Mononitrate Er 30 Mg Tab PO 30 mg QDAY [facility] Administration Magnesium Hydroxide 30 ml 10/29/20 02:17 Magnesium Hydroxide (Mom) Oral Liqd Udc PO Q4H PRN Constipation Nitroglycerin 0.4 mg 10/31/20 06:00 11/05/20 05:05 Nitroglycerin 0.4 Mg Patch 24hr TD Not Given QDAY@0600 [facility] Ondansetron HCl 4 mg 10/29/20 02:17 10/31/20 16:38 Ondansetron 4 Mg/2 Ml Inj IV 4 mg Q8H PRN Administration Nausea And Vomiting Pantoprazole Sodium 40 mg 11/04/20 16:30 11/05/20 09:18 Pantoprazole 40 Mg Tab PO 40 mg BIDAC [facility] Administration Sodium Chloride 10 ml 10/29/20 10:00 11/04/20 22:11 Sodium Chloride 0.9% 10 Ml Flush Syringe IV 10 ml BID POLINA Administration Sodium Chloride 10 ml 10/29/20 02:17 Sodium Chloride 0.9% 10 Ml Flush Syringe IV PRN PRN LINE FLUSH
--- NOTE | 2020-11-05 11:28 | Progress Note ---
Assessment and Plan Assessment and plan: --Acute kidney injury superimposed on chronic kidney disease Current Visit: Yes Status: Acute Patient with chronic kidney disease. Worsening renal function s/p Permacath placement, hemodialysis 10/30, 10/31 Nephrology following, outpatient HD chair placement at discharge per renal -- Hyperkalemia/present on admission Current Visit: Yes Status: Acute Patient is received insulin and glucose, calcium gluconate sodium bicarb while in the emergency room Normal potassium levels, monitor electrolytes -- Anemia Current Visit: Yes Status: Acute Possibly from GI bleed. Received 1 unit of PRBC transfusion, Hb today 7.9 Stool Hemoccult done in the ER was negative Patient has no new episodes of bleeding, hemoglobin today 7.5 Due to cardiac risk factors, cardiology not cleared for elective endoscopy, GI following --GI bleed Current Visit: Yes Status: Acute GI evaluated the patient Planning for endoscopy however Cardiology did not clear for the procedure due to cardiac risk factors Unless actively bleeding due to risk factors --Acute liver injury /transaminitis Current Visit: Yes Status: Acute Plan to address problem: CT of the abdomen and pelvis did not reveal any acute abnormality. Trending down. AST 517-96, ALT 445-to 74 GI following --Hypertensive urgency Current Visit: Yes Status: Acute Moderate control , continue current antihypertensives As needed medications , closely monitor -- Pulmonary edema Current Visit: Yes Status: Acute Plan to address problem: Pulmonary edema shown on CT scan of the abdomen and pelvis. Patient had a dose of IV Lasix. Will check echocardiogram. We will place a consult to cardiology for evaluation. --DVT prophylaxis Current Visit: Yes Status: Acute Plan to address problem: Patient placed on sequential compression device. -- Full code status Current Visit: Yes Status: Acute Plan to address problem: Patient is full code. Follow consultants recommendations brief history and daily hospital course 10/31/2020; patient received permacath placement Hemodialysis per schedule, possible endoscopy tomorrow 11/01/2020; patient feels slightly better, GI waiting for Cardiology clearance for endoscopy 11/02/2020; no new episodes of GI bleeding HPI low stable 7.5 today Due to multiple cardiac risk factors, cardiology did not For elective endoscopy, unless life-threatening bleeding. 11/03/2020; patient feels better No new episodes of GI bleeding, no endoscopy during this admission Outpatient HD placement per nephrology prior to discharge 11/04/2020; awaiting outpatient HD placement I spoke with patient's daughter and granddaughter at the bedside Answered all their questions, they were anxious to take him home Informed them that outpatient HD placement should be scheduled by case management Prior to discharge, they verbalized understanding 11/05/2020; patient is medically stable for discharge Awaiting outpatient HD placement History Interval history: I have seen and examined the patient at the bedside Patient's chart and medications reviewed Patient feels better no new complaints Awaiting outpatient HD placement Hospitalist Physical - Constitutional Vitals: Temp Pulse Resp BP Pulse Ox 97.4 F L 78 17 114/64 97 11/05/20 04:19 11/05/20 08:00 11/05/20 04:19 11/05/20 05:05 11/05/20 09:55 General appearance: Present: no acute distress, cachectic, other (Patient is lethargic, frail and chronically ill-appearing) - EENT Eyes: Present: PERRL, EOM intact - Neck Neck: Present: supple, normal ROM - Respiratory Respiratory effort: normal Respiratory: bilateral: diminished, negative: rales, rhonchi, wheezing - Cardiovascular Rhythm: regular Heart Sounds: Present: S1 & S2 - Extremities Extremities: no ischemia, No edema - Abdominal General gastrointestinal: soft, non-tender, non-distended, normal bowel sounds - Integumentary Integumentary: Present: clear, warm - Psychiatric Psychiatric: appropriate mood/affect, cooperative - Neurologic Neurologic: CNII-XII intact, moves all extremities Results - Labs CBC & Chem 7: 11/02/20 04:31 11/04/20 06:10 Labs: Laboratory Last Values WBC 7.6 K/mm3 (4.5-11.0) 11/02/20 04:31 RBC 3.52 M/mm3 (3.65-5.03) L 11/02/20 04:31 Hgb 7.5 gm/dl (11.8-15.2) L 11/02/20 04:31 Hct 23.5 % (35.5-45.6) L 11/02/20 04:31 MCV 67 fl (84-94) L 11/02/20 04:31 MCH 21 pg (28-32) L 11/02/20 04:31 MCHC 32 % (32-34) 11/02/20 04:31 RDW 18.3 % (13.2-15.2) H 11/02/20 04:31 Plt Count 123 K/mm3 (140-440) L 11/02/20 04:31 Lymph % (Auto) 15.8 % (13.4-35.0) 11/02/20 04:31 Duc[place]ne % (Auto) 13.8 % (0.0-7.3) H 11/02/20 04:31 Eos % (Auto) 1.2 % (0.0-4.3) 11/02/20 04:31 Baso % (Auto) 0.4 % (0.0-1.8) 11/02/20 04:31 Lymph # (Auto) 1.2 K/mm3 (1.2-5.4) 11/02/20 04:31 Duchesne # (Auto) 1.0 K/mm3 (0.0-0.8) H 11/02/20 04:31 Eos # (Auto) 0.1 K/mm3 (0.0-0.4) 11/02/20 04:31 Baso # (Auto) 0.0 K/mm3 (0.0-0.1) 11/02/20 04:31 Add Manual Diff Complete 10/30/20 04:25 Total Counted 100 10/30/20 04:25 Seg Neutrophils % 68.8 % (40.0-70.0) 11/02/20 04:31 Seg Neuts % (Manual) 87.0 % (40.0-70.0) H 10/30/20 04:25 Band Neutrophils % 1.0 % 10/30/20 04:25 Lymphocytes % (Manual) 5.0 % (13.4-35.0) L 10/30/20 04:25 Monocytes % (Manual) 7.0 % (0.0-7.3) 10/30/20 04:25 Nucleated RBC % 1.0 % (0.0-0.9) H 10/30/20 04:25 Seg Neutrophils # 5.3 K/mm3 (1.8-7.7) 11/02/20 04:31 Seg Neutrophils # Man 7.0 K/mm3 (1.8-7.7) 10/30/20 04:25 Band Neutrophils # 0.1 K/mm3 10/30/20 04:25 Lymphocytes # (Manual) 0.4 K/mm3 (1.2-5.4) L 10/30/20 04:25 Abs React Lymphs (Man) 0.0 K/mm3 10/30/20 04:25 Monocytes # (Manual) 0.6 K/mm3 (0.0-0.8) 10/30/20 04:25 Eosinophils # (Manual) 0.0 K/mm3 (0.0-0.4) 10/30/20 04:25 Basophils # (Manual) 0.0 K/mm3 (0.0-0.1) 10/30/20 04:25 Metamyelocytes # 0.0 K/mm3 10/30/20 04:25 Myelocytes # 0.0 K/mm3 10/30/20 04:25 Promyelocytes # 0.0 K/mm3 10/30/20 04:25 Blast Cells # 0.0 K/mm3 10/30/20 04:25 WBC Morphology Not Reportable 10/30/20 04:25 Hypersegmented Neuts Not Reportable 10/30/20 04:25 Hyposegmented Neuts Not Reportable 10/30/20 04:25 Hypogranular Neuts Not Reportable 10/30/20 04:25 Smudge Cells Not Reportable 10/30/20 04:25 Toxic Granulation Not Reportable 10/30/20 04:25 Toxic Vacuolation Not Reportable 10/30/20 04:25 Dohle Bodies Not Reportable 10/30/20 04:25 Pelger-Huet Anomaly Not Reportable 10/30/20 04:25 Katherine Rods Not Reportable 10/30/20 04:25 Platelet Estimate Consistent w auto 10/30/20 04:25 Clumped Platelets Not Reportable 10/30/20 04:25 Plt Clumps, EDTA Not Reportable 10/30/20 04:25 Large Platelets Not Reportable 10/30/20 04:25 Giant Platelets Not Reportable 10/30/20 04:25 Platelet Satelliting Not Reportable 10/30/20 04:25 Plt Morphology Comment Not Reportable 10/30/20 04:25 RBC Morphology Not Reportable 10/30/20 04:25 Dimorphic RBCs Not Reportable 10/30/20 04:25 Polychromasia Few 10/30/20 04:25 Hypochromasia 2+ 07/12/21 04:25 Poikilocytosis Not Reportable 10/30/20 04:25 Anisocytosis 2+ 10/30/20 04:25 Microcytosis Not Reportable 10/30/20 04:25 Macrocytosis Not Reportable 10/30/20 04:25 Spherocytes Not Reportable 10/30/20 04:25 Pappenheimer Bodies Not Reportable 10/30/20 04:25 Sickle Cells Not Reportable 10/30/20 04:25 Target Cells Not Reportable 10/30/20 04:25 Tear Drop Cells Not Reportable 10/30/20 04:25 Ovalocytes Not Reportable 10/30/20 04:25 Helmet Cells Not Reportable 10/30/20 04:25 [place] Bodies Not Reportable 10/30/20 04:25 Russell Rings Not Reportable 10/30/20 04:25 Jermaine Cells Not Reportable 10/30/20 04:25 Bite Cells Not Reportable 10/30/20 04:25 Crenated Cell Not Reportable 10/30/20 04:25 Elliptocytes Not Reportable 10/30/20 04:25 Acanthocytes (Spur) Not Reportable 10/30/20 04:25 Rouleaux Not Reportable 10/30/20 04:25 Hemoglobin C Crystals Not Reportable 10/30/20 04:25 Schistocytes 1+ 10/30/20 04:25 Malaria parasites Not Reportable 10/30/20 04:25 Ellis Bodies Not Reportable 10/30/20 04:25 Hem Pathologist Commnt No 10/30/20 04:25 PT 18.4 Sec. (12.2-14.9) H 10/31/20 19:20 INR 1.48 (0.87-1.13) H 10/31/20 19:20 APTT 33.8 Sec. (24.2-36.6) 10/31/20 19:20 ABG pH 7.384 pH Units (7.350-7.450) 10/29/20 14:40 ABG pCO2 32.3 mm Hg 10/29/20 14:40 ABG pO2 107.8 mm Hg (80.0-90.0) H 10/29/20 14:40 ABG HCO3 18.8 mmol/L (20.0-26.0) L 10/29/20 14:40 ABG O2 Saturation 97.9 % (95.0-99.0) 10/29/20 14:40 ABG O2 Content 10.3 (0.0-44) 10/29/20 14:40 ABG Base Excess -5.6 mmol/L (-2.0-3.0) L 10/29/20 14:40 ABG Hemoglobin 7.4 gm/dl (14.0-18.0) L 10/29/20 14:40 ABG Carboxyhemoglobin 1.5 % (0.0-5.0) 10/29/20 14:40 ABG Methemoglobin 0.5 % (0.0-1.5) 10/29/20 14:40 Oxyhemoglobin 95.9 % (95.0-99.0) 10/29/20 14:40 FiO2 28 % 10/29/20 14:40 Sodium 135 mmol/L (137-145) L 11/04/20 06:10 Potassium 3.6 mmol/L (3.6-5.0) 11/04/20 06:10 Chloride 97.8 mmol/L (98-107) L 11/04/20 06:10 Carbon Dioxide 26 mmol/L (22-30) 11/04/20 06:10 Anion Gap 15 mmol/L 11/04/20 06:10 BUN 62 mg/dL (9-20) H 11/04/20 06:10 Creatinine 6.0 mg/dL (0.8-1.3) H 11/04/20 06:10 Estimated GFR 9 ml/min 11/04/20 06:10 BUN/Creatinine Ratio 10 % 11/04/20 06:10 Glucose 117 mg/dL (75-100) H 11/04/20 06:10 POC Glucose 95 mg/dL (70-105) 11/05/20 07:40 Hemoglobin A1c 5.3 % (4-6) 10/29/20 02:00 Calcium 7.9 mg/dL (8.4-10.2) L 11/04/20 06:10 Phosphorus 2.60 mg/dL (2.5-4.5) 11/04/20 06:10 Magnesium 2.30 mg/dL (1.7-2.3) 10/31/20 05:32 Total Bilirubin 0.60 mg/dL (0.1-1.2) 11/02/20 04:31 AST 96 units/L (5-40) H 11/02/20 04:31 ALT 274 units/L (7-56) H 11/02/20 04:31 Alkaline Phosphatase 92 units/L (35-129) 11/02/20 04:31 Serum Total Protein 5.4 g/dL (6.1-8.1) L 11/01/20 04:32 Total Protein 5.1 g/dL (6.3-8.2) L 11/02/20 04:31 Albumin 3.0 g/dL (3.9-5) L 11/02/20 04:31 Albumin/Globulin Ratio 1.4 % 11/02/20 04:31 Inlhi-4-Cdvepoyiu 0.4 g/dL (0.2-0.3) H 11/01/20 04:32 Jblzn-1-Nmxnijnee 0.5 g/dL (0.5-0.9) 11/01/20 04:32 Beta Globulins 0.2 g/dL (0.2-0.5) 11/01/20 04:32 Gamma Globulins 0.9 g/dL (0.8-1.7) 11/01/20 04:32 Abnorm Protein Band 1 see below 11/01/20 04:32 PEP Interpretation see below H 11/01/20 04:32 Lipase 51 units/L (13-60) 10/28/20 22:43 PTH Intact 176.3 pg/mL (15-65) H 10/30/20 04:25 Urine Color Yellow (Yellow) 10/28/20 Unknown Urine Turbidity Cloudy (Clear) 10/28/20 Unknown Urine pH 5.0 (5.0-7.0) 10/28/20 Unknown Ur Specific [place] 1.018 (1.003-1.030) 10/28/20 Unknown Urine Protein >500 mg/dL (Negative) 10/28/20 Unknown Urine Glucose (UA) 50 mg/dL (Negative) 10/28/20 Unknown Urine Ketones Neg mg/dL (Negative) 10/28/20 Unknown Urine Blood Mod (Negative) 10/28/20 Unknown Urine Nitrite Neg (Negative) 10/28/20 Unknown Urine Bilirubin Neg (Negative) 10/28/20 Unknown Urine Urobilinogen < 2.0 mg/dL (<2.0) 10/28/20 Unknown Ur Leukocyte Esterase Neg (Negative) 10/28/20 Unknown Urine WBC (Auto) 4.0 /HPF (0.0-6.0) 10/28/20 Unknown Urine RBC (Auto) 10.0 /HPF (0.0-6.0) 10/28/20 Unknown U Epithel Cells (Auto) 1.0 /HPF (0-13.0) 10/28/20 Unknown Urine Mucus Few /HPF 10/28/20 Unknown Urine Creatinine 78.5 mg/dL (0.1-20.0) H 10/29/20 15:40 Protein/Creatinin Ratio 9.49 10/29/20 15:40 Urine Sodium 76 mmol/L 10/29/20 15:40 Urine Total Protein 745 mg/dL (5-11.8) H 10/29/20 15:40 Proteinase 3 (PR3) Ab <1.0 AI (<1.0) 11/01/20 04:32 Myeloperoxidase Ab <1.0 AI (<1.0) 11/01/20 04:32 Coronavirus (PCR) Negative (Negative) 11/03/20 Unknown Hepatitis A IgM Ab Non-reactive (NonReactive) 10/29/20 00:00 Hep Bs Antigen Non-reactive (Negative) 10/29/20 00:00 Hep B Core IgM Ab Non-reactive (NonReactive) 10/29/20 00:00 Hepatitis C Antibody Non-reactive (NonReactive) 10/29/20 00:00 Blood Type O POSITIVE 10/30/20 10:53 Antibody Screen Negative 10/30/20 10:53 Crossmatch See Detail 10/30/20 10:53 [place]/IV: Voiding Method Bedside Commode Active Medications - Current Medications Current Medications: Generic Name Dose Route Start Last Admin Trade Name Freq PRN Reason Stop Dose Admin Acetaminophen 650 mg 10/29/20 02:17 Acetaminophen 325 Mg Tab PO Q6H PRN Pain MILD(1-3)/Fever >100.5/SCHMITT Amlodipine Besylate 10 mg 10/30/20 13:00 11/05/20 09:18 Amlodipine 10 Mg Tab PO 10 mg QDAY POLINA Administration Aspirin 81 mg 10/30/20 10:00 11/05/20 09:18 Aspirin Ec 81 Mg Tab PO 81 mg QDAY [facility] Administration Calcium Acetate 667 mg 10/31/20 12:00 11/05/20 09:18 Calcium Acetate 667 Mg Cap PO 667 mg TIDWM POLINA Administration Carvedilol 12.5 mg 10/29/20 22:00 11/05/20 09:18 Carvedilol 12.5 Mg Tab PO 12.5 mg BID POLINA Administration Dextrose 0 ml 10/29/20 02:17 Dextrose 50% In Water (25gm) 50 Ml Syringe IV Q30MIN PRN Hypoglycemia Protocol Furosemide 80 mg 11/01/20 10:00 11/05/20 09:18 Furosemide 40 Mg Tab PO 80 mg QDAY [facility] Administration Hydralazine HCl 10 mg 10/29/20 06:13 10/29/20 10:10 Hydralazine 20 Mg/1 Ml Inj IV 10 mg Q4H PRN Administration Blood Pressure Sodium Chloride 100 mls @ 999 mls/hr 10/30/20 10:00 Nacl 0.9% IV MARKY PRN Hypotension Insulin Human Regular 0 units 10/29/20 07:30 11/05/20 07:59 Insulin Regular, Human 100 Units/1 Ml SUB-Q Not Given ACHS [facility] Protocol Isosorbide Mononitrate 30 mg 11/01/20 15:00 11/05/20 09:18 Isosorbide Mononitrate Er 30 Mg Tab PO 30 mg QDAY [facility] Administration Magnesium Hydroxide 30 ml 10/29/20 02:17 Magnesium Hydroxide (Mom) Oral Liqd Udc PO Q4H PRN Constipation Nitroglycerin 0.4 mg 10/31/20 06:00 11/05/20 05:05 Nitroglycerin 0.4 Mg Patch 24hr TD Not Given QDAY@0600 [facility] Ondansetron HCl 4 mg 10/29/20 02:17 10/31/20 16:38 Ondansetron 4 Mg/2 Ml Inj IV 4 mg Q8H PRN Administration Nausea And Vomiting Pantoprazole Sodium 40 mg 11/04/20 16:30 11/05/20 09:18 Pantoprazole 40 Mg Tab PO 40 mg BIDAC POLINA Administration Sodium Chloride 10 ml 10/29/20 10:00 11/04/20 22:11 Sodium Chloride 0.9% 10 Ml Flush Syringe IV 10 ml BID POLINA Administration Sodium Chloride 10 ml 10/29/20 02:17 Sodium Chloride 0.9% 10 Ml Flush Syringe IV PRN PRN LINE FLUSH Nutrition/Malnutrition Assess - Dietary Evaluation Nutrition/Malnutrition Findings: Nutrition Notes Start: 10/29/20 12:02 Freq: Status: Active Protocol: Document 11/03/20 11:16 (Rec: 11/03/20 11:19 [email or web address]) Nutrition Notes Initial or Follow up Reassessment Current Diagnosis Acute Kidney Injury,Diabetes, Hypertension,Heart Failure, Hyperlipidemia Other Pertinent Diagnosis elevated LFTs, GIB, anemia Current Diet Cardiac, Consistent CHO Labs/Tests Reviewed Pertinent Medications Reviewed Height 5 ft 5 in Weight 46.1 kg Amoret Body Weight (kg) 61.81 BMI 16.9 Weight Status Underweight Subjective/Other Information FU for intakes. Per RN pt eating 90% of meals and 90% of ONS. Percent of energy/protein needs met: 100%/100% Burn Absent Trauma Absent GI Symptoms None Current % PO Good (75-100%) Minimum of two criteria Yes Energy Intake (non-severe) <75% Estimated Energy Requirement >7 days Muscle Mass Mild Depletion (non-severe) #1 Nutrition Diagnosis Malnutrition As Evidenced by Signs and Symptoms pt eaing 90% of meals Diagnosis Progress(for reassessment Continues documentation) Is patient on ventilator? No Is Patient Ambulatory and/or Out of Bed No REE-([facility]-confined to bed) 1324.572 Calculation Used for Recommendations [facility] Additional Notes Protein: (1.2-1.5g/kg) 62-77g Fluid: 1 ml/kcal or per MD Nutrition Intervention Change Diet Order: Continue Add Supplement/Snack (indicate name/kcal Nepro BID /protein ) Provides kCal: 850 Provides Protein (gm) 38 Goal #1 Meet at least 80% of protein and energy needs via PO and ONS intakes Goal #2 Weight gain/maintenance Anticipated Discharge Needs: Cardiac, Consistent CHO Follow-Up By: 11/07/20 Additional Comments FU for intakes, ONS tolerance
--- NOTE | 2020-11-05 13:42 | Progress Note ---
Assessment and Plan - Patient Problems (1) Abnormal ECG Current Visit: Yes Status: Acute Plan to address problem: As previously reported, the ECG showed marked T wave abnormalities across the precordium, more pronounced than his baseline revascularization abnormalities of LVH. He has no prior history of coronary artery disease, but has had thoracotomy for repair of an ascending aortic aneurysm. Due to abnormal ECG, we will plan predischarge nonischemic work-up with a Lexiscan thallium. (2) Preoperative cardiovascular examination Current Visit: Yes Status: Acute Subjective Date of service: 11/05/20 Principal diagnosis: Anemia, Abnormal LFTs Interval history: Patient is comfortable, in no acute distress, routine dialysis program is ongoing. No chest pain, no shortness of breath, no edema. As previously reported, the ECG showed marked T wave abnormalities across the precordium, more pronounced than his baseline revascularization abnormalities of LVH. He has no prior history of coronary artery disease, but has had thoracotomy for repair of an ascending aortic aneurysm. Objective Vital Signs Temp Pulse Resp BP Pulse Ox 11/05/20 09:55 97 11/05/20 08:00 78 11/05/20 05:05 76 114/64 11/05/20 04:19 97.4 F L 76 17 114/64 96 11/04/20 23:42 32.1 F L 80 17 125/75 96 11/04/20 22:04 75 107/58 11/04/20 22:00 75 11/04/20 20:35 97.5 F L 75 16 107/58 95 11/04/20 20:20 95 11/04/20 19:00 98.2 F 70 18 128/69 11/04/20 18:45 68 113/73 11/04/20 18:30 72 113/68 11/04/20 18:15 72 113/67 11/04/20 18:00 71 113/67 11/04/20 17:45 70 114/71 11/04/20 17:30 70 120/67 11/04/20 17:15 70 111/66 11/04/20 17:00 69 103/64 11/04/20 16:45 69 101/62 11/04/20 16:30 69 106/64 11/04/20 16:15 68 101/62 11/04/20 16:00 67 112/65 11/04/20 15:45 67 109/67 11/04/20 15:40 69.5 F L 67 19 118/65 - Physical Examination General: No Apparent Distress HEENT: Positive: PERRL Neck: Positive: neck supple Cardiac: Positive: Reg Rate and Rhythm Lungs: Positive: Decreased Breath Sounds Neuro: Positive: Weakness (Generalized weakness, frail and chronically ill appearing) Abdomen: Positive: Soft Skin: Positive: Clear Extremities: Absent: normal - Labs and Meds Comprehensive Metabolic Panel 11/01/20 Range/Units 04:32 Albumin 3.0 L (3.8-4.8) g/dL - Allied health notes Allied health notes reviewed: nursing
[2020-11-05 23:36] LABS: ANA Screen, IFA Negative (Negative)
[2020-11-06 04:57] LABS: Calcium 7.6 mg/dL (8.4-10.2)
[2020-11-06] MEDS ORDERED: REGADENOSON 0.4 MG/5 ML INJ IV ONE ×2 (08:32→08:33)
[2020-11-06] MEDS ORDERED: POTASSIUM CHLORIDE ER 20 MEQ TAB PO SCH (09:00)
[2020-11-06] MEDS: NITROGLYCERIN 0.4 MG PATCH 24HR TD SCH (09:11)
[2020-11-06] MEDS: INSULIN REGULAR, HUMAN 100 UNITS/1 ML SUB-Q SCH ×3 (09:11→21:33)
[2020-11-06] MEDS: CALCIUM ACETATE 667 MG CAP PO SCH ×2 (09:12→19:23)
--- NOTE | 2020-11-06 09:33 | Progress Note ---
Assessment and Plan Assessment and plan: --Hypokalemia; K3.5 Current Visit: Yes Status: Acute Replenish per protocol and monitor levels --Hypomagnesemia; Current Visit: Yes Status: Acute Nephro placed on magnesium oxide 400 twice a day Monitor electrolytes --Acute kidney injury superimposed on chronic kidney disease Current Visit: Yes Status: Acute Patient with chronic kidney disease. Worsening renal function s/p Permacath placement, hemodialysis 10/30, 10/31 Nephrology following, outpatient HD chair placement at discharge per renal. -- Hyperkalemia/present on admission Current Visit: Yes Status: Acute Patient is received insulin and glucose, calcium gluconate sodium bicarb while in the emergency room Normal potassium levels, monitor electrolytes -- Anemia Current Visit: Yes Status: Acute Possibly from GI bleed. Received 1 unit of PRBC transfusion, Hb today 7.9 Stool Hemoccult done in the ER was negative Patient has no new episodes of bleeding, hemoglobin today 7.5 Due to cardiac risk factors, cardiology not cleared for elective endoscopy, GI following --GI bleed Current Visit: Yes Status: Acute GI evaluated the patient Planning for endoscopy however Cardiology did not clear for the procedure due to cardiac risk factors Unless actively bleeding due to risk factors --Acute liver injury /transaminitis Current Visit: Yes Status: Acute Plan to address problem: CT of the abdomen and pelvis did not reveal any acute abnormality. Trending down. AST 517-96, ALT 445-to 74 GI following --Hypertensive urgency Current Visit: Yes Status: Acute Moderate control , continue current antihypertensives As needed medications , closely monitor -- Pulmonary edema Current Visit: Yes Status: Acute Plan to address problem: Pulmonary edema shown on CT scan of the abdomen and pelvis. Patient had a dose of IV Lasix. Will check echocardiogram. We will place a consult to cardiology for evaluation. --Moderate to severe malnutrition; Current Visit: Yes Status: Chronic Treat the underlying cause, nutrition supplements Nutrition consult --DVT prophylaxis Current Visit: Yes Status: Acute Plan to address problem: Patient placed on sequential compression device. -- Full code status Current Visit: Yes Status: Acute Plan to address problem: Patient is full code. Follow consultants recommendations Brief history and daily hospital course: 10/31/2020; patient received permacath placement Hemodialysis per schedule, possible endoscopy tomorrow 11/01/2020; patient feels slightly better, GI waiting for Cardiology clearance for endoscopy 11/02/2020; no new episodes of GI bleeding HPI low stable 7.5 today Due to multiple cardiac risk factors, cardiology did not For elective endoscopy, unless life-threatening bleeding. 11/03/2020; patient feels better No new episodes of GI bleeding, no endoscopy during this admission Outpatient HD placement per nephrology prior to discharge 11/04/2020; awaiting outpatient HD placement I spoke with patient's daughter and granddaughter at the bedside Answered all their questions, they were anxious to take him home Informed them that outpatient HD placement should be scheduled by case management Prior to discharge, they verbalized understanding 11/05/2020; patient is medically stable for discharge Awaiting outpatient HD placement 11/06/2020; Hypokalemia, hypomagnesemia, replenish per protocol awaiting outpatient HD placement Disposition per nephrology History Interval history: I have seen and examined the patient Patient's chart and medications reviewed Patient received hemodialysis today Awaiting outpatient HD placement Patient has no new complaints Vital signs reviewed Hospitalist Physical - Constitutional Vitals: Temp Pulse Resp BP Pulse Ox 98.8 F 72 16 113/67 97 11/06/20 03:33 11/06/20 03:33 11/06/20 03:33 11/06/20 03:33 11/06/20 07:54 General appearance: Present: no acute distress, cachectic, other (Patient is lethargic, frail and chronically ill-appearing) - EENT Eyes: Present: PERRL, EOM intact - Neck Neck: Present: supple, normal ROM - Respiratory Respiratory effort: normal Respiratory: bilateral: diminished, rales, negative: rhonchi, wheezing - Cardiovascular Rhythm: regular Heart Sounds: Present: S1 & S2 - Extremities Extremities: no ischemia, No edema - Abdominal General gastrointestinal: soft, non-tender, non-distended, normal bowel sounds - Integumentary Integumentary: Present: clear, warm - Psychiatric Psychiatric: appropriate mood/affect, cooperative - Neurologic Neurologic: moves all extremities Results - Labs CBC & Chem 7: 11/02/20 04:31 11/06/20 03:49 Labs: Laboratory Last Values WBC 7.6 K/mm3 (4.5-11.0) 11/02/20 04:31 RBC 3.52 M/mm3 (3.65-5.03) L 11/02/20 04:31 Hgb 7.5 gm/dl (11.8-15.2) L 11/02/20 04:31 Hct 23.5 % (35.5-45.6) L 11/02/20 04:31 MCV 67 fl (84-94) L 11/02/20 04:31 MCH 21 pg (28-32) L 11/02/20 04:31 MCHC 32 % (32-34) 11/02/20 04:31 RDW 18.3 % (13.2-15.2) H 11/02/20 04:31 Plt Count 123 K/mm3 (140-440) L 11/02/20 04:31 Lymph % (Auto) 15.8 % (13.4-35.0) 11/02/20 04:31 Kendall % (Auto) 13.8 % (0.0-7.3) H 11/02/20 04:31 Eos % (Auto) 1.2 % (0.0-4.3) 11/02/20 04:31 Baso % (Auto) 0.4 % (0.0-1.8) 11/02/20 04:31 Lymph # (Auto) 1.2 K/mm3 (1.2-5.4) 11/02/20 04:31 Kendall # (Auto) 1.0 K/mm3 (0.0-0.8) H 11/02/20 04:31 Eos # (Auto) 0.1 K/mm3 (0.0-0.4) 11/02/20 04:31 Baso # (Auto) 0.0 K/mm3 (0.0-0.1) 11/02/20 04:31 Add Manual Diff Complete 10/30/20 04:25 Total Counted 100 10/30/20 04:25 Seg Neutrophils % 68.8 % (40.0-70.0) 11/02/20 04:31 Seg Neuts % (Manual) 87.0 % (40.0-70.0) H 10/30/20 04:25 Band Neutrophils % 1.0 % 10/30/20 04:25 Lymphocytes % (Manual) 5.0 % (13.4-35.0) L 10/30/20 04:25 Monocytes % (Manual) 7.0 % (0.0-7.3) 10/30/20 04:25 Nucleated RBC % 1.0 % (0.0-0.9) H 10/30/20 04:25 Seg Neutrophils # 5.3 K/mm3 (1.8-7.7) 11/02/20 04:31 Seg Neutrophils # Man 7.0 K/mm3 (1.8-7.7) 10/30/20 04:25 Band Neutrophils # 0.1 K/mm3 10/30/20 04:25 Lymphocytes # (Manual) 0.4 K/mm3 (1.2-5.4) L 10/30/20 04:25 Abs React Lymphs (Man) 0.0 K/mm3 10/30/20 04:25 Monocytes # (Manual) 0.6 K/mm3 (0.0-0.8) 10/30/20 04:25 Eosinophils # (Manual) 0.0 K/mm3 (0.0-0.4) 10/30/20 04:25 Basophils # (Manual) 0.0 K/mm3 (0.0-0.1) 10/30/20 04:25 Metamyelocytes # 0.0 K/mm3 10/30/20 04:25 Myelocytes # 0.0 K/mm3 10/30/20 04:25 Promyelocytes # 0.0 K/mm3 10/30/20 04:25 Blast Cells # 0.0 K/mm3 10/30/20 04:25 WBC Morphology Not Reportable 10/30/20 04:25 Hypersegmented Neuts Not Reportable 10/30/20 04:25 Hyposegmented Neuts Not Reportable 10/30/20 04:25 Hypogranular Neuts Not Reportable 10/30/20 04:25 Smudge Cells Not Reportable 10/30/20 04:25 Toxic Granulation Not Reportable 10/30/20 04:25 Toxic Vacuolation Not Reportable 10/30/20 04:25 Dohle Bodies Not Reportable 10/30/20 04:25 Pelger-Huet Anomaly Not Reportable 10/30/20 04:25 Katherine Rods Not Reportable 10/30/20 04:25 Platelet Estimate Consistent w auto 10/30/20 04:25 Clumped Platelets Not Reportable 10/30/20 04:25 Plt Clumps, EDTA Not Reportable 10/30/20 04:25 Large Platelets Not Reportable 10/30/20 04:25 Giant Platelets Not Reportable 10/30/20 04:25 Platelet Satelliting Not Reportable 10/30/20 04:25 Plt Morphology Comment Not Reportable 10/30/20 04:25 RBC Morphology Not Reportable 10/30/20 04:25 Dimorphic RBCs Not Reportable 10/30/20 04:25 Polychromasia Few 10/30/20 04:25 Hypochromasia 2+ 10/30/20 04:25 Poikilocytosis Not Reportable 10/30/20 04:25 Anisocytosis 2+ 10/30/20 04:25 Microcytosis Not Reportable 10/30/20 04:25 Macrocytosis Not Reportable 10/30/20 04:25 Spherocytes Not Reportable 10/30/20 04:25 Pappenheimer Bodies Not Reportable 10/30/20 04:25 Sickle Cells Not Reportable 10/30/20 04:25 Target Cells Not Reportable 10/30/20 04:25 Tear Drop Cells Not Reportable 10/30/20 04:25 Ovalocytes Not Reportable 10/30/20 04:25 Helmet Cells Not Reportable 10/30/20 04:25 [place] Bodies Not Reportable 10/30/20 04:25 [place] Rings Not Reportable 10/30/20 04:25 Jermaine Cells Not Reportable 10/30/20 04:25 Bite Cells Not Reportable 10/30/20 04:25 Crenated Cell Not Reportable 10/30/20 04:25 Elliptocytes Not Reportable 10/30/20 04:25 Acanthocytes (Spur) Not Reportable 10/30/20 04:25 Rouleaux Not Reportable 10/30/20 04:25 Hemoglobin C Crystals Not Reportable 10/30/20 04:25 Schistocytes 1+ 10/30/20 04:25 Malaria parasites Not Reportable 10/30/20 04:25 Ellis Bodies Not Reportable 10/30/20 04:25 Hem Pathologist Commnt No 10/30/20 04:25 PT 18.4 Sec. (12.2-14.9) H 10/31/20 19:20 INR 1.48 (0.87-1.13) H 10/31/20 19:20 APTT 33.8 Sec. (24.2-36.6) 10/31/20 19:20 ABG pH 7.384 pH Units (7.350-7.450) 10/29/20 14:40 ABG pCO2 32.3 mm Hg 10/29/20 14:40 ABG pO2 107.8 mm Hg (80.0-90.0) H 10/29/20 14:40 ABG HCO3 18.8 mmol/L (20.0-26.0) L 10/29/20 14:40 ABG O2 Saturation 97.9 % (95.0-99.0) 10/29/20 14:40 ABG O2 Content 10.3 (0.0-44) 10/29/20 14:40 ABG Base Excess -5.6 mmol/L (-2.0-3.0) L 10/29/20 14:40 ABG Hemoglobin 7.4 gm/dl (14.0-18.0) L 10/29/20 14:40 ABG Carboxyhemoglobin 1.5 % (0.0-5.0) 10/29/20 14:40 ABG Methemoglobin 0.5 % (0.0-1.5) 10/29/20 14:40 Oxyhemoglobin 95.9 % (95.0-99.0) 10/29/20 14:40 FiO2 28 % 10/29/20 14:40 Sodium 134 mmol/L (137-145) L 11/06/20 03:49 Potassium 3.5 mmol/L (3.6-5.0) L 11/06/20 03:49 Chloride 96.0 mmol/L (98-107) L 11/06/20 03:49 Carbon Dioxide 28 mmol/L (22-30) 11/06/20 03:49 Anion Gap 14 mmol/L 11/06/20 03:49 BUN 54 mg/dL (9-20) H 11/06/20 03:49 Creatinine 5.0 mg/dL (0.8-1.3) H 11/06/20 03:49 Estimated GFR 11 ml/min 11/06/20 03:49 BUN/Creatinine Ratio 11 % 11/06/20 03:49 Glucose 95 mg/dL (75-100) 11/06/20 03:49 POC Glucose 100 mg/dL (70-105) 11/06/20 08:08 Hemoglobin A1c 5.3 % (4-6) 10/29/20 02:00 Calcium 7.6 mg/dL (8.4-10.2) L 11/06/20 03:49 Phosphorus 2.60 mg/dL (2.5-4.5) 11/04/20 06:10 Magnesium 1.60 mg/dL (1.7-2.3) L 11/06/20 03:49 Total Bilirubin 0.60 mg/dL (0.1-1.2) 11/02/20 04:31 AST 96 units/L (5-40) H 11/02/20 04:31 ALT 274 units/L (7-56) H 11/02/20 04:31 Alkaline Phosphatase 92 units/L (35-129) 11/02/20 04:31 Serum Total Protein 5.4 g/dL (6.1-8.1) L 11/01/20 04:32 Total Protein 5.1 g/dL (6.3-8.2) L 11/02/20 04:31 Albumin 3.0 g/dL (3.9-5) L 11/02/20 04:31 Albumin/Globulin Ratio 1.4 % 11/02/20 04:31 Rthhh-0-Mwftxamwg 0.4 g/dL (0.2-0.3) H 11/01/20 04:32 Cxkpz-1-Kepgbskrp 0.5 g/dL (0.5-0.9) 11/01/20 04:32 Beta Globulins 0.2 g/dL (0.2-0.5) 11/01/20 04:32 Gamma Globulins 0.9 g/dL (0.8-1.7) 11/01/20 04:32 Abnorm Protein Band 1 see below 11/01/20 04:32 PEP Interpretation see below H 11/01/20 04:32 Lipase 51 units/L (13-60) 10/28/20 22:43 PTH Intact 176.3 pg/mL (15-65) H 10/30/20 04:25 Urine Color Yellow (Yellow) 10/28/20 Unknown Urine Turbidity Cloudy (Clear) 10/28/20 Unknown Urine pH 5.0 (5.0-7.0) 10/28/20 Unknown Ur Specific [place] 1.018 (1.003-1.030) 10/28/20 Unknown Urine Protein >500 mg/dL (Negative) 10/28/20 Unknown Urine Glucose (UA) 50 mg/dL (Negative) 10/28/20 Unknown Urine Ketones Neg mg/dL (Negative) 10/28/20 Unknown Urine Blood Mod (Negative) 10/28/20 Unknown Urine Nitrite Neg (Negative) 10/28/20 Unknown Urine Bilirubin Neg (Negative) 10/28/20 Unknown Urine Urobilinogen < 2.0 mg/dL (<2.0) 10/28/20 Unknown Ur Leukocyte Esterase Neg (Negative) 10/28/20 Unknown Urine WBC (Auto) 4.0 /HPF (0.0-6.0) 10/28/20 Unknown Urine RBC (Auto) 10.0 /HPF (0.0-6.0) 10/28/20 Unknown U Epithel Cells (Auto) 1.0 /HPF (0-13.0) 10/28/20 Unknown Urine Mucus Few /HPF 10/28/20 Unknown Urine Creatinine 78.5 mg/dL (0.1-20.0) H 10/29/20 15:40 Protein/Creatinin Ratio 9.49 10/29/20 15:40 Urine Sodium 76 mmol/L 10/29/20 15:40 Urine Total Protein 745 mg/dL (5-11.8) H 10/29/20 15:40 JENNIFER Screen Negative (Negative) 11/01/20 04:32 Proteinase 3 (PR3) Ab <1.0 AI (<1.0) 11/01/20 04:32 Myeloperoxidase Ab <1.0 AI (<1.0) 11/01/20 04:32 Coronavirus (PCR) Negative (Negative) 11/03/20 Unknown Hepatitis A IgM Ab Non-reactive (NonReactive) 10/29/20 00:00 Hep Bs Antigen Non-reactive (Negative) 10/29/20 00:00 Hep B Core IgM Ab Non-reactive (NonReactive) 10/29/20 00:00 Hepatitis C Antibody Non-reactive (NonReactive) 10/29/20 00:00 Blood Type O POSITIVE 10/30/20 10:53 Antibody Screen Negative 10/30/20 10:53 Crossmatch See Detail 10/30/20 10:53 [place]/IV: Voiding Method Toilet Active Medications - Current Medications Current Medications: Generic Name Dose Route Start Last Admin Trade Name Freq PRN Reason Stop Dose Admin Acetaminophen 650 mg 10/29/20 02:17 Acetaminophen 325 Mg Tab PO Q6H PRN Pain MILD(1-3)/Fever >100.5/SCHMITT Amlodipine Besylate 10 mg 10/30/20 13:00 11/05/20 09:18 Amlodipine 10 Mg Tab PO 10 mg QDAY [facility] Administration Aspirin 81 mg 10/30/20 10:00 11/05/20 09:18 Aspirin Ec 81 Mg Tab PO 81 mg QDAY [facility] Administration Calcium Acetate 667 mg 10/31/20 12:00 11/06/20 09:12 Calcium Acetate 667 Mg Cap PO Not Given TIDWM [facility] Carvedilol 12.5 mg 10/29/20 22:00 11/05/20 22:06 Carvedilol 12.5 Mg Tab PO 12.5 mg BID POLINA Administration Dextrose 0 ml 10/29/20 02:17 Dextrose 50% In Water (25gm) 50 Ml Syringe IV Q30MIN PRN Hypoglycemia Protocol Furosemide 80 mg 11/01/20 10:00 11/05/20 09:18 Furosemide 40 Mg Tab PO 80 mg QDAY [facility] Administration Hydralazine HCl 10 mg 10/29/20 06:13 10/29/20 10:10 Hydralazine 20 Mg/1 Ml Inj IV 10 mg Q4H PRN Administration Blood Pressure Sodium Chloride 100 mls @ 999 mls/hr 10/30/20 10:00 Nacl 0.9% IV MARKY PRN Hypotension Insulin Human Regular 0 units 10/29/20 07:30 11/06/20 09:11 Insulin Regular, Human 100 Units/1 Ml SUB-Q Not Given ACHS [facility] Protocol Isosorbide Mononitrate 30 mg 11/01/20 15:00 11/05/20 09:18 Isosorbide Mononitrate Er 30 Mg Tab PO 30 mg QDAY [facility] Administration Magnesium Hydroxide 30 ml 10/29/20 02:17 Magnesium Hydroxide (Mom) Oral Liqd Udc PO Q4H PRN Constipation Magnesium Oxide 400 mg 11/06/20 10:00 Magnesium Oxide 400 Mg Tab PO BID [facility] Nitroglycerin 0.4 mg 10/31/20 06:00 11/06/20 09:11 Nitroglycerin 0.4 Mg Patch 24hr TD Not Given QDAY@0600 POLINA Ondansetron HCl 4 mg 10/29/20 02:17 10/31/20 16:38 Ondansetron 4 Mg/2 Ml Inj IV 4 mg Q8H PRN Administration Nausea And Vomiting Pantoprazole Sodium 40 mg 11/04/20 16:30 11/05/20 17:44 Pantoprazole 40 Mg Tab PO 40 mg BIDAC [facility] Administration Potassium Chloride 40 meq 11/06/20 09:00 Potassium Chloride Er 20 Meq Tab PO 11/06/20 12:30 ONCE POLINA Sodium Chloride 10 ml 10/29/20 10:00 11/05/20 22:07 Sodium Chloride 0.9% 10 Ml Flush Syringe IV 10 ml BID POLINA Administration Sodium Chloride 10 ml 10/29/20 02:17 Sodium Chloride 0.9% 10 Ml Flush Syringe IV PRN PRN LINE FLUSH Nutrition/Malnutrition Assess - Dietary Evaluation Nutrition/Malnutrition Findings: Nutrition Notes Start: 10/29/20 12:02 Freq: Status: Active Protocol: Document 11/03/20 11:16 (Rec: 11/03/20 11:19 [email or web address]) Nutrition Notes Initial or Follow up Reassessment Current Diagnosis Acute Kidney Injury,Diabetes, Hypertension,Heart Failure, Hyperlipidemia Other Pertinent Diagnosis elevated LFTs, GIB, anemia Current Diet Cardiac, Consistent CHO Labs/Tests Reviewed Pertinent Medications Reviewed Height 5 ft 5 in Weight 46.1 kg [place] Body Weight (kg) 61.81 BMI 16.9 Weight Status Underweight Subjective/Other Information FU for intakes. Per RN pt eating 90% of meals and 90% of ONS. Percent of energy/protein needs met: 100%/100% Burn Absent Trauma Absent GI Symptoms None Current % PO Good (75-100%) Minimum of two criteria Yes Energy Intake (non-severe) <75% Estimated Energy Requirement >7 days Muscle Mass Mild Depletion (non-severe) #1 Nutrition Diagnosis Malnutrition As Evidenced by Signs and Symptoms pt eaing 90% of meals Diagnosis Progress(for reassessment Continues documentation) Is patient on ventilator? No Is Patient Ambulatory and/or Out of Bed No REE-([place] Jeor-confined to bed) 1324.572 Calculation Used for Recommendations [place] or Additional Notes Protein: (1.2-1.5g/kg) 62-77g Fluid: 1 ml/kcal or per MD Nutrition Intervention Change Diet Order: Continue Add Supplement/Snack (indicate name/kcal [place] BID /protein ) Provides kCal: 850 Provides Protein (gm) 38 Goal #1 Meet at least 80% of protein and energy needs via PO and ONS intakes Goal #2 Weight gain/maintenance Anticipated Discharge Needs: Cardiac, Consistent CHO Follow-Up By: 11/07/20 Additional Comments FU for intakes, ONS tolerance
--- NOTE | 2020-11-06 10:22 | Progress Note ---
Assessment and Plan 1. ESRD vs MODE superimposed on CKD: Suspect ESRD. CT abdomen negative for hydro. Monitor renal function. Renal prognosis is guarded to poor. Avoid nephrotoxic agents. Meds dosage based on GFR. Patient was started on hemodialysis due to significant decline in the GFR, associated hyperkalemia, metabolic acidosis and volume overload. Hemodialysis: 10/30, 10/31, 11/02, 11/04. 2. FEN: Hyperkalemia, improved, monitor. Anion-gap Metabolic acidosis, s/p HD, monitor. Volume overload, improved with HD. Monitor lytes. 3. Heavy proteinuria: ?etiology. JENNIFER and ANCA are negative. SPEP negative for M-spike. GBM Ab and Complements are pending. 4. Decompensated CHF: Echo EF 45-50%. Strict I/O. On Carvedilol. Followed by Cards. 5. Elevated liver enzymes: Hepatitis serologies negative. Improving. 6. GI bleed: Per GI EGD after clearance from Cards. 7. Hypertensive urgency: BP controlled. UF with HD as tolerated. Adjust meds as needed. Monitor. 8. Hypochromic Anemia, POA: ?2/2 GI bleed. Followed by GI. Epo. Monitor. 9. Thrombocytopenia. 10. Chronic thoraco-abdominal aneurysm. Await outpatient hemodialysis chair. Subjective: Patient was seen and examined at the bedside. Examination: General appearance: well-developed, thin built, appears stated age, not in distress HEENT: ATNC, pupils equal Neck: supple Respiratory: bibasal diminished breath sounds Cardiology: regular, S1S2, no murmur Gastrointestinal: soft, bowel sounds heard, not tender Integumentary: warm and dry, upper chest hypopigmented patches noted Neurologic: alert, moving extremities Ext: no edema Hemodialysis access: L Tunnel catheter Subjective Date of service: 11/06/20 Principal diagnosis: Anemia, Abnormal LFTs Objective - Vital Signs Vital signs: Vital Signs - 12hr 11/05/20 11/06/20 11/06/20 23:14 03:33 07:54 Temperature 98.8 F 98.8 F Pulse Rate 73 72 Respiratory 16 16 Rate Blood Pressure 106/57 113/67 O2 Sat by Pulse 97 97 97 Oximetry - Lab 11/02/20 04:31 11/06/20 03:49 Most recent lab results ABG pH 7.384 pH Units (7.350-7.450) 10/29/20 14:40 ABG pCO2 32.3 mm Hg 10/29/20 14:40 ABG pO2 107.8 mm Hg (80.0-90.0) H 10/29/20 14:40 ABG HCO3 18.8 mmol/L (20.0-26.0) L 10/29/20 14:40 ABG O2 Saturation 97.9 % (95.0-99.0) 10/29/20 14:40 Calcium 7.6 mg/dL (8.4-10.2) L 11/06/20 03:49 Phosphorus 2.60 mg/dL (2.5-4.5) 11/04/20 06:10 Magnesium 1.60 mg/dL (1.7-2.3) L 11/06/20 03:49 Urine Creatinine 78.5 mg/dL (0.1-20.0) H 10/29/20 15:40 Urine Sodium 76 mmol/L 10/29/20 15:40 Urine Total Protein 745 mg/dL (5-11.8) H 10/29/20 15:40 Medications & Allergies - Medications Allergies/Adverse Reactions: Allergies No Known Allergies Allergy (Unverified 05/07/14 01:13) Home Medications: Home Medications Medication Instructions Recorded Confirmed Last Taken Type Amlodipine Besylate [Norvasc] 10 mg PO QDAY 10/28/20 10/28/20 Unknown History Aspirin EC [Halfprin EC] 81 mg PO QDAY 10/28/20 10/28/20 Unknown History Atorvastatin Calcium [Lipitor] 80 mg PO QDAY 10/28/20 10/28/20 Unknown History Lisinopril [Zestril] 10 mg PO QDAY 10/28/20 10/28/20 Unknown History Active Medications: Generic Name Dose Route Start Last Admin Trade Name Freq PRN Reason Stop Dose Admin Acetaminophen 650 mg 10/29/20 02:17 Acetaminophen 325 Mg Tab PO Q6H PRN Pain MILD(1-3)/Fever >100.5/SCHMITT Amlodipine Besylate 10 mg 10/30/20 13:00 11/05/20 09:18 Amlodipine 10 Mg Tab PO 10 mg QDAY [facility] Administration Aspirin 81 mg 10/30/20 10:00 11/05/20 09:18 Aspirin Ec 81 Mg Tab PO 81 mg QDAY [facility] Administration Calcium Acetate 667 mg 10/31/20 12:00 11/06/20 09:12 Calcium Acetate 667 Mg Cap PO Not Given TIDWM [facility] Carvedilol 12.5 mg 10/29/20 22:00 11/05/20 22:06 Carvedilol 12.5 Mg Tab PO 12.5 mg BID POLINA Administration Dextrose 0 ml 10/29/20 02:17 Dextrose 50% In Water (25gm) 50 Ml Syringe IV Q30MIN PRN Hypoglycemia Protocol Furosemide 80 mg 11/01/20 10:00 11/05/20 09:18 Furosemide 40 Mg Tab PO 80 mg QDAY [facility] Administration Hydralazine HCl 10 mg 10/29/20 06:13 10/29/20 10:10 Hydralazine 20 Mg/1 Ml Inj IV 10 mg Q4H PRN Administration Blood Pressure Sodium Chloride 100 mls @ 999 mls/hr 10/30/20 10:00 Nacl 0.9% IV MARKY PRN Hypotension Insulin Human Regular 0 units 10/29/20 07:30 11/06/20 09:11 Insulin Regular, Human 100 Units/1 Ml SUB-Q Not Given ACHS [facility] Protocol Isosorbide Mononitrate 30 mg 11/01/20 15:00 11/05/20 09:18 Isosorbide Mononitrate Er 30 Mg Tab PO 30 mg QDAY [facility] Administration Magnesium Hydroxide 30 ml 10/29/20 02:17 Magnesium Hydroxide (Mom) Oral Liqd Udc PO Q4H PRN Constipation Magnesium Oxide 400 mg 11/06/20 10:00 Magnesium Oxide 400 Mg Tab PO BID [facility] Nitroglycerin 0.4 mg 10/31/20 06:00 11/06/20 09:11 Nitroglycerin 0.4 Mg Patch 24hr TD Not Given QDAY@0600 [facility] Ondansetron HCl 4 mg 10/29/20 02:17 10/31/20 16:38 Ondansetron 4 Mg/2 Ml Inj IV 4 mg Q8H PRN Administration Nausea And Vomiting Pantoprazole Sodium 40 mg 11/04/20 16:30 11/05/20 17:44 Pantoprazole 40 Mg Tab PO 40 mg BIDAC [facility] Administration Potassium Chloride 40 meq 11/06/20 09:00 Potassium Chloride Er 20 Meq Tab PO 11/06/20 12:30 ONCE POLINA Sodium Chloride 10 ml 10/29/20 10:00 11/05/20 22:07 Sodium Chloride 0.9% 10 Ml Flush Syringe IV 10 ml BID POLINA Administration Sodium Chloride 10 ml 10/29/20 02:17 Sodium Chloride 0.9% 10 Ml Flush Syringe IV PRN PRN LINE FLUSH
--- NOTE | 2020-11-06 10:54 | Progress Note ---
Assessment and Plan - Patient Problems (1) Abnormal ECG Current Visit: Yes Status: Acute Plan to address problem: As previously reported, the ECG showed marked T wave abnormalities across the precordium, more pronounced than his baseline revascularization abnormalities of LVH. He has no prior history of coronary artery disease, but has had thoracotomy for repair of an ascending aortic aneurysm. Due to abnormal ECG, we have completed a Lexiscan thallium, results are pending. (2) Preoperative cardiovascular examination Current Visit: Yes Status: Acute Subjective Date of service: 11/06/20 Principal diagnosis: Anemia, Abnormal LFTs Interval history: Patient is comfortable, he has completed a Lexiscan thallium stress test, myocardial perfusion images are pending. Objective Vital Signs Temp Pulse Resp Resp BP Pulse Ox 11/06/20 07:54 97 11/06/20 03:33 98.8 F 72 16 113/67 97 11/05/20 23:14 98.8 F 73 16 106/57 97 11/05/20 22:06 71 100/56 11/05/20 22:00 71 20 11/05/20 20:34 95 11/05/20 19:42 98.3 F 71 19 100/56 96 - Physical Examination General: No Apparent Distress HEENT: Positive: PERRL Neck: Positive: neck supple Cardiac: Positive: Reg Rate and Rhythm Lungs: Positive: Decreased Breath Sounds Neuro: Positive: Weakness (Generalized weakness, frail and chronically ill appearing) Abdomen: Positive: Soft Skin: Positive: Clear Extremities: Absent: normal - Labs and Meds Comprehensive Metabolic Panel 11/06/20 Range/Units 03:49 Sodium 134 L (137-145) mmol/L Potassium 3.5 L (3.6-5.0) mmol/L Chloride 96.0 L (98-107) mmol/L Carbon Dioxide 28 (22-30) mmol/L BUN 54 H (9-20) mg/dL Creatinine 5.0 H (0.8-1.3) mg/dL Glucose 95 (75-100) mg/dL Calcium 7.6 L (8.4-10.2) mg/dL - Allied health notes Allied health notes reviewed: nursing
--- NOTE | 2020-11-06 12:11 | Nuclear Medicine Report ---
APPROVED REPORT Exam: Nuclear Stress Test Indication: Chest pain BMI: 0 Stress Test Details HR Max Heart Rate (APMHR): 140 bpm Target HR (85% APMHR): 119 bpm BP ECG Resting ECG: Sinus Rhythm Stress ECG: Sinus Rhythm ST Change: Nondiagnostic resting ST abnormalities Arrhythmia: None Recovery ECG: Sinus Rhythm, nonspecific ST-T abnormalities Recovery ST Change: Nondiagnostic resting ST abnormalities Recovery Arrhythmia: None Stress ECG Conclusion No chest pain with pharmacologic stress testing, ECG nondiagnostic due to resting ST and T wave abnormalities, myocardial perfusion images are resting for final test interpretation. NM EXAM: Myocardial Perfusion REST/STRESS Resting Data Rest SPECT myocardial perfusion imaging was performed in supine position 45 minutes following the intravenous injection of 10 mCi of Tc-99m Myoview. Time of rest injection: 0700 Pharmacologic Stress Pharmacologic stress test was performed by injecting Regadenoson 0.4 mg IV push followed by the intravenous injection of 28 mCi of Tc-99m Myoview. Time of stress injection: 1000 Gated Stress SPECT was performed 45 minutes after stress injection. The images were gated to evaluate regional wall motion and calculate left ventricular ejection fraction. Study Data TID = 0.93. Perfusion Nuclear Conclusion ECG Findings: non-diagnostic Clinical Findings: negative for ischemia Nuclear Findings: negative for ischemia Left Ventricular Function: abnormal Risk Study: low There is evidence of mild diaphragmatic attenuation artifact, otherwise normal myocardial perfusion images. The left ventricular ejection fraction is mildly reduced at 46% on gated SPECT analysis. No demonstrable ischemia on this study. Recommend clinical correlation and echocardiographic reassessment of left ventricular systolic function. Conclusion No chest pain with pharmacologic stress testing, ECG nondiagnostic due to resting ST and T wave abnormalities, myocardial perfusion images are resting for final test interpretation.
--- NOTE | 2020-11-06 13:58 | Progress Note ---
Assessment and Plan Patient is sleeping, weak, and in no acute respiratory distress at rest. Resting on room air, SaO2 is 97%. Patient admitted with nausea vomiting and abdominal pain. Abdominal pain is better now. Patient has history of Hypertension, asthma and diabetes and Aortic dissection. Patient has history of smoking 1 pack x 40years. Says stopped smoking approximately 30 years ago. 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 No known drug allergies. Patient afebrile. No leukocytosis. CXR done on 11/02/20 reported: Mild increased pulmonary vascularity with mild ghada ma appears improved. No pneumothorax. Patient is on lasix and protonix. Recommend SCDs. Talked to the pt's family and explained the pt's respiratory status. - Patient Problems (1) Acute kidney injury superimposed on chronic kidney disease Current Visit: Yes Status: Acute Plan to address problem: Management as per nephrology. (2) CHF (congestive heart failure), NYHA class III Current Visit: Yes Status: Acute Plan to address problem: Management as per Cardioogy. (3) GI bleed Current Visit: Yes Status: Acute Plan to address problem: Management as per gastroenterology. (4) Hypertensive urgency Current Visit: Yes Status: Acute Plan to address problem: Management as per primary care. (5) Pulmonary edema Current Visit: Yes Status: Acute Plan to address problem: Patient is on lasix and dialysis. Subjective Date of service: 11/06/20 Principal diagnosis: Anemia, Abnormal LFTs Interval history: Patient is sleeping, weak, and in no acute respiratory distress at rest. Resting on room air, SaO2 is 97%. Patient admitted with nausea vomiting and abdominal pain. Abdominal pain is better now. Patient has history of Hypertension, asthma and diabetes and Aortic dissection. Patient has history of smoking 1 pack x 40years. Says stopped smoking approximately 30 years ago. 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 No known drug allergies. Patient afebrile. No leukocytosis. CXR done on 11/02/20 reported: Mild increased pulmonary vascularity with mild edema appears improved. No pneumothorax. Patient is on lasix and protonix. Recommend SCDs. Objective Vital Signs - 12hr 11/06/20 11/06/20 11/06/20 03:33 07:28 07:54 Temperature 98.8 F 97.6 F Pulse Rate 72 Respiratory 16 16 Rate Blood Pressure 113/67 125/78 O2 Sat by Pulse 97 97 Oximetry 11/06/20 11/06/20 11/06/20 09:01 09:07 10:00 Temperature Pulse Rate 72 74 Respiratory Rate Blood Pressure 130/74 130/74 O2 Sat by Pulse Oximetry 11/06/20 11/06/20 11/06/20 10:31 10:33 10:34 Temperature Pulse Rate 75 78 Respiratory Rate Blood Pressure 125/62 130/74 125/62 O2 Sat by Pulse Oximetry 11/06/20 11/06/20 11/06/20 10:35 10:36 10:37 Temperature Pulse Rate 76 77 78 Respiratory Rate Blood Pressure 116/61 121/60 113/58 O2 Sat by Pulse Oximetry 11/06/20 11/06/20 10:38 11:54 Temperature 97.5 F L Pulse Rate 76 75 Respiratory 16 Rate Blood Pressure 113/59 133/71 O2 Sat by Pulse 97 Oximetry Constitutional: no acute distress, alert, other (Weak.) Eyes: non-icteric ENT: oropharynx moist Neck: supple, no lymphadenopathy Ascultation: Bilateral: diminished breath sounds Cardiovascular: regular rate and rhythm Gastrointestinal: normoactive bowel sounds, soft, non-tender Integumentary: normal Extremities: no cyanosis, no edema Neurologic: non-focal exam, pupils equal and round Psychiatric: depressed CBC and BMP: 11/02/20 04:31 11/06/20 03:49 ABG, PT/INR, D-dimer: ABG ABG pH 7.384 pH Units (7.350-7.450) 10/29/20 14:40 ABG pCO2 32.3 mm Hg 10/29/20 14:40 ABG pO2 107.8 mm Hg (80.0-90.0) H 10/29/20 14:40 ABG O2 Saturation 97.9 % (95.0-99.0) 10/29/20 14:40 PT/INR, D-dimer PT 18.4 Sec. (12.2-14.9) H 10/31/20 19:20 INR 1.48 (0.87-1.13) H 10/31/20 19:20 Abnormal lab findings: Abnormal Labs 10/28/20 10/28/20 10/29/20 22:43 22:43 04:28 RBC Hgb 8.5 L Hct 26.1 L MCV 65 L MCH 21 L RDW 18.4 H Plt Count [place] % (Auto) [place] # (Auto) Seg Neuts % (Manual) 80.0 H Lymphocytes % (Manual) 13.0 L Nucleated RBC % Lymphocytes # (Manual) 0.9 L PT INR ABG pO2 ABG HCO3 ABG Base Excess ABG Hemoglobin Sodium Potassium 5.9 H 5.2 H Chloride Carbon Dioxide 14 L 20 L BUN 72 H 72 H Creatinine 6.8 H 6.5 H Glucose 152 H POC Glucose Calcium Phosphorus Magnesium Total Bilirubin 1.50 H 1.40 H AST 517 H 604 H ALT 448 H 491 H Serum Total Protein Total Protein 6.2 L Albumin 3.8 L 3.8 L Bjpwm-3-Ahamjnvyp PEP Interpretation PTH Intact Urine Creatinine Urine Total Protein Complement C3 Crossmatch 10/29/20 10/29/20 10/29/20 04:32 08:23 08:23 RBC Hgb 7.8 L Hct 24.9 L MCV 66 L MCH 21 L RDW 18.0 H Plt Count 98 L [place] % (Auto) [place] # (Auto) Seg Neuts % (Manual) Lymphocytes % (Manual) 1.0 L Nucleated RBC % Lymphocytes # (Manual) 0.1 L PT INR ABG pO2 ABG HCO3 ABG Base Excess ABG Hemoglobin Sodium Potassium 5.7 H Chloride Carbon Dioxide 14 L BUN 77 H Creatinine 6.7 H Glucose 126 H POC Glucose 114 H Calcium Phosphorus Magnesium Total Bilirubin AST ALT Serum Total Protein Total Protein Albumin Xudbv-7-Ufprekvwg PEP Interpretation PTH Intact Urine Creatinine Urine Total Protein Complement C3 Crossmatch 10/29/20 10/29/20 10/29/20 08:58 11:33 14:40 RBC Hgb Hct MCV MCH RDW Plt Count [place] % (Auto) [place] # (Auto) Seg Neuts % (Manual) Lymphocytes % (Manual) Nucleated RBC % Lymphocytes # (Manual) PT INR ABG pO2 107.8 H ABG HCO3 18.8 L ABG Base Excess -5.6 L ABG Hemoglobin 7.4 L Sodium Potassium Chloride Carbon Dioxide BUN Creatinine Glucose POC Glucose 139 H 155 H Calcium Phosphorus Magnesium Total Bilirubin AST ALT Serum Total Protein Total Protein Albumin Yjrjm-7-Kadehdgyy PEP Interpretation PTH Intact Urine Creatinine Urine Total Protein Complement C3 Crossmatch 10/29/20 10/29/20 10/29/20 15:40 16:46 21:29 RBC Hgb Hct MCV MCH RDW Plt Count [place] % (Auto) [place] # (Auto) Seg Neuts % (Manual) Lymphocytes % (Manual) Nucleated RBC % Lymphocytes # (Manual) PT INR ABG pO2 ABG HCO3 ABG Base Excess ABG Hemoglobin Sodium Potassium Chloride Carbon Dioxide BUN Creatinine Glucose POC Glucose 158 H 138 H Calcium Phosphorus Magnesium Total Bilirubin AST ALT Serum Total Protein Total Protein Albumin Ewrev-8-Ilfbrndmm PEP Interpretation PTH Intact Urine Creatinine 78.5 H Urine Total Protein 745 H Complement C3 Crossmatch 10/30/20 10/30/20 10/30/20 04:25 04:25 04:25 RBC 3.50 L Hgb 7.3 L Hct 22.8 L MCV 65 L MCH 21 L RDW 17.9 H Plt Count 88 L [place] % (Auto) [place] # (Auto) Seg Neuts % (Manual) 87.0 H Lymphocytes % (Manual) 5.0 L Nucleated RBC % 1.0 H Lymphocytes # (Manual) 0.4 L PT INR ABG pO2 ABG HCO3 ABG Base Excess ABG Hemoglobin Sodium Potassium Chloride Carbon Dioxide 20 L BUN 89 H Creatinine 7.6 H Glucose 129 H POC Glucose Calcium Phosphorus 8.20 H Magnesium Total Bilirubin AST 502 H ALT 636 H Serum Total Protein Total Protein 5.7 L Albumin 3.2 L Lbege-8-Mcqkexyvg PEP Interpretation PTH Intact 176.3 H Urine Creatinine Urine Total Protein Complement C3 Crossmatch 10/30/20 10/30/20 10/30/20 07:21 10:53 11:11 RBC Hgb Hct MCV MCH RDW Plt Count [place] % (Auto) [place] # (Auto) Seg Neuts % (Manual) Lymphocytes % (Manual) Nucleated RBC % Lymphocytes # (Manual) PT INR ABG pO2 ABG HCO3 ABG Base Excess ABG Hemoglobin Sodium Potassium Chloride Carbon Dioxide BUN Creatinine Glucose POC Glucose 120 H 120 H Calcium Phosphorus Magnesium Total Bilirubin AST ALT Serum Total Protein Total Protein Albumin Igvso-7-Ugthjtsze PEP Interpretation PTH Intact Urine Creatinine Urine Total Protein Complement C3 Crossmatch See Detail 10/30/20 10/30/20 10/31/20 16:28 21:07 05:32 RBC Hgb 7.9 L Hct 23.8 L MCV 65 L MCH 22 L RDW 17.6 H Plt Count 94 L [place] % (Auto) [place] # (Auto) Seg Neuts % (Manual) Lymphocytes % (Manual) Nucleated RBC % Lymphocytes # (Manual) PT INR ABG pO2 ABG HCO3 ABG Base Excess ABG Hemoglobin Sodium Potassium Chloride Carbon Dioxide BUN Creatinine Glucose POC Glucose 146 H 167 H Calcium Phosphorus Magnesium Total Bilirubin AST ALT Serum Total Protein Total Protein Albumin Qhmyf-4-Glbvpqkdf PEP Interpretation PTH Intact Urine Creatinine Urine Total Protein Complement C3 Crossmatch 10/31/20 10/31/20 10/31/20 05:32 15:10 19:20 RBC Hgb Hct MCV MCH RDW Plt Count [place] % (Auto) [place] # (Auto) Seg Neuts % (Manual) Lymphocytes % (Manual) Nucleated RBC % Lymphocytes # (Manual) PT 18.4 H INR 1.48 H ABG pO2 ABG HCO3 ABG Base Excess ABG Hemoglobin Sodium Potassium Chloride Carbon Dioxide BUN 67 H Creatinine 5.8 H Glucose 106 H POC Glucose 137 H Calcium 8.3 L Phosphorus 6.50 H D Magnesium Total Bilirubin AST 207 H ALT 402 H Serum Total Protein Total Protein 5.1 L Albumin 3.0 L Vkmyn-3-Joygrvsfz PEP Interpretation PTH Intact Urine Creatinine Urine Total Protein Complement C3 Crossmatch 10/31/20 11/01/20 11/01/20 20:55 04:32 04:32 RBC Hgb Hct MCV MCH RDW Plt Count [place] % (Auto) [place] # (Auto) Seg Neuts % (Manual) Lymphocytes % (Manual) Nucleated RBC % Lymphocytes # (Manual) PT INR ABG pO2 ABG HCO3 ABG Base Excess ABG Hemoglobin Sodium Potassium Chloride Carbon Dioxide BUN Creatinine Glucose POC Glucose 195 H Calcium Phosphorus Magnesium Total Bilirubin AST ALT Serum Total Protein 5.4 L Total Protein Albumin 3.0 L Kajru-9-Lputedaup 0.4 H PEP Interpretation see below H PTH Intact Urine Creatinine Urine Total Protein Complement C3 68 L Crossmatch 11/01/20 11/01/20 11/01/20 08:57 11:55 15:50 RBC Hgb Hct MCV MCH RDW Plt Count [place] % (Auto) [place] # (Auto) Seg Neuts % (Manual) Lymphocytes % (Manual) Nucleated RBC % Lymphocytes # (Manual) PT INR ABG pO2 ABG HCO3 ABG Base Excess ABG Hemoglobin Sodium Potassium Chloride Carbon Dioxide BUN Creatinine Glucose POC Glucose 164 H 189 H 173 H Calcium Phosphorus Magnesium Total Bilirubin AST ALT Serum Total Protein Total Protein Albumin Qfeyc-5-Zekynnslc PEP Interpretation PTH Intact Urine Creatinine Urine Total Protein Complement C3 Crossmatch 11/01/20 11/02/20 11/02/20 20:38 04:31 04:31 RBC 3.52 L Hgb 7.5 L Hct 23.5 L MCV 67 L MCH 21 L RDW 18.3 H Plt Count 123 L [place] % (Auto) 13.8 H [place] # (Auto) 1.0 H Seg Neuts % (Manual) Lymphocytes % (Manual) Nucleated RBC % Lymphocytes # (Manual) PT INR ABG pO2 ABG HCO3 ABG Base Excess ABG Hemoglobin Sodium 136 L Potassium Chloride 97.0 L Carbon Dioxide BUN 59 H Creatinine 6.4 H Glucose 121 H POC Glucose 147 H Calcium 8.1 L Phosphorus Magnesium Total Bilirubin AST 96 H ALT 274 H Serum Total Protein Total Protein 5.1 L Albumin 3.0 L Ykipv-6-Wqgsgtwlj PEP Interpretation PTH Intact Urine Creatinine Urine Total Protein Complement C3 Crossmatch 11/02/20 11/02/20 11/03/20 07:53 21:07 08:20 RBC Hgb Hct MCV MCH RDW Plt Count [place] % (Auto) [place] # (Auto) Seg Neuts % (Manual) Lymphocytes % (Manual) Nucleated RBC % Lymphocytes # (Manual) PT INR ABG pO2 ABG HCO3 ABG Base Excess ABG Hemoglobin Sodium Potassium Chloride Carbon Dioxide BUN Creatinine Glucose POC Glucose 143 H 116 H 110 H Calcium Phosphorus Magnesium Total Bilirubin AST ALT Serum Total Protein Total Protein Albumin Scixi-1-Gciwxgevx PEP Interpretation PTH Intact Urine Creatinine Urine Total Protein Complement C3 Crossmatch 11/03/20 11/03/20 11/04/20 12:16 20:07 06:10 RBC Hgb Hct MCV MCH RDW Plt Count [place] % (Auto) [place] # (Auto) Seg Neuts % (Manual) Lymphocytes % (Manual) Nucleated RBC % Lymphocytes # (Manual) PT INR ABG pO2 ABG HCO3 ABG Base Excess ABG Hemoglobin Sodium 135 L Potassium Chloride 97.8 L Carbon Dioxide BUN 62 H Creatinine 6.0 H Glucose 117 H POC Glucose 248 H 167 H Calcium 7.9 L Phosphorus Magnesium Total Bilirubin AST ALT Serum Total Protein Total Protein Albumin Fkqaw-9-Vyjjsolkb PEP Interpretation PTH Intact Urine Creatinine Urine Total Protein Complement C3 Crossmatch 11/04/20 11/04/20 11/04/20 08:03 11:51 21:49 RBC Hgb Hct MCV MCH RDW Plt Count [place] % (Auto) [place] # (Auto) Seg Neuts % (Manual) Lymphocytes % (Manual) Nucleated RBC % Lymphocytes # (Manual) PT INR ABG pO2 ABG HCO3 ABG Base Excess ABG Hemoglobin Sodium Potassium Chloride Carbon Dioxide BUN Creatinine Glucose POC Glucose 121 H 202 H 194 H Calcium Phosphorus Magnesium Total Bilirubin AST ALT Serum Total Protein Total Protein Albumin Onozd-7-Ychatpssn PEP Interpretation PTH Intact Urine Creatinine Urine Total Protein Complement C3 Crossmatch 11/05/20 11/05/20 11/05/20 11:45 16:06 20:53 RBC Hgb Hct MCV MCH RDW Plt Count [place] % (Auto) [place] # (Auto) Seg Neuts % (Manual) Lymphocytes % (Manual) Nucleated RBC % Lymphocytes # (Manual) PT INR ABG pO2 ABG HCO3 ABG Base Excess ABG Hemoglobin Sodium Potassium Chloride Carbon Dioxide BUN Creatinine Glucose POC Glucose 191 H 143 H 148 H Calcium Phosphorus Magnesium Total Bilirubin AST ALT Serum Total Protein Total Protein Albumin Yswga-7-Ykjuzzuaw PEP Interpretation PTH Intact Urine Creatinine Urine Total Protein Complement C3 Crossmatch 11/06/20 11/06/20 03:49 11:53 RBC Hgb Hct MCV MCH RDW Plt Count [place] % (Auto) [place] # (Auto) Seg Neuts % (Manual) Lymphocytes % (Manual) Nucleated RBC % Lymphocytes # (Manual) PT INR ABG pO2 ABG HCO3 ABG Base Excess ABG Hemoglobin Sodium 134 L Potassium 3.5 L Chloride 96.0 L Carbon Dioxide BUN 54 H Creatinine 5.0 H Glucose POC Glucose 156 H Calcium 7.6 L Phosphorus Magnesium 1.60 L Total Bilirubin AST ALT Serum Total Protein Total Protein Albumin Opksm-8-Trikfzauv PEP Interpretation PTH Intact Urine Creatinine Urine Total Protein Complement C3 Crossmatch Chest x-ray: report reviewed, image reviewed Additional Studies: CHEST 1 VIEW 11/02/2020 8:03 AM INDICATION / CLINICAL INFORMATION: Follow up on pulmonary edema.. COMPARISON: 10/30/2020 FINDINGS: SUPPORT DEVICES: Left Vas-Cath has been placed the tip overlying the distal SVC. Right jugular line tip overlies the distal SVC HEART / MEDIASTINUM: Tortuosity of the thoracic aorta is unchanged LUNGS / PLEURA: Mild increased pulmonary vascularity with mild edema appears improved. No pneumothorax. Allied health notes reviewed: nursing
[2020-11-06] MEDS: carvediloL 12.5 MG TAB PO SCH ×2 (19:22→21:30)
[2020-11-06] MEDS: PANTOPRAZOLE 40 MG TAB PO SCH (19:22)
[2020-11-06] MEDS: ASPIRIN EC 81 MG TAB PO SCH (19:22)
[2020-11-06] MEDS: amLODIPine 10 MG TAB PO SCH (19:22)
[2020-11-06] MEDS: MAGNESIUM OXIDE 400 MG TAB PO SCH ×2 (19:23→21:30)
[2020-11-06] MEDS: FUROSEMIDE 40 MG TAB PO SCH (19:23)
[2020-11-07 05:28] LABS: Hematocrit 21.9 % (35.5-45.6); Hemoglobin 7.2 gm/dl (11.8-15.2)
[2020-11-07 05:43] LABS: Calcium 7.7 mg/dL (8.4-10.2)
[2020-11-07] MEDS: NITROGLYCERIN 0.4 MG PATCH 24HR TD SCH (07:45)
--- NOTE | 2020-11-07 08:53 | Progress Note ---
Assessment and Plan 1. ESRD vs MODE superimposed on CKD: Suspect ESRD. CT abdomen negative for hydro. Monitor renal function. Renal prognosis is guarded to poor. Avoid nephrotoxic agents. Meds dosage based on GFR. Patient was started on hemodialysis due to significant decline in the GFR, associated hyperkalemia, metabolic acidosis and volume overload. Hemodialysis: 10/30, 10/31, 11/02, 11/04. HD today. 2. FEN: Hyperkalemia, improved, monitor. Anion-gap Metabolic acidosis, s/p HD, monitor. Volume overload, improved with HD. Monitor lytes. 3. Heavy proteinuria: ?etiology. JENNIFER, ANCA and GBM Ab are negative. SPEP negative for M-spike. C3 low. Very unlikely patient will tolerate any Immunosuppressive therapy. 4. Decompensated CHF: Echo EF 45-50%. Strict I/O. On Carvedilol. Followed by Cards. 5. Elevated liver enzymes: Hepatitis serologies negative. Improving. 6. GI bleed: Per GI EGD after clearance from Cards. 7. Hypertensive urgency: BP controlled. UF with HD as tolerated. Adjust meds as needed. Monitor. 8. Hypochromic Anemia, POA: ?2/2 GI bleed. Followed by GI. Epogen. Monitor. 9. Thrombocytopenia. 10. Chronic thoraco-abdominal aneurysm. Outpatient hemodialysis chair at [facility]. Subjective: Patient was seen and examined at the bedside. Examination: General appearance: well-developed, thin built, appears stated age, not in distress HEENT: ATNC, pupils equal Neck: supple Respiratory: bibasal diminished breath sounds Cardiology: regular, S1S2, no murmur Gastrointestinal: soft, bowel sounds heard, not tender Integumentary: warm and dry Neurologic: alert, moving extremities Ext: no edema Hemodialysis access: L Tunnel catheter Subjective Date of service: 11/07/20 Principal diagnosis: Anemia, Abnormal LFTs Objective - Vital Signs Vital signs: Vital Signs - 12hr 11/06/20 11/07/20 11/07/20 22:58 04:22 07:29 Temperature 98.5 F 99.2 F 98.2 F Pulse Rate 74 74 77 Respiratory 14 20 18 Rate Blood Pressure 117/65 124/72 143/80 O2 Sat by Pulse 96 95 94 Oximetry - Lab 11/07/20 04:46 11/07/20 04:46 Most recent lab results ABG pH 7.384 pH Units (7.350-7.450) 10/29/20 14:40 ABG pCO2 32.3 mm Hg 10/29/20 14:40 ABG pO2 107.8 mm Hg (80.0-90.0) H 10/29/20 14:40 ABG HCO3 18.8 mmol/L (20.0-26.0) L 10/29/20 14:40 ABG O2 Saturation 97.9 % (95.0-99.0) 10/29/20 14:40 Calcium 7.7 mg/dL (8.4-10.2) L 11/07/20 04:46 Phosphorus 2.60 mg/dL (2.5-4.5) 11/04/20 06:10 Magnesium 1.90 mg/dL (1.7-2.3) 11/07/20 04:46 Urine Creatinine 78.5 mg/dL (0.1-20.0) H 10/29/20 15:40 Urine Sodium 76 mmol/L 10/29/20 15:40 Urine Total Protein 745 mg/dL (5-11.8) H 10/29/20 15:40 Medications & Allergies - Medications Allergies/Adverse Reactions: Allergies No Known Allergies Allergy (Unverified 05/07/14 01:13) Home Medications: Home Medications Medication Instructions Recorded Confirmed Last Taken Type Atorvastatin Calcium [Lipitor] 80 mg PO QDAY 10/28/20 10/28/20 Unknown History Aspirin EC [Halfprin EC] 81 mg PO QDAY #30 11/07/20 Unknown Rx Calcium Acetate [Phoslo] 667 mg PO TIDWM #30 capsule 11/07/20 Unknown Rx Furosemide [Lasix TAB] 80 mg PO QDAY #30 tablet 11/07/20 Unknown Rx ISOSORBIDE MONOnitrate [Imdur ER] 30 mg PO QDAY #30 tablet 11/07/20 Unknown Rx Pantoprazole [Protonix TAB] 40 mg PO BIDAC #60 tablet 11/07/20 Unknown Rx amLODIPine 10 mg PO QDAY #30 tablet 11/07/20 Unknown Rx carvediloL [Coreg] 12.5 mg PO BID #60 tablet 11/07/20 Unknown Rx Active Medications: Generic Name Dose Route Start Last Admin Trade Name Freq PRN Reason Stop Dose Admin Acetaminophen 650 mg 10/29/20 02:17 Acetaminophen 325 Mg Tab PO Q6H PRN Pain MILD(1-3)/Fever >100.5/SCHMITT Amlodipine Besylate 10 mg 10/30/20 13:00 11/06/20 19:22 Amlodipine 10 Mg Tab PO Not Given QDAY [facility] Aspirin 81 mg 10/30/20 10:00 11/06/20 19:22 Aspirin Ec 81 Mg Tab PO Not Given QDAY [facility] Calcium Acetate 667 mg 10/31/20 12:00 11/06/20 19:23 Calcium Acetate 667 Mg Cap PO Not Given TIDWM [facility] Carvedilol 12.5 mg 10/29/20 22:00 11/06/20 21:30 Carvedilol 12.5 Mg Tab PO 12.5 mg BID [facility] Administration Dextrose 0 ml 10/29/20 02:17 Dextrose 50% In Water (25gm) 50 Ml Syringe IV Q30MIN PRN Hypoglycemia Protocol Furosemide 80 mg 11/01/20 10:00 11/06/20 19:23 Furosemide 40 Mg Tab PO Not Given QDAY [facility] Hydralazine HCl 10 mg 10/29/20 06:13 10/29/20 10:10 Hydralazine 20 Mg/1 Ml Inj IV 10 mg Q4H PRN Administration Blood Pressure Sodium Chloride 100 mls @ 999 mls/hr 10/30/20 10:00 Nacl 0.9% IV MARKY PRN Hypotension Insulin Human Regular 0 units 10/29/20 07:30 11/06/20 21:33 Insulin Regular, Human 100 Units/1 Ml SUB-Q 2 units ACHS [facility] Administration Protocol Isosorbide Mononitrate 30 mg 11/01/20 15:00 11/06/20 19:22 Isosorbide Mononitrate Er 30 Mg Tab PO Not Given QDAY [facility] Magnesium Hydroxide 30 ml 10/29/20 02:17 Magnesium Hydroxide (Mom) Oral Liqd Udc PO Q4H PRN Constipation Magnesium Oxide 400 mg 11/06/20 10:00 11/06/20 21:30 Magnesium Oxide 400 Mg Tab PO 400 mg BID [facility] Administration Nitroglycerin 0.4 mg 10/31/20 06:00 11/07/20 07:45 Nitroglycerin 0.4 Mg Patch 24hr TD Not Given QDAY@0600 [facility] Ondansetron HCl 4 mg 10/29/20 02:17 07/13/21 16:38 Ondansetron 4 Mg/2 Ml Inj IV 4 mg Q8H PRN Administration Nausea And Vomiting Pantoprazole Sodium 40 mg 11/04/20 16:30 11/06/20 19:22 Pantoprazole 40 Mg Tab PO Not Given BIDAC POLINA Sodium Chloride 10 ml 10/29/20 10:00 11/06/20 21:32 Sodium Chloride 0.9% 10 Ml Flush Syringe IV 10 ml BID POLINA Administration Sodium Chloride 10 ml 10/29/20 02:17 Sodium Chloride 0.9% 10 Ml Flush Syringe IV PRN PRN LINE FLUSH
--- NOTE | 2020-11-07 10:48 | Progress Note ---
Assessment and Plan Patient awake but sleepy and weak, and in no acute respiratory distress at rest. Resting on room air, SaO2 is 97%. Patient admitted with nausea vomiting and abdominal pain. Abdominal pain is better now. Patient has history of Hypertension, asthma and diabetes and Aortic dissection. Patient has history of smoking 1 pack x 40years. Says stopped smoking approximately 30 years ago. 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 No known drug allergies.. Patient Patient running low grade temp at times. No leukocytosis. CXR done on 11/02/20 reported: Mild increased pulmonary vascularity with mild edema appears improved. No pneumothorax. Patient is on lasix and protonix. Recommend SCDs. - Patient Problems (1) Acute kidney injury superimposed on chronic kidney disease Current Visit: Yes Status: Acute Plan to address problem: Management as per nephrology. (2) CHF (congestive heart failure), NYHA class III Current Visit: Yes Status: Acute Plan to address problem: Management as per Cardioogy. (3) GI bleed Current Visit: Yes Status: Acute Plan to address problem: Management as per gastroenterology. (4) Hypertensive urgency Current Visit: Yes Status: Acute Plan to address problem: Management as per primary care. (5) Pulmonary edema Current Visit: Yes Status: Acute Plan to address problem: Patient is on lasix and dialysis. Subjective Date of service: 11/07/20 Principal diagnosis: Anemia, Abnormal LFTs Interval history: Patient awake but sleepy and weak, and in no acute respiratory distress at rest. Resting on room air, SaO2 is 97%. Patient admitted with nausea vomiting and abdominal pain. Abdominal pain is better now. Patient has history of Hypertension, asthma and diabetes and Aortic dissection. Patient has history of smoking 1 pack x 40years. Says stopped smoking approximately 30 years ago. 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 No known drug allergies. Patient running low grade temp at times. No leukocytosis. CXR done on 11/02/20 reported: Mild increased pulmonary vascularity with mild edema appears improved. No pneumothorax. Patient is on lasix and protonix. Recommend SCDs. Objective Vital Signs - 12hr 11/06/20 11/07/20 11/07/20 22:58 04:22 07:29 Temperature 98.5 F 99.2 F 98.2 F Pulse Rate 74 74 77 Respiratory 14 20 18 Rate Blood Pressure 117/65 124/72 143/80 O2 Sat by Pulse 96 95 94 Oximetry Constitutional: no acute distress, alert, other (Weak.) Eyes: non-icteric ENT: oropharynx moist Neck: supple, no lymphadenopathy Ascultation: Bilateral: diminished breath sounds Cardiovascular: regular rate and rhythm Gastrointestinal: normoactive bowel sounds, soft, non-tender Integumentary: normal Extremities: no cyanosis, no edema Neurologic: non-focal exam, pupils equal and round Psychiatric: depressed CBC and BMP: 11/07/20 04:46 11/07/20 04:46 ABG, PT/INR, D-dimer: ABG ABG pH 7.384 pH Units (7.350-7.450) 10/29/20 14:40 ABG pCO2 32.3 mm Hg 10/29/20 14:40 ABG pO2 107.8 mm Hg (80.0-90.0) H 10/29/20 14:40 ABG O2 Saturation 97.9 % (95.0-99.0) 10/29/20 14:40 PT/INR, D-dimer PT 18.4 Sec. (12.2-14.9) H 10/31/20 19:20 INR 1.48 (0.87-1.13) H 10/31/20 19:20 Abnormal lab findings: Abnormal Labs 10/28/20 10/28/20 10/29/20 22:43 22:43 04:28 RBC Hgb 8.5 L Hct 26.1 L MCV 65 L MCH 21 L RDW 18.4 H Plt Count Geary % (Auto) Geary # (Auto) Seg Neuts % (Manual) 80.0 H Lymphocytes % (Manual) 13.0 L Nucleated RBC % Lymphocytes # (Manual) 0.9 L PT INR ABG pO2 ABG HCO3 ABG Base Excess ABG Hemoglobin Sodium Potassium 5.9 H 5.2 H Chloride Carbon Dioxide 14 L 20 L BUN 72 H 72 H Creatinine 6.8 H 6.5 H Glucose 152 H POC Glucose Calcium Phosphorus Magnesium Total Bilirubin 1.50 H 1.40 H AST 517 H 604 H ALT 448 H 491 H Serum Total Protein Total Protein 6.2 L Albumin 3.8 L 3.8 L Ygynt-5-Euqnbdzce PEP Interpretation PTH Intact Urine Creatinine Urine Total Protein Complement C3 Crossmatch 10/29/20 10/29/20 10/29/20 04:32 08:23 08:23 RBC Hgb 7.8 L Hct 24.9 L MCV 66 L MCH 21 L RDW 18.0 H Plt Count 98 L Geary % (Auto) Geary # (Auto) Seg Neuts % (Manual) Lymphocytes % (Manual) 1.0 L Nucleated RBC % Lymphocytes # (Manual) 0.1 L PT INR ABG pO2 ABG HCO3 ABG Base Excess ABG Hemoglobin Sodium Potassium 5.7 H Chloride Carbon Dioxide 14 L BUN 77 H Creatinine 6.7 H Glucose 126 H POC Glucose 114 H Calcium Phosphorus Magnesium Total Bilirubin AST ALT Serum Total Protein Total Protein Albumin Mznsm-1-Kfzbkxxbc PEP Interpretation PTH Intact Urine Creatinine Urine Total Protein Complement C3 Crossmatch 10/29/20 10/29/20 10/29/20 08:58 11:33 14:40 RBC Hgb Hct MCV MCH RDW Plt Count Geary % (Auto) Geary # (Auto) Seg Neuts % (Manual) Lymphocytes % (Manual) Nucleated RBC % Lymphocytes # (Manual) PT INR ABG pO2 107.8 H ABG HCO3 18.8 L ABG Base Excess -5.6 L ABG Hemoglobin 7.4 L Sodium Potassium Chloride Carbon Dioxide BUN Creatinine Glucose POC Glucose 139 H 155 H Calcium Phosphorus Magnesium Total Bilirubin AST ALT Serum Total Protein Total Protein Albumin Dxcxr-6-Lbqsphmxe PEP Interpretation PTH Intact Urine Creatinine Urine Total Protein Complement C3 Crossmatch 10/29/20 10/29/20 10/29/20 15:40 16:46 21:29 RBC Hgb Hct MCV MCH RDW Plt Count Geary % (Auto) Geary # (Auto) Seg Neuts % (Manual) Lymphocytes % (Manual) Nucleated RBC % Lymphocytes # (Manual) PT INR ABG pO2 ABG HCO3 ABG Base Excess ABG Hemoglobin Sodium Potassium Chloride Carbon Dioxide BUN Creatinine Glucose POC Glucose 158 H 138 H Calcium Phosphorus Magnesium Total Bilirubin AST ALT Serum Total Protein Total Protein Albumin Lotef-5-Ybrkzzgrw PEP Interpretation PTH Intact Urine Creatinine 78.5 H Urine Total Protein 745 H Complement C3 Crossmatch 10/30/20 10/30/20 10/30/20 04:25 04:25 04:25 RBC 3.50 L Hgb 7.3 L Hct 22.8 L MCV 65 L MCH 21 L RDW 17.9 H Plt Count 88 L Geary % (Auto) Geary # (Auto) Seg Neuts % (Manual) 87.0 H Lymphocytes % (Manual) 5.0 L Nucleated RBC % 1.0 H Lymphocytes # (Manual) 0.4 L PT INR ABG pO2 ABG HCO3 ABG Base Excess ABG Hemoglobin Sodium Potassium Chloride Carbon Dioxide 20 L BUN 89 H Creatinine 7.6 H Glucose 129 H POC Glucose Calcium Phosphorus 8.20 H Magnesium Total Bilirubin AST 502 H ALT 636 H Serum Total Protein Total Protein 5.7 L Albumin 3.2 L Ximta-8-Uamhjwoqc PEP Interpretation PTH Intact 176.3 H Urine Creatinine Urine Total Protein Complement C3 Crossmatch 10/30/20 10/30/20 10/30/20 07:21 10:53 11:11 RBC Hgb Hct MCV MCH RDW Plt Count Geary % (Auto) Geary # (Auto) Seg Neuts % (Manual) Lymphocytes % (Manual) Nucleated RBC % Lymphocytes # (Manual) PT INR ABG pO2 ABG HCO3 ABG Base Excess ABG Hemoglobin Sodium Potassium Chloride Carbon Dioxide BUN Creatinine Glucose POC Glucose 120 H 120 H Calcium Phosphorus Magnesium Total Bilirubin AST ALT Serum Total Protein Total Protein Albumin Sgndh-4-Mftjghxml PEP Interpretation PTH Intact Urine Creatinine Urine Total Protein Complement C3 Crossmatch See Detail 10/30/20 10/30/20 10/31/20 16:28 21:07 05:32 RBC Hgb 7.9 L Hct 23.8 L MCV 65 L MCH 22 L RDW 17.6 H Plt Count 94 L Geary % (Auto) Geary # (Auto) Seg Neuts % (Manual) Lymphocytes % (Manual) Nucleated RBC % Lymphocytes # (Manual) PT INR ABG pO2 ABG HCO3 ABG Base Excess ABG Hemoglobin Sodium Potassium Chloride Carbon Dioxide BUN Creatinine Glucose POC Glucose 146 H 167 H Calcium Phosphorus Magnesium Total Bilirubin AST ALT Serum Total Protein Total Protein Albumin Xjyos-1-Qmjiiniot PEP Interpretation PTH Intact Urine Creatinine Urine Total Protein Complement C3 Crossmatch 10/31/20 10/31/20 10/31/20 05:32 15:10 19:20 RBC Hgb Hct MCV MCH RDW Plt Count Geary % (Auto) Geary # (Auto) Seg Neuts % (Manual) Lymphocytes % (Manual) Nucleated RBC % Lymphocytes # (Manual) PT 18.4 H INR 1.48 H ABG pO2 ABG HCO3 ABG Base Excess ABG Hemoglobin Sodium Potassium Chloride Carbon Dioxide BUN 67 H Creatinine 5.8 H Glucose 106 H POC Glucose 137 H Calcium 8.3 L Phosphorus 6.50 H D Magnesium Total Bilirubin AST 207 H ALT 402 H Serum Total Protein Total Protein 5.1 L Albumin 3.0 L Pgtrz-0-Ekrakrcaj PEP Interpretation PTH Intact Urine Creatinine Urine Total Protein Complement C3 Crossmatch 10/31/20 11/01/20 11/01/20 20:55 04:32 04:32 RBC Hgb Hct MCV MCH RDW Plt Count Geary % (Auto) Geary # (Auto) Seg Neuts % (Manual) Lymphocytes % (Manual) Nucleated RBC % Lymphocytes # (Manual) PT INR ABG pO2 ABG HCO3 ABG Base Excess ABG Hemoglobin Sodium Potassium Chloride Carbon Dioxide BUN Creatinine Glucose POC Glucose 195 H Calcium Phosphorus Magnesium Total Bilirubin AST ALT Serum Total Protein 5.4 L Total Protein Albumin 3.0 L Ezhzo-1-Ssaypjvhp 0.4 H PEP Interpretation see below H PTH Intact Urine Creatinine Urine Total Protein Complement C3 68 L Crossmatch 11/01/20 11/01/20 11/01/20 08:57 11:55 15:50 RBC Hgb Hct MCV MCH RDW Plt Count Geary % (Auto) Geary # (Auto) Seg Neuts % (Manual) Lymphocytes % (Manual) Nucleated RBC % Lymphocytes # (Manual) PT INR ABG pO2 ABG HCO3 ABG Base Excess ABG Hemoglobin Sodium Potassium Chloride Carbon Dioxide BUN Creatinine Glucose POC Glucose 164 H 189 H 173 H Calcium Phosphorus Magnesium Total Bilirubin AST ALT Serum Total Protein Total Protein Albumin Jphlg-9-Qiaisegrg PEP Interpretation PTH Intact Urine Creatinine Urine Total Protein Complement C3 Crossmatch 11/01/20 11/02/20 11/02/20 20:38 04:31 04:31 RBC 3.52 L Hgb 7.5 L Hct 23.5 L MCV 67 L MCH 21 L RDW 18.3 H Plt Count 123 L Geary % (Auto) 13.8 H Geary # (Auto) 1.0 H Seg Neuts % (Manual) Lymphocytes % (Manual) Nucleated RBC % Lymphocytes # (Manual) PT INR ABG pO2 ABG HCO3 ABG Base Excess ABG Hemoglobin Sodium 136 L Potassium Chloride 97.0 L Carbon Dioxide BUN 59 H Creatinine 6.4 H Glucose 121 H POC Glucose 147 H Calcium 8.1 L Phosphorus Magnesium Total Bilirubin AST 96 H ALT 274 H Serum Total Protein Total Protein 5.1 L Albumin 3.0 L Sbykc-0-Wsynqueja PEP Interpretation PTH Intact Urine Creatinine Urine Total Protein Complement C3 Crossmatch 11/02/20 11/02/20 11/03/20 07:53 21:07 08:20 RBC Hgb Hct MCV MCH RDW Plt Count Geary % (Auto) Geary # (Auto) Seg Neuts % (Manual) Lymphocytes % (Manual) Nucleated RBC % Lymphocytes # (Manual) PT INR ABG pO2 ABG HCO3 ABG Base Excess ABG Hemoglobin Sodium Potassium Chloride Carbon Dioxide BUN Creatinine Glucose POC Glucose 143 H 116 H 110 H Calcium Phosphorus Magnesium Total Bilirubin AST ALT Serum Total Protein Total Protein Albumin Fobgf-4-Mtkeuzrbq PEP Interpretation PTH Intact Urine Creatinine Urine Total Protein Complement C3 Crossmatch 11/03/20 11/03/20 11/04/20 12:16 20:07 06:10 RBC Hgb Hct MCV MCH RDW Plt Count Geary % (Auto) Geary # (Auto) Seg Neuts % (Manual) Lymphocytes % (Manual) Nucleated RBC % Lymphocytes # (Manual) PT INR ABG pO2 ABG HCO3 ABG Base Excess ABG Hemoglobin Sodium 135 L Potassium Chloride 97.8 L Carbon Dioxide BUN 62 H Creatinine 6.0 H Glucose 117 H POC Glucose 248 H 167 H Calcium 7.9 L Phosphorus Magnesium Total Bilirubin AST ALT Serum Total Protein Total Protein Albumin Uzzpu-9-Fbjuedibz PEP Interpretation PTH Intact Urine Creatinine Urine Total Protein Complement C3 Crossmatch 11/04/20 11/04/20 11/04/20 08:03 11:51 21:49 RBC Hgb Hct MCV MCH RDW Plt Count Geary % (Auto) Geary # (Auto) Seg Neuts % (Manual) Lymphocytes % (Manual) Nucleated RBC % Lymphocytes # (Manual) PT INR ABG pO2 ABG HCO3 ABG Base Excess ABG Hemoglobin Sodium Potassium Chloride Carbon Dioxide BUN Creatinine Glucose POC Glucose 121 H 202 H 194 H Calcium Phosphorus Magnesium Total Bilirubin AST ALT Serum Total Protein Total Protein Albumin Zhyqn-8-Mfdjnjhsg PEP Interpretation PTH Intact Urine Creatinine Urine Total Protein Complement C3 Crossmatch 11/05/20 11/05/20 11/05/20 11:45 16:06 20:53 RBC Hgb Hct MCV MCH RDW Plt Count Geary % (Auto) Geary # (Auto) Seg Neuts % (Manual) Lymphocytes % (Manual) Nucleated RBC % Lymphocytes # (Manual) PT INR ABG pO2 ABG HCO3 ABG Base Excess ABG Hemoglobin Sodium Potassium Chloride Carbon Dioxide BUN Creatinine Glucose POC Glucose 191 H 143 H 148 H Calcium Phosphorus Magnesium Total Bilirubin AST ALT Serum Total Protein Total Protein Albumin Hpzzn-2-Hiihzghkp PEP Interpretation PTH Intact Urine Creatinine Urine Total Protein Complement C3 Crossmatch 11/06/20 11/06/20 11/06/20 03:49 11:53 15:35 RBC Hgb Hct MCV MCH RDW Plt Count Geary % (Auto) Geary # (Auto) Seg Neuts % (Manual) Lymphocytes % (Manual) Nucleated RBC % Lymphocytes # (Manual) PT INR ABG pO2 ABG HCO3 ABG Base Excess ABG Hemoglobin Sodium 134 L Potassium 3.5 L Chloride 96.0 L Carbon Dioxide BUN 54 H Creatinine 5.0 H Glucose POC Glucose 156 H 198 H Calcium 7.6 L Phosphorus Magnesium 1.60 L Total Bilirubin AST ALT Serum Total Protein Total Protein Albumin Uwodt-8-Ydzswxide PEP Interpretation PTH Intact Urine Creatinine Urine Total Protein Complement C3 Crossmatch 11/06/20 11/07/20 11/07/20 20:33 04:46 04:46 RBC Hgb 7.2 L Hct 21.9 L MCV MCH RDW Plt Count Geary % (Auto) Geary # (Auto) Seg Neuts % (Manual) Lymphocytes % (Manual) Nucleated RBC % Lymphocytes # (Manual) PT INR ABG pO2 ABG HCO3 ABG Base Excess ABG Hemoglobin Sodium 133 L Potassium Chloride 93.9 L Carbon Dioxide BUN 69 H Creatinine 5.9 H Glucose 106 H POC Glucose 215 H Calcium 7.7 L Phosphorus Magnesium Total Bilirubin AST ALT Serum Total Protein Total Protein Albumin Rdtru-7-Ezgtzuxew PEP Interpretation PTH Intact Urine Creatinine Urine Total Protein Complement C3 Crossmatch 11/07/20 07:27 RBC Hgb Hct MCV MCH RDW Plt Count Geary % (Auto) Geary # (Auto) Seg Neuts % (Manual) Lymphocytes % (Manual) Nucleated RBC % Lymphocytes # (Manual) PT INR ABG pO2 ABG HCO3 ABG Base Excess ABG Hemoglobin Sodium Potassium Chloride Carbon Dioxide BUN Creatinine Glucose POC Glucose 106 H Calcium Phosphorus Magnesium Total Bilirubin AST ALT Serum Total Protein Total Protein Albumin Kbdvj-8-Ivhkbpufa PEP Interpretation PTH Intact Urine Creatinine Urine Total Protein Complement C3 Crossmatch Allied health notes reviewed: nursing
--- NOTE | 2020-11-07 10:50 | Progress Note ---
Assessment and Plan Assessment and plan: --Acute kidney injury superimposed on chronic kidney disease Current Visit: Yes Status: Acute Patient with chronic kidney disease. Worsening renal function s/p Permacath placement, hemodialysis 10/30, 10/31 Nephrology following, outpatient HD chair placement at discharge per renal. -- Hyperkalemia/present on admission Current Visit: Yes Status: Acute Patient is received insulin and glucose, calcium gluconate sodium bicarb while in the emergency room Normal potassium levels, monitor electrolytes -- Anemia Current Visit: Yes Status: Acute Possibly from GI bleed. Received 1 unit of PRBC transfusion, Hb today 7.9 Stool Hemoccult done in the ER was negative Patient has no new episodes of bleeding, hemoglobin today 7.5 Due to cardiac risk factors, cardiology not cleared for elective endoscopy, GI following --Hypokalemia; K3.5 Current Visit: Yes Status: Acute Replenish per protocol and monitor levels --Hypomagnesemia; Current Visit: Yes Status: Acute Nephro placed on magnesium oxide 400 twice a day Monitor electrolytes --GI bleed Current Visit: Yes Status: Acute GI evaluated the patient Cardiology did not clear for elective endoscopy,due to cardiac risk factors Patient's bleeding resolved, hemodynamically stable Outpatient evaluation upon discharge --Acute liver injury /transaminitis Current Visit: Yes Status: Acute CT of the abdomen and pelvis did not reveal any acute abnormality. Trending down. AST 517-96, ALT 445-to 74 GI following --Hypertensive urgency Current Visit: Yes Status: Acute Moderate control , continue current antihypertensives As needed medications , closely monitor -- Pulmonary edema Current Visit: Yes Status: Acute Pulmonary edema shown on CT scan of the abdomen and pelvis. Patient had a dose of IV Lasix. Will check echocardiogram. We will place a consult to cardiology for evaluation. --Moderate to severe malnutrition; Current Visit: Yes Status: Chronic Treat the underlying cause, nutrition supplements Nutrition consult --DVT prophylaxis Current Visit: Yes Status: Acute Plan to address problem: Patient placed on sequential compression device. -- Full code status Current Visit: Yes Status: Acute Patient is full code. Patient is stable for discharge Awaiting outpatient HD placement DC planning per case management Brief history and daily hospital course: 10/31/2020; patient received permacath placement Hemodialysis per schedule, possible endoscopy tomorrow 11/01/2020; patient feels slightly better, GI waiting for Cardiology clearance for endoscopy 11/02/2020; no new episodes of GI bleeding HPI low stable 7.5 today Due to multiple cardiac risk factors, cardiology did not For elective endoscopy, unless life-threatening bleeding. 11/03/2020; patient feels better No new episodes of GI bleeding, no endoscopy during this admission Outpatient HD placement per nephrology prior to discharge 11/04/2020; awaiting outpatient HD placement I spoke with patient's daughter and granddaughter at the bedside Answered all their questions, they were anxious to take him home Informed them that outpatient HD placement should be scheduled by case management Prior to discharge, they verbalized understanding 11/05/2020; patient is medically stable for discharge Awaiting outpatient HD placement 11/06/2020; Hypokalemia, hypomagnesemia, replenish per protocol awaiting outpatient HD placement Disposition per nephrology History Interval history: I have seen and examined the patient at the bedside Patient's chart and medications reviewed Patient is alert and awake Responding appropriately Vital signs reviewed Hospitalist Physical - Constitutional Vitals: Temp Pulse Resp BP Pulse Ox 98.2 F 77 18 143/80 94 11/07/20 07:29 11/07/20 07:29 11/07/20 07:29 11/07/20 07:29 11/07/20 07:29 General appearance: Present: no acute distress, cachectic, other (Patient is lethargic, frail and chronically ill-appearing) - EENT Eyes: Present: PERRL, EOM intact - Neck Neck: Present: supple, normal ROM - Respiratory Respiratory effort: normal Respiratory: bilateral: diminished, negative: rales, rhonchi, wheezing - Cardiovascular Rhythm: regular Heart Sounds: Present: S1 & S2 - Extremities Extremities: no ischemia, No edema - Abdominal General gastrointestinal: soft, non-tender, non-distended, normal bowel sounds - Integumentary Integumentary: Present: clear, warm - Psychiatric Psychiatric: appropriate mood/affect, cooperative - Neurologic Neurologic: CNII-XII intact, moves all extremities Results - Labs CBC & Chem 7: 11/07/20 04:46 11/07/20 04:46 Labs: Laboratory Last Values WBC 7.6 K/mm3 (4.5-11.0) 11/02/20 04:31 RBC 3.52 M/mm3 (3.65-5.03) L 11/02/20 04:31 Hgb 7.2 gm/dl (11.8-15.2) L 11/07/20 04:46 Hct 21.9 % (35.5-45.6) L 11/07/20 04:46 MCV 67 fl (84-94) L 11/02/20 04:31 MCH 21 pg (28-32) L 11/02/20 04:31 MCHC 32 % (32-34) 11/02/20 04:31 RDW 18.3 % (13.2-15.2) H 11/02/20 04:31 Plt Count 123 K/mm3 (140-440) L 11/02/20 04:31 Lymph % (Auto) 15.8 % (13.4-35.0) 11/02/20 04:31 [place] % (Auto) 13.8 % (0.0-7.3) H 11/02/20 04:31 Eos % (Auto) 1.2 % (0.0-4.3) 11/02/20 04:31 Baso % (Auto) 0.4 % (0.0-1.8) 11/02/20 04:31 Lymph # (Auto) 1.2 K/mm3 (1.2-5.4) 11/02/20 04:31 [place] # (Auto) 1.0 K/mm3 (0.0-0.8) H 11/02/20 04:31 Eos # (Auto) 0.1 K/mm3 (0.0-0.4) 11/02/20 04:31 Baso # (Auto) 0.0 K/mm3 (0.0-0.1) 11/02/20 04:31 Add Manual Diff Complete 10/30/20 04:25 Total Counted 100 10/30/20 04:25 Seg Neutrophils % 68.8 % (40.0-70.0) 11/02/20 04:31 Seg Neuts % (Manual) 87.0 % (40.0-70.0) H 10/30/20 04:25 Band Neutrophils % 1.0 % 10/30/20 04:25 Lymphocytes % (Manual) 5.0 % (13.4-35.0) L 10/30/20 04:25 Monocytes % (Manual) 7.0 % (0.0-7.3) 10/30/20 04:25 Nucleated RBC % 1.0 % (0.0-0.9) H 10/30/20 04:25 Seg Neutrophils # 5.3 K/mm3 (1.8-7.7) 11/02/20 04:31 Seg Neutrophils # Man 7.0 K/mm3 (1.8-7.7) 10/30/20 04:25 Band Neutrophils # 0.1 K/mm3 10/30/20 04:25 Lymphocytes # (Manual) 0.4 K/mm3 (1.2-5.4) L 10/30/20 04:25 Abs React Lymphs (Man) 0.0 K/mm3 10/30/20 04:25 Monocytes # (Manual) 0.6 K/mm3 (0.0-0.8) 10/30/20 04:25 Eosinophils # (Manual) 0.0 K/mm3 (0.0-0.4) 10/30/20 04:25 Basophils # (Manual) 0.0 K/mm3 (0.0-0.1) 10/30/20 04:25 Metamyelocytes # 0.0 K/mm3 10/30/20 04:25 Myelocytes # 0.0 K/mm3 10/30/20 04:25 Promyelocytes # 0.0 K/mm3 10/30/20 04:25 Blast Cells # 0.0 K/mm3 10/30/20 04:25 WBC Morphology Not Reportable 10/30/20 04:25 Hypersegmented Neuts Not Reportable 10/30/20 04:25 Hyposegmented Neuts Not Reportable 10/30/20 04:25 Hypogranular Neuts Not Reportable 10/30/20 04:25 Smudge Cells Not Reportable 10/30/20 04:25 Toxic Granulation Not Reportable 10/30/20 04:25 Toxic Vacuolation Not Reportable 10/30/20 04:25 Dohle Bodies Not Reportable 10/30/20 04:25 Pelger-Huet Anomaly Not Reportable 10/30/20 04:25 Katherine Rods Not Reportable 10/30/20 04:25 Platelet Estimate Consistent w auto 10/30/20 04:25 Clumped Platelets Not Reportable 10/30/20 04:25 Plt Clumps, EDTA Not Reportable 10/30/20 04:25 Large Platelets Not Reportable 10/30/20 04:25 Giant Platelets Not Reportable 10/30/20 04:25 Platelet Satelliting Not Reportable 10/30/20 04:25 Plt Morphology Comment Not Reportable 10/30/20 04:25 RBC Morphology Not Reportable 10/30/20 04:25 Dimorphic RBCs Not Reportable 10/30/20 04:25 Polychromasia Few 10/30/20 04:25 Hypochromasia 2+ 10/30/20 04:25 Poikilocytosis Not Reportable 10/30/20 04:25 Anisocytosis 2+ 10/30/20 04:25 Microcytosis Not Reportable 10/30/20 04:25 Macrocytosis Not Reportable 10/30/20 04:25 Spherocytes Not Reportable 10/30/20 04:25 Pappenheimer Bodies Not Reportable 10/30/20 04:25 Sickle Cells Not Reportable 10/30/20 04:25 Target Cells Not Reportable 10/30/20 04:25 Tear Drop Cells Not Reportable 10/30/20 04:25 Ovalocytes Not Reportable 10/30/20 04:25 Helmet Cells Not Reportable 10/30/20 04:25 [place]-Kaufman Bodies Not Reportable 10/30/20 04:25 [place] Rings Not Reportable 10/30/20 04:25 Jermaine Cells Not Reportable 10/30/20 04:25 Bite Cells Not Reportable 10/30/20 04:25 Crenated Cell Not Reportable 10/30/20 04:25 Elliptocytes Not Reportable 10/30/20 04:25 Acanthocytes (Spur) Not Reportable 10/30/20 04:25 Rouleaux Not Reportable 10/30/20 04:25 Hemoglobin C Crystals Not Reportable 10/30/20 04:25 Schistocytes 1+ 10/30/20 04:25 Malaria parasites Not Reportable 10/30/20 04:25 Ellis Bodies Not Reportable 10/30/20 04:25 Hem Pathologist Commnt No 10/30/20 04:25 PT 18.4 Sec. (12.2-14.9) H 10/31/20 19:20 INR 1.48 (0.87-1.13) H 10/31/20 19:20 APTT 33.8 Sec. (24.2-36.6) 10/31/20 19:20 ABG pH 7.384 pH Units (7.350-7.450) 10/29/20 14:40 ABG pCO2 32.3 mm Hg 10/29/20 14:40 ABG pO2 107.8 mm Hg (80.0-90.0) H 10/29/20 14:40 ABG HCO3 18.8 mmol/L (20.0-26.0) L 10/29/20 14:40 ABG O2 Saturation 97.9 % (95.0-99.0) 10/29/20 14:40 ABG O2 Content 10.3 (0.0-44) 10/29/20 14:40 ABG Base Excess -5.6 mmol/L (-2.0-3.0) L 10/29/20 14:40 ABG Hemoglobin 7.4 gm/dl (14.0-18.0) L 10/29/20 14:40 ABG Carboxyhemoglobin 1.5 % (0.0-5.0) 10/29/20 14:40 ABG Methemoglobin 0.5 % (0.0-1.5) 10/29/20 14:40 Oxyhemoglobin 95.9 % (95.0-99.0) 10/29/20 14:40 FiO2 28 % 10/29/20 14:40 Sodium 133 mmol/L (137-145) L 11/07/20 04:46 Potassium 4.7 mmol/L (3.6-5.0) D 11/07/20 04:46 Chloride 93.9 mmol/L (98-107) L 11/07/20 04:46 Carbon Dioxide 25 mmol/L (22-30) 11/07/20 04:46 Anion Gap 19 mmol/L 11/07/20 04:46 BUN 69 mg/dL (9-20) H 11/07/20 04:46 Creatinine 5.9 mg/dL (0.8-1.3) H 11/07/20 04:46 Estimated GFR 9 ml/min 11/07/20 04:46 BUN/Creatinine Ratio 12 % 11/07/20 04:46 Glucose 106 mg/dL (75-100) H 11/07/20 04:46 POC Glucose 106 mg/dL (70-105) H 11/07/20 07:27 Hemoglobin A1c 5.3 % (4-6) 10/29/20 02:00 Calcium 7.7 mg/dL (8.4-10.2) L 11/07/20 04:46 Phosphorus 2.60 mg/dL (2.5-4.5) 11/04/20 06:10 Magnesium 1.90 mg/dL (1.7-2.3) 11/07/20 04:46 Total Bilirubin 0.60 mg/dL (0.1-1.2) 11/02/20 04:31 AST 96 units/L (5-40) H 11/02/20 04:31 ALT 274 units/L (7-56) H 11/02/20 04:31 Alkaline Phosphatase 92 units/L (35-129) 11/02/20 04:31 Serum Total Protein 5.4 g/dL (6.1-8.1) L 11/01/20 04:32 Total Protein 5.1 g/dL (6.3-8.2) L 11/02/20 04:31 Albumin 3.0 g/dL (3.9-5) L 11/02/20 04:31 Albumin/Globulin Ratio 1.4 % 11/02/20 04:31 Jjoqt-1-Lhiughwbt 0.4 g/dL (0.2-0.3) H 11/01/20 04:32 Jqfse-7-Scagginyc 0.5 g/dL (0.5-0.9) 11/01/20 04:32 Beta Globulins 0.2 g/dL (0.2-0.5) 11/01/20 04:32 Gamma Globulins 0.9 g/dL (0.8-1.7) 11/01/20 04:32 Abnorm Protein Band 1 see below 11/01/20 04:32 PEP Interpretation see below H 11/01/20 04:32 Lipase 51 units/L (13-60) 10/28/20 22:43 PTH Intact 176.3 pg/mL (15-65) H 10/30/20 04:25 Urine Color Yellow (Yellow) 10/28/20 Unknown Urine Turbidity Cloudy (Clear) 10/28/20 Unknown Urine pH 5.0 (5.0-7.0) 10/28/20 Unknown Ur [address] [place] 1.018 (1.003-1.030) 10/28/20 Unknown Urine Protein >500 mg/dL (Negative) 10/28/20 Unknown Urine Glucose (UA) 50 mg/dL (Negative) 10/28/20 Unknown Urine Ketones Neg mg/dL (Negative) 10/28/20 Unknown Urine Blood Mod (Negative) 10/28/20 Unknown Urine Nitrite Neg (Negative) 10/28/20 Unknown Urine Bilirubin Neg (Negative) 10/28/20 Unknown Urine Urobilinogen < 2.0 mg/dL (<2.0) 10/28/20 Unknown Ur Leukocyte Esterase Neg (Negative) 10/28/20 Unknown Urine WBC (Auto) 4.0 /HPF (0.0-6.0) 10/28/20 Unknown Urine RBC (Auto) 10.0 /HPF (0.0-6.0) 10/28/20 Unknown U Epithel Cells (Auto) 1.0 /HPF (0-13.0) 10/28/20 Unknown Urine Mucus Few /HPF 10/28/20 Unknown Urine Creatinine 78.5 mg/dL (0.1-20.0) H 10/29/20 15:40 Protein/Creatinin Ratio 9.49 10/29/20 15:40 Urine Sodium 76 mmol/L 10/29/20 15:40 Urine Total Protein 745 mg/dL (5-11.8) H 10/29/20 15:40 JENNIFER Screen Negative (Negative) 11/01/20 04:32 Proteinase 3 (PR3) Ab <1.0 AI (<1.0) 11/01/20 04:32 Myeloperoxidase Ab <1.0 AI (<1.0) 11/01/20 04:32 Glomerular Base Mem IgG See scanned result 11/01/20 04:32 Complement C3 68 mg/dL (82-185) L 11/01/20 04:32 Complement C4 20 mg/dL (15-53) 11/01/20 04:32 Coronavirus (PCR) Negative (Negative) 11/03/20 Unknown Hepatitis A IgM Ab Non-reactive (NonReactive) 10/29/20 00:00 Hep Bs Antigen Non-reactive (Negative) 10/29/20 00:00 Hep B Core IgM Ab Non-reactive (NonReactive) 10/29/20 00:00 Hepatitis C Antibody Non-reactive (NonReactive) 10/29/20 00:00 Blood Type O POSITIVE 10/30/20 10:53 Antibody Screen Negative 10/30/20 10:53 Crossmatch See Detail 10/30/20 10:53 [place]/IV: Voiding Method Toilet Active Medications - Current Medications Current Medications: Generic Name Dose Route Start Last Admin Trade Name Freq PRN Reason Stop Dose Admin Acetaminophen 650 mg 10/29/20 02:17 Acetaminophen 325 Mg Tab PO Q6H PRN Pain MILD(1-3)/Fever >100.5/SCHMITT Amlodipine Besylate 10 mg 10/30/20 13:00 11/06/20 19:22 Amlodipine 10 Mg Tab PO Not Given [facility]DAY [facility] Aspirin 81 mg 10/30/20 10:00 11/06/20 19:22 Aspirin Ec 81 Mg Tab PO Not Given QDAY [facility] Calcium Acetate 667 mg 10/31/20 12:00 11/06/20 19:23 Calcium Acetate 667 Mg Cap PO Not Given TIDWM [facility] Carvedilol 12.5 mg 10/29/20 22:00 11/06/20 21:30 Carvedilol 12.5 Mg Tab PO 12.5 mg BID POLINA Administration Dextrose 0 ml 10/29/20 02:17 Dextrose 50% In Water (25gm) 50 Ml Syringe IV Q30MIN PRN Hypoglycemia Protocol Furosemide 80 mg 11/01/20 10:00 11/06/20 19:23 Furosemide 40 Mg Tab PO Not Given [facility]DAY [facility] Hydralazine HCl 10 mg 10/29/20 06:13 10/29/20 10:10 Hydralazine 20 Mg/1 Ml Inj IV 10 mg Q4H PRN Administration Blood Pressure Sodium Chloride 100 mls @ 999 mls/hr 10/30/20 10:00 Nacl 0.9% IV MARKY PRN Hypotension Insulin Human Regular 0 units 10/29/20 07:30 11/06/20 21:33 Insulin Regular, Human 100 Units/1 Ml SUB-Q 2 units ACHS POLINA Administration Protocol Isosorbide Mononitrate 30 mg 11/01/20 15:00 11/06/20 19:22 Isosorbide Mononitrate Er 30 Mg Tab PO Not Given QDAY [facility] Magnesium Hydroxide 30 ml 10/29/20 02:17 Magnesium Hydroxide (Mom) Oral Liqd Udc PO Q4H PRN Constipation Magnesium Oxide 400 mg 11/06/20 10:00 11/06/20 21:30 Magnesium Oxide 400 Mg Tab PO 400 mg BID POLINA Administration Nitroglycerin 0.4 mg 10/31/20 06:00 11/07/20 07:45 Nitroglycerin 0.4 Mg Patch 24hr TD Not Given QDAY@0600 POLINA Ondansetron HCl 4 mg 10/29/20 02:17 10/31/20 16:38 Ondansetron 4 Mg/2 Ml Inj IV 4 mg Q8H PRN Administration Nausea And Vomiting Pantoprazole Sodium 40 mg 11/04/20 16:30 11/06/20 19:22 Pantoprazole 40 Mg Tab PO Not Given BIDAC POLINA Sodium Chloride 10 ml 10/29/20 10:00 11/06/20 21:32 Sodium Chloride 0.9% 10 Ml Flush Syringe IV 10 ml BID POLINA Administration Sodium Chloride 10 ml 10/29/20 02:17 Sodium Chloride 0.9% 10 Ml Flush Syringe IV PRN PRN LINE FLUSH Nutrition/Malnutrition Assess - Dietary Evaluation Nutrition/Malnutrition Findings: Nutrition Notes Start: 10/29/20 12:02 Freq: Status: Active Protocol: Document 11/03/20 11:16 (Rec: 11/03/20 11:19 [email or web address]) Nutrition Notes Initial or Follow up Reassessment Current Diagnosis Acute Kidney Injury,Diabetes, Hypertension,Heart Failure, Hyperlipidemia Other Pertinent Diagnosis elevated LFTs, GIB, anemia Current Diet Cardiac, Consistent CHO Labs/Tests Reviewed Pertinent Medications Reviewed Height 5 ft 5 in Weight 46.1 kg Raymond Body Weight (kg) 61.81 BMI 16.9 Weight Status Underweight Subjective/Other Information FU for intakes. Per RN pt eating 90% of meals and 90% of ONS. Percent of energy/protein needs met: 100%/100% Burn Absent Trauma Absent GI Symptoms None Current % PO Good (75-100%) Minimum of two criteria Yes Energy Intake (non-severe) <75% Estimated Energy Requirement >7 days Muscle Mass Mild Depletion (non-severe) #1 Nutrition Diagnosis Malnutrition As Evidenced by Signs and Symptoms pt eaing 90% of meals Diagnosis Progress(for reassessment Continues documentation) Is patient on ventilator? No Is Patient Ambulatory and/or Out of Bed No REE-([place]. Jeor-confined to bed) 1324.572 Calculation Used for Recommendations [place]- [place] Additional Notes Protein: (1.2-1.5g/kg) 62-77g Fluid: 1 ml/kcal or per MD Nutrition Intervention Change Diet Order: Continue Add Supplement/Snack (indicate name/kcal Nepro BID /protein ) Provides kCal: 850 Provides Protein (gm) 38 Goal #1 Meet at least 80% of protein and energy needs via PO and ONS intakes Goal #2 Weight gain/maintenance Anticipated Discharge Needs: Cardiac, Consistent CHO Follow-Up By: 11/07/20 Additional Comments FU for intakes, ONS tolerance
--- NOTE | 2020-11-07 11:40 | Progress Note ---
Assessment and Plan - Patient Problems (1) Abnormal ECG Current Visit: Yes Status: Acute Plan to address problem: As previously reported, the ECG showed marked T wave abnormalities across the precordium, more pronounced than his baseline revascularization abnormalities of LVH. He has no prior history of coronary artery disease, but has had thoracotomy for repair of an ascending aortic aneurysm. Due to abnormal ECG, we recommended a Lexiscan thallium, which showed normal myocardial perfusion, with mildly reduced left ventricular systolic ejection fraction 46%. 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 (2) Preoperative cardiovascular examination Current Visit: Yes Status: Acute Subjective Date of service: 11/07/20 Principal diagnosis: Anemia, Abnormal LFTs Interval history: Patient is comfortable, no acute distress, no new cardiac complaints reported. A Lexiscan thallium stress test done yesterday showed normal perfusion, with left ventricular ejection fraction 46%, identical with the echocardiographic left ventricular function assessment of 45 to 50%. Objective Vital Signs Temp Pulse Resp Resp BP Pulse Ox 11/07/20 11:28 97 11/07/20 07:29 98.2 F 77 18 143/80 94 11/07/20 04:22 99.2 F 74 20 124/72 95 11/06/20 22:58 98.5 F 74 14 117/65 96 11/06/20 19:27 98.2 F 77 14 122/70 96 11/06/20 16:00 20 11/06/20 11:54 97.5 F L 75 16 133/71 97 - Physical Examination General: No Apparent Distress HEENT: Positive: PERRL Neck: Positive: neck supple Cardiac: Positive: Reg Rate and Rhythm Lungs: Positive: Decreased Breath Sounds Neuro: Positive: Weakness (Generalized weakness, frail and chronically ill appearing) Abdomen: Positive: Soft Skin: Positive: Clear Extremities: Absent: normal - Labs and Meds CBC 11/07/20 Range/Units 04:46 Hgb 7.2 L (11.8-15.2) gm/dl Hct 21.9 L (35.5-45.6) % Comprehensive Metabolic Panel 11/07/20 Range/Units 04:46 Sodium 133 L (137-145) mmol/L Potassium 4.7 D (3.6-5.0) mmol/L Chloride 93.9 L (98-107) mmol/L Carbon Dioxide 25 (22-30) mmol/L BUN 69 H (9-20) mg/dL Creatinine 5.9 H (0.8-1.3) mg/dL Glucose 106 H (75-100) mg/dL Calcium 7.7 L (8.4-10.2) mg/dL - Allied health notes Allied health notes reviewed: nursing
[2020-11-07] MEDS: EPOETIN ALFA-EPBX 20,000 UNIT/1 ML VIAL SUB-Q PRN (15:17)
--- NOTE | 2020-11-07 15:52 | Discharge Summary ---
Providers - Providers Date of Admission: 10/29/20 02:17 Date of discharge: 11/07/20 Attending physician: CLAY WHITLOCK 10/29/20 02:18 Consult to Dietitian/Nutrition [CONS] Routine Physician Instructions: Reason For Exam: Reason for Consult: Diet education Consult to Physician [CONS] Routine Comment: Consulting Provider: BARTOLO ANDRES Physician Instructions: Reason For Exam: Acute on Chronic Renal Failure 10/29/20 02:28 Consult to Physician [CONS] Routine Comment: Consulting Provider: MALIK SHANNON Physician Instructions: Reason For Exam: Elevated Liver Enzymes 10/29/20 09:59 Consult to Physician [CONS] Routine Comment: Consulting Provider: MARGA GAMBLE Physician Instructions: Reason For Exam: cardiac risk strat/ 10/29/20 10:12 Consult to Physician [CONS] Routine Comment: Consulting Provider: LUNA BRAGA Physician Instructions: Reason For Exam: critical care 10/31/20 10:10 Consult to Interventional Radiology [CONS] Routine Consulting Provider: THEO GRAHAM Reason For Exam: Tunnel hemodialysis catheter Place consult to:: VASCULAR Notified:: YES Was contact made?: Yes If yes, spoke with:: DR ARNETT Comment:: DR ARNETT ON FLOOR Primary care physician: ACQUISITION MANAGER Hospitalization Reason for admission: Abdominal pain and dark stool Condition: Stable Pertinent studies: CT of the abdomen and pelvis reveals cardiomegaly with interlobular septal thickening in the lung bases likely reflecting edema. Moderate right and trace left pleural effusions. 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 Abdominal ultrasound Echocardiogram Multiple chest x-rays CT chest Procedures: Central line placement Permacath placement Hemodialysis per schedule Nuclear stress test; negative for ischemia EF 45% Hospital course: Abdominal pain Dark stool Cough Generalized weakness History of present illness: 80-year-old Syri[place] male patient with significant past medical history of hypertension diabetes mellitus history of thoracic aortic dissection status post repair was admitted through emergency room with nausea vomiting abdominal pain and dark stool for the last 2 weeks worse last 24 hours, initial evaluation is consistent with acute kidney injury evaluated by nephrology, renal function closely monitored as renal function did not improve patient was considered for hemodialysis patient had dialysis catheter placement and received dialysis per schedule per nephrology Patient also has dark stool, evaluated by GI considered EGD consider EGD patient's hemoglobin and hematocrit were closely monitored and received 1 unit of PRBC symptoms slowly but gradually improved patient also had chest pain evaluated by GI cardiology patient underwent nuclear stress test which was negative for reversible ischemia with ejection fraction of 45% and patient's cardiac medications were optimized patient has malnutrition started on nutrition supplements and shoe salesperson evaluated the patient and started on nutrition supplements Patient symptoms slowly but gradually improved and the case management and social services specialist have evaluated the patient and outpatient hemodialysis was set up for initially physical therapy occupational therapy and patient is being discharged home with home health. Patient was cleared by all the consultants, hemodynamically and clinically stable at discharge Patient advised to follow with all the consultants per schedule and family is counseled the importance of adhering to the treatment plan as well as compliant with hemodialysis patient is stable at discharge patient is stable at discharge Discharge diagnosis: --ESRD vs acute on chronic kidney disease Current Visit: Yes Status: Acute Patient with chronic kidney disease. Worsening renal function s/p Permacath placement, hemodialysis 10/30, 10/31 Nephrology following, outpatient HD chair placement at discharge per renal. -- Hyperkalemia/present on admission Current Visit: Yes Status: Acute Patient is received insulin and glucose, calcium gluconate sodium bicarb while in the emergency room Normal potassium levels, monitor electrolytes -- Anemia Current Visit: Yes Status: Acute Possibly from GI bleed. Received 1 unit of PRBC transfusion, Hb today 7.9 Stool Hemoccult done in the ER was negative Patient has no new episodes of bleeding, hemoglobin today 7.5 Due to cardiac risk factors, cardiology not cleared for elective endoscopy, GI following --Hypokalemia; K3.5 Current Visit: Yes Status: Acute Replenish per protocol and monitor levels --Hypomagnesemia; Current Visit: Yes Status: Acute Nephro placed on magnesium oxide 400 twice a day Monitor electrolytes --GI bleed Current Visit: Yes Status: Acute GI evaluated the patient Cardiology did not clear for elective endoscopy,due to cardiac risk factors Patient's bleeding resolved, hemodynamically stable Outpatient evaluation upon discharge --Acute liver injury /transaminitis Current Visit: Yes Status: Acute CT of the abdomen and pelvis did not reveal any acute abnormality. Trending down. AST 517-96, ALT 445-to 74 GI following --Hypertensive urgency Current Visit: Yes Status: Acute Moderate control , continue current antihypertensives As needed medications , closely monitor -- Pulmonary edema Current Visit: Yes Status: Acute Pulmonary edema shown on CT scan of the abdomen and pelvis. Patient had a dose of IV Lasix. Will check echocardiogram. We will place a consult to cardiology for evaluation. --Moderate to severe malnutrition; Current Visit: Yes Status: Chronic Treat the underlying cause, nutrition supplements Nutrition consult Stable at discharge Disposition: HOME / SELF CARE / HOMELESS Final Discharge Diagnosis (Prints w/discharge instructions): ESRD vs acute on chronic kidney disease. Initiated hemodialysis. Hyperkalemia resolved. Pulmonary edema improved. Acute liver injury trending down. GI bleeding stable. Anemia received 1 unit PRBC. Hypokalemia corrected. Hypomagnesemia resolved. Severe malnutrition Time spent for discharge: 35 min Core Measure Documentation - Palliative Care Palliative Care/ Comfort Measures: Not Applicable - Core Measures Any of the following diagnoses?: none Exam - Constitutional Vitals: Temp Pulse Resp BP Pulse Ox 98.3 F 71 18 134/79 97 11/07/20 12:35 11/07/20 15:15 11/07/20 12:35 11/07/20 15:15 11/07/20 11:28 General appearance: Present: no acute distress, well-nourished - EENT Eyes: Present: PERRL, EOM intact - Neck Neck: Present: supple, normal ROM - Respiratory Respiratory effort: normal Respiratory: bilateral: diminished, negative: rales, rhonchi, wheezing - Cardiovascular Rhythm: regular Heart Sounds: Present: S1 & S2 - Extremities Extremities: no ischemia, No edema - Abdominal General gastrointestinal: Present: soft, non-tender, non-distended, normal bowel sounds - Integumentary Integumentary: Present: clear, warm - Musculoskeletal Musculoskeletal: strength equal bilaterally - Psychiatric Psychiatric: appropriate mood/affect, cooperative - Neurologic Neurologic: CNII-XII intact, moves all extremities Plan Activity: advance as tolerated, fall precautions Diet: renal Additional Instructions: [facility] dialysis clinic. [address] [facility] [id number]. . Chair days/time: Friday,Friday,Friday at 10:30am, treatment outpatient is November 08, 2020 at 10:00am to complete paperwork. Fall precautions if you have worsening symptoms contact MD or go to emergency room as needed. You need to follow with welding machine operator electroslag, maintenance apprentice, GI and pulmonary physicians per schedule Follow up with: PRIMARY CARE, [Primary Care Provider] - 7 Days RAMÓN MAYA MD [Staff Physician] - 14 Days SAMMIE GUALLPA MD [Staff Physician] - 7 Days DELMY VILA MD [Staff Physician] - 14 Days JAME MONTANO MD [Staff Physician] - 7 Days Prescriptions: amLODIPine 10 mg PO QDAY #30 tablet carvediloL [Coreg] 12.5 mg PO BID #60 tablet Aspirin EC [Halfprin EC] 81 mg PO QDAY #30 ISOSORBIDE MONOnitrate [Imdur ER] 30 mg PO QDAY #30 tablet Furosemide [Lasix TAB] 80 mg PO QDAY #30 tablet Calcium Acetate [Phoslo] 667 mg PO TIDWM #30 capsule Pantoprazole [Protonix TAB] 40 mg PO BIDAC #60 tablet
[2020-11-07 16:01] VITALS: BP 175/91
[2020-11-09 07:44] LABS: Abnormal Protein Band 1 SEE SCANNED RESULT; Abnormal Protein Band 2 SEE SCANNED RESULT; Albumin SEE SCANNED RESULT; Creatinine, Random Urine SEE SCANNED RESULT; Gamma Globulin SEE SCANNED RESULT; Interpretation SEE SCANNED RESULT; Protein/Creatinine Ratio SEE SCANNED RESULT
== END 2020-11-07 18:42 | disposition home or self-care (01) | DRG 673 ==
LOC: ED 22:06 → OBSVTOIN 10-29 02:17 → CC1 10-29 02:17 → 4A 10-30 17:48
PROVIDERS: ADMIT Internal Medicine Geriatric Medicine; ATTEND Internal Medicine
PROC: 4A033R1 Measurement of Arterial Saturation, Peripheral, Percutaneous Approach (ICD-10-PCS; 2020-10-29)
PROC: 05HN33Z Insertion of Infusion Device into Left Internal Jugular Vein, Percutaneous Approach (ICD-10-PCS; principal; 2020-10-30)
PROC: B514YZA Fluoroscopy of Left Jugular Veins using Other Contrast, Guidance (ICD-10-PCS; 2020-10-30)
PROC: 30230N1 Transfusion of Nonautologous Red Blood Cells into Peripheral Vein, Open Approach (ICD-10-PCS; 2020-10-30)
PROC: 5A1D70Z Performance of Urinary Filtration, Intermittent, Less than 6 Hours Per Day (ICD-10-PCS; 2020-10-30)
PROC: 0JH63XZ Insertion of Tunneled Vascular Access Device into Chest Subcutaneous Tissue and Fascia, Percutaneous Approach (ICD-10-PCS; 2020-10-31)
PROC: 02H633Z Insertion of Infusion Device into Right Atrium, Percutaneous Approach (ICD-10-PCS; 2020-10-31)
PROC: B548ZZA Ultrasonography of Superior Vena Cava, Guidance (ICD-10-PCS; 2020-10-31)
PROC: 5A1D70Z Performance of Urinary Filtration, Intermittent, Less than 6 Hours Per Day (ICD-10-PCS; 2020-10-31)
PROC: 5A1D70Z Performance of Urinary Filtration, Intermittent, Less than 6 Hours Per Day (ICD-10-PCS; 2020-11-02)
PROC: 5A1D70Z Performance of Urinary Filtration, Intermittent, Less than 6 Hours Per Day (ICD-10-PCS; 2020-11-04)
PROC: 5A1D70Z Performance of Urinary Filtration, Intermittent, Less than 6 Hours Per Day (ICD-10-PCS; 2020-11-07)
DX: N17.8 Other acute kidney failure (principal); E43 Unspecified severe protein-calorie malnutrition; G93.41 Metabolic encephalopathy; K92.2 Gastrointestinal hemorrhage, unspecified; J81.1 Chronic pulmonary edema; E87.2 Acidosis; S36.119A Unspecified injury of liver, initial encounter; Z68.1 Body mass index [BMI] 19.9 or less, adult; I13.2 Hypertensive heart and chronic kidney disease with heart failure and with stage 5 chronic kidney disease, or end stage renal disease; Z20.822 Contact with and (suspected) exposure to COVID-19; X58.XXXA Exposure to other specified factors, initial encounter; D50.9 Iron deficiency anemia, unspecified; R74.8 Abnormal levels of other serum enzymes; I16.0 Hypertensive urgency; E87.5 Hyperkalemia; N18.6 End stage renal disease; I50.9 Heart failure, unspecified; D69.6 Thrombocytopenia, unspecified; E11.9 Type 2 diabetes mellitus without complications; R94.31 Abnormal electrocardiogram [ECG] [EKG]; I71.6 Thoracoabdominal aortic aneurysm, without rupture; E87.70 Fluid overload, unspecified; R74.01 Elevation of levels of liver transaminase levels; R80.9 Proteinuria, unspecified; E87.6 Hypokalemia; E83.42 Hypomagnesemia; Z79.899 Other long term (current) drug therapy; Z79.891 Long term (current) use of opiate analgesic; Z79.01 Long term (current) use of anticoagulants; Z87.891 Personal history of nicotine dependence; Z79.82 Long term (current) use of aspirin; Y93.9 Activity, unspecified; Y92.89 Other specified places as the place of occurrence of the external cause; Y99.8 Other external cause status; E11.22 Type 2 diabetes mellitus with diabetic chronic kidney disease
CPT/HCPCS: 36415; 36430; 36558; 36600; 71045; 71250; 74176; 76700; 77001; 78452; 80048; 80053; 80074; 81001; 82270; 82570; 82803; 82962; 83036; 83520; 83690; 83735; 83970; 84100; 84132; 84156; 84165; 84166; 84300; 85007; 85014; 85018; 85025; 85027; 85610; 85730; 86021; 86038; 86160; 86850; 86900; 86901; 86920; 93005; 93017; 93306; 94640; 94644; 96365; 96375; G0378; A9502; C1750; C1769; C9113; J0360; J0610; J0885; J1644; J1815; J1940; J2250; J2270; J2405; J2785; J3010; J7030; J7050; P9016; U0003

== ENCOUNTER 2021-03-19 13:25 | Emergency (ER) | payer MEDICARE ==
[2021-03-19 13:32] VITALS: BP 162/103
[2021-03-19 14:32] LABS: Hematocrit 30.8 % (35.5-45.6); Hemoglobin 9.3 gm/dl (11.8-15.2); Mean Corpuscular HGB Conc 30 % (32-34); Red Blood Count 4.48 M/mm3 (3.65-5.03); Red Cell Distribution Width 19.6 % (13.2-15.2)
[2021-03-19 14:35] LABS: Mean Corpuscular Volume 69 fl (84-94)
[2021-03-19 14:36] LABS: INR 1.05 (0.87-1.13)
[2021-03-19 14:37] LABS: Partial Thromboplastin Time 41.6 Sec. (24.2-36.6)
--- NOTE | 2021-03-19 14:40 | Cat Scan Report ---
CT HEAD WITHOUT CONTRAST INDICATION / CLINICAL INFORMATION: syncope. TECHNIQUE: All CT scans at this location are performed using CT dose reduction for ALARA by means of automated exposure control. COMPARISON: CT head 11/19/2018 FINDINGS: There is no acute intra-axial hemorrhage, mass effect, or edema. Diffuse cerebral atrophy with compen satory dilation of ventricles is unchanged. Bilateral lacunar infarcts in the basal ganglia and thala mi. Additional bilateral periventricular white matter hypodensities are consistent with microangiopat hic changes. Ray-white matter differentiation is preserved. Paranasal sinuses and mastoid air cells are clear. No acute osseous abnormality. IMPRESSION: 1. No acute intracranial abnormality. 2. Stable findings of chronic small vessel disease as above. Exam is stable compared to 11/19/2018. Signer Name: Jaiden Langley MD Signed: 03/19/2021 2:35 PM Workstation Name: [id number]
[2021-03-19 14:46] LABS: Albumin 3.3 g/dL (3.9-5); Calcium 8.3 mg/dL (8.4-10.2)
[2021-03-19 15:18] LABS: Total Cells Counted 100
[2021-03-19 15:19] LABS: Ovalocytes 1+; Schistocytes 1+
[2021-03-19 15:21] LABS: Tear Drop Cells Few
[2021-03-19 15:22] LABS: Hypochromasia 1+; Target Cells Few
[2021-03-19 15:24] LABS: Platelet Estimate Consistent w Auto
[2021-03-19 15:25] LABS: Anisocytosis 2+; Poikilocytosis 2+
[2021-03-19 15:26] LABS: Platelet Count 129 K/mm3 (140-440)
--- NOTE | 2021-03-19 15:31 | XRay Report ---
RIGHT SHOULDER 3 VIEWS INDICATION / CLINICAL INFORMATION: fall/pain COMPARISON: None available. FINDINGS: BONES / JOINT(S): No acute fracture or subluxation. No significant arthritis. SOFT TISSUES: No significant abnormality. ADDITIONAL FINDINGS: None. Signer Name: Kenneth Gooden MD Signed: 03/19/2021 3:27 PM Workstation Name: [id number]
--- NOTE | 2021-03-19 15:31 | XRay Report ---
PELVIS ONE VIEW INDICATION / CLINICAL INFORMATION: fall/pain COMPARISON: None available. FINDINGS: BONES / JOINT(S): No acute fracture or subluxation. No significant arthritis. SOFT TISSUES: No significant abnormality. ADDITIONAL FINDINGS: None. Signer Name: Kenneth Gooden MD Signed: 03/19/2021 3:26 PM Workstation Name: [id number]
--- NOTE | 2021-03-19 15:34 | XRay Report ---
Chest with right RIBS 4 views HISTORY: Pain status post fall. COMPARISON: Chest x-ray 11/02/2020. FINDINGS: Heart size is normal status post previous median sternotomy. The aorta remains tortuous and ectatic. A left-sided dialysis catheter is unchanged in position. Left-sided parenchymal scarring re swetha without acute abnormality. No bony injury. Signer Name: Kenneth Gooden MD Signed: 03/19/2021 3:29 PM Workstation Name: [id number]
--- NOTE | 2021-03-19 17:37 | Emergency Department Report ---
ED General Adult HPI - General Chief complaint: Fall Stated complaint: DIZZY, HIT HEAD AFTER DIALYSIS Time Seen by Provider: 03/19/21 13:45 Source: patient, family Mode of arrival: Ambulatory Limitations: Language Barrier - History of Present Illness Initial comments: Patient's daughter acts as control chemist for the patient. She states that her dad went to dialysis today and due to his blood pressure they did not dialyze him. She states her father has no complaints. He does not have any chest pain or shortness of breath. She does report 3 days ago the patient fell and has had right hip, rib, shoulder pain since that time. -: Sudden Location: pelvis, upper extremity Severity scale (0 -10): 4 Quality: aching Consistency: constant Improves with: rest Worsens with: movement Associated Symptoms: denies other symptoms Treatments Prior to Arrival: none - Related Data Home Medications Medication Instructions Recorded Confirmed Last Taken Atorvastatin Calcium [Lipitor] 80 mg PO QDAY 10/28/20 10/28/20 Unknown Previous Rx's Medication Instructions Recorded Last Taken Type Aspirin EC [Halfprin EC] 81 mg PO QDAY #30 11/07/20 Unknown Rx Calcium Acetate [Phoslo] 667 mg PO TIDWM #30 capsule 11/07/20 Unknown Rx Furosemide [Lasix TAB] 80 mg PO QDAY #30 tablet 11/07/20 Unknown Rx ISOSORBIDE MONOnitrate [Imdur ER] 30 mg PO QDAY #30 tablet 11/07/20 Unknown Rx Pantoprazole [Protonix TAB] 40 mg PO BIDAC #60 tablet 11/07/20 Unknown Rx amLODIPine 10 mg PO QDAY #30 tablet 11/07/20 Unknown Rx carvediloL [Coreg] 12.5 mg PO BID #60 tablet 11/07/20 Unknown Rx Allergies Allergy/AdvReac Type Severity Reaction Status Date / Time No Known Allergies Allergy Verified 03/19/21 13:29 ED Review of Systems ROS: Stated complaint: DIZZY, HIT HEAD AFTER DIALYSIS Other details as noted in HPI Comment: All other systems reviewed and negative (Was obtained by control chemist who is the patient's daughter) Constitutional: denies: chills, fever Eyes: denies: eye pain, eye discharge, vision change ENT: denies: ear pain, throat pain Respiratory: denies: cough, shortness of breath, wheezing Cardiovascular: denies: chest pain, palpitations Endocrine: no symptoms reported Gastrointestinal: denies: abdominal pain, nausea, diarrhea Genitourinary: denies: urgency, dysuria Musculoskeletal: denies: back pain, joint swelling, arthralgia Skin: denies: rash, lesions Neurological: denies: headache, weakness, paresthesias Psychiatric: denies: anxiety, depression Hematological/Lymphatic: denies: easy bleeding, easy bruising ED Past Medical Hx - Past Medical History Hx Hypertension: Yes Hx Diabetes: Yes Additional medical history: Aortic dissection - Surgical History Additional Surgical History: Aortic dissection repair - Social History Smoking Status: Former Smoker Substance Use Type: None - Medications Home Medications: Home Medications Medication Instructions Recorded Confirmed Last Taken Type Atorvastatin Calcium [Lipitor] 80 mg PO QDAY 10/28/20 10/28/20 Unknown History Aspirin EC [Halfprin EC] 81 mg PO QDAY #30 11/07/20 Unknown Rx Calcium Acetate [Phoslo] 667 mg PO TIDWM #30 capsule 11/07/20 Unknown Rx Furosemide [Lasix TAB] 80 mg PO QDAY #30 tablet 11/07/20 Unknown Rx ISOSORBIDE MONOnitrate [Imdur ER] 30 mg PO QDAY #30 tablet 11/07/20 Unknown Rx Pantoprazole [Protonix TAB] 40 mg PO BIDAC #60 tablet 11/07/20 Unknown Rx amLODIPine 10 mg PO QDAY #30 tablet 11/07/20 Unknown Rx carvediloL [Coreg] 12.5 mg PO BID #60 tablet 11/07/20 Unknown Rx ED Physical Exam - General Limitations: Language Barrier General appearance: alert, in no apparent distress - Head Head exam: Present: atraumatic, normocephalic - Eye Eye exam: Present: normal appearance - ENT ENT exam: Present: mucous membranes moist - Neck Neck exam: Present: normal inspection - Respiratory Respiratory exam: Present: normal lung sounds bilaterally. Absent: respiratory distress - Cardiovascular Cardiovascular Exam: Present: regular rate, normal rhythm. Absent: systolic murmur, diastolic murmur, rubs, gallop - GI/Abdominal GI/Abdominal exam: Present: soft, normal bowel sounds. Absent: distended, tenderness - Rectal Rectal exam: Present: deferred - Extremities Exam Extremities exam: Present: tenderness (Tenderness palpation to the humeral neck right arm, tenderness palpation of ribs 2 through 6 right side, tenderness palpation right hip) - Back Exam Back exam: Present: normal inspection - Neurological Exam Neurological exam: Present: alert, oriented X3 - Psychiatric Psychiatric exam: Present: normal affect, normal mood - Skin Skin exam: Present: warm, dry, intact, normal color. Absent: rash ED Course Vital Signs 03/19/21 13:31 Temperature 97.5 F L Pulse Rate 76 Respiratory 16 Rate Blood Pressure 162/103 O2 Sat by Pulse 98 Oximetry ED Medical Decision Making - Lab Data Result diagrams: 03/19/21 14:10 03/19/21 14:10 Lab Results 03/19/21 03/19/21 03/19/21 Range/Units 14:10 14:10 14:10 WBC 5.6 (4.5-11.0) K/mm3 RBC 4.48 (3.65-5.03) M/mm3 Hgb 9.3 L (11.8-15.2) gm/dl Hct 30.8 L (35.5-45.6) % MCV 69 L (84-94) fl MCH 21 L (28-32) pg MCHC 30 L (32-34) % RDW 19.6 H (13.2-15.2) % Plt Count 129 L (140-440) K/mm3 Add Manual Diff Complete Total Counted 100 Seg Neuts % (Manual) 70.0 (40.0-70.0) % Lymphocytes % (Manual) 17.0 (13.4-35.0) % Monocytes % (Manual) 3.0 (0.0-7.3) % Eosinophils % (Manual) 6.0 H (0.0-4.3) % Basophils % (Manual) 4.0 H (0.0-1.8) % Nucleated RBC % Not Reportable Seg Neutrophils # Man 3.9 (1.8-7.7) K/mm3 Band Neutrophils # 0.0 K/mm3 Lymphocytes # (Manual) 1.0 L (1.2-5.4) K/mm3 Abs React Lymphs (Man) 0.0 K/mm3 Monocytes # (Manual) 0.2 (0.0-0.8) K/mm3 Eosinophils # (Manual) 0.3 (0.0-0.4) K/mm3 Basophils # (Manual) 0.2 H (0.0-0.1) K/mm3 Metamyelocytes # 0.0 K/mm3 Myelocytes # 0.0 K/mm3 Promyelocytes # 0.0 K/mm3 Blast Cells # 0.0 K/mm3 WBC Morphology Not Reportable Hypersegmented Neuts Not Reportable Hyposegmented Neuts Not Reportable Hypogranular Neuts Not Reportable Smudge Cells Not Reportable Toxic Granulation Not Reportable Toxic Vacuolation Not Reportable Dohle Bodies Not Reportable Pelger-Huet Anomaly Not Reportable Katherine Rods Not Reportable Platelet Estimate Consistent w auto Clumped Platelets Not Reportable Plt Clumps, EDTA Not Reportable Large Platelets Not Reportable Giant Platelets Not Reportable Platelet Satelliting Not Reportable Plt Morphology Comment Not Reportable RBC Morphology Not Reportable Dimorphic RBCs Not Reportable Polychromasia Not Reportable Hypochromasia 1+ Poikilocytosis 2+ Anisocytosis 2+ Microcytosis 2+ Macrocytosis Not Reportable Spherocytes Not Reportable Pappenheimer Bodies Not Reportable Sickle Cells Not Reportable Target Cells Few Tear Drop Cells Few Ovalocytes 1+ Helmet Cells Not Reportable Villeda-Watkins Bodies Not Reportable Anderson Rings Not Reportable Jermaine Cells Not Reportable Bite Cells Not Reportable Crenated Cell Not Reportable Elliptocytes Not Reportable Acanthocytes (Spur) 1+ Rouleaux Not Reportable Hemoglobin C Crystals Not Reportable Schistocytes 1+ Malaria parasites Not Reportable Ellis Bodies Not Reportable Hem Pathologist Commnt No PT 14.8 (12.2-14.9) Sec. INR 1.05 (0.87-1.13) APTT 41.6 H (24.2-36.6) Sec. Sodium 140 (137-145) mmol/L Potassium 4.0 (3.6-5.0) mmol/L Chloride 102.0 (98-107) mmol/L Carbon Dioxide 24 (22-30) mmol/L Anion Gap 18 mmol/L BUN 59 H (9-20) mg/dL Creatinine 4.9 H (0.8-1.3) mg/dL Estimated GFR 11 ml/min BUN/Creatinine Ratio 12 % Glucose 118 H (75-100) mg/dL Calcium 8.3 L (8.4-10.2) mg/dL Magnesium 1.70 (1.7-2.3) mg/dL Total Bilirubin 0.90 (0.1-1.2) mg/dL AST 22 (5-40) units/L ALT 14 (7-56) units/L Alkaline Phosphatase 111 (35-129) units/L Total Protein 6.4 (6.3-8.2) g/dL Albumin 3.3 L (3.9-5) g/dL Albumin/Globulin Ratio 1.1 % - EKG Data -: EKG Interpreted by Me EKG shows normal: sinus rhythm - EKG Data Interpretation: LVH - Radiology Data Radiology results: report reviewed - Medical Decision Making Discussed results with the patient's daughter and the need to follow-up with social media manager at the dialysis center set up dialysis for tomorrow she stated that she understood these instructions Critical care attestation.: If time is entered above; I have spent that time in minutes in the direct care of this critically ill patient, excluding procedure time. ED Disposition Clinical Impression: Hypertension, Fall, Rib contusion, Hip pain Disposition: 01 HOME / SELF CARE / HOMELESS Is pt being admited?: No Does the pt Need Aspirin: No Condition: Stable Instructions: Hypertension (ED), Hip Pain, Contusion, [id number], Hypertension, Adult Additional Instructions: return if worse Referrals: PRIMARY CARE, [Primary Care Provider] - 3-5 Days ALEX RIVAS MD [Staff Physician] - 3-5 Days Time of Disposition: 17:37
--- NOTE | 2021-03-20 11:14 | Electrocardiograph Report ---
[facility] Test Date: 2021-03-19 Test Time: 13:36:34 Pat Name: NINI WALKER Department: Room: Gender: M Hospitality Host: KIRA : 1940 Requested By: MOISES HARVEY Order Number: [id number] Reading MD: Oleksandr Montenegro Measurements Intervals [place] Rate: 70 P: 11 [place]: 217 QRS: 63 QRSD: 96 T: 149 QT: 426 QTc: 460 Interpretive Statements Sinus rhythm Borderline prolonged [place] interval LVH with secondary repolarization abnormality Compared to ECG 11/01/2020 10:38:33 ST (T wave) deviation no longer present Prolonged QT interval no longer present Electronically Signed On 03-20-2021 11:13:25 EST by Oleksandr Montenegro
== END 2021-03-19 18:15 | disposition home or self-care (01) ==
LOC: ED 13:25
DX: S20.211A Contusion of right front wall of thorax, initial encounter (principal); I10 Essential (primary) hypertension; M25.551 Pain in right hip; R51.9 Headache, unspecified; E11.9 Type 2 diabetes mellitus without complications; Z87.891 Personal history of nicotine dependence; Z79.899 Other long term (current) drug therapy; W18.39XA Other fall on same level, initial encounter; Y93.89 Activity, other specified; Y92.89 Other specified places as the place of occurrence of the external cause; Y99.8 Other external cause status
CPT/HCPCS: 36415; 70450; 72170; 80053; 83735; 85007; 85025; 85610; 85730; 93005; 99284

== ENCOUNTER 2021-06-23 12:05 | Emergency (ER) | payer MEDICARE ==
--- NOTE | 2021-06-23 13:23 | Event Note ---
Date: 06/23/21 Medical screening examination note: Nephrology: Dr. Guzman Vascular surgery: [facility] vascular 81-year-old gentleman presenting with daughter, with a complaint of bleeding from left upper extremity fistula. Denies physical pain. Left upper extremity swollen from the elbow distal. Has ecchymosis. Diminished radial pulses. Patient denies additional complaints. Check appropriate laboratory studies, hemodialysis access duplex study, and upper extremity arterial study. Detailed history and physical to be performed by myself or oncoming ER provider.
--- NOTE | 2021-06-23 13:43 | Emergency Department Report ---
ED General Adult HPI - General Chief complaint: Extremity Problem,Nontraumatic Stated complaint: Fistula is bleeding PUI?: No Time Seen by Provider: 06/23/21 13:25 Source: patient, family, RN notes reviewed, old records reviewed Mode of arrival: Ambulatory Limitations: No Limitations - History of Present Illness Initial comments: Vascular surgery: [facility] vascular Nephrology: Dr Megan Summersese wage and salary administrator: [id number]. Patient also request that his daughter assist in translation who is at the bedside. The patient is an 81-year-old gentleman, who presents to the ER today with a complaint of painless left upper extremity fistula bleeding. His daughter reports that she believes he got hemodialysis yesterday. The patient denies additional injuries and complaints. Consistency: now resolved - Related Data Home Medications Medication Instructions Recorded Confirmed Last Taken Atorvastatin Calcium [Lipitor] 80 mg PO QDAY 10/28/20 04/03/21 Unknown Pantoprazole [Protonix TAB] 40 mg PO QDAY 04/03/21 04/03/21 Unknown carvediloL [Coreg] 25 mg PO BID 04/03/21 04/03/21 Unknown Previous Rx's Medication Instructions Recorded Last Taken Type Aspirin EC [Halfprin EC] 81 mg PO QDAY #30 11/07/20 Unknown Rx Calcium Acetate [Phoslo] 667 mg PO TIDWM #30 capsule 11/07/20 Unknown Rx Furosemide [Lasix TAB] 80 mg PO QDAY #30 tablet 11/07/20 Unknown Rx ISOSORBIDE MONOnitrate [Imdur ER] 30 mg PO QDAY #30 tablet 11/07/20 Unknown Rx amLODIPine 10 mg PO QDAY #30 tablet 11/07/20 Unknown Rx Allergies Allergy/AdvReac Type Severity Reaction Status Date / Time No Known Allergies Allergy Verified 04/03/21 11:07 ED Review of Systems ROS: Stated complaint: POSSIBLE FISTULA INFECTION Other details as noted in HPI Constitutional: denies: fever Respiratory: denies: cough Cardiovascular: denies: chest pain Gastrointestinal: denies: abdominal pain Musculoskeletal: as per HPI Hematological/Lymphatic: denies: easy bleeding ED Past Medical Hx - Past Medical History Hx Hypertension: Yes Hx Diabetes: Yes Additional medical history: Aortic dissection - Surgical History Additional Surgical History: Aortic dissection repair - Social History Smoking Status: Never Smoker - Medications Home Medications: Home Medications Medication Instructions Recorded Confirmed Last Taken Type Atorvastatin Calcium [Lipitor] 80 mg PO QDAY 10/28/20 04/03/21 Unknown History Aspirin EC [Halfprin EC] 81 mg PO QDAY #30 11/07/20 04/03/21 Unknown Rx Calcium Acetate [Phoslo] 667 mg PO TIDWM #30 capsule 11/07/20 04/03/21 Unknown Rx Furosemide [Lasix TAB] 80 mg PO QDAY #30 tablet 11/07/20 04/03/21 Unknown Rx ISOSORBIDE MONOnitrate [Imdur ER] 30 mg PO QDAY #30 tablet 11/07/20 04/03/21 Unknown Rx amLODIPine 10 mg PO QDAY #30 tablet 11/07/20 04/03/21 Unknown Rx Pantoprazole [Protonix TAB] 40 mg PO QDAY 04/03/21 04/03/21 Unknown History carvediloL [Coreg] 25 mg PO BID 04/03/21 04/03/21 Unknown History ED Physical Exam - General Limitations: Language Barrier General appearance: alert, in no apparent distress - Head Head exam: Present: atraumatic, normocephalic - Eye Eye exam: Present: normal appearance, EOMI. Absent: nystagmus - ENT ENT exam: Present: normal exam, normal orophraynx, mucous membranes moist, normal external ear exam - Neck Neck exam: Present: normal inspection, full ROM. Absent: tenderness, meningismus - Respiratory Respiratory exam: Present: normal lung sounds bilaterally. Absent: respiratory distress, wheezes, rales, rhonchi, stridor, decreased breath sounds - Cardiovascular Cardiovascular Exam: Present: regular rate, normal rhythm, normal heart sounds. Absent: bradycardia, tachycardia, irregular rhythm, systolic murmur, diastolic murmur, rubs, gallop - GI/Abdominal GI/Abdominal exam: Present: soft. Absent: distended, tenderness, guarding, rebound, rigid, pulsatile mass - Rectal Rectal exam: Present: deferred - Extremities Exam Extremities exam: Present: full ROM, other (1+ radial pulse in the right upper extremity. 2+ femoral pulses noted in the bilateral lower extremities. There is no long bony tenderness. The muscular compartments are soft. The pelvis is stable.). Absent: normal inspection (There is a left upper extremity fistula, with no active bleeding at this time. The left distal upper extremity is swollen and ecchymotic. 1+ radial pulse appreciated. 3-second capillary refill appreciated in the upper extremities), calf tenderness - Back Exam Back exam: Present: normal inspection. Absent: tenderness, CVA tenderness (R), CVA tenderness (L), paraspinal tenderness, vertebral tenderness - Neurological Exam Neurological exam: Present: alert, normal gait, other (There is no facial droop. The tongue is midline. EOMI. 5 out of 5 strength in 4 extremities) - Psychiatric Psychiatric exam: Present: flat affect - Skin Skin exam: Present: warm, dry, intact, normal color, ecchymosis (There is a left upper extremity ecchymosis). Absent: rash ED Course Vital Signs 06/23/21 06/23/21 06/23/21 13:29 15:04 16:20 Temperature 97.5 F L 97.5 F L Pulse Rate 87 69 Respiratory 16 16 Rate Blood Pressure 122/67 Blood Pressure 107/65 [Left] O2 Sat by Pulse 100 96 Oximetry - Reevaluation(s) Reevaluation #1: 06/23/21 15:25 Differential diagnosis, including but not limited to: Arterial insufficiency, arterial stenosis, postprocedural ecchymosis and swelling, AV fistula in place, end-stage renal disease Assessment and plan: 81-year-old gentleman, who is afebrile, with reassuring vital signs, without evidence of actively bleeding upper extremity fistula, presenting with essentially of painless left upper extremity swelling from the distal forearm, with difficult to appreciate pulses in the radial distribution, without evidence of redness, pus or streaking. Upper extremity arterial study shows no evidence of arterial insufficiency. Upper extremity hemodialysis access study s is reviewed and appreciated he reportedly had a procedure performed with Yodo1 at the end of May, but these medical records are not available for my review, and the daughter does not know specifically what he had. She does think that he may have had a left-sided vascular access catheter placed in his left hemithorax. This catheter does not have redness, pus or streaking and does not appear to be acutely infected and it is nontender. Laboratory studies show chronic abnormalities, but no emergent findings are noted on laboratory studies that would require hemodialysis. Patient moving his upper extremity without difficulty, and endorses appropriate sensation to light touch. I redressed the patient's left upper extremity, and did not appreciate any bleeding or any pulsatility. We will discuss with vascular surgeon as a courtesy, but I do not anticipate the need to ask, or to obtain advanced imaging 06/23/21 15:35 Discussed the patient's history, physical, laboratory studies and imaging studies with patient's primary manufacturing industrial engineer, Dr Guallpa, and Dr Sandoval, vascular surgeon on-call for our hospital/emergency department. Dr. Sandoval has personally reviewed this patient's imaging studies, and his interpretations and recommendations are reviewed and appreciated. Specifically advises that the patient may use his vascular access catheter in the left hemithorax for the purposes of hemodialysis, and he will need to follow-up with his outpatient primary vascular surgeon for further outpatient evaluation for left upper extremity fistula. The patient's aforementioned manufacturing industrial engineer will coordinate this recommendation, and make certain that the patient receives hemodialysis only through his left vascular access catheter 06/23/21 16:02 ED Medical Decision Making - Lab Data Result diagrams: 06/23/21 13:34 06/23/21 13:34 Vital Signs 06/23/21 13:29 Pulse Rate 87 Respiratory 16 Rate Blood Pressure 107/65 [Left] O2 Sat by Pulse 100 Oximetry Lab Results 06/23/21 06/23/21 06/23/21 Range/Units 13:34 13:34 13:34 WBC 5.6 (4.5-11.0) K/mm3 RBC 4.50 (3.65-5.03) M/mm3 Hgb 9.8 L (11.8-15.2) gm/dl Hct 29.5 L (35.5-45.6) % MCV 66 L (84-94) fl MCH 22 L (28-32) pg MCHC 33 (32-34) % RDW 19.0 H (13.2-15.2) % Plt Count 152 (140-440) K/mm3 Lymph % (Auto) 18.7 (13.4-35.0) % Cowley % (Auto) 9.9 H (0.0-7.3) % Eos % (Auto) 9.1 H (0.0-4.3) % Baso % (Auto) 1.1 (0.0-1.8) % Lymph # (Auto) 1.1 L (1.2-5.4) K/mm3 Cowley # (Auto) 0.6 (0.0-0.8) K/mm3 Eos # (Auto) 0.5 H (0.0-0.4) K/mm3 Baso # (Auto) 0.1 (0.0-0.1) K/mm3 Seg Neutrophils % 61.2 (40.0-70.0) % Seg Neutrophils # 3.5 (1.8-7.7) K/mm3 PT 14.2 (12.2-14.9) Sec. INR 0.99 (0.87-1.13) APTT 39.8 H (24.2-36.6) Sec. Sodium 134 L (137-145) mmol/L Potassium 3.6 (3.6-5.0) mmol/L Chloride 92.6 L (98-107) mmol/L Carbon Dioxide 25 (22-30) mmol/L Anion Gap 20 mmol/L BUN 24 H (9-20) mg/dL Creatinine 4.2 H (0.8-1.3) mg/dL Estimated GFR 14 ml/min BUN/Creatinine Ratio 6 % Glucose 200 H (75-100) mg/dL Calcium 8.7 (8.4-10.2) mg/dL Total Creatine Kinase 94 (55-170) units/L - Radiology Data Radiology results: pending, report reviewed, image reviewed DUPLEX DOPPLER UPPER EXTREMITY ARTERIAL, LEFT INDICATION / CLINICAL INFORMATION: left arm swelling dec pulses. TECHNIQUE: Arterial duplex examinati on of the left upper extremity performed using B-mode, color flow and spectral Doppler assessment. FINDINGS: LEFT: Axillary: PSV 111 cm/sec. Triphasic waveform. Brachial: PSV 102 cm/sec. Triphasic waveform. Radial: PSV 48 cm/sec. Triphasic waveform. Ulnar: PSV 29 cm/sec. Triphasic waveform. IMPRESSION: 1. No significant upper extremity peripheral artery disease. Doppler Waveform: - Triphasic is normal. - Biphasic is abnormal if clear transition from triphasic signal along vascular tree. - Monophasic is abnormal. Signer Name: Issa Wang MD Signed: 06/23/2021 2:09 PM Workstation Name: [id number] VL hemodialysis access INDICATION: left arm swelling bleeding. TECHNIQUE: AV fistula left arm evaluation COMPARISON: None available. FINDINGS: The left brachial cephalic AV fistula is patent without evidence of stenosis. The inflow brachial artery is patent. There is scattered subcutaneous edema throughout the left upper extremity. Inflow velocity measures 122 cm/s. IMPRESSION: 1. Left brachiocephalic AV fistula appears intact with appropriate flow. Signer Name: Issa Wang MD Signed: 06/23/2021 2:08 PM Workstation Name: [id number] Critical care attestation.: If time is entered above; I have spent that time in minutes in the direct care of this critically ill patient, excluding procedure time. ED Disposition Clinical Impression: ESRD (end stage renal disease), Left arm swelling, Complication of art eriovenous dialysis fistula Disposition: HOME / SELF CARE / HOMELESS Is pt being admited?: No Does the pt Need Aspirin: No Condition: Good Additional Instructions: Patient may use the left-sided chest of vascular access catheter for the purposes of hemodialysis. The patient should not use the left upper extremity fistula for the purposes of hemodialysis. We recommend that the patient follow-up with his outpatient vascular surgeon within the next 3 to 5 days for repeat checkup and evaluation, and evaluation for possible outpatient fistulogram in the left upper extremity. Please have your vascular surgeon contact the medical records department to obtain copies of laboratory studies and radiology studies. Please follow-up on Friday as scheduled, and make certain to inform hemodialysis team that patient is only to receive hemodialysis through his left sided chest vascular access catheter, but not in his left upper extremity. Keep the left upper extremity covered otherwise. Please return to the emergency room right away with new pain, worsened pain, mamta ration of pain, projectile vomiting, change in mental status, confusion, inability tolerate liquid feeds, new, worsened or different symptoms not present on the initial emergency room evaluation [facility]: [facility] [Provider Group] - 3-5 Days SAMMIE GUALLPA MD [Staff Physician] - 3-5 Days
[2021-06-23 14:02] LABS: Basophils % (Auto) 1.1 % (0.0-1.8); Eosinophils % (Auto) 9.1 % (0.0-4.3); Hematocrit 29.5 % (35.5-45.6); Hemoglobin 9.8 gm/dl (11.8-15.2); Lymphocytes % (Auto) 18.7 % (13.4-35.0); Mean Corpuscular HGB Conc 33 % (32-34); Mean Corpuscular Volume 66 fl (84-94); Monocytes % (Auto) 9.9 % (0.0-7.3); Platelet Count 152 K/mm3 (140-440)
[2021-06-23 14:03] LABS: Basophils # (Auto) 0.1 K/mm3 (0.0-0.1); Eosinophils # (Auto) 0.5 K/mm3 (0.0-0.4); Lymphocytes # (Auto) 1.1 K/mm3 (1.2-5.4); Monocytes # (Auto) 0.6 K/mm3 (0.0-0.8)
[2021-06-23 14:07] LABS: INR 0.99 (0.87-1.13)
[2021-06-23 14:08] LABS: Partial Thromboplastin Time 39.8 Sec. (24.2-36.6)
[2021-06-23 14:20] LABS: Calcium 8.7 mg/dL (8.4-10.2)
--- NOTE | 2021-06-23 15:12 | Vascular Lab Report ---
hemodialysis access INDICATION: left arm swelling bleeding. TECHNIQUE: AV fistula left arm evaluation COMPARISON: None available. FINDINGS: The left brachial cephalic AV fistula is patent without evidence of stenosis. The inflow brachial art deborah is patent. There is scattered subcutaneous edema throughout the left upper extremity. Inflow velocity measures 122 cm/s. IMPRESSION: 1. Left brachiocephalic AV fistula appears intact with appropriate flow. Signer Name: Issa Wang MD Signed: 06/23/2021 3:08 PM Workstation Name: [id number]
--- NOTE | 2021-06-23 15:13 | Vascular Lab Report ---
DUPLEX DOPPLER UPPER EXTREMITY ARTERIAL, LEFT INDICATION / CLINICAL INFORMATION: left arm swelling dec pulses. TECHNIQUE: Arterial duplex examination of the left upper extremity performed using B-mode, color flow and spectr al Doppler assessment. FINDINGS: LEFT: Axillary: PSV 111 cm/sec. Triphasic waveform. Brachial: PSV 102 cm/sec. Triphasic waveform. Radial: PSV 48 cm/sec. Triphasic waveform. Ulnar: PSV 29 cm/sec. Triphasic waveform. IMPRESSION: 1. No significant upper extremity peripheral artery disease. Doppler Waveform: - Triphasic is normal. - Biphasic is abnormal if clear transition from triphasic signal along vascular tree. - Monophasic is abnormal. Signer Name: Issa Wang MD Signed: 06/23/2021 3:09 PM Workstation Name: [id number]
--- NOTE | 2021-06-23 15:33 | Event Note ---
Date: 06/23/21 Contacted about this patient regarding AV fistula malfunction. Arterial ultrasound demonstrates appropriate monophasic waveforms from the left subclavian artery to the left brachial artery and multiphasic waveforms in the radial and ulnar artery. The monophasic waveforms are compatible with a AV fistula. Hemodialysis ultrasound demonstrates severely decreased flow rates compatible with failing AV fistula. Patient requires outpatient fistulogram, angioplasty, possible stenting. The patient has a PermCath which he can use in the interim until he is seen by his usual vascular physicians at [facility] [employer].
[2021-06-23 16:23] VITALS: BP 122/67
== END 2021-06-23 16:22 | disposition home or self-care (01) ==
LOC: ED 12:05
DX: T82.838A Hemorrhage due to vascular prosthetic devices, implants and grafts, initial encounter (principal); M79.89 Other specified soft tissue disorders; I12.0 Hypertensive chronic kidney disease with stage 5 chronic kidney disease or end stage renal disease; E11.22 Type 2 diabetes mellitus with diabetic chronic kidney disease; N18.6 End stage renal disease; Z99.2 Dependence on renal dialysis; Y82.8 Other medical devices associated with adverse incidents; Y92.89 Other specified places as the place of occurrence of the external cause
CPT/HCPCS: 36415; 80048; 82550; 85025; 85610; 85730; 93990; 99284

== ENCOUNTER 2021-10-21 13:46 | Emergency (ER) | payer MEDICARE ==
[2021-10-21 15:42] VITALS: BP 130/72
[2021-10-21 16:28] LABS: Hematocrit 26.2 % (35.5-45.6); Hemoglobin 8.4 gm/dl (11.8-15.2); Red Blood Count 3.91 M/mm3 (3.65-5.03)
[2021-10-21 16:29] LABS: Mean Corpuscular HGB Conc 32 % (32-34); Mean Corpuscular Volume 67 fl (84-94); Platelet Count 128 K/mm3 (140-440); Red Cell Distribution Width 18.7 % (13.2-15.2)
[2021-10-21 16:37] LABS: Calcium 9.3 mg/dL (8.4-10.2)
[2021-10-21 17:00] LABS: Basophils % (Manual) 0 % (0.0-1.8); Total Cells Counted 100
[2021-10-21 17:01] LABS: Anisocytosis 1+; Hypochromasia 2+; Ovalocytes Few; Platelet Estimate Consistent w Auto; Poikilocytosis 1+
--- NOTE | 2021-10-21 19:39 | Emergency Department Report ---
ED General Adult HPI - General Chief complaint: Extremity Injury, Upper Stated complaint: ARM SWOLLEN/DISCOLORED Time Seen by Provider: 10/21/21 19:29 Source: patient, family Mode of arrival: Ambulatory Limitations: Language Barrier - History of Present Illness Initial comments: 81-year-old male patient presents for swelling, pain, and bruising of the left upper arm. Patient states his symptoms began after having dialysis on Friday. He states he also got dialysis on Friday without any difficulties. Patient follows with Dr. Yun, nephrology. No difficulty moving the arm. -: Sudden Severity scale (0 -10): 8 - Related Data Home Medications Medication Instructions Recorded Confirmed Last Taken Atorvastatin Calcium [Lipitor] 80 mg PO QDAY 10/28/20 04/03/21 Unknown Pantoprazole [Protonix TAB] 40 mg PO QDAY 04/03/21 04/03/21 Unknown carvediloL [Coreg] 25 mg PO BID 04/03/21 04/03/21 Unknown Previous Rx's Medication Instructions Recorded Last Taken Type Aspirin EC [Halfprin EC] 81 mg PO QDAY #30 11/07/20 Unknown Rx Calcium Acetate [Phoslo] 667 mg PO TIDWM #30 capsule 11/07/20 Unknown Rx Furosemide [Lasix TAB] 80 mg PO QDAY #30 tablet 11/07/20 Unknown Rx ISOSORBIDE MONOnitrate [Imdur ER] 30 mg PO QDAY #30 tablet 11/07/20 Unknown Rx amLODIPine 10 mg PO QDAY #30 tablet 11/07/20 Unknown Rx traMADoL [Ultram 50 MG tab] 50 mg PO Q6HR PRN #12 tablet 10/21/21 Unknown Rx Allergies Allergy/AdvReac Type Severity Reaction Status Date / Time No Known Allergies Allergy Verified 04/03/21 11:07 ED Review of Systems ROS: Stated complaint: ARM SWOLLEN/DISCOLORED Other details as noted in HPI Constitutional: denies: chills, fever, malaise Musculoskeletal: joint swelling Skin: change in color Neurological: denies: paresthesias ED Past Medical Hx - Past Medical History Previous Medical History?: Yes Hx Hypertension: Yes Hx Diabetes: Yes Additional medical history: Aortic dissection - Surgical History Past Surgical History?: Yes Additional Surgical History: Aortic dissection repair - Social History Smoking Status: Never Smoker - Medications Home Medications: Home Medications Medication Instructions Recorded Confirmed Last Taken Type Atorvastatin Calcium [Lipitor] 80 mg PO QDAY 10/28/20 04/03/21 Unknown History Aspirin EC [Halfprin EC] 81 mg PO QDAY #30 11/07/20 04/03/21 Unknown Rx Calcium Acetate [Phoslo] 667 mg PO TIDWM #30 capsule 11/07/20 04/03/21 Unknown Rx Furosemide [Lasix TAB] 80 mg PO QDAY #30 tablet 11/07/20 04/03/21 Unknown Rx ISOSORBIDE MONOnitrate [Imdur ER] 30 mg PO QDAY #30 tablet 11/07/20 04/03/21 Unknown Rx amLODIPine 10 mg PO QDAY #30 tablet 11/07/20 04/03/21 Unknown Rx Pantoprazole [Protonix TAB] 40 mg PO QDAY 04/03/21 04/03/21 Unknown History carvediloL [Coreg] 25 mg PO BID 04/03/21 04/03/21 Unknown History traMADoL [Ultram 50 MG tab] 50 mg PO Q6HR PRN #12 tablet 10/21/21 Unknown Rx ED Physical Exam - General Limitations: Language Barrier General appearance: alert, in no apparent distress - Head Head exam: Present: atraumatic, normocephalic - Eye Eye exam: Present: normal appearance. Absent: scleral icterus - Extremities Exam Extremities exam: Present: other (Moderate amount of swelling noted to left upper arm with significant ecchymosis noted circumferentially; thrill is palpated; normal ulnar and radial pulse; patient has full range of motion of the arm; no erythema or cellulitic changes noted) - Neurological Exam Neurological exam: Present: alert, oriented X3 - Psychiatric Psychiatric exam: Present: normal affect, normal mood - Skin Skin exam: Present: warm, dry, intact. Absent: rash ED Course Vital Signs 10/21/21 15:37 Temperature 97.8 F Pulse Rate 76 Respiratory 20 Rate Blood Pressure 130/72 [Right] O2 Sat by Pulse 98 Oximetry ED Medical Decision Making - Lab Data Result diagrams: 10/21/21 16:06 10/21/21 Unknown - Radiology Data Radiology results: report reviewed CT angio upper extremity LT INDICATION / CLINICAL INFORMATION: swelling and buising around fistula. Swelling and bruising started after dialysis on 627 TECHNIQUE: Axial CT images were obtained after injection of 100 cc Omni 350 IV contrast using CTA protocol. 3 plane MIP / 3D reconstructions were produced. All CT scans at this location are performed using CT dose reduction for ALARA by means of automated exposure control. COMPARISON: Prior CT chest 11/19/2018 FINDINGS: CTA of the left upper extremity including the upper chest was obtained. Of note, there is a type B aortic dissection present. This has been noted on prior CT chest exams and appears grossly unchanged. The descending thoracic aorta is aneurysmal with a maximum transverse diameter 4.8 cm. Again this is unchanged from chest CT from 2019. Evaluation of the left upper extremity reveals patent arteries throughout the upper arm and forearm. The AV fistula is identified. There is no convincing evidence for active extravasation from the AV fistula. However, there is extensive fullness and heterogeneity throughout the musculature of the upper arm- primarily the biceps muscle- consistent with large intramuscular hematoma. No significant osseous abnormality noted. IMPRESSION: 1. No evidence of active extravasation within the left arm. The AV fistula appears intact as do the arteries of the left upper extremity. 2. Prominently enlarged biceps muscle consistent with large intramuscular hematoma. The source of the hematoma is not identified on this exam. 3. 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 Thoracic aortic aneurysm appears unchanged compared with older CT from 2019. - Medical Decision Making 81-year-old male patient presents for swelling, pain, and bruising of the left upper arm. Patient states his symptoms began after having dialysis on Friday. He states he also got dialysis on Friday without any difficulties. Patient follows with Dr. Yun, nephrology. No difficulty moving the arm. Ultrasound is not available today. No significant abnormalities noted on CBC or BMP. Discussed patient with Dr. Graham, vascular surgery, who recommends CTA with contrast of the arm. Dr. Graham states immediate dialysis is not necessary. CT angio does not show any extravasation and shows large biceps intramuscular hematoma. Discussed findings with Dr. Graham-states he will get patient set up for an office visit for Friday. He again expresses that no immediate dialysis is necessary after IV contrast. Patient well-appearing and stable for discharge home. Advised patient to perform warm compresses to the arm. Strict return precautions discussed in detail with patient and patient's sister who verbalized understanding Critical care attestation.: If time is entered above; I have spent that time in minutes in the direct care of this critically ill patient, excluding procedure time. ED Disposition Clinical Impression: Hematoma Disposition: HOME / SELF CARE / HOMELESS Is pt being admited?: No Condition: Stable Prescriptions: traMADoL [Ultram 50 MG tab] 50 mg PO Q6HR PRN #12 tablet PRN Reason: Pain Referrals: THEO GRAHAM MD [Staff Physician] - 10/23/21
--- NOTE | 2021-10-21 21:21 | Cat Scan Report ---
CT angio upper extremity LT INDICATION / CLINICAL INFORMATION: swelling and buising around fistula. Swelling and bruising started after dialysis on 627 TECHNIQUE: Axial CT images were obtained after injection of 100 cc Omni 350 IV contrast using CTA pro tocol. 3 plane MIP / 3D reconstructions were produced. All CT scans at this location are performed us ing CT dose reduction for JAYE by means of automated exposure control. COMPARISON: Prior CT chest 11/19/2018 FINDINGS: CTA of the left upper extremity including the upper chest was obtained. Of note, there is a type B aortic dissection present. This has been noted on prior CT chest exams and appears grossly unchanged. The descending thoracic aorta is aneurysmal with a maximum transverse chloe meter 4.8 cm. Again this is unchanged from chest CT from 2019. Evaluation of the left upper extremity reveals patent arteries throughout the upper arm and forearm. The AV fistula is identified. There is no convincing evidence for active extravasation from the AV fi stula. However, there is extensive fullness and heterogeneity throughout the musculature of the upper arm- primarily the biceps muscle- consistent with large intramuscular hematoma. No significant osseous abnormality noted. IMPRESSION: 1. No evidence of active extravasation within the left arm. The AV fistula appears intact as do the a rteries of the left upper extremity. 2. Prominently enlarged biceps muscle consistent with large intramuscular hematoma. The source of the hematoma is not identified on this exam. 3. 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 Thoracic aortic aneurysm appears unchanged compar ed with older CT from 2019. Signer Name: Karena Yañez MD Signed: 10/21/2021 9:17 PM Workstation Name: [id number]
== END 2021-10-22 00:36 | disposition home or self-care (01) ==
LOC: ED 13:46
DX: S40.022A Contusion of left upper arm, initial encounter (principal); I10 Essential (primary) hypertension; E11.9 Type 2 diabetes mellitus without complications; Z79.899 Other long term (current) drug therapy; X58.XXXA Exposure to other specified factors, initial encounter; Y93.89 Activity, other specified; Y92.89 Other specified places as the place of occurrence of the external cause; Y99.8 Other external cause status
CPT/HCPCS: 36415; 73206; 80048; 85007; 85025; 99284; Q9967